=== PATIENT | male | born 1940 | race Caucasian/White ===

== ENCOUNTER 2021-10-03 13:08 | Inpatient (IN) | payer MEDICARE, SELFPAY ==
--- NOTE | ~2021-10-03 | XR_ITS ---
EXAMINATION: XR CHEST CLINICAL INFORMATION: COPD exacerbation COMPARISON: Previous chest x-ray most recent 01/04/2022 TECHNIQUE: Frontal view of the chest was obtained. FINDINGS: The cardiac and mediastinal contours are stable. There is biapical pleural parenchymal scarring. There is question of atelectasis or small infiltrate at the right lung base. The lungs are otherwise clear. There is no pleural effusion or pneumothorax. There are degenerative changes of the spine. XR/XR chest 1V IMPRESSION: Well-inflated lungs. Question atelectasis or small infiltrate at the right lung base.
--- NOTE | ~2021-10-03 | XR_ITS ---
EXAMINATION: XR CHEST CLINICAL INFORMATION: Altered mental status. COMPARISON: None TECHNIQUE: Frontal view of the chest was obtained. FINDINGS: The lungs show generalized hyperinflation and coarsened interstitial markings bilaterally. The heart and mediastinal structures are unremarkable. XR/XR chest 1V IMPRESSION: Pulmonary findings are nonspecific, but suggest possible COPD with chronic changes. Focal consolidation is not seen. Given there are no previous studies bowel for comparison, if symptoms persist or worsen, short-term repeat radiographic follow-up is recommended as clinically indicated.
--- NOTE | ~2021-10-03 | CT_ITS ---
EXAMINATION: CT HEAD WITHOUT CONTRAST CLINICAL INFORMATION: Acute mental status change COMPARISON: None TECHNIQUE: Contiguous axial imaging was performed from the skull base to vertex without intravenous administration of contrast. This CT examination was performed using dose optimization techniques as appropriate, variously including the following: *Automated exposure control *Adjustment of mA and/or kV according to patient size (this includes techniques or standardized protocols for targeted exams where dose is matched to indication/reason for exam; i.e. extremities or head) *Use of iterative reconstruction technique DLP: 640 mGy-cm FINDINGS: There is no evidence of an extra-axial collection. There is no evidence of intra-axial or extra-axial hemorrhage. The ventricles and extra-axial CSF spaces are prominent suggestive of mild generalized atrophy. There is mild nonspecific periventricular white matter disease. No mass, mass effect or infarct is seen. There are inflammatory changes seen in the paranasal sinuses. Mastoid air cells and middle ears are clear. No skull fracture or bone lesion is seen. CT/CT head/brain wo con IMPRESSION: No acute findings. Mild generalized atrophy and nonspecific periventricular white matter disease. Laboratory changes in the sinuses.
--- NOTE | ~2021-10-03 | XR_ITS ---
EXAMINATION: XR CHEST CLINICAL INFORMATION: Covid and fever. COMPARISON: None TECHNIQUE: Frontal view of the chest was obtained. FINDINGS: The lungs are well-expanded with patchy opacity seen in both upper lobes likely developing infiltrates, new since 10/03/2021. There is underlying hyperinflation and mild scarring in the lung bases. XR/XR chest 1V IMPRESSION: New patchy opacities in both upper lobes likely infiltrates. There are bilateral lower lobe patchy opacities unchanged from previous exam likely chronic scarring or atelectasis.
--- NOTE | ~2021-10-03 | CT_ITS ---
EXAMINATION: CT ANGIOGRAM OF THE CHEST WITH AND WITHOUT CONTRAST (CT PULMONARY ANGIOGRAM FOR PE) CLINICAL INFORMATION: Reason for Exam tachycardia, elevated ddimer COMPARISON: Previous chest x-ray from yesterday TECHNIQUE: Prior to contrast administration, noncontrast localization images were obtained. Subsequently, multidetector volumetric imaging was performed from the thoracic inlet to below the diaphragms following the administration of 70 mL Omnipaque 350 intravenous contrast. No contrast reaction reported Sagittal, coronal, and MIP oblique sagittal reformatted images were obtained on the CT workstation, uploaded to PACS, and reviewed. This CT examination was performed using dose optimization techniques as appropriate, variously including the following: *Automated exposure control *Adjustment of mA and/or kV according to patient size (this includes techniques or standardized protocols for targeted exams where dose is matched to indication/reason for exam; i.e. extremities or head) *Use of iterative reconstruction technique Total exam dose-length product 240 mGy-cm FINDINGS: QUALITY OF STUDY/CONTRAST BOLUS: Satisfactory. PULMONARY ARTERIES: No central or segmental pulmonary emboli. THORACIC AORTA: No aneurysm or dissection. There is evidence of atherosclerotic disease and plaque in the thoracic aorta. LUNG: There is evidence of emphysema. There is biapical pleural parenchymal scarring. There is an irregularly-shaped nodular density in the left upper lobe measuring 9 x 12 mm axial image 10 series 5. There is a 6 mm posterior segment right upper lobe nodule axial image 22 series 6. There is evidence of mild airways disease with increased peribronchial attenuation and small peribronchial nodules in the left upper lobe and lingula. There is bilateral lower lobe airways disease/bronchopneumonia with bronchial wall thickening, bronchial soft tissue opacification/mucus plugging and peribronchial nodules and opacities, left greater than right. There is mild airways disease and parenchymal opacities in the right middle lobe probably representing bronchopneumonia as well. PLEURA: No pleural effusion or pneumothorax. MEDIASTINUM: Normal heart size. No pericardial effusion. No hilar or mediastinal lymphadenopathy. No evidence of septal bowing or right heart strain. CHEST WALL/AXILLA: No axillary or internal mammary lymphadenopathy. OSSEOUS STRUCTURES: No acute or suspicious osseous abnormality. UPPER ABDOMEN: Unremarkable. No reflux of contrast into the hepatic veins to suggest elevated right heart pressures. CT/CT angio chest PE protocol IMPRESSION: No evidence of pulmonary embolism. Airways disease and bronchopneumonia, greatest in the lower lobes. Emphysema. Chest CT follow-up following treatment in several months recommended. VTE: negative
--- NOTE | ~2021-10-03 | XR_ITS ---
EXAMINATION: XR CHEST CLINICAL INFORMATION: Shortness of breath. COMPARISON: Previous chest x-ray most recent September 2021. TECHNIQUE: Frontal view of the chest was obtained. FINDINGS: The cardiac and mediastinal contours are stable. The lungs are well inflated. There is biapical pleural and parenchymal scarring. There are increased markings in the right upper lobe and right perihilar region. This may represent a small infiltrate. There are symmetric nodular densities at both lung bases probably representing nipple shadows. There is no pleural effusion or pneumothorax. There is a recent appearing left posterior 7th rib fracture. There are old left posterior 9th and 10th rib fractures. There is no pleural effusion or pneumothorax. XR/XR chest 1V IMPRESSION: Well-inflated lungs. Question right upper lobe and perihilar infiltrate. Recent appearing left posterior 7th rib fracture.
[2021-10-03 13:10] VITALS: BP 104/68; BP 120/58; PULSE 101; PULSE 96; RESP 16; TEMP 36.9; O2SAT 96; O2SAT 98; BMI 20.9
--- NOTE | 2021-10-03 13:11 | ED_ITS ---
HPI - Altered Mental Status General Chief Complaint: Altered Mental Status Stated Complaint: ams Time Seen by Provider: 10/03/21 13:11 Source: patient and EMS Mode of arrival: EMS Limitations: altered mental status History of Present Illness complaint: other Onset (ago): week(s) (1? has not been seen at his frequent bar by friends) Timing confirmed by: other Consistency of symptoms: unknown Context: alcohol abuse (goes to the bar regularly) Associated symptoms: denies other symptoms Related Data Home Medications Medication Instructions Recorded Confirmed No Known Home Meds 10/03/21 10/03/21 Allergies Allergy/AdvReac Type Severity Reaction Status Date / Time No Known Allergies Allergy Verified 10/03/21 13:15 Review of Systems Review of Systems: ROS unable to be obtained due to altered mental status PMFSH Past Medical History Medical History No known health problems Social History Social History (Updated 10/03/21 @ 13:38 by Anastasiia Lopez DO) Alcohol intake: unknown Patient Tobacco Use Status: Tobacco use Unknown Use of substances other than those prescribed or required for medical reasons: No Advance Directives: No Advance Directives Information Provided: No Physical Exam Vital Signs: Vital Signs: Last Vital Signs Temp 97.7 F 10/03/21 15:47 Pulse 89 10/03/21 15:47 Resp 18 10/03/21 15:47 BP 100/49 L 10/03/21 15:47 Pulse Ox 98 10/03/21 15:47 BMI result Body Mass Index 20.9 Appearance: Alert. Oriented X1. No acute distress. Frail and cachectic Eyes: Pupils equal, round and reactive to light. ENT: Pharynx normal. Neck: Normal inspection. Neck supple. CVS: Normal heart rate and rhythm. Pulses normal. Respiratory: No respiratory distress. Breath sounds normal. Abdomen: Soft and non-tender. Skin: Skin warm and dry. Normal skin color. Normal skin turgor. Extremities: No lower extremity edema. No calf ttp Neuro: Oriented X 1. No motor deficit. No sensory deficit. Course Course Course Narrative: emergency contact listed - number no longer in service MDM - Altered Mental Status MDM Narrative Medical decision making narrative: 81 yo male with no known history here with c/o confusion he knows who and where he is but not time, he keeps asking questions such as when asked how are you he states well how are you? He is thin and frail and has no signs of trauma. He denies any issues. Will obtain labs, tox workup, CT head for ICH, IV thiamine. Dispo per results and workup Lab Data Result diagrams: 10/03/21 14:01 10/03/21 14:01 Labs: Lab Results 10/03/21 10/03/21 10/03/21 Range/Units 14: 14: 14:01 WBC 23.2 H (4.8-10.8) X10*3/uL RBC 4.17 L (4.60-5.80) X10*6/uL Hgb 12.3 L (14.0-18.0) g/dl Hct 37.5 L (42.0-52.0) % MCV 89.9 (80.0-98.0) fL MCH 29.5 (27.0-33.0) pg MCHC 32.8 (31.0-36.0) g/dl RDW 13.3 (11.0-16.0) % Plt Count 504 H (160-400) X10*3/uL MPV 9.4 (9.4-12.4) fL Immature Gran % (Auto) 0.7 H (0.0-0.4) % Neut % (Auto) 91.0 H (45-73) % Lymph % (Auto) 2.8 L (20-40) % [place] % (Auto) 5.4 (2-11) % Eos % (Auto) 0.0 (0-4) % Baso % (Auto) 0.1 (0-2) % Lymph # (Auto) 0.6 L (1.2-4.9) X10*3/uL [place] # (Auto) 1.3 H (0.1-1.2) X10*3/uL Eos # (Auto) 0.0 (0.0-0.4) X10*3/uL Baso # (Auto) 0.0 (0.0-0.2) X10*3/uL Abs Immat Gran (auto) 0.17 H (0.00-0.03) X10*3/uL Absolute Neuts (auto) 21.1 H (2.0-8.3) x10*3/uL Absolute Nucleated RBC 0.000 (0.0-0.012) X10*3/uL Nucleated RBC % (auto) 0.0 (0.0-0.2) /100WBC Smear Tech's Comments VERIFIED VBG pH (7.32-7.43) VBG pCO2 mmHg VBG pO2 mmHg VBG HCO3 (22-26) mmol/L VBG O2 Saturation % VBG Base Excess mmol/L Sodium 131 L (135-145) mmol/L Potassium 3.8 (3.3-5.1) mmol/L Chloride 92 L (96-108) mmol/L Carbon Dioxide 23 (22-29) mmol/L Anion Gap 20 (12-20) BUN 44 H (9-16) mg/dL Creatinine 1.57 H (0.5-1.4) mg/dL Estim Creat Clear Calc 31.8 Estimated GFR 43 Random Glucose 85 (60-115) mg/dL Lactic Acid (0.5-2.0) mmol/L Calcium 8.5 (8.4-10.2) mg/dL Magnesium 2.4 (1.6-2.6) mg/dL Total Bilirubin 0.9 (0.0-1.0) mg/dL Direct Bilirubin 0.5 (0.0-0.5) mg/dL AST 40 H (5-37) U/L ALT 20 (0-40) U/L Alkaline Phosphatase 77 (39-117) U/L Ammonia (13-55) umol/L Total Creatine Kinase 96 (38-174) U/L Troponin I High Sens 116.8 H* (<3.5-35.0) ng/L Total Protein 6.4 L (6.5-8.0) g/dL Albumin 2.9 L (3.5-5.0) g/dL Lipase 31 (8-78) U/L TSH 0.86 (0.32-4.0) uIU/mL Urine Color Urine Appearance Urine pH (5.0-8.0) Ur Specific [place] (1.005-1.025) Urine Protein (NEG-TRACE) MG/DL Urine Glucose (UA) (NEG) MG/DL Urine Ketones (NEG) MG/DL Urine Blood (NEG) Urine Nitrite (NEG) Ur Leukocyte Esterase (NEG) Salicylates < 5.0 L (15-30) mg/dL Urine Opiates Screen (Not Detect) Urine Fentanyl Screen (Not Detect) Acetaminophen < 1 (<30) mcg/mL Ur Barbiturates Screen (Not Detect) Ur Phencyclidine Scrn (Not Detect) Ur Amphetamines Screen (Not Detect) U Benzodiazepines Scrn (Not Detect) Urine Cocaine Screen (Not Detect) U Marijuana (THC) Screen (Not Detect) Ethyl Alcohol mg/dL COVID-19 ([facility]NACIO) (Negative) COVID-19 Clin Com 10/03/21 10/03/21 10/03/21 Range/Units 14:05 14:05 14:06 WBC (4.8-10.8) X10*3/uL RBC (4.60-5.80) X10*6/uL Hgb (14.0-18.0) g/dl Hct (42.0-52.0) % MCV (80.0-98.0) fL MCH (27.0-33.0) pg MCHC (31.0-36.0) g/dl RDW (11.0-16.0) % Plt Count (160-400) X10*3/uL MPV (9.4-12.4) fL Immature Gran % (Auto) (0.0-0.4) % Neut % (Auto) (45-73) % Lymph % (Auto) (20-40) % [place] % (Auto) (2-11) % Eos % (Auto) (0-4) % Baso % (Auto) (0-2) % Lymph # (Auto) (1.2-4.9) X10*3/uL [place] # (Auto) (0.1-1.2) X10*3/uL Eos # (Auto) (0.0-0.4) X10*3/uL Baso # (Auto) (0.0-0.2) X10*3/uL Abs Immat Gran (auto) (0.00-0.03) X10*3/uL Absolute Neuts (auto) (2.0-8.3) x10*3/uL Absolute Nucleated RBC (0.0-0.012) X10*3/uL Nucleated RBC % (auto) (0.0-0.2) /100WBC Smear Tech's Comments VBG pH 7.40 (7.32-7.43) VBG pCO2 37 mmHg VBG pO2 30 mmHg VBG HCO3 23 (22-26) mmol/L VBG O2 Saturation 34.0 % VBG Base Excess -0.5 mmol/L Sodium (135-145) mmol/L Potassium (3.3-5.1) mmol/L Chloride (96-108) mmol/L Carbon Dioxide (22-29) mmol/L Anion Gap (12-20) BUN (9-16) mg/dL Creatinine (0.5-1.4) mg/dL Estim Creat Clear Calc Estimated GFR Random Glucose (60-115) mg/dL Lactic Acid 1.4 (0.5-2.0) mmol/L Calcium (8.4-10.2) mg/dL Magnesium (1.6-2.6) mg/dL Total Bilirubin (0.0-1.0) mg/dL Direct Bilirubin (0.0-0.5) mg/dL AST (5-37) U/L ALT (0-40) U/L Alkaline Phosphatase (39-117) U/L Ammonia 28 (13-55) umol/L Total Creatine Kinase (38-174) U/L Troponin I High Sens (<3.5-35.0) ng/L Total Protein (6.5-8.0) g/dL Albumin (3.5-5.0) g/dL Lipase (8-78) U/L TSH (0.32-4.0) uIU/mL Urine Color Urine Appearance Urine pH (5.0-8.0) Ur Specific [place] (1.005-1.025) Urine Protein (NEG-TRACE) MG/DL Urine Glucose (UA) (NEG) MG/DL Urine Ketones (NEG) MG/DL Urine Blood (NEG) Urine Nitrite (NEG) Ur Leukocyte Esterase (NEG) Salicylates (15-30) mg/dL Urine Opiates Screen (Not Detect) Urine Fentanyl Screen (Not Detect) Acetaminophen (<30) mcg/mL Ur Barbiturates Screen (Not Detect) Ur Phencyclidine Scrn (Not Detect) Ur Amphetamines Screen (Not Detect) U Benzodiazepines Scrn (Not Detect) Urine Cocaine Screen (Not Detect) U Marijuana (THC) Screen (Not Detect) Ethyl Alcohol mg/dL COVID-19 ([facility]CIO) (Negative) COVID-19 Clin Com 10/03/21 10/03/21 10/03/21 Range/Units 14:34 15:46 15:46 WBC (4.8-10.8) X10*3/uL RBC (4.60-5.80) X10*6/uL Hgb (14.0-18.0) g/dl Hct (42.0-52.0) % MCV (80.0-98.0) fL MCH (27.0-33.0) pg MCHC (31.0-36.0) g/dl RDW (11.0-16.0) % Plt Count (160-400) X10*3/uL MPV (9.4-12.4) fL Immature Gran % (Auto) (0.0-0.4) % Neut % (Auto) (45-73) % Lymph % (Auto) (20-40) % [place] % (Auto) (2-11) % Eos % (Auto) (0-4) % Baso % (Auto) (0-2) % Lymph # (Auto) (1.2-4.9) X10*3/uL [place] # (Auto) (0.1-1.2) X10*3/uL Eos # (Auto) (0.0-0.4) X10*3/uL Baso # (Auto) (0.0-0.2) X10*3/uL Abs Immat Gran (auto) (0.00-0.03) X10*3/uL Absolute Neuts (auto) (2.0-8.3) x10*3/uL Absolute Nucleated RBC (0.0-0.012) X10*3/uL Nucleated RBC % (auto) (0.0-0.2) /100WBC Smear Tech's Comments VBG pH (7.32-7.43) VBG pCO2 mmHg VBG pO2 mmHg VBG HCO3 (22-26) mmol/L VBG O2 Saturation % VBG Base Excess mmol/L Sodium (135-145) mmol/L Potassium (3.3-5.1) mmol/L Chloride (96-108) mmol/L Carbon Dioxide (22-29) mmol/L Anion Gap (12-20) BUN (9-16) mg/dL Creatinine (0.5-1.4) mg/dL Estim Creat Clear Calc Estimated GFR Random Glucose (60-115) mg/dL Lactic Acid (0.5-2.0) mmol/L Calcium (8.4-10.2) mg/dL Magnesium (1.6-2.6) mg/dL Total Bilirubin (0.0-1.0) mg/dL Direct Bilirubin (0.0-0.5) mg/dL AST (5-37) U/L ALT (0-40) U/L Alkaline Phosphatase (39-117) U/L Ammonia (13-55) umol/L Total Creatine Kinase (38-174) U/L Troponin I High Sens (<3.5-35.0) ng/L Total Protein (6.5-8.0) g/dL Albumin (3.5-5.0) g/dL Lipase (8-78) U/L TSH (0.32-4.0) uIU/mL Urine Color YELLOW Urine Appearance CLEAR Urine pH 5.5 (5.0-8.0) Ur Specific [place] 1.020 (1.005-1.025) Urine Protein NEG (NEG-TRACE) MG/DL Urine Glucose (UA) NEG (NEG) MG/DL Urine Ketones 15 (NEG) MG/DL Urine Blood TRACE (NEG) Urine Nitrite NEG (NEG) Ur Leukocyte Esterase NEG (NEG) Salicylates (15-30) mg/dL Urine Opiates Screen Not Detected (Not Detect) Urine Fentanyl Screen Not Detected (Not Detect) Acetaminophen (<30) mcg/mL Ur Barbiturates Screen Not Detected (Not Detect) Ur Phencyclidine Scrn Not Detected (Not Detect) Ur Amphetamines Screen Not Detected (Not Detect) U Benzodiazepines Scrn Not Detected (Not Detect) Urine Cocaine Screen Not Detected (Not Detect) U Marijuana (THC) Screen Not Detected (Not Detect) Ethyl Alcohol < 10 mg/dL COVID-19 ([facility]) (Negative) COVID-19 Clin Com 10/03/21 Range/Units Unknown WBC (4.8-10.8) X10*3/uL RBC (4.60-5.80) X10*6/uL Hgb (14.0-18.0) g/dl Hct (42.0-52.0) % MCV (80.0-98.0) fL MCH (27.0-33.0) pg MCHC (31.0-36.0) g/dl RDW (11.0-16.0) % Plt Count (160-400) X10*3/uL MPV (9.4-12.4) fL Immature Gran % (Auto) (0.0-0.4) % Neut % (Auto) (45-73) % Lymph % (Auto) (20-40) % [place] % (Auto) (2-11) % Eos % (Auto) (0-4) % Baso % (Auto) (0-2) % Lymph # (Auto) (1.2-4.9) X10*3/uL [place] # (Auto) (0.1-1.2) X10*3/uL Eos # (Auto) (0.0-0.4) X10*3/uL Baso # (Auto) (0.0-0.2) X10*3/uL Abs Immat Gran (auto) (0.00-0.03) X10*3/uL Absolute Neuts (auto) (2.0-8.3) x10*3/uL Absolute Nucleated RBC (0.0-0.012) X10*3/uL Nucleated RBC % (auto) (0.0-0.2) /100WBC Smear Tech's Comments VBG pH (7.32-7.43) VBG pCO2 mmHg VBG pO2 mmHg VBG HCO3 (22-26) mmol/L VBG O2 Saturation % VBG Base Excess mmol/L Sodium (135-145) mmol/L Potassium (3.3-5.1) mmol/L Chloride (96-108) mmol/L Carbon Dioxide (22-29) mmol/L Anion Gap (12-20) BUN (9-16) mg/dL Creatinine (0.5-1.4) mg/dL Estim Creat Clear Calc Estimated GFR Random Glucose (60-115) mg/dL Lactic Acid (0.5-2.0) mmol/L Calcium (8.4-10.2) mg/dL Magnesium (1.6-2.6) mg/dL Total Bilirubin (0.0-1.0) mg/dL Direct Bilirubin (0.0-0.5) mg/dL AST (5-37) U/L ALT (0-40) U/L Alkaline Phosphatase (39-117) U/L Ammonia (13-55) umol/L Total Creatine Kinase (38-174) U/L Troponin I High Sens (<3.5-35.0) ng/L Total Protein (6.5-8.0) g/dL Albumin (3.5-5.0) g/dL Lipase (8-78) U/L TSH (0.32-4.0) uIU/mL Urine Color Urine Appearance Urine pH (5.0-8.0) Ur Specific [place] (1.005-1.025) Urine Protein (NEG-TRACE) MG/DL Urine Glucose (UA) (NEG) MG/DL Urine Ketones (NEG) MG/DL Urine Blood (NEG) Urine Nitrite (NEG) Ur Leukocyte Esterase (NEG) Salicylates (15-30) mg/dL Urine Opiates Screen (Not Detect) Urine Fentanyl Screen (Not Detect) Acetaminophen (<30) mcg/mL Ur Barbiturates Screen (Not Detect) Ur Phencyclidine Scrn (Not Detect) Ur Amphetamines Screen (Not Detect) U Benzodiazepines Scrn (Not Detect) Urine Cocaine Screen (Not Detect) U Marijuana (THC) Screen (Not Detect) Ethyl Alcohol mg/dL COVID-19 ([facility]CIO) Positive A (Negative) COVID-19 Clin Com See Note Discharge Plan Discharge Clinical Impression: COVID-19, Acute dehydration, Elevated troponin Altered mental status Qualifiers: Altered mental status type: unspecified Qualified Code(s): R41.82 - Altered mental status, unspecified Leukocytosis Qualifiers: Leukocytosis type: unspecified Qualified Code(s): D72.829 - Elevated white blood cell count, unspecified Patient Disposition: Admitted As Inpatient
--- NOTE | 2021-10-03 13:16 | ECG_ITS ---
Test Reason : AMS Blood Pressure : / mmHG Vent. Rate : 085 BPM Atrial Rate : 085 BPM P-R Int : 112 ms QRS Dur : 086 ms QT Int : 394 ms P-R-T Axes : 087 070 074 degrees QTc Int : 468 ms Normal sinus rhythm Normal ECG No previous ECGs available Referred By: Anastasiia Lopez Electronically Signed By:Shane Argueta
[2021-10-03 14:00] VITALS: BP 91/48; PULSE 63; RESP 18; O2SAT 98
[2021-10-03 14:09] LABS: Basophils Percent Auto 0.1 % (0-2); Hematocrit 37.5 % (42.0-52.0); Hemoglobin 12.3 g/dl (14.0-18.0); Imm Gran Abs Auto 0.17 X10*3/uL (0.00-0.03); Imm Gran Pct Auto 0.7 % (0.0-0.4); Lymphocytes Absolute Auto 0.6 X10*3/uL (1.2-4.9); Lymphocytes Percent Auto 2.8 % (20-40); MANUAL DIFF FLAG SCAN; Mean Corpuscular HGB Conc 32.8 g/dl (31.0-36.0); Mean Corpuscular Hemoglobin 29.5 pg (27.0-33.0); Mean Corpuscular Volume 89.9 fL (80.0-98.0); Mean Platelet Volume 9.4 fL (9.4-12.4); Monocytes Absolute Auto 1.3 X10*3/uL (0.1-1.2); Monocytes Percent Auto 5.4 % (2-11); Neutrophils Absolute Auto 21.1 x10*3/uL (2.0-8.3); Platelet Count 504 X10*3/uL (160-400); Red Blood Count 4.17 X10*6/uL (4.60-5.80); Red Cell Distribution Width 13.3 % (11.0-16.0); SCAN SMEAR FLAG 1; White Blood Count 23.2 X10*3/uL (4.8-10.8)
[2021-10-03] MEDS: Thiamine HCL 200 MG in 0.9 % Sodium Chloride 100 ML 204 MG IV (14:09)
[2021-10-03 14:11] LABS: Venous Blood Gas Refer to POC result
[2021-10-03 14:12] LABS: VBG Base Excess -0.5 mmol/L; VBG HCO3 23 mmol/L (22-26); VBG pCO2 37 mmHg; VBG pO2 30 mmHg
--- NOTE | 2021-10-03 14:15 | PHA.MEDREC ---
Pharmacy Consult ? Medication Reconciliation Pharmacy has completed the medication reconciliation. Patient confused and his answers to questions I was asking about home meds were not making sense. Contact number listed for [facility] is not a working number. no claim history. Will follow up in AM to see if anything has changed.
[2021-10-03 14:25] LABS: Ammonia 28 umol/L (13-55)
[2021-10-03 14:28] LABS: Acetaminophen LAB < 1 mcg/mL (<30); Alanine Aminotransferase 20 U/L (0-40); Albumin Level 2.9 g/dL (3.5-5.0); Alkaline Phosphatase 77 U/L (39-117); Anion Gap 20 (12-20); Aspartate Amino Transferase 40 U/L (5-37); Bilirubin Direct 0.5 mg/dL (0.0-0.5); Bilirubin Total 0.9 mg/dL (0.0-1.0); Blood Urea Nitrogen 44 mg/dL (9-16); Calcium 8.5 mg/dL (8.4-10.2); Carbon Dioxide 23 mmol/L (22-29); Chloride 92 mmol/L (96-108); Creatinine Clr Calc Pharmacy 31.8; Estimated Glomerular Filt Rate 43; Glucose Random 85 mg/dL (60-115); Lipase 31 U/L (8-78); Magnesium 2.4 mg/dL (1.6-2.6); Potassium 3.8 mmol/L (3.3-5.1); Salicylate < 5.0 mg/dL (15-30); Sodium 131 mmol/L (135-145); Total Protein 6.4 g/dL (6.5-8.0)
[2021-10-03 14:28] LABS: Lactic Acid 1.4 mmol/L (0.5-2.0)
[2021-10-03 14:37] LABS: IDNOW Serial# 08D9AD1C
[2021-10-03 14:38] LABS: COVID-19 Test Positive (Negative)
[2021-10-03 14:38] LABS: SLIDE REVIEW VERIFIED
[2021-10-03 14:49] LABS: TSH reflex Free T4 0.86 uIU/mL (0.32-4.0)
[2021-10-03 14:53] LABS: Troponin-I High Sensitivity 116.8 ng/L (<3.5-35.0)
[2021-10-03 15:01] LABS: Ethanol < 10 mg/dL
[2021-10-03 15:47] VITALS: BP 100/49; PULSE 89; RESP 18; TEMP 36.5; O2SAT 98
[2021-10-03 16:00] VITALS: BP 98/52; PULSE 84; RESP 16; O2SAT 96
[2021-10-03 16:07] LABS: Appearance Urine CLEAR; Color Urine YELLOW; Glucose Urine UA NEG (NEG); Leukocyte Esterase Urine NEG (NEG); Nitrite Urine NEG (NEG); PH 5.5 (5.0-8.0); UACC Culture Trigger NO; Urine Blood TRACE (NEG); Urine Ketones 15 MG/DL (NEG); Urine Protein NEG (NEG-TRACE)
[2021-10-03 16:14] LABS: Amphetamine Screen Urine Not Detected (Not Detect); Barbiturates, Urine Not Detected (Not Detect); Benzodiazepines Screen Urine Not Detected (Not Detect); Cannabinoid Screen Urine Not Detected (Not Detect); Cocaine Screen Urine Not Detected (Not Detect); Fentanyl, urine Not Detected (Not Detect); Opiate Screen Urine Not Detected (Not Detect); Phencyclidine Screen Urine Not Detected (Not Detect)
[2021-10-03] MEDS: cefTRIAXone sodium 1 GM in 0.9 % Sodium Chloride 50 ML IV (16:24)
[2021-10-03] MEDS: 0.9 % Sodium Chloride 1,000 ML 999 ML IV (16:33)
[2021-10-03 16:35] LABS: Hyaline Casts Urine 0-2 /LPF; Mucus Urine TRACE /LPF; RBC Urine 0-2 /HPF (0); Squamous Epithelial Cell Urine TRACE /LPF; WBC Urine 0 /HPF (0-4)
--- NOTE | 2021-10-03 16:35 | PC.NURSE ---
Pt comes in with no complaints, bar pt frequents hadn't seen him in a few weeks and had a wellness check. Pt was covered in urine and confused per EMS. Pt is A & Ox2, does not know the time, he offers no complaints, dark urine, NSR, lungs diminished in the bases, + pulses, skin intact but sensitive to bruising. Pt denies any home medications or medical history. IV established, labs drawn, COVID+ precautions in place. Awaiting bed assignment. Will cotniue to monitor.
--- NOTE | 2021-10-03 16:40 | PM.IMHP ---
History of Present Illness Date of Service: 10/03/21 <Yaritza Hancock NP - Last Filed: 10/03/21 17:19> Attending physician on admission: Filipe Gold <Yaritza Hancock NP - Last Filed: 10/03/21 17:19> Chief Complaint: Confusion <Yaritza Hancock NP - Last Filed: 10/03/21 17:19> 81 year old man presenting with confusion. 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 He does have a history of alcohol abuse apparently drinking 12 beers a day however he reports he has been home and was not even sure how he got to the hospital. He has no signs of trauma but seems quite confused. He was noted to have his blood pressure low at 91/48. He was not noted to be hypoxic. His COVID test was positive. Sodium was noted to be 131, creatinine 1.57, troponin 116.8. U tox negative, urinalysis negative he, chest x-ray and head CT negative for any acute abnormality. In the ER he was given thiamine, folic acid, IV fluids, Rocephin. Her be admitted for further management treatment of acute encephalopathy and COVID-19 without hypoxia. <Yaritza Hancock NP - Last Filed: 10/03/21 17:19> Review of Systems Review of Systems: Yes Unobtainable due to mental status <Yaritza Hancock NP - Last Filed: 10/03/21 17:19> [facility] Medical History: Medical History No known health problems <Yaritza Hancock NP - Last Filed: 10/03/21 17:19> Social History: Social History (Updated 10/03/21 @ 13:38 by Anastasiia Lopez DO) Household Members: None Housing: Apartment Unable to assess alcohol history related to: Unknown Alcohol intake: never Patient Tobacco Use Status: Tobacco use Unknown Tobacco use type: Cigarette Second Hand Smoke Exposure: No service: No Current occupational status: retired <Yarizta Hancock NP - Last Filed: 10/03/21 17:19> Meds Allergies/Adverse reactions: Allergies Allergy/AdvReac Type Severity Reaction Status Date / Time No Known Allergies Allergy Verified 10/03/21 13:15 <Yaritza Hancock NP - Last Filed: 10/03/21 17:19> Active Medications: Current Medications Pharmacy Consult (Consult Rx Perform Med Rec) 1 each MISCELLANE ONCE PRN PRN Reason: Consult order <Yaritza Hancock NP - Last Filed: 10/03/21 17:19> Home medications: Home Medications Medication Instructions Recorded Confirmed Last Taken Type No Known Home Meds 10/03/21 10/03/21 Unknown History <Yaritza Hancock NP - Last Filed: 10/03/21 17:19> Physical Exam Vital Signs and Narrative: Vital Signs: Last Vital Signs Temp 97.7 F 10/03/21 15:47 Pulse 84 10/03/21 16:00 Resp 16 10/03/21 16:00 BP 98/52 L 10/03/21 16:00 Pulse Ox 96 10/03/21 16:00 BMI result Body Mass Index 20.9 <Yaritza Hancock NP - Last Filed: 10/03/21 17:19> Appearing in no acute distress head is normocephalic atraumatic eyes pupils are PERRLA sclera is anicteric mouth throat mucous membranes are intact and moist neck is supple no lymphadenopathy, no JVD noted lung sounds are clear to auscultation heart regular rate rhythm, clear S1, S2 positive bowel sounds, abdomen is soft, nontender neuro patient is alert, somewhat confused <Yaritza Hancock NP - Last Filed: 10/03/21 17:19> Results Labs CBC and Chem 7: : 10/05/21 06:38 10/05/21 06:38 <Yaritza Hancock NP - Last Filed: 10/03/21 17:19> Labs: Laboratory Results - last 24 hr 10/03/21 10/03/21 10/03/21 14:01 14:01 14:01 MCV 89.9 MCH 29.5 MCHC 32.8 RDW 13.3 Plt Count 504 H MPV 9.4 Immature Gran % (Auto) 0.7 H Neut % (Auto) 91.0 H Lymph % (Auto) 2.8 L [place] % (Auto) 5.4 Eos % (Auto) 0.0 Baso % (Auto) 0.1 Lymph # (Auto) 0.6 L [place] # (Auto) 1.3 H Eos # (Auto) 0.0 Baso # (Auto) 0.0 Abs Immat Gran (auto) 0.17 H Absolute Neuts (auto) 21.1 H Absolute Nucleated RBC 0.000 Nucleated RBC % (auto) 0.0 Smear Tech's Comments VERIFIED VBG pH VBG pCO2 VBG pO2 VBG HCO3 VBG O2 Saturation VBG Base Excess Anion Gap 20 Estim Creat Clear Calc 31.8 Estimated GFR 43 Random Glucose 85 Lactic Acid Calcium 8.5 Magnesium 2.4 Total Bilirubin 0.9 Direct Bilirubin 0.5 AST 40 H ALT 20 Alkaline Phosphatase 77 Ammonia Total Creatine Kinase 96 Troponin I High Sens 116.8 H* Total Protein 6.4 L Albumin 2.9 L Lipase 31 TSH 0.86 Urine Color Urine Appearance Urine pH Ur Specific [place] Urine Protein Urine Glucose (UA) Urine Ketones Urine Blood Urine Nitrite Ur Leukocyte Esterase Urine RBC Urine WBC Ur Squamous Epith Cells Urine Bacteria Hyaline Casts Urine Mucus Salicylates < 5.0 L Urine Opiates Screen Urine Fentanyl Screen Acetaminophen < 1 Ur Barbiturates Screen Ur Phencyclidine Scrn Ur Amphetamines Screen U Benzodiazepines Scrn Urine Cocaine Screen U Marijuana (THC) Screen Ethyl Alcohol COVID-19 (IGNACIO) COVID-19 Clin Com 10/03/21 10/03/21 10/03/21 14:05 14:05 14:06 MCV MCH MCHC RDW Plt Count MPV Immature Gran % (Auto) Neut % (Auto) Lymph % (Auto) [place] % (Auto) Eos % (Auto) Baso % (Auto) Lymph # (Auto) [place] # (Auto) Eos # (Auto) Baso # (Auto) Abs Immat Gran (auto) Absolute Neuts (auto) Absolute Nucleated RBC Nucleated RBC % (auto) Smear Tech's Comments VBG pH 7.40 VBG pCO2 37 VBG pO2 30 VBG HCO3 23 VBG O2 Saturation 34.0 VBG Base Excess -0.5 Anion Gap Estim Creat Clear Calc Estimated GFR Random Glucose Lactic Acid 1.4 Calcium Magnesium Total Bilirubin Direct Bilirubin AST ALT Alkaline Phosphatase Ammonia 28 Total Creatine Kinase Troponin I High Sens Total Protein Albumin Lipase TSH Urine Color Urine Appearance Urine pH Ur Specific [place] Urine Protein Urine Glucose (UA) Urine Ketones Urine Blood Urine Nitrite Ur Leukocyte Esterase Urine RBC Urine WBC Ur Squamous Epith Cells Urine Bacteria Hyaline Casts Urine Mucus Salicylates Urine Opiates Screen Urine Fentanyl Screen Acetaminophen Ur Barbiturates Screen Ur Phencyclidine Scrn Ur Amphetamines Screen U Benzodiazepines Scrn Urine Cocaine Screen U Marijuana (THC) Screen Ethyl Alcohol COVID-19 (IGNACIO) COVID-19 Clin Com 10/03/21 10/03/21 10/03/21 14:34 15:46 15:46 MCV MCH MCHC RDW Plt Count MPV Immature Gran % (Auto) Neut % (Auto) Lymph % (Auto) [place] % (Auto) Eos % (Auto) Baso % (Auto) Lymph # (Auto) [place] # (Auto) Eos # (Auto) Baso # (Auto) Abs Immat Gran (auto) Absolute Neuts (auto) Absolute Nucleated RBC Nucleated RBC % (auto) Smear Tech's Comments VBG pH VBG pCO2 VBG pO2 VBG HCO3 VBG O2 Saturation VBG Base Excess Anion Gap Estim Creat Clear Calc Estimated GFR Random Glucose Lactic Acid Calcium Magnesium Total Bilirubin Direct Bilirubin AST ALT Alkaline Phosphatase Ammonia Total Creatine Kinase Troponin I High Sens Total Protein Albumin Lipase TSH Urine Color YELLOW Urine Appearance CLEAR Urine pH 5.5 Ur Specific [place] 1.020 Urine Protein NEG Urine Glucose (UA) NEG Urine Ketones 15 Urine Blood TRACE Urine Nitrite NEG Ur Leukocyte Esterase NEG Urine RBC 0-2 Urine WBC 0 Ur Squamous Epith Cells TRACE Urine Bacteria NONE Hyaline Casts 0-2 Urine Mucus TRACE Salicylates Urine Opiates Screen Not Detected Urine Fentanyl Screen Not Detected Acetaminophen Ur Barbiturates Screen Not Detected Ur Phencyclidine Scrn Not Detected Ur Amphetamines Screen Not Detected U Benzodiazepines Scrn Not Detected Urine Cocaine Screen Not Detected U Marijuana (THC) Screen Not Detected Ethyl Alcohol < 10 COVID-19 (IGNACIO) COVID-19 Clin Com 10/03/21 Unknown MCV MCH MCHC RDW Plt Count MPV Immature Gran % (Auto) Neut % (Auto) Lymph % (Auto) [place] % (Auto) Eos % (Auto) Baso % (Auto) Lymph # (Auto) [place] # (Auto) Eos # (Auto) Baso # (Auto) Abs Immat Gran (auto) Absolute Neuts (auto) Absolute Nucleated RBC Nucleated RBC % (auto) Smear Tech's Comments VBG pH VBG pCO2 VBG pO2 VBG HCO3 VBG O2 Saturation VBG Base Excess Anion Gap Estim Creat Clear Calc Estimated GFR Random Glucose Lactic Acid Calcium Magnesium Total Bilirubin Direct Bilirubin AST ALT Alkaline Phosphatase Ammonia Total Creatine Kinase Troponin I High Sens Total Protein Albumin Lipase TSH Urine Color Urine Appearance Urine pH Ur Specific [place] Urine Protein Urine Glucose (UA) Urine Ketones Urine Blood Urine Nitrite Ur Leukocyte Esterase Urine RBC Urine WBC Ur Squamous Epith Cells Urine Bacteria Hyaline Casts Urine Mucus Salicylates Urine Opiates Screen Urine Fentanyl Screen Acetaminophen Ur Barbiturates Screen Ur Phencyclidine Scrn Ur Amphetamines Screen U Benzodiazepines Scrn Urine Cocaine Screen U Marijuana (THC) Screen Ethyl Alcohol COVID-19 (IGNACIO) Positive A COVID-19 Clin Com See Note <Yaritza Hancock NP - Last Filed: 10/03/21 17:19> Imaging Radiologist's Impressions: Impressions Chest X-Ray 10/03/21 14:08 IMPRESSION: Pulmonary findings are nonspecific, but suggest possible COPD with chronic changes. Focal consolidation is not seen. Given there are no previous studies bowel for comparison, if symptoms persist or worsen, short-term repeat radiographic follow-up is recommended as clinically indicated. Head CT 10/03/21 15:00 IMPRESSION: No acute findings. Mild generalized atrophy and nonspecific periventricular white matter disease. Laboratory changes in the sinuses. <Yaritza Hancock NP - Last Filed: 10/03/21 17:19> Assessment and Plan (1) COVID-19: Status: Acute <Yaritza Hancock NP - Last Filed: 10/03/21 17:19> (2) Leukocytosis: Qualifiers: Leukocytosis type: unspecified Qualified Code(s): D72.829 - Elevated white blood cell count, unspecified <Yaritza Hancock NP - Last Filed: 10/03/21 17:19> Status: Acute <Yaritza Hancock NP - Last Filed: 10/03/21 17:19> (3) Elevated troponin: Status: Acute <Yaritza Hancock NP - Last Filed: 10/03/21 17:19> (4) Toxic encephalopathy: Status: Acute <Yaritza Hancock NP - Last Filed: 10/03/21 17:19> 81 year old man admitted with covid 19 and confusion secondary to alcohol withdrawal Toxic Encephalopathy. possibly secondary to alcohol withdrawal, COVID-19 Follow neuro status Alcohol withdrawal Negative alcohol level Thiamine, folic acid ciwa scale, no need for phenobarb at this time. COVID-19. No hypoxia May use supplemental oxygen if needed at this time not requiring oxygen Follow closely for any changes Leukocytosis. No signs of infection other than viral COVID-19 trend Hyponatremia. Mild. Likely related to alcohol abuse Trend, if no improvement consider nephrology consultation LIZZIE. No baseline known Trend, if no improvement consider nephrology consultation Elevated troponin. No complaints of chest pain, no ischemic changes on EKG Repeat troponin Consult Cardiology Tobacco user. Discussed the importance of smoking cessation NRT DVT prophylaxis with heparin Attending Dr. Gold Full code <Yaritza Hancock NP - Last Filed: 10/03/21 17:19> 81 year old man admitted with covid 19 and confusion secondary to alcohol withdrawal Toxic Encephalopathy. possibly secondary to alcohol withdrawal, COVID-19 Follow neuro status Alcohol withdrawal Negative alcohol level Thiamine, folic acid ciwa scale, no need for phenobarb at this time. COVID-19. No hypoxia May use supplemental oxygen if needed at this time not requiring oxygen Follow closely for any changes Leukocytosis. No signs of infection other than viral COVID-19 trend Hyponatremia. Mild. Likely related to alcohol abuse Trend, if no improvement consider nephrology consultation LIZZIE. No baseline known Trend, if no improvement consider nephrology consultation Elevated troponin. No complaints of chest pain, no ischemic changes on EKG Repeat troponin Consult Cardiology Tobacco user. Discussed the importance of smoking cessation NRT DVT prophylaxis with heparin Attending Dr. Gold Full code I have personally examined the patient and review chart. Agree with H and P and plan of care as per Ms. Quarles <Filipe Gold, DO - Last Filed: 10/06/21 13:04> Quality Stroke Does the patient have a stroke diagnosis?: No <Yaritza Hancock NP - Last Filed: 10/03/21 17:19> VTE Prior VTE?: No <Yaritza Hancock NP - Last Filed: 10/03/21 17:19> VTE Risk Level:: Medical - moderate - high <Yaritza Hancock NP - Last Filed: 10/03/21 17:19> VTE Device Contraindication: Treatment Not Indicated <Yaritza Hancock NP - Last Filed: 10/03/21 17:19> VTE Drug Contraindication: N/A - Med Ordered <Yaritza Hancock NP - Last Filed: 10/03/21 17:19>
[2021-10-03 16:44] LABS: Prothrombin Time 22.8 SEC (9.9-13.0)
[2021-10-03 16:46] LABS: D Dimer High Sensitivity 438 NG/ML
[2021-10-03 16:47] LABS: Partial Thromboplastin Time 28.7 SEC (24.1-38.0)
[2021-10-03 16:59] VITALS: BP 100/59; PULSE 70; RESP 16; O2SAT 98
[2021-10-03 17:23] LABS: Lactate Dehydrogenase 207 U/L (118-273)
[2021-10-03 17:45] LABS: Ferritin 692 ng/mL (20-250)
[2021-10-03] MEDS: Heparin Sodium,Porcine 5,000 UNIT/ML VIAL 5000 UNIT SUBCUT (17:55)
--- NOTE | 2021-10-03 17:56 | PC.NURSE ---
OOB to commode with no assist. Large BM, medicated as per MAR orders. Pt offers no complaints at this time. Will continue to monitor.
[2021-10-03 18:03] LABS: Troponin-I High Sensitivity 122.6 ng/L (<3.5-35.0)
[2021-10-03 23:12] VITALS: BP 106/61; PULSE 81; RESP 18; O2SAT 96
--- NOTE | 2021-10-03 23:33 | PC.NURSE ---
I assumed care of this patient at 1900. The pt is sleeping in bed. He wakes to verbal stimuli at which time he is oriented to person, but not to place or time. He appears extremely thin with poor skin turgor. I have offered the patient PO food and fluids but he has refused. I have left PO food and fluids at the bedside in case the pt denies to eat and drink. he makes eye contact with RN and is calm and cooperative. He denies any pain. No CP. Respirations spontaneous and non-labored, RR 14, no cyanosis, he speaks in full sentences. SR noted on bedside monitor - rate 70's without ectopy. Will continue to monitor.
[2021-10-04] MEDS: 0.9 % Sodium Chloride Flush 3 ML SYRINGE IVFLUSH ×3 (00:18→14:35)
[2021-10-04 04:26] VITALS: BP 122/89; PULSE 69; RESP 21
[2021-10-04] MEDS: Heparin Sodium,Porcine 5,000 UNIT/ML VIAL 5000 UNIT SUBCUT ×2 (05:30→15:49)
[2021-10-04 05:33] VITALS: BP 114/53; PULSE 79; RESP 14; O2SAT 99
--- NOTE | 2021-10-04 05:34 | PC.NURSE ---
I assumed care of this pt at 1900. Since that time he has been resting comfortably in bed. Room air sats have maintained at 95% or better, RR WNL and non-labored, no cyanosis, speaking in full sentences. Dao has an occasional congested sounding non-productive cough. No chest pain. He remains calm and cooperative. VSS. Will continue to monitor.
[2021-10-04 06:35] LABS: MANUAL DIFF FLAG NO
[2021-10-04 06:43] LABS: Basophils Percent Auto 0.2 % (0-2); Eosinophils Percent Auto 0.2 % (0-4); Hematocrit 34.1 % (42.0-52.0); Imm Gran Abs Auto 0.11 X10*3/uL (0.00-0.03); Imm Gran Pct Auto 0.7 % (0.0-0.4); Lymphocytes Absolute Auto 1.1 X10*3/uL (1.2-4.9); Lymphocytes Percent Auto 6.9 % (20-40); Mean Corpuscular HGB Conc 32.3 g/dl (31.0-36.0); Mean Corpuscular Hemoglobin 29.7 pg (27.0-33.0); Mean Corpuscular Volume 92.2 fL (80.0-98.0); Mean Platelet Volume 9.8 fL (9.4-12.4); Monocytes Percent Auto 5.8 % (2-11); Neutrophils Absolute Auto 14.1 x10*3/uL (2.0-8.3); Neutrophils Percent Auto 86.2 % (45-73); Platelet Count 403 X10*3/uL (160-400); Red Cell Distribution Width 13.5 % (11.0-16.0); White Blood Count 16.3 X10*3/uL (4.8-10.8)
[2021-10-04 06:54] LABS: Anion Gap 21 (12-20); Blood Urea Nitrogen 38 mg/dL (9-16); Calcium 8.2 mg/dL (8.4-10.2); Carbon Dioxide 22 mmol/L (22-29); Chloride 95 mmol/L (96-108); Creatinine Clr Calc Pharmacy 37.5; Estimated Glomerular Filt Rate 52; Glucose Random 74 mg/dL (60-115); Potassium 3.5 mmol/L (3.3-5.1); Sodium 134 mmol/L (135-145)
[2021-10-04] MEDS: Folic Acid 1 MG TABLET PO (07:33)
[2021-10-04] MEDS: Thiamine HCL 100 MG TABLET PO (07:33)
--- NOTE | 2021-10-04 07:44 | PC.NURSE ---
pt changed over and repositioned in bed. pt requesting breakfast- sat up and given tray. pt aware of plan of care for admission and denied having any questions at this time.
[2021-10-04 08:14] LABS: Alanine Aminotransferase 16 U/L (0-40); Albumin Level 2.7 g/dL (3.5-5.0); Alkaline Phosphatase 72 U/L (39-117); Aspartate Amino Transferase 27 U/L (5-37); Bilirubin Direct 0.4 mg/dL (0.0-0.5); Bilirubin Total 0.7 mg/dL (0.0-1.0); Total Protein 6.1 g/dL (6.5-8.0)
[2021-10-04 08:41] VITALS: O2SAT 96
--- NOTE | 2021-10-04 08:41 | PC.NURSE ---
pt continues to get himself back into personal clothes not redirectable.
--- NOTE | 2021-10-04 09:40 | HO.PM.IMPN ---
Subjective Subjective Date of Service: 10/04/21 <Yaritza Hancock NP - Last Filed: 10/04/21 14:21> 10/07/21 <Filipe Gold DO - Last Filed: 10/07/21 12:47> Review of Systems Follow up Covid 19, toxic encephalopathy Somewhat better but only oriented to person and place Denies pain, shortness of breath all other systems are reviewed and are negative <Yaritza Hancock NP - Last Filed: 10/04/21 14:21> Physical Exam Vital Signs: Vital Signs: Last Vital Signs Temp 97.7 F 10/03/21 15:47 Pulse 79 10/04/21 05:33 Resp 14 10/04/21 05:33 BP 114/53 L 10/04/21 05:33 Pulse Ox 96 10/04/21 08:41 BMI result Body Mass Index 20.9 <Yaritza Hancock NP - Last Filed: 10/04/21 14:21> Appearing in no acute distress lung sounds are clear to auscultation heart regular rate rhythm, clear S1, S2 positive bowel sounds, abdomen is soft, nontender neuro patient is alert x3, no focal deficits <Yaritza Hancock NP - Last Filed: 10/04/21 14:21> Objective Data Active Medications Acetaminophen (Acetaminophen 325 Mg Tablet) 650 mg PO Q6H PRN PRN Reason: Pain, Mild (Pain Scale 1-3) Folic Acid (Folic Acid 1 Mg Tablet) 1 mg PO DAILY [facility] Last Admin: 10/04/21 07:33 Dose: 1 mg Documented by: NATALI Heparin Sodium (Porcine) (Heparin Sodium,Porcine 5,000 Unit/Ml Vial) 5,000 unit SUBCUT Q12H [facility] Last Admin: 10/04/21 05:30 Dose: 5,000 unit Documented by: DEN Ondansetron HCl (Ondansetron Hcl 4 Mg/2 Ml Vial) 4 mg IVPUSH Q8H PRN PRN Reason: Nausea and Vomiting Pharmacy Consult (Consult Rx Perform Med Rec) 1 each MISCELLANE ONCE PRN PRN Reason: Consult order Sodium Chloride (0.9 % Sodium Chloride Flush 3 Ml Syringe) 3 ml IVFLUSH QSHIFT [facility] Last Admin: 10/04/21 07:33 Dose: 3 ml Documented by: HO.FERSTE Thiamine HCl (Thiamine Hcl 100 Mg Tablet) 100 mg PO DAILY [facility] Last Admin: 10/04/21 07:33 Dose: 100 mg Documented by: NATALI <Yaritza Hancock NP - Last Filed: 10/04/21 14:21> Labs CBC & Chem 7: : 10/05/21 06:38 10/05/21 06:38 <Yaritza Hancock NP - Last Filed: 10/04/21 14:21> Labs: Laboratory Results - last 24 hr 10/03/21 10/03/21 10/03/21 14:01 14:01 14:01 MCV 89.9 MCH 29.5 MCHC 32.8 RDW 13.3 Plt Count 504 H MPV 9.4 Immature Gran % (Auto) 0.7 H Neut % (Auto) 91.0 H Lymph % (Auto) 2.8 L [place] % (Auto) 5.4 Eos % (Auto) 0.0 Baso % (Auto) 0.1 Lymph # (Auto) 0.6 L [place] # (Auto) 1.3 H Eos # (Auto) 0.0 Baso # (Auto) 0.0 Abs Immat Gran (auto) 0.17 H Absolute Neuts (auto) 21.1 H Absolute Nucleated RBC 0.000 Nucleated RBC % (auto) 0.0 Smear Tech's Comments VERIFIED PT INR APTT D-Dimer High Sensitivty VBG pH VBG pCO2 VBG pO2 VBG HCO3 VBG O2 Saturation VBG Base Excess Anion Gap 20 Estim Creat Clear Calc 31.8 Estimated GFR 43 Random Glucose 85 Lactic Acid Calcium 8.5 Magnesium 2.4 Ferritin 692 H Total Bilirubin 0.9 Direct Bilirubin 0.5 AST 40 H ALT 20 Alkaline Phosphatase 77 Ammonia Lactate Dehydrogenase 207 Total Creatine Kinase 96 Troponin I High Sens 116.8 H* Total Protein 6.4 L Albumin 2.9 L Lipase 31 TSH 0.86 Urine Color Urine Appearance Urine pH Ur Specific [place] Urine Protein Urine Glucose (UA) Urine Ketones Urine Blood Urine Nitrite Ur Leukocyte Esterase Urine RBC Urine WBC Ur Squamous Epith Cells Urine Bacteria Hyaline Casts Urine Mucus Salicylates < 5.0 L Urine Opiates Screen Urine Fentanyl Screen Acetaminophen < 1 Ur Barbiturates Screen Ur Phencyclidine Scrn Ur Amphetamines Screen U Benzodiazepines Scrn Urine Cocaine Screen U Marijuana (THC) Screen Ethyl Alcohol COVID-19 ([facility]) COVID-19 Clin Com 10/03/21 10/03/21 10/03/21 14:05 14:05 14:06 MCV MCH MCHC RDW Plt Count MPV Immature Gran % (Auto) Neut % (Auto) Lymph % (Auto) [place] % (Auto) Eos % (Auto) Baso % (Auto) Lymph # (Auto) [place] # (Auto) Eos # (Auto) Baso # (Auto) Abs Immat Gran (auto) Absolute Neuts (auto) Absolute Nucleated RBC Nucleated RBC % (auto) Smear Tech's Comments PT INR APTT D-Dimer High Sensitivty VBG pH 7.40 VBG pCO2 37 VBG pO2 30 VBG HCO3 23 VBG O2 Saturation 34.0 VBG Base Excess -0.5 Anion Gap Estim Creat Clear Calc Estimated GFR Random Glucose Lactic Acid 1.4 Calcium Magnesium Ferritin Total Bilirubin Direct Bilirubin AST ALT Alkaline Phosphatase Ammonia 28 Lactate Dehydrogenase Total Creatine Kinase Troponin I High Sens Total Protein Albumin Lipase TSH Urine Color Urine Appearance Urine pH Ur Specific [place] Urine Protein Urine Glucose (UA) Urine Ketones Urine Blood Urine Nitrite Ur Leukocyte Esterase Urine RBC Urine WBC Ur Squamous Epith Cells Urine Bacteria Hyaline Casts Urine Mucus Salicylates Urine Opiates Screen Urine Fentanyl Screen Acetaminophen Ur Barbiturates Screen Ur Phencyclidine Scrn Ur Amphetamines Screen U Benzodiazepines Scrn Urine Cocaine Screen U Marijuana (THC) Screen Ethyl Alcohol COVID-19 (IGNACIO) COVID-19 [employer] 10/03/21 10/03/21 10/03/21 14:34 15:46 15:46 MCV MCH MCHC RDW Plt Count MPV Immature Gran % (Auto) Neut % (Auto) Lymph % (Auto) [place] % (Auto) Eos % (Auto) Baso % (Auto) Lymph # (Auto) [place] # (Auto) Eos # (Auto) Baso # (Auto) Abs Immat Gran (auto) Absolute Neuts (auto) Absolute Nucleated RBC Nucleated RBC % (auto) Smear Tech's Comments PT INR APTT D-Dimer High Sensitivty VBG pH VBG pCO2 VBG pO2 VBG HCO3 VBG O2 Saturation VBG Base Excess Anion Gap Estim Creat Clear Calc Estimated GFR Random Glucose Lactic Acid Calcium Magnesium Ferritin Total Bilirubin Direct Bilirubin AST ALT Alkaline Phosphatase Ammonia Lactate Dehydrogenase Total Creatine Kinase Troponin I High Sens Total Protein Albumin Lipase TSH Urine Color YELLOW Urine Appearance CLEAR Urine pH 5.5 Ur Specific [place] 1.020 Urine Protein NEG Urine Glucose (UA) NEG Urine Ketones 15 Urine Blood TRACE Urine Nitrite NEG Ur Leukocyte Esterase NEG Urine RBC 0-2 Urine WBC 0 Ur Squamous Epith Cells TRACE Urine Bacteria NONE Hyaline Casts 0-2 Urine Mucus TRACE Salicylates Urine Opiates Screen Not Detected Urine Fentanyl Screen Not Detected Acetaminophen Ur Barbiturates Screen Not Detected Ur Phencyclidine Scrn Not Detected Ur Amphetamines Screen Not Detected U Benzodiazepines Scrn Not Detected Urine Cocaine Screen Not Detected U Marijuana (THC) Screen Not Detected Ethyl Alcohol < 10 COVID-19 ([facility]CIO) COVID-19 [employer] 10/03/21 10/03/21 10/03/21 16:21 17:13 Unknown MCV MCH MCHC RDW Plt Count MPV Immature Gran % (Auto) Neut % (Auto) Lymph % (Auto) [place] % (Auto) Eos % (Auto) Baso % (Auto) Lymph # (Auto) [place] # (Auto) Eos # (Auto) Baso # (Auto) Abs Immat Gran (auto) Absolute Neuts (auto) Absolute Nucleated RBC Nucleated RBC % (auto) Smear Tech's Comments PT 22.8 H INR 2.0 H APTT 28.7 D-Dimer High Sensitivty 438 VBG pH VBG pCO2 VBG pO2 VBG HCO3 VBG O2 Saturation VBG Base Excess Anion Gap Estim Creat Clear Calc Estimated GFR Random Glucose Lactic Acid Calcium Magnesium Ferritin Total Bilirubin Direct Bilirubin AST ALT Alkaline Phosphatase Ammonia Lactate Dehydrogenase Total Creatine Kinase Troponin I High Sens 122.6 H* Total Protein Albumin Lipase TSH Urine Color Urine Appearance Urine pH Ur Specific [place] Urine Protein Urine Glucose (UA) Urine Ketones Urine Blood Urine Nitrite Ur Leukocyte Esterase Urine RBC Urine WBC Ur Squamous Epith Cells Urine Bacteria Hyaline Casts Urine Mucus Salicylates Urine Opiates Screen Urine Fentanyl Screen Acetaminophen Ur Barbiturates Screen Ur Phencyclidine Scrn Ur Amphetamines Screen U Benzodiazepines Scrn Urine Cocaine Screen U Marijuana (THC) Screen Ethyl Alcohol COVID-19 ([facility]) Positive A COVID-19 [facility] See Note 10/04/21 10/04/21 06:20 06:20 MCV 92.2 MCH 29.7 MCHC 32.3 RDW 13.5 Plt Count 403 H MPV 9.8 Immature Gran % (Auto) 0.7 H Neut % (Auto) 86.2 H Lymph % (Auto) 6.9 L [place] % (Auto) 5.8 Eos % (Auto) 0.2 Baso % (Auto) 0.2 Lymph # (Auto) 1.1 L [place] # (Auto) 1.0 Eos # (Auto) 0.0 Baso # (Auto) 0.0 Abs Immat Gran (auto) 0.11 H Absolute Neuts (auto) 14.1 H Absolute Nucleated RBC 0.000 Nucleated RBC % (auto) 0.0 Smear Tech's Comments PT INR APTT D-Dimer High Sensitivty VBG pH VBG pCO2 VBG pO2 VBG HCO3 VBG O2 Saturation VBG Base Excess Anion Gap 21 H Estim Creat Clear Calc 37.5 Estimated GFR 52 Random Glucose 74 Lactic Acid Calcium 8.2 L Magnesium Ferritin Total Bilirubin 0.7 Direct Bilirubin 0.4 AST 27 ALT 16 Alkaline Phosphatase 72 Ammonia Lactate Dehydrogenase Total Creatine Kinase Troponin I High Sens Total Protein 6.1 L Albumin 2.7 L Lipase TSH Urine Color Urine Appearance Urine pH Ur Specific [place] Urine Protein Urine Glucose (UA) Urine Ketones Urine Blood Urine Nitrite Ur Leukocyte Esterase Urine RBC Urine WBC Ur Squamous Epith Cells Urine Bacteria Hyaline Casts Urine Mucus Salicylates Urine Opiates Screen Urine Fentanyl Screen Acetaminophen Ur Barbiturates Screen Ur Phencyclidine Scrn Ur Amphetamines Screen U Benzodiazepines Scrn Urine Cocaine Screen U Marijuana (THC) Screen Ethyl Alcohol COVID-19 ([facility]) COVID-19 Clin Com <Yaritza Hancock NP - Last Filed: 10/04/21 14:21> Assessment and Plan (1) Toxic encephalopathy: Status: Acute <Yaritza Hancock NP - Last Filed: 10/04/21 14:21> (2) COVID-19: Status: Acute <Yaritza Hancock NP - Last Filed: 10/04/21 14:21> (3) CAP (community acquired pneumonia): Status: Acute <Yaritza Hancock NP - Last Filed: 10/04/21 14:21> (4) Leukocytosis: Status: Acute <Yaritza Hancock NP - Last Filed: 10/04/21 14:21> Assessment and Plan: 81 year old man admitted with covid 19 and confusion secondary to alcohol withdrawal Tachycardia elevated ddimer CTA negative for PE Toxic Encephalopathy. possibly secondary to alcohol withdrawal vs alcohol dementia, COVID-19 somewhat better today but still confused Follow neuro status Alcohol withdrawal Negative alcohol level Thiamine, folic acid ciwa scale,? no need for phenobarb at this time. COVID-19 pneumonia, emphysema No hypoxia May use supplemental oxygen if needed at this time not requiring oxygen Follow closely for any changes Treat with rocephin and azithromcyin and decadron Leukocytosis.? Trending down No signs of infection other than viral COVID-19 trend Coagulopathy. INR 2.0 no bleeding noted normal LFT's Trend Hyponatremia.?improving Mild.? Likely related to alcohol abuse Trend, if no improvement consider nephrology consultation LIZZIE.? No baseline known Trend, if no improvement consider nephrology consultation Elevated troponin.? No complaints of chest pain, no ischemic changes on EKG Repeat troponin Consult Cardiology Tobacco user. Discussed the importance of smoking cessation NRT DVT prophylaxis with heparin Attending Dr. Gold Full code <Yaritza Hancock NP - Last Filed: 10/04/21 14:21> 81 year old man admitted with covid 19 and confusion secondary to alcohol withdrawal Tachycardia elevated ddimer CTA negative for PE Toxic Encephalopathy. possibly secondary to alcohol withdrawal vs alcohol dementia, COVID-19 somewhat better today but still confused Follow neuro status Alcohol withdrawal Negative alcohol level Thiamine, folic acid ciwa scale,? no need for phenobarb at this time. COVID-19 pneumonia, emphysema No hypoxia May use supplemental oxygen if needed at this time not requiring oxygen Follow closely for any changes Treat with rocephin and azithromcyin and decadron Leukocytosis.? Trending down No signs of infection other than viral COVID-19 trend Coagulopathy. INR 2.0 no bleeding noted normal LFT's Trend Hyponatremia.?improving Mild.? Likely related to alcohol abuse Trend, if no improvement consider nephrology consultation LIZZIE.? No baseline known Trend, if no improvement consider nephrology consultation Elevated troponin.? No complaints of chest pain, no ischemic changes on EKG Repeat troponin Consult Cardiology Tobacco user. Discussed the importance of smoking cessation NRT DVT prophylaxis with heparin Attending Dr. Gold Full code I have personally examined patient and reviewed documents. I agree with the history and physical and plan as outlined by Ms. Santi UMAÑA <iFlipe Gold, - Last Filed: 10/07/21 12:47> Quality Stroke Does the patient have a stroke diagnosis?: No <Yaritza Hancock NP - Last Filed: 10/04/21 14:21> VTE Prior VTE?: No <Yaritza Hancock NP - Last Filed: 10/04/21 14:21> VTE Risk Level:: Medical - moderate - high <Yaritza Hancock NP - Last Filed: 10/04/21 14:21> VTE Device Contraindication: Treatment Not Indicated <Yaritza Hancock NP - Last Filed: 10/04/21 14:21> VTE Drug Contraindication: N/A - Med Ordered <Yaritza Hancock NP - Last Filed: 10/04/21 14:21>
--- NOTE | 2021-10-04 10:23 | P.CONCA_ITS ---
History of Present Illness History of Present Illness Date of Service: 10/04/21 Requesting physician: Yaritza Hancock Chief complaint: covid, + troponin Narrative: 81-year-old gentleman who is presenting with confusion. He is code posture. Troponins are mildly elevated. Patient did not give me any history he said he does not know why he is here. In particular denying chest pain or shortness of breath. Appears he has alcoholism and was started on thiamine, folic acid and IV fluids. [facility] Past Medical History Medical History No known health problems Social History Social History (Updated 10/03/21 @ 13:38 by Anastasiia Lopez DO) Alcohol intake: never Patient Tobacco Use Status: Tobacco use Unknown Use of substances other than those prescribed or required for medical reasons: No Advance Directives: No Advance Directives Information Provided: No Meds Allergies Allergy/AdvReac Type Severity Reaction Status Date / Time No Known Allergies Allergy Verified 10/03/21 13:15 Active Medications: Current Medications Acetaminophen (Acetaminophen 325 Mg Tablet) 650 mg PO Q6H PRN PRN Reason: Pain, Mild (Pain Scale 1-3) Folic Acid (Folic Acid 1 Mg Tablet) 1 mg PO DAILY [facility] Last Admin: 10/04/21 07:33 Dose: 1 mg Documented by: Heparin Sodium (Porcine) (Heparin Sodium,Porcine 5,000 Unit/Ml Vial) 5,000 unit SUBCUT Q12H [facility] Last Admin: 10/04/21 05:30 Dose: 5,000 unit Documented by: Ondansetron HCl (Ondansetron Hcl 4 Mg/2 Ml Vial) 4 mg IVPUSH Q8H PRN PRN Reason: Nausea and Vomiting Pharmacy Consult (Consult Rx Perform Med Rec) 1 each MISCELLANE ONCE PRN PRN Reason: Consult order Sodium Chloride (0.9 % Sodium Chloride Flush 3 Ml Syringe) 3 ml IVFLUSH QSHIFT [facility] Last Admin: 10/04/21 07:33 Dose: 3 ml Documented by: Thiamine HCl (Thiamine Hcl 100 Mg Tablet) 100 mg PO DAILY [facility] Last Admin: 10/04/21 07:33 Dose: 100 mg Documented by: Home Medications Medication Instructions Recorded Confirmed Last Taken Type No Known Home Meds 10/03/21 10/03/21 Unknown History Physical Exam Vital Signs: Vital Signs: Last Vital Signs Temp 97.7 F 10/03/21 15:47 Pulse 79 10/04/21 05:33 Resp 14 10/04/21 05:33 BP 114/53 L 10/04/21 05:33 Pulse Ox 96 10/04/21 08:41 BMI result Body Mass Index 20.9 GENERAL APPEARANCE: in no acute distress. NECK: no carotid bruit, no jugular venous distention. SKIN: no suspicious lesions, warm and dry. HEART: no murmurs, regular tachycardia. LUNGS: clear to auscultation bilaterally. ABDOMEN: soft, nontender. EXTREMITIES: no edema. PERIPHERAL PULSES: equal. Objective Labs and Meds Result diagrams: 10/04/21 06:20 10/04/21 06:20 Lab results: Laboratory Results - last 24 hr 10/03/21 10/03/21 10/03/21 14:01 14:01 14:01 WBC 23.2 H RBC 4.17 L Hgb 12.3 L Hct 37.5 L MCV 89.9 MCH 29.5 MCHC 32.8 RDW 13.3 Plt Count 504 H MPV 9.4 Immature Gran % (Auto) 0.7 H Neut % (Auto) 91.0 H Lymph % (Auto) 2.8 L [place] % (Auto) 5.4 Eos % (Auto) 0.0 Baso % (Auto) 0.1 Lymph # (Auto) 0.6 L [place] # (Auto) 1.3 H Eos # (Auto) 0.0 Baso # (Auto) 0.0 Abs Immat Gran (auto) 0.17 H Absolute Neuts (auto) 21.1 H Absolute Nucleated RBC 0.000 Nucleated RBC % (auto) 0.0 Smear Tech's Comments VERIFIED PT INR APTT D-Dimer High Sensitivty VBG pH VBG pCO2 VBG pO2 VBG HCO3 VBG O2 Saturation VBG Base Excess Sodium 131 L Potassium 3.8 Chloride 92 L Carbon Dioxide 23 Anion Gap 20 BUN 44 H Creatinine 1.57 H Estim Creat Clear Calc 31.8 Estimated GFR 43 Random Glucose 85 Lactic Acid Calcium 8.5 Magnesium 2.4 Ferritin 692 H Total Bilirubin 0.9 Direct Bilirubin 0.5 AST 40 H ALT 20 Alkaline Phosphatase 77 Ammonia Lactate Dehydrogenase 207 Total Creatine Kinase 96 Troponin I High Sens 116.8 H* Total Protein 6.4 L Albumin 2.9 L Lipase 31 TSH 0.86 Urine Color Urine Appearance Urine pH Ur Specific [place] Urine Protein Urine Glucose (UA) Urine Ketones Urine Blood Urine Nitrite Ur Leukocyte Esterase Urine RBC Urine WBC Ur Squamous Epith Cells Urine Bacteria Hyaline Casts Urine Mucus Salicylates < 5.0 L Urine Opiates Screen Urine Fentanyl Screen Acetaminophen < 1 Ur Barbiturates Screen Ur Phencyclidine Scrn Ur Amphetamines Screen U Benzodiazepines Scrn Urine Cocaine Screen U Marijuana (THC) Screen Ethyl Alcohol COVID-19 (IGNACIO) COVID-19 [employer] Com 10/03/21 10/03/21 10/03/21 14:05 14:05 14:06 WBC RBC Hgb Hct MCV MCH MCHC RDW Plt Count MPV Immature Gran % (Auto) Neut % (Auto) Lymph % (Auto) [place] % (Auto) Eos % (Auto) Baso % (Auto) Lymph # (Auto) [place] # (Auto) Eos # (Auto) Baso # (Auto) Abs Immat Gran (auto) Absolute Neuts (auto) Absolute Nucleated RBC Nucleated RBC % (auto) Smear Tech's Comments PT INR APTT D-Dimer High Sensitivty VBG pH 7.40 VBG pCO2 37 VBG pO2 30 VBG HCO3 23 VBG O2 Saturation 34.0 VBG Base Excess -0.5 Sodium Potassium Chloride Carbon Dioxide Anion Gap BUN Creatinine Estim Creat Clear Calc Estimated GFR Random Glucose Lactic Acid 1.4 Calcium Magnesium Ferritin Total Bilirubin Direct Bilirubin AST ALT Alkaline Phosphatase Ammonia 28 Lactate Dehydrogenase Total Creatine Kinase Troponin I High Sens Total Protein Albumin Lipase TSH Urine Color Urine Appearance Urine pH Ur Specific [place] Urine Protein Urine Glucose (UA) Urine Ketones Urine Blood Urine Nitrite Ur Leukocyte Esterase Urine RBC Urine WBC Ur Squamous Epith Cells Urine Bacteria Hyaline Casts Urine Mucus Salicylates Urine Opiates Screen Urine Fentanyl Screen Acetaminophen Ur Barbiturates Screen Ur Phencyclidine Scrn Ur Amphetamines Screen U Benzodiazepines Scrn Urine Cocaine Screen U Marijuana (THC) Screen Ethyl Alcohol COVID-19 (IGNACIO) COVID-19 [employer] Com 10/03/21 10/03/21 10/03/21 14:34 15:46 15:46 WBC RBC Hgb Hct MCV MCH MCHC RDW Plt Count MPV Immature Gran % (Auto) Neut % (Auto) Lymph % (Auto) [place] % (Auto) Eos % (Auto) Baso % (Auto) Lymph # (Auto) [place] # (Auto) Eos # (Auto) Baso # (Auto) Abs Immat Gran (auto) Absolute Neuts (auto) Absolute Nucleated RBC Nucleated RBC % (auto) Smear Tech's Comments PT INR APTT D-Dimer High Sensitivty VBG pH VBG pCO2 VBG pO2 VBG HCO3 VBG O2 Saturation VBG Base Excess Sodium Potassium Chloride Carbon Dioxide Anion Gap BUN Creatinine Estim Creat Clear Calc Estimated GFR Random Glucose Lactic Acid Calcium Magnesium Ferritin Total Bilirubin Direct Bilirubin AST ALT Alkaline Phosphatase Ammonia Lactate Dehydrogenase Total Creatine Kinase Troponin I High Sens Total Protein Albumin Lipase TSH Urine Color YELLOW Urine Appearance CLEAR Urine pH 5.5 Ur Specific [place] 1.020 Urine Protein NEG Urine Glucose (UA) NEG Urine Ketones 15 Urine Blood TRACE Urine Nitrite NEG Ur Leukocyte Esterase NEG Urine RBC 0-2 Urine WBC 0 Ur Squamous Epith Cells TRACE Urine Bacteria NONE Hyaline Casts 0-2 Urine Mucus TRACE Salicylates Urine Opiates Screen Not Detected Urine Fentanyl Screen Not Detected Acetaminophen Ur Barbiturates Screen Not Detected Ur Phencyclidine Scrn Not Detected Ur Amphetamines Screen Not Detected U Benzodiazepines Scrn Not Detected Urine Cocaine Screen Not Detected U Marijuana (THC) Screen Not Detected Ethyl Alcohol < 10 COVID-19 ([facility]) COVID-19 Clin Com 10/03/21 10/03/21 10/03/21 16:21 17:13 Unknown WBC RBC Hgb Hct MCV MCH MCHC RDW Plt Count MPV Immature Gran % (Auto) Neut % (Auto) Lymph % (Auto) [place] % (Auto) Eos % (Auto) Baso % (Auto) Lymph # (Auto) [place] # (Auto) Eos # (Auto) Baso # (Auto) Abs Immat Gran (auto) Absolute Neuts (auto) Absolute Nucleated RBC Nucleated RBC % (auto) Smear Tech's Comments PT 22.8 H INR 2.0 H APTT 28.7 D-Dimer High Sensitivty 438 VBG pH VBG pCO2 VBG pO2 VBG HCO3 VBG O2 Saturation VBG Base Excess Sodium Potassium Chloride Carbon Dioxide Anion Gap BUN Creatinine Estim Creat Clear Calc Estimated GFR Random Glucose Lactic Acid Calcium Magnesium Ferritin Total Bilirubin Direct Bilirubin AST ALT Alkaline Phosphatase Ammonia Lactate Dehydrogenase Total Creatine Kinase Troponin I High Sens 122.6 H* Total Protein Albumin Lipase TSH Urine Color Urine Appearance Urine pH Ur Specific [place] Urine Protein Urine Glucose (UA) Urine Ketones Urine Blood Urine Nitrite Ur Leukocyte Esterase Urine RBC Urine WBC Ur Squamous Epith Cells Urine Bacteria Hyaline Casts Urine Mucus Salicylates Urine Opiates Screen Urine Fentanyl Screen Acetaminophen Ur Barbiturates Screen Ur Phencyclidine Scrn Ur Amphetamines Screen U Benzodiazepines Scrn Urine Cocaine Screen U Marijuana (THC) Screen Ethyl Alcohol COVID-19 ([facility]CIO) Positive A COVID-19 Clin Com See Note 10/04/21 10/04/21 06:20 06:20 WBC 16.3 H RBC 3.70 L Hgb 11.0 L Hct 34.1 L MCV 92.2 MCH 29.7 MCHC 32.3 RDW 13.5 Plt Count 403 H MPV 9.8 Immature Gran % (Auto) 0.7 H Neut % (Auto) 86.2 H Lymph % (Auto) 6.9 L [place] % (Auto) 5.8 Eos % (Auto) 0.2 Baso % (Auto) 0.2 Lymph # (Auto) 1.1 L [place] # (Auto) 1.0 Eos # (Auto) 0.0 Baso # (Auto) 0.0 Abs Immat Gran (auto) 0.11 H Absolute Neuts (auto) 14.1 H Absolute Nucleated RBC 0.000 Nucleated RBC % (auto) 0.0 Smear Tech's Comments PT INR APTT D-Dimer High Sensitivty VBG pH VBG pCO2 VBG pO2 VBG HCO3 VBG O2 Saturation VBG Base Excess Sodium 134 L Potassium 3.5 Chloride 95 L Carbon Dioxide 22 Anion Gap 21 H BUN 38 H Creatinine 1.33 Estim Creat Clear Calc 37.5 Estimated GFR 52 Random Glucose 74 Lactic Acid Calcium 8.2 L Magnesium Ferritin Total Bilirubin 0.7 Direct Bilirubin 0.4 AST 27 ALT 16 Alkaline Phosphatase 72 Ammonia Lactate Dehydrogenase Total Creatine Kinase Troponin I High Sens Total Protein 6.1 L Albumin 2.7 L Lipase TSH Urine Color Urine Appearance Urine pH Ur Specific [place] Urine Protein Urine Glucose (UA) Urine Ketones Urine Blood Urine Nitrite Ur Leukocyte Esterase Urine RBC Urine WBC Ur Squamous Epith Cells Urine Bacteria Hyaline Casts Urine Mucus Salicylates Urine Opiates Screen Urine Fentanyl Screen Acetaminophen Ur Barbiturates Screen Ur Phencyclidine Scrn Ur Amphetamines Screen U Benzodiazepines Scrn Urine Cocaine Screen U Marijuana (THC) Screen Ethyl Alcohol COVID-19 (IGNACIO) COVID-19 Clin Com Imaging Radiologist's impression: Impressions Chest X-Ray 10/03/21 14:08 IMPRESSION: Pulmonary findings are nonspecific, but suggest possible COPD with chronic changes. Focal consolidation is not seen. Given there are no previous studies bowel for comparison, if symptoms persist or worsen, short-term repeat radiographic follow-up is recommended as clinically indicated. Head CT 10/03/21 15:00 IMPRESSION: No acute findings. Mild generalized atrophy and nonspecific periventricular white matter disease. Laboratory changes in the sinuses. Assessment and Plan (1) Toxic encephalopathy: Status: Acute (2) COVID-19: Status: Acute (3) Elevated troponin: Status: Acute 81-year-old gentleman with alcohol use who presented with confusion and is being treated as alcohol withdrawal. Tachycardic on exam. He has COVID positive. Mildly abnormal troponin elevation. I think troponin elevation is due to infection and withdrawal at this stage. Type 2 RI. Please treat the withdrawal. No further workup is required inpatient. Thank you for allowing me to participate in the care of your patient. Please feel free to contact me if you have any questions. Procedures Date of Service Date of Service: 10/04/21
[2021-10-04] MEDS: iohexoL 350 MG/ML 100 ML INFUS..BTL IV (11:33)
--- NOTE | 2021-10-04 11:40 | PM.EVENT ---
Event Note Date of Service: 10/04/21 Event Note: 10/03/21I have personally seen and examined Mr Zacarias as well as reviewed records and have examined patient. I agree with H+P along with Assessment/plan as outlined by Ms. Santi UMAÑA
[2021-10-04] MEDS: Azithromycin 500 MG in 0.9 % Sodium Chloride 250 ML 125 MG IV (14:35)
--- NOTE | 2021-10-04 14:44 | PC.NURSE ---
pt continues to put his own clothing back on. pt directed take 3 layers of pants off. all soiled and covered in dried urine and feces. pt given hospital clothing and his belongings placed in a locker in the pod. double bagged.
[2021-10-04] MEDS: cefTRIAXone sodium 1 GM in 0.9 % Sodium Chloride 50 ML IV (15:48)
[2021-10-04 22:46] VITALS: RESP 16
[2021-10-05] VITALS (8 sets, daily range): BP systolic 95–117; BP diastolic 50–95; PULSE 62–88; RESP 16–18; TEMP 36.6–36.7; O2SAT 94–99; BMI 12.0
--- NOTE | 2021-10-05 02:06 | PC.NURSE ---
Addendum entered by Ce Stokes RN 10/05/21 02:07: Vitals deferred to promote sleep hygiene. Pt sleeping w/ even and non-labored respirations, remains in hospital bed w/ bed alarm activated. Attached to tele monitor Original Note: Vitals deferred to promote sleep hygiene. Pt sleeping w/ even and non-labored respirations, remains in hospital bed w/ bed alarm activated
[2021-10-05 06:56] LABS: Hematocrit 33.7 % (42.0-52.0); Hemoglobin 10.8 g/dl (14.0-18.0); Mean Corpuscular Hemoglobin 29.3 pg (27.0-33.0); Mean Corpuscular Volume 91.3 fL (80.0-98.0); Mean Platelet Volume 9.7 fL (9.4-12.4); Platelet Count 399 X10*3/uL (160-400); Red Blood Count 3.69 X10*6/uL (4.60-5.80); Red Cell Distribution Width 13.6 % (11.0-16.0); White Blood Count 10.8 X10*3/uL (4.8-10.8)
[2021-10-05 07:04] LABS: INTERNATIONAL NORM RATIO 1.4 (0.9-1.1); Prothrombin Time 15.7 SEC (9.9-13.0)
[2021-10-05 07:14] LABS: Anion Gap 16 (12-20); Blood Urea Nitrogen 31 mg/dL (9-16); Calcium 8.6 mg/dL (8.4-10.2); Carbon Dioxide 27 mmol/L (22-29); Chloride 100 mmol/L (96-108); Creatinine Clr Calc Pharmacy 40.6; Estimated Glomerular Filt Rate 57; Glucose Random 82 mg/dL (60-115); Potassium 4.2 mmol/L (3.3-5.1); Sodium 139 mmol/L (135-145)
[2021-10-05] MEDS: Folic Acid 1 MG TABLET PO (09:48)
[2021-10-05] MEDS: Thiamine HCL 100 MG TABLET PO (09:48)
[2021-10-05] MEDS: Heparin Sodium,Porcine 5,000 UNIT/ML VIAL 5000 UNIT SUBCUT ×2 (09:48→18:37)
[2021-10-05] MEDS: 0.9 % Sodium Chloride Flush 3 ML SYRINGE IVFLUSH ×3 (09:49→20:18)
--- NOTE | 2021-10-05 10:39 | HO.PM.IMPN ---
Subjective Subjective Date of Service: 10/05/21 Review of Systems Follow up covid 19, encephalopathy Still confused, no complaints of pain All other systems are reviewed and are negative Physical Exam Vital Signs: Vital Signs: Last Vital Signs Temp 97.9 F 10/05/21 09:53 Pulse 88 10/05/21 09:53 Resp 18 10/05/21 09:53 BP 117/95 H 10/05/21 09:53 Pulse Ox 95 10/05/21 09:53 BMI result Body Mass Index 20.9 Appearing in no acute distress, pale lungs normal expansion heart regular rate rhythm, clear S1, S2 positive bowel sounds, abdomen is soft, nontender neuro patient is alert, confused Objective Data Active Medications Acetaminophen (Acetaminophen 325 Mg Tablet) 650 mg PO Q6H PRN PRN Reason: Pain, Mild (Pain Scale 1-3) Folic Acid (Folic Acid 1 Mg Tablet) 1 mg PO DAILY [facility] Last Admin: 10/05/21 09:48 Dose: 1 mg Documented by: MERLE Heparin Sodium (Porcine) (Heparin Sodium,Porcine 5,000 Unit/Ml Vial) 5,000 unit SUBCUT Q12H [facility] Last Admin: 10/05/21 09:48 Dose: 5,000 unit Documented by: MERLE Ceftriaxone Sodium 1 gm/ (Sodium Chloride) 50 mls @ 100 mls/hr IV Q24H [facility] Last Infusion: 10/04/21 16:18 Dose: 0 mls/hr Documented by: NATALI Azithromycin 500 mg/ Sodium (Chloride) 250 mls @ 125 mls/hr IV Q24H [facility] Last Infusion: 10/04/21 16:35 Dose: 0 mls/hr Documented by: NATALI Ondansetron HCl (Ondansetron Hcl 4 Mg/2 Ml Vial) 4 mg IVPUSH Q8H PRN PRN Reason: Nausea and Vomiting Pharmacy Consult (Consult Rx Perform Med Rec) 1 each MISCELLANE ONCE PRN PRN Reason: Consult order Sodium Chloride (0.9 % Sodium Chloride Flush 3 Ml Syringe) 3 ml IVFLUSH QSHIFT [facility] Last Admin: 10/05/21 09:49 Dose: 3 ml Documented by: MERLE Thiamine HCl (Thiamine Hcl 100 Mg Tablet) 100 mg PO DAILY [facility] Last Admin: 10/05/21 09:48 Dose: 100 mg Documented by: MERLE Labs CBC & Chem 7: 1213/21 06:38 10/05/21 06:38 Labs: Laboratory Results - last 24 hr 10/05/21 10/05/21 10/05/21 06:38 06:38 06:38 MCV 91.3 MCH 29.3 MCHC 32.0 RDW 13.6 Plt Count 399 MPV 9.7 Absolute Nucleated RBC 0.000 Nucleated RBC % (auto) 0.0 PT 15.7 H INR 1.4 H Anion Gap 16 Estim Creat Clear Calc 40.6 Estimated GFR 57 Random Glucose 82 Calcium 8.6 Microbiology Microbiology Results: Microbiology 10/03/21 16:21 Blood Culture - Preliminary Blood - Venous No growth after 24 hours. 10/03/21 16:21 Blood Culture - Preliminary Blood - Venous No growth after 24 hours. Assessment and Plan (1) Toxic encephalopathy: Status: Acute (2) CAP (community acquired pneumonia): Status: Acute (3) COVID-19: Status: Acute (4) Altered mental status: Status: Acute Assessment and Plan: 81 year old man admitted with covid 19 and confusion secondary to alcohol withdrawal Tachycardia. resolved elevated ddimer CTA negative for PE Toxic Encephalopathy. possibly secondary to alcohol withdrawal vs alcohol dementia, COVID-19 somewhat better today but still confused Follow neuro status Neurology following no further rec PT consult Alcohol withdrawal Seems like the patient does not regularly drink Negative alcohol level Thiamine, folic acid ciwa scale,? no need for phenobarb at this time. COVID-19 pneumonia, emphysema No hypoxia May use supplemental oxygen if needed at this time not requiring oxygen Follow closely for any changes Treat with rocephin and azithromcyin and decadron Leukocytosis.? Trending down No signs of infection other than viral COVID-19 trend Coagulopathy. trending down no bleeding noted normal LFT's Trend Hyponatremia.?improving Mild.? Likely related to alcohol abuse Trend, if no improvement consider nephrology consultation LIZZIE.? No baseline known Trend, if no improvement consider nephrology consultation Elevated troponin.? Type 2 [place]. No complaints of chest pain, no ischemic changes on EKG Repeat troponin. 116.8, 122.6 Consult Cardiology Tobacco user. Discussed the importance of smoking cessation NRT DVT prophylaxis with heparin Attending Dr. Mckay Full code Quality Stroke Does the patient have a stroke diagnosis?: No VTE Prior VTE?: No VTE Risk Level:: Medical - moderate - high VTE Device Contraindication: Treatment Not Indicated VTE Drug Contraindication: N/A - Med Ordered
--- NOTE | 2021-10-05 11:31 | MHC.CM.PN ---
Attempted to meet with patient in regards to discharge planning. Provider with patient. Will attempt to meet again. Continue to monitor for d/c needs.
--- NOTE | 2021-10-05 11:35 | P.CNNE_ITS ---
History of Present Illness Data of Consult Service Date: 10/05/21 Primary Care Provider: Unknown Physician HPI Reason for consult: Encephalopathy 81 years old man living alone was brought to emergency room for either change in mental status or he could not take care of himself. He was not sure what had happened stating that his friends brought him here. There was no sign of any trauma or seizure. There was no focal weakness or speech or language difficulty. Apparently he has history of alcohol drinking but he said that he was not drinking. Review of Systems Review of Systems: No recent cold or flu-like illness or trauma. [facility] Past Medical History Medical History No known health problems Social History Social History (Updated 10/03/21 @ 13:38 by Anastasiia Lopez DO) Alcohol intake: never Patient Tobacco Use Status: Tobacco use Unknown Use of substances other than those prescribed or required for medical reasons: No Advance Directives: No Advance Directives Information Provided: No Meds Allergies Allergy/AdvReac Type Severity Reaction Status Date / Time No Known Allergies Allergy Verified 10/03/21 13:15 Active Medications: Current Medications Acetaminophen (Acetaminophen 325 Mg Tablet) 650 mg PO Q6H PRN PRN Reason: Pain, Mild (Pain Scale 1-3) Folic Acid (Folic Acid 1 Mg Tablet) 1 mg PO DAILY [facility] Last Admin: 10/05/21 09:48 Dose: 1 mg Documented by: Heparin Sodium (Porcine) (Heparin Sodium,Porcine 5,000 Unit/Ml Vial) 5,000 unit SUBCUT Q12H [facility] Last Admin: 10/05/21 09:48 Dose: 5,000 unit Documented by: Ceftriaxone Sodium 1 gm/ (Sodium Chloride) 50 mls @ 100 mls/hr IV Q24H [facility] Last Infusion: 10/04/21 16:18 Dose: Infused Documented by: Azithromycin 500 mg/ Sodium (Chloride) 250 mls @ 125 mls/hr IV Q24H [facility] Last Infusion: 10/04/21 16:35 Dose: Infused Documented by: Ondansetron HCl (Ondansetron Hcl 4 Mg/2 Ml Vial) 4 mg IVPUSH Q8H PRN PRN Reason: Nausea and Vomiting Pharmacy Consult (Consult Rx Perform Med Rec) 1 each MISCELLANE ONCE PRN PRN Reason: Consult order Sodium Chloride (0.9 % Sodium Chloride Flush 3 Ml Syringe) 3 ml IVFLUSH QSHIFT [facility] Last Admin: 10/05/21 09:49 Dose: 3 ml Documented by: Thiamine HCl (Thiamine Hcl 100 Mg Tablet) 100 mg PO DAILY [facility] Last Admin: 10/05/21 09:48 Dose: 100 mg Documented by: Home Medications Medication Instructions Recorded Confirmed Last Taken Type No Known Home Meds 10/03/21 10/03/21 Unknown History Physical Exam Vital Signs: Vital Signs: Last Vital Signs Temp 97.9 F 10/05/21 09:53 Pulse 88 10/05/21 09:53 Resp 18 10/05/21 09:53 BP 117/95 H 10/05/21 09:53 Pulse Ox 95 10/05/21 09:53 BMI result Body Mass Index 20.9 Neuro: Other: He was alert and awake with normal spontaneity of speech fluency comprehension and affect. He had difficulty understanding where he was and what had happened but he was following commands and answering questions appropriately. Pupils were 3 mm round reactive to light. Extraocular muscles were intact. Visual wallace are full. Face was symmetrical. There was no focal weakness. [id number] testing revealed mild ataxia. Plantars were flexors. Speech was normal. Results Labs CBC & Chem 7: 10/05/21 06:38 10/05/21 06:38 Labs: Short CBC 10/05/21 Range/Units 06:38 WBC 10.8 (4.8-10.8) X10*3/uL Hgb 10.8 L (14.0-18.0) g/dl Hct 33.7 L (42.0-52.0) % Plt Count 399 (160-400) X10*3/uL BMP 10/05/21 06:38 Sodium 139 Potassium 4.2 Chloride 100 Carbon Dioxide 27 BUN 31 H Creatinine 1.23 Calcium 8.[address] revealed moderately severe diffuse cerebral and cerebellar atrophy and moderately severe chronic microvascular ischemic changes. Microbiology Microbiology Results: Microbiology 10/03/21 16:21 Blood - Venous Blood Culture - Preliminary No growth after 24 hours. 10/03/21 16:21 Blood - Venous Blood Culture - Preliminary No growth after 24 hours. Assessment and Plan (1) Altered mental status: Qualifiers: Altered mental status type: unspecified Qualified Code(s): R41.82 - Altered mental status, unspecified Status: Acute 81 years old man who probably has underlying history of alcohol abuse. His head CT revealing significant cerebral and cerebellar atrophy and microvascular ischemic changes which typically can result in multifactorial dementia. He was brought to hospital firs some change in mental status. This could be resulting from underlying dementia. In such cases the usual trigger his common infection or dehydration. At this point there is no obvious indication of a focal lesion such as new stroke or seizure. I agree with treatment with thiamine folate hydration and paying attention to the possibility of infection. Procedures Date of Service Date of Service: 10/05/21
--- NOTE | 2021-10-05 11:54 | MHC.CM.PN ---
Met with patient in regards to discharge planning. Patient lives alone, ambulates independently and had no services prior to coming to the hospital. Patient is very hard of hearing and having difficulty asking answering questions. Patient states he doesn't have a PCP. Patient is unable to answer if he received any covid vaccines. Patient stated I don't drink that much when asked if he lives with anyone. Patient will need a physical therapy eval for home safety when medically stable. Patient was not able to participate in completing a HCP at this time. Continue to monitor for d/c needs/
[2021-10-05] MEDS: Azithromycin 500 MG in 0.9 % Sodium Chloride 250 ML 125 MG IV (17:01)
[2021-10-05] MEDS: cefTRIAXone sodium 1 GM in 0.9 % Sodium Chloride 50 ML IV (17:03)
[2021-10-06 03:54] VITALS: BP 125/54; PULSE 76; RESP 18; TEMP 36.4; O2SAT 94
[2021-10-06] MEDS: Heparin Sodium,Porcine 5,000 UNIT/ML VIAL 5000 UNIT SUBCUT ×3 (05:29→23:59)
[2021-10-06 07:27] VITALS: BP 121/65; PULSE 80; RESP 20; TEMP 36.4; O2SAT 96
[2021-10-06] MEDS: Folic Acid 1 MG TABLET PO (09:06)
[2021-10-06] MEDS: Thiamine HCL 100 MG TABLET PO (09:06)
[2021-10-06] MEDS: 0.9 % Sodium Chloride Flush 3 ML SYRINGE IVFLUSH ×3 (09:07→23:18)
--- NOTE | 2021-10-06 10:47 | MHC.CLN ---
RE: WEIGHTS PT WITH WEIGHT DISCREPANCY ADMISSION WT 58.97KG (10/04/21) 33.7KG (10/06/21) 33.1KG (10/06/21) WITNESSED NSG TAKE WT PT DOES NOT APPEAR TO BE 74# PT DOES APPEAR THIN BUT NO S/S MALNUTRITION AT THIS TIME WORK ORDER PUT IN FOR BED SCALE RE-CALIBRATION WITH [employer] Medium CONFIRMATION # [id number]
[2021-10-06 11:58] VITALS: BP 97/55; PULSE 78; RESP 18; TEMP 37; O2SAT 98
--- NOTE | 2021-10-06 12:47 | HO.PM.IMPN ---
Subjective Subjective Date of Service: 10/06/21 Review of Systems Follow up covid 19, encephalopathy Still confused, no complaints of pain All other systems are reviewed and are negative Physical Exam Vital Signs: Vital Signs: Last Vital Signs Temp 98.6 F 10/06/21 11:58 Pulse 78 10/06/21 11:58 Resp 18 10/06/21 11:58 BP 97/55 L 10/06/21 11:58 Pulse Ox 98 10/06/21 11:58 BMI result Body Mass Index 12.0 Appearing in no acute distress, thin and pale lung sounds are clear to auscultation heart regular rate rhythm, clear S1, S2 positive bowel sounds, abdomen is soft, nontender neuro patient is alert, oriented to self Objective Data Active Medications Acetaminophen (Acetaminophen 325 Mg Tablet) 650 mg PO Q6H PRN PRN Reason: Pain, Mild (Pain Scale 1-3) Folic Acid (Folic Acid 1 Mg Tablet) 1 mg PO DAILY [facility] Last Admin: 10/06/21 09:06 Dose: 1 mg Documented by: GIORGI Heparin Sodium (Porcine) (Heparin Sodium,Porcine 5,000 Unit/Ml Vial) 5,000 unit SUBCUT Q12H [facility] Last Admin: 10/06/21 05:29 Dose: 5,000 unit Documented by: NATHANAEL Ceftriaxone Sodium 1 gm/ (Sodium Chloride) 50 mls @ 100 mls/hr IV Q24H [facility] Last Infusion: 10/05/21 18:39 Dose: 0 mls/hr Documented by: KB Azithromycin 500 mg/ Sodium (Chloride) 250 mls @ 125 mls/hr IV Q24H [facility] Last Infusion: 10/05/21 19:15 Dose: 0 mls/hr Documented by: NATHANAEL Ondansetron HCl (Ondansetron Hcl 4 Mg/2 Ml Vial) 4 mg IVPUSH Q8H PRN PRN Reason: Nausea and Vomiting Pharmacy Consult (Consult Rx Perform Med Rec) 1 each MISCELLANE ONCE PRN PRN Reason: Consult order Sodium Chloride (0.9 % Sodium Chloride Flush 3 Ml Syringe) 3 ml IVFLUSH QSHIFT [facility] Last Admin: 10/06/21 09:07 Dose: 3 ml Documented by: GIORGI Thiamine HCl (Thiamine Hcl 100 Mg Tablet) 100 mg PO DAILY [facility] Last Admin: 10/06/21 09:06 Dose: 100 mg Documented by: GIORGI Labs CBC & Chem 7: 10/05/21 06:38 10/05/21 06:38 Microbiology Microbiology Results: Microbiology 10/03/21 16:21 Blood Culture - Preliminary Blood - Venous Prelim: GPR Gram Stain only 10/03/21 16:21 Blood Culture - Preliminary Blood - Venous No growth after 48 hours. Assessment and Plan (1) Toxic encephalopathy: Status: Acute (2) CAP (community acquired pneumonia): Status: Acute (3) COVID-19: Status: Acute Assessment and Plan: 81 year old man admitted with covid 19 and confusion secondary to alcohol withdrawal Toxic Encephalopathy. 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 resolved elevated ddimer CTA negative for PE Alcohol withdrawal Seems like the patient does not regularly drink Negative alcohol level Thiamine, folic acid ciwa scale,? no need for phenobarb at this time. COVID-19 pneumonia, emphysema No hypoxia May use supplemental oxygen if needed at this time not requiring oxygen Follow closely for any changes Treat with rocephin and azithromcyin and decadron Leukocytosis.? Trending down No signs of infection other than viral COVID-19 trend Coagulopathy. trending down no bleeding noted normal LFT's Trend Hyponatremia.?improving Mild.? Likely related to alcohol abuse Trend, if no improvement consider nephrology consultation LIZZIE.? No baseline known Trend, if no improvement consider nephrology consultation Elevated troponin.? Type 2 [place] from covid, pna No complaints of chest pain, no ischemic changes on EKG Repeat troponin. 116.8, 122.6 cardiology following, no further workup needed at this time Tobacco user. Discussed the importance of smoking cessation NRT DVT prophylaxis with heparin Attending Dr. Mckay Full code Quality Stroke Does the patient have a stroke diagnosis?: No VTE Prior VTE?: No VTE Risk Level:: Medical - moderate - high VTE Device Contraindication: Treatment Not Indicated VTE Drug Contraindication: N/A - Med Ordered
--- NOTE | 2021-10-06 13:17 | MHC.CM.PN ---
Addendum entered by Mariel Guadalupe 10/06/21 13:22: The contact listed in EMR Yeyo Almanzar has . Original Note: Male 81 BIBA DX Covid+ Awake alert oriented to person and place, forgetful/confused. He does not know his address. 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 He denies living there. He stated that it was his parents house. The person that called BLS stated that the confusion is not his baseline. CM will follow.
[2021-10-06] MEDS: Azithromycin 500 MG in 0.9 % Sodium Chloride 250 ML 125 MG IV (13:53)
[2021-10-06 16:00] VITALS: BP 103/54; PULSE 77; RESP 18; TEMP 37.1; O2SAT 95
[2021-10-06] MEDS: cefTRIAXone sodium 1 GM in 0.9 % Sodium Chloride 50 ML IV (16:27)
[2021-10-06 19:32] VITALS: BP 117/65; PULSE 86; RESP 19; TEMP 36.6; O2SAT 99
[2021-10-06 23:22] VITALS: BP 94/49; PULSE 86; RESP 18; TEMP 37.1; O2SAT 96
[2021-10-07 04:00] VITALS: BP 103/53; PULSE 86; RESP 18; TEMP 36.6; O2SAT 95
[2021-10-07 07:28] VITALS: BP 108/52; PULSE 80; RESP 18; TEMP 36.2; O2SAT 96
[2021-10-07] MEDS: Thiamine HCL 100 MG TABLET PO (08:26)
[2021-10-07] MEDS: Folic Acid 1 MG TABLET PO (08:26)
[2021-10-07] MEDS: 0.9 % Sodium Chloride Flush 3 ML SYRINGE IVFLUSH ×3 (08:26→19:43)
--- NOTE | 2021-10-07 09:37 | MHC.CM.PN ---
Male 81 DX Covid+ Met with patient to discuss discharge plan. He still is confused r/t his home address. Spoke w Lupe GRISSOM. She stated that he will receive ABX today. The hope is that the patient clears w treatment. A competency eval is planned when the patient clears. Dispo is dependent on the pts recovery. CM will follow.
[2021-10-07 11:05] VITALS: BP 100/55; PULSE 79; RESP 18; TEMP 37.3; O2SAT 98
--- NOTE | 2021-10-07 13:02 | P.PNIM_ITS ---
Subjective Subjective Date of Service: 10/07/21 Interval History: seen and examined this AM denies any cp or sob d/w him re: his COVID diagnosis. Reports that he doesnt have that shit does not remember where he lives nor why he in the hospital Review of Systems negative except HPI Physical Exam Vital Signs: Vital Signs: Last Vital Signs Temp 99.1 F 10/07/21 11:05 Pulse 79 10/07/21 11:05 Resp 18 10/07/21 11:05 BP 100/55 L 10/07/21 11:05 Pulse Ox 98 10/07/21 11:05 BMI result Body Mass Index 12.0 Const: Other: General - no acute distress, appears comfortable Cardiovascular - regular rate and rhythm, S1-S2 Lungs - normal respiratory effort, clear to auscultation bilaterally, no wheezing Abdomen - soft, nontender, no rebound or guarding Extremities - no edema bilaterally Neuro - awake and alert, no focal deficits; disoriented to time, situation, oriented to self Objective Data Active Medications Acetaminophen (Acetaminophen 325 Mg Tablet) 650 mg PO Q6H PRN PRN Reason: Pain, Mild (Pain Scale 1-3) Folic Acid (Folic Acid 1 Mg Tablet) 1 mg PO DAILY [facility] Last Admin: 10/07/21 08:26 Dose: 1 mg Documented by: GREYSON Heparin Sodium (Porcine) (Heparin Sodium,Porcine 5,000 Unit/Ml Vial) 5,000 unit SUBCUT Q12H [facility] Last Admin: 10/06/21 23:59 Dose: 5,000 unit Documented by: MILAGROS Ceftriaxone Sodium 1 gm/ (Sodium Chloride) 50 mls @ 100 mls/hr IV Q24H [facility] Last Infusion: 10/06/21 17:30 Dose: 0 mls/hr Documented by: GIORGI Azithromycin 500 mg/ Sodium (Chloride) 250 mls @ 125 mls/hr IV Q24H [facility] Last Infusion: 10/06/21 16:13 Dose: 0 mls/hr Documented by: GIORGI Ondansetron HCl (Ondansetron Hcl 4 Mg/2 Ml Vial) 4 mg IVPUSH Q8H PRN PRN Reason: Nausea and Vomiting Pharmacy Consult (Consult Rx Perform Med Rec) 1 each MISCELLANE ONCE PRN PRN Reason: Consult order Sodium Chloride (0.9 % Sodium Chloride Flush 3 Ml Syringe) 3 ml IVFLUSH QSHIFT [facility] Last Admin: 10/07/21 08:26 Dose: 3 ml Documented by: BROAldair Thiamine HCl (Thiamine Hcl 100 Mg Tablet) 100 mg PO DAILY [facility] Last Admin: 10/07/21 08:26 Dose: 100 mg Documented by: GREYSON Labs CBC & Chem 7: 10/05/21 06:38 10/05/21 06:38 Microbiology Microbiology Results: Microbiology 10/03/21 16:21 Blood Culture - Final Blood - Venous Corynebacterium species 10/06/21 03:19 Blood Culture - Preliminary Blood - Venous No growth after 24 hours. 10/06/21 03:06 Blood Culture - Preliminary Blood - Venous No growth after 24 hours. Assessment and Plan (1) CAP (community acquired pneumonia): Status: Acute Assessment and Plan: This is a 81 yo M with a reported history of alcohol use/dependence who was brought in by ambulance after his friends had not seen him for a few days. He is admitted for a multitude of reasons. 1. Toxic/Metabolic Encephalopathy -- ruled out suspect this is more likely the patients baseline (i.e he has dementia, possibly related to alcohol use) He remains oriented to self and place, but otherwise disoriented 2. Pneumonia -- viral vs bacterial / COVID 19+ His CT scan shows bilateral lower lobe bronchopneumonia but not the typical diffuse ground glass findings seen with covid He is COVID positive, but suspect his CT findings are more related to bacterial pneumonia Complete course of IV rocephin / zithromax - currently day #4 he remains off oxygen 3. Kath / mild HypoNa likely hypovoluemic -- resolved with IVF 4. Elevated HS trop-I Flat deemded likely secondary to infection / withdrawal 5. Alcohol abuse / dependence no symptoms of withdrawal at this time monitor continue thiamin / folate 6. Coagulopathy / transaminitis downtrending suspected due to infection will check INR tomorrow Full Code DVT pptx, repeat INR tomorrow -- if wnl, start lovenox/heparin Quality Stroke Does the patient have a stroke diagnosis?: No VTE Prior VTE?: No VTE Risk Level:: Medical - moderate - high VTE Device Contraindication: Treatment Not Indicated VTE Drug Contraindication: N/A - Med Ordered
--- NOTE | 2021-10-07 13:13 | MHC.CM.PN ---
Male 81 DX COVID+ A call was received from Sofia [phone]. She was the EMS caller. Her contact # was passed on to Dr Mckay. He will speak with her re Pts baseline mental status. CM will follow.
[2021-10-07] MEDS: Azithromycin 500 MG in 0.9 % Sodium Chloride 250 ML 125 MG IV (13:50)
[2021-10-07 15:53] VITALS: BP 81/52; PULSE 84; RESP 18; TEMP 37.2; O2SAT 99
[2021-10-07 16:09] VITALS: BP 90/54
[2021-10-07] MEDS: Heparin Sodium,Porcine 5,000 UNIT/ML VIAL 5000 UNIT SUBCUT (16:37)
[2021-10-07] MEDS: cefTRIAXone sodium 1 GM in 0.9 % Sodium Chloride 50 ML IV (16:37)
[2021-10-07 19:47] VITALS: BP 90/51; PULSE 85; RESP 18; TEMP 36.8; O2SAT 96
[2021-10-08] VITALS (7 sets, daily range): BP systolic 80–109; BP diastolic 38–58; PULSE 65–106; RESP 16–20; TEMP 36.2–37.2; O2SAT 90–99
[2021-10-08] MEDS: Heparin Sodium,Porcine 5,000 UNIT/ML VIAL 5000 UNIT SUBCUT (03:58)
[2021-10-08 07:26] LABS: INTERNATIONAL NORM RATIO 1.1 (0.9-1.1); Prothrombin Time 12.8 SEC (9.9-13.0)
[2021-10-08] MEDS: 0.9 % Sodium Chloride Flush 3 ML SYRINGE IVFLUSH ×2 (07:56→20:03)
[2021-10-08] MEDS: Folic Acid 1 MG TABLET PO (07:56)
[2021-10-08] MEDS: Thiamine HCL 100 MG TABLET PO (07:56)
--- NOTE | 2021-10-08 12:37 | HO.PM.IMPN ---
Subjective Subjective Date of Service: 10/08/21 Interval History: seen and examined this morning follow up for covid, pneumonia knows he is in the hospital, but not sure why he is here denies shortness of breath or cough Review of Systems Review of Systems: Yes all other systems are reviewed and are negative Constitutional Constitutional: Denies chills and Denies fever(s) Cardiovascular Cardiovascular: Denies chest pain Respiratory Respiratory: Denies cough Gastrointestinal Gastrointestinal: Denies abdominal pain Physical Exam Vital Signs: Vital Signs: Last Vital Signs Temp 98.4 F 10/08/21 11:23 Pulse 75 10/08/21 11:23 Resp 20 10/08/21 11:23 BP 80/42 L 10/08/21 11:23 Pulse Ox 98 10/08/21 11:23 BMI result Body Mass Index 12.0 Const: General: cooperative, comfortable, no acute distress, alert and awake Nutritional Appearance: thin and underweight HENMT: Head: Yes normocephalic and Yes atraumatic Eyes: Sclerae: sclerae normal Chest: Chest palpation & inspection: normal inspection of the chest Resp: Effort & Inspection: normal respiratory effort, able to speak in complete sentences and no respiratory distress Cardio: Rate: regular rate Rhythm: regular rhythm GI: Palpation (GI): Soft to palpation and nontender Neuro: Cranial nerves: Yes CN's II-XII intact bilaterally and Yes Bilaterally intact EOM present Extrem: Other: no leg edema; able to move all 4 extremities spontaneously Objective Data Active Medications Acetaminophen (Acetaminophen 325 Mg Tablet) 650 mg PO Q6H PRN PRN Reason: Pain, Mild (Pain Scale 1-3) Folic Acid (Folic Acid 1 Mg Tablet) 1 mg PO DAILY [facility] Last Admin: 10/08/21 07:56 Dose: 1 mg Documented by: GREYSON Heparin Sodium (Porcine) (Heparin Sodium,Porcine 5,000 Unit/Ml Vial) 5,000 unit SUBCUT Q12H [facility] Last Admin: 10/08/21 03:58 Dose: 5,000 unit Documented by: TOMAS Ceftriaxone Sodium 1 gm/ (Sodium Chloride) 50 mls @ 100 mls/hr IV Q24H [facility] Last Infusion: 10/07/21 17:21 Dose: 0 mls/hr Documented by: GREYSON Azithromycin 500 mg/ Sodium (Chloride) 250 mls @ 125 mls/hr IV Q24H [facility] Last Infusion: 10/07/21 16:58 Dose: 0 mls/hr Documented by: GREYSON Ondansetron HCl (Ondansetron Hcl 4 Mg/2 Ml Vial) 4 mg IVPUSH Q8H PRN PRN Reason: Nausea and Vomiting Pharmacy Consult (Consult Rx Perform Med Rec) 1 each MISCELLANE ONCE PRN PRN Reason: Consult order Sodium Chloride (0.9 % Sodium Chloride Flush 3 Ml Syringe) 3 ml IVFLUSH QSHIFT [facility] Last Admin: 10/08/21 07:56 Dose: 3 ml Documented by: GREYSON Thiamine HCl (Thiamine Hcl 100 Mg Tablet) 100 mg PO DAILY [facility] Last Admin: 10/08/21 07:56 Dose: 100 mg Documented by: GREYSON Labs CBC & Chem 7: 10/05/21 06:38 10/05/21 06:38 Labs: Laboratory Results - last 24 hr 10/08/21 07:00 PT 12.8 INR 1.1 Microbiology Microbiology Results: Microbiology 10/06/21 03:19 Blood Culture - Preliminary Blood - Venous No growth after 48 hours. 10/06/21 03:06 Blood Culture - Preliminary Blood - Venous No growth after 48 hours. 10/03/21 16:21 Blood Culture - Final Blood - Venous Corynebacterium species Assessment and Plan (1) COVID-19: Status: Acute (2) CAP (community acquired pneumonia): Status: Acute Assessment and Plan: This is a 81 yo M with a reported history of alcohol use/dependence who was brought in by ambulance after his friends had not seen him for a few days. He is admitted for a multitude of reasons. Toxic/Metabolic Encephalopathy - ruled out suspect this is more likely the patients baseline (i.e he has dementia, possibly related to alcohol use) He remains oriented to self and place, but otherwise disoriented seen by neurology - no furher workup indicated psych consult for capacity evaluation pending Pneumonia - viral vs bacterial / COVID 19+ His CT scan shows bilateral lower lobe bronchopneumonia but not the typical diffuse ground glass findings seen with covid He is COVID positive, but suspect his CT findings are more related to bacterial pneumonia Complete course of IV rocephin / zithromax - currently day #5 he remains off oxygen Kath / mild HypoNa likely hypovoluemic -- resolved with IVF Elevated HS trop-I Flat deemded likely secondary to infection Alcohol abuse / dependence no symptoms of withdrawal at this time monitor continue thiamin / folate Coagulopathy / transaminitis downtrending suspected due to infection Full Code DVT pptx. heparin attending - dr. harrison Quality Stroke Does the patient have a stroke diagnosis?: No VTE Prior VTE?: No VTE Risk Level:: Medical - moderate - high VTE Device Contraindication: Treatment Not Indicated VTE Drug Contraindication: N/A - Med Ordered
[2021-10-08] MEDS: Lactated Ringers 1,000 ML 80 ML IVCONT (14:08)
[2021-10-08] MEDS: Azithromycin 500 MG in 0.9 % Sodium Chloride 250 ML 125 MG IV (14:08)
--- NOTE | 2021-10-08 15:26 | PM.PSYCN ---
History of Present Illness Date of Service: 10/08/21 Chief Complaint: covid, + troponin Reason for Consult: capacity Requesting physician: Vane Lehman Discussed with referring provider: Yes Sources of Information: patient interviewed, chart reviewed and crisis/core team assessment reviewed HPI Narrative: Dao is a 81 year old man who presented to [facility] on 10/03/21 due to altered mental status, confusion s/p alcohol withdrawal. 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 He has a history of alcohol abuse, drinking 12 beers a day. He tested positive for COVID 19 on admission. He was admitted to [facility] for toxic Encephalopathy secondary to alcohol withdrawal *which was ruled out) vs alcohol dementia and COVID-19 pneumonia/ emphysema. He was not hypoxic, not requiring oxygen. Treatment was initiated with rocephin, azithromcyin, and decadron. He also presented with hyponatremia, likely related to alcohol abuse, which has been improving with IV fluids. Psych consult was placed for capacity eval, as pt has remained confused and cognitively limited. Pt has poor insight into his medical condition and has been unable to ask for help, does not remember where he lives. He is unable to recall the situation that led to this hospitalization. Pt has severe dementia, possibly related to alcohol abuse. He is oriented to self and place only. Per staffing rn, pt is confused most of the time. He is independent at feeding himself and is standby assist for toileting. RN denies pt having mood or behavioral issues, he is ?just so confused.? I evaluated the pt this evening and upon interview he reports ?Im alright, trying to get a knot out,? fiddling with draw string on pj pants. Pt says his sleep is ?off and on all night,? but his daytime energy is ?fine, a lot better.? Appetite is ?alright.? He denies mood sx or anxiety. Denies psychotic sx. When asked why he is in the hospital, pt says ?I?m not really sure.? He knows he is at [facility] in [place], [place] and states ?I have my own place in [place].? Pt does not know the date and when asked what season we are in, he replied ?I dont know what you mean.? Attempted to administer Folstein MMSE, however pt unable to repeat back three words, i.e. for repeating apple, hilda, table pt was only able to repeat apple. When asked further questions for mental status exam, pt declined to answer, stating ?right now im trying to get these pants off. The knot is too tight.? Pt doesnt know the? current President, says ?you?d have to ask the President.? Says his mood is currently ?angry? because ?I cant get this stupid knot out.? Denies questions or concerns.? Medical Evaluation Reviewed: Yes [facility] Medical History (Updated 10/09/21 @ 10:24 by Leisa Yang NP) No known health problems Diagnostics Vital Signs (24Hr): Vital Signs - 24 hr 10/07/21 15:53 10/07/21 16:09 10/07/21 19:47 Temperature 99.0 F 98.2 F Pulse Rate 84 85 Respiratory Rate 18 18 Blood Pressure 81/52 L 90/54 L 90/51 L Pulse Oximetry 99 96 10/08/21 00:00 10/08/21 03:58 10/08/21 07:18 Temperature 97.2 F 97.3 F 98.0 F Pulse Rate 106 H 65 82 Respiratory Rate 18 18 20 Blood Pressure 92/38 L 109/58 L 95/55 L Pulse Oximetry 90 L 98 97 10/08/21 11:23 Temperature 98.4 F Pulse Rate 75 Respiratory Rate 20 Blood Pressure 80/42 L Pulse Oximetry 98 BMI result Body Mass Index 12.0 Labs Results: 10/09/21 06:23 10/09/21 06:23 Labs: Laboratory Results - last 48 hr 10/08/21 07:00 PT 12.8 INR 1.1 Imaging Radiology Impressions: ITS Impressions Chest X-Ray 10/03/21 14:08 IMPRESSION: Pulmonary findings are nonspecific, but suggest possible COPD with chronic changes. Focal consolidation is not seen. Given there are no previous studies bowel for comparison, if symptoms persist or worsen, short-term repeat radiographic follow-up is recommended as clinically indicated. Head CT 10/03/21 15:00 IMPRESSION: No acute findings. Mild generalized atrophy and nonspecific periventricular white matter disease. Laboratory changes in the sinuses. Chest CTA 10/04/21 11:34 IMPRESSION: No evidence of pulmonary embolism. Airways disease and bronchopneumonia, greatest in the lower lobes. Emphysema. Chest CT follow-up following treatment in several months recommended. VTE: negative Mental Status Exam Mental Status Exam Narrative: A&O to self and place only. Lying down in bed in PJ pants, frail elder. Poor eye contact, attentive. No Tics or Tremors. No abnormal involuntary movements. Calm, mostly cooperative, however difficult to engage in meaningful conversation. Non-pressured speech, non-spontaneous with regular rate and rhythm, normal volume and prosody. No prolonged speech latency or dysarthria. Mood is ?angry,? affect is euthymic. Denies SI/SIB/HI upon inquiry. Denies A/VH or delusional thought content. Thoughts are perseverative/ ruminative on knot in pants, focused on this, difficult to redirect. Has severe dementia. Insight/ Judgment poor. Medications Medications Current Medications Acetaminophen (Acetaminophen 325 Mg Tablet) 650 mg PO Q6H PRN PRN Reason: Pain, Mild (Pain Scale 1-3) Folic Acid (Folic Acid 1 Mg Tablet) 1 mg PO DAILY [facility] BEDS AT [facility] Last Admin: 10/08/21 07:56 Dose: 1 mg Documented by: Heparin Sodium (Porcine) (Heparin Sodium,Porcine 5,000 Unit/Ml Vial) 5,000 unit SUBCUT Q12H [facility]EDS AT [facility] Last Admin: 10/08/21 03:58 Dose: 5,000 unit Documented by: Ceftriaxone Sodium 1 gm/ (Sodium Chloride) 50 mls @ 100 mls/hr IV Q24H [facility] 234 BEDS AT [facility] Last Infusion: 10/07/21 17:21 Dose: Infused Documented by: Azithromycin 500 mg/ Sodium (Chloride) 250 mls @ 125 mls/hr IV Q24H [facility] 234 B[facility]S AT [facility] Last Admin: 10/08/21 14:08 Dose: 125 mls/hr Documented by: Lactated Ringer's (Lr) 1,000 mls @ 80 mls/hr IVCONT .[id number] COUNTS [facility]CLUDE 234 BEDS AT THE [facility] Last Admin: 10/08/21 14:08 Dose: 80 mls/hr Documented by: Ondansetron HCl (Ondansetron Hcl 4 Mg/2 Ml Vial) 4 mg IVPUSH Q8H PRN PRN Reason: Nausea and Vomiting Pharmacy Consult (Consult Rx Perform Med Rec) 1 each MISCELLANE ONCE PRN PRN Reason: Consult order Sodium Chloride (0.9 % Sodium Chloride Flush 3 Ml Syringe) 3 ml IVFLUSH QSHIFT [facility] 234 BEDS AT [facility] Last Admin: 10/08/21 07:56 Dose: 3 ml Documented by: Thiamine HCl (Thiamine Hcl 100 Mg Tablet) 100 mg PO DAILY [facility] 234 B[facility]S AT [facility] Last Admin: 10/08/21 07:56 Dose: 100 mg Documented by: Allergies Allergies Allergy/AdvReac Type Severity Reaction Status Date / Time No Known Allergies Allergy Verified 10/03/21 13:15 Assessment & Plan Assessment & Plan (1) Dementia: Status: Acute Code(s): F03.90 - Unspecified dementia without behavioral disturbance (2) Altered mental status: Qualifiers: Altered mental status type: unspecified Qualified Code(s): R41.82 - Altered mental status, unspecified Status: Acute Code(s): R41.82 - Altered mental status, unspecified (3) COVID-19: Status: Acute Code(s): U07.1 - COVID-19 (4) Alcohol use disorder, severe, dependence: Status: Acute Code(s): F10.20 - Alcohol dependence, uncomplicated Assessment and Plan: Dao is a 81 year old man who presented to [facility] on 10/03/21 due to altered mental status, confusion s/p alcohol withdrawal. He was admitted to [facility] for toxic Encephalopathy secondary to alcohol withdrawal *which was ruled out) vs alcohol dementia and COVID-19 pneumonia/ emphysema. Psych consult placed for capacity. Pt is not endorsing mood concerns or presenting with behavioral issues, however due to severe dementia he is exhibiting impaired judgment and poor insight into severity of sx. He has been unable to care for himself independently, as he does not reliably attend to ADLs without prompting, redirection, and step by step direction and he had been abusing alcohol prior to admission. Pt is unable to make basic healthcare decisions due to dementia, cognitive impairment. At this time pt lacks capacity for medical decision making and HCP should be invoked or if there is no HCP, guardianship should be pursued as pt's condition is unlikely to change. -Continue monitoring medically. -Patient cannot leave AGAINST MEDICAL ADVICE. initial treatments ordered collateral history needed I have shared this with Vane Lehman Thank you for this consultation. If you have any questions or concerns, please do not hesitate to contact psychiatry service. ? I spent minutes with the patient and/or on the patient floor today, greater than?50% of which was spent counseling/coordinating care.
[2021-10-08] MEDS: cefTRIAXone sodium 1 GM in 0.9 % Sodium Chloride 50 ML IV (16:36)
[2021-10-09 03:27] VITALS: BP 93/42; PULSE 72; RESP 16; TEMP 36.3; O2SAT 98
[2021-10-09] MEDS: Lactated Ringers 1,000 ML 80 ML IVCONT ×3 (06:24→21:11)
[2021-10-09 07:06] LABS: Hematocrit 30.3 % (42.0-52.0); Hemoglobin 9.6 g/dl (14.0-18.0); Mean Corpuscular HGB Conc 31.7 g/dl (31.0-36.0); Mean Corpuscular Hemoglobin 29.9 pg (27.0-33.0); Mean Corpuscular Volume 94.4 fL (80.0-98.0); Mean Platelet Volume 9.4 fL (9.4-12.4); Platelet Count 340 X10*3/uL (160-400); Red Blood Count 3.21 X10*6/uL (4.60-5.80); Red Cell Distribution Width 14.2 % (11.0-16.0); White Blood Count 8.8 X10*3/uL (4.8-10.8)
[2021-10-09 07:29] LABS: Anion Gap 11 (12-20); Blood Urea Nitrogen 9 mg/dL (9-16); Carbon Dioxide 29 mmol/L (22-29); Chloride 102 mmol/L (96-108); Creatinine Clr Calc Pharmacy 31.7; Estimated Glomerular Filt Rate > 60; Glucose Random 89 mg/dL (60-115); Sodium 138 mmol/L (135-145)
[2021-10-09 07:33] VITALS: BP 125/65; PULSE 71; RESP 16; TEMP 36.6; O2SAT 95
[2021-10-09] MEDS: Folic Acid 1 MG TABLET PO (08:30)
[2021-10-09] MEDS: Thiamine HCL 100 MG TABLET PO (08:30)
[2021-10-09] MEDS: 0.9 % Sodium Chloride Flush 3 ML SYRINGE IVFLUSH ×3 (08:30→21:12)
--- NOTE | 2021-10-09 09:57 | P.PNIM_ITS ---
Subjective Subjective Date of Service: 10/09/21 Interval History: seen and examined this morning follow up for pneumonia, probable dementia observed sitting up in bed eating breakfast. reports feeling well, with no specific complaints he denies any shortness of breath or coughing he denies nausea and vomiting and reports voiding without difficulty Review of Systems Review of Systems: Yes all other systems are reviewed and are negative Constitutional Constitutional: Denies chills and Denies fever(s) Cardiovascular Cardiovascular: Denies chest pain Respiratory Respiratory: Denies cough Gastrointestinal Gastrointestinal: Denies abdominal pain Physical Exam Vital Signs: Vital Signs: Last Vital Signs Temp 97.9 F 10/09/21 07:33 Pulse 71 10/09/21 07:33 Resp 16 10/09/21 07:33 BP 125/65 10/09/21 07:33 Pulse Ox 95 10/09/21 07:33 BMI result Body Mass Index 12.0 Const: General: cooperative, comfortable, no acute distress, alert and awake Nutritional Appearance: thin and underweight HENMT: Head: Yes normocephalic and Yes atraumatic Eyes: Sclerae: sclerae normal Chest: Chest palpation & inspection: normal inspection of the chest Resp: Effort & Inspection: normal respiratory effort, able to speak in complete sentences and no respiratory distress Cardio: Rate: regular rate Rhythm: regular rhythm GI: Palpation (GI): Soft to palpation and nontender Neuro: Cranial nerves: Yes CN's II-XII intact bilaterally and Yes Bilaterally intact EOM present Extrem: Other: no leg edema; able to move all 4 extremities spontaneously Objective Data Active Medications Acetaminophen (Acetaminophen 325 Mg Tablet) 650 mg PO Q6H PRN PRN Reason: Pain, Mild (Pain Scale 1-3) Folic Acid (Folic Acid 1 Mg Tablet) 1 mg PO DAILY [facility] Last Admin: 10/09/21 08:30 Dose: 1 mg Documented by: KB Heparin Sodium (Porcine) (Heparin Sodium,Porcine 5,000 Unit/Ml Vial) 5,000 unit SUBCUT Q12H [facility] Last Admin: 10/09/21 06:26 Dose: Not Given Documented by: TOMAS Non-Admin Reason: Patient Refused Ceftriaxone Sodium 1 gm/ (Sodium Chloride) 50 mls @ 100 mls/hr IV Q24H [facility] Last Infusion: 10/08/21 17:16 Dose: 0 mls/hr Documented by: GREYSON Azithromycin 500 mg/ Sodium (Chloride) 250 mls @ 125 mls/hr IV Q24H [facility] Last Infusion: 10/08/21 16:36 Dose: 0 mls/hr Documented by: GREYSON Lactated Ringer's (Lr) 1,000 mls @ 80 mls/hr IVCONT .[id number] [facility] Last Admin: 10/09/21 08:34 Dose: 80 mls/hr Documented by: KB Ondansetron HCl (Ondansetron Hcl 4 Mg/2 Ml Vial) 4 mg IVPUSH Q8H PRN PRN Reason: Nausea and Vomiting Pharmacy Consult (Consult Rx Perform Med Rec) 1 each MISCELLANE ONCE PRN PRN Reason: Consult order Sodium Chloride (0.9 % Sodium Chloride Flush 3 Ml Syringe) 3 ml IVFLUSH QSHIFT [facility] Last Admin: 10/09/21 08:30 Dose: 3 ml Documented by: KB Thiamine HCl (Thiamine Hcl 100 Mg Tablet) 100 mg PO DAILY [facility] Last Admin: 10/09/21 08:30 Dose: 100 mg Documented by: KB Labs CBC & Chem 7: 10/09/21 06:23 10/09/21 06:23 Labs: Laboratory Results - last 24 hr 10/09/21 10/09/21 06:23 06:23 MCV 94.4 MCH 29.9 MCHC 31.7 RDW 14.2 Plt Count 340 MPV 9.4 Absolute Nucleated RBC 0.000 Nucleated RBC % (auto) 0.0 Anion Gap 11 L Estim Creat Clear Calc 31.7 Estimated GFR > 60 Random Glucose 89 Calcium 8.0 L D Microbiology Microbiology Results: Microbiology 10/03/21 16:21 Blood Culture - Final Blood - Venous No growth after 5 days. 10/06/21 03:19 Blood Culture - Preliminary Blood - Venous No growth after 48 hours. 10/06/21 03:06 Blood Culture - Preliminary Blood - Venous No growth after 48 hours. Assessment and Plan (1) COVID-19: Status: Acute (2) Dementia: Status: Acute Assessment and Plan: This is a 81 yo M with a reported history of alcohol use/dependence who was brought in by ambulance after his friends had not seen him for a few days. He is admitted for a multitude of reasons. Toxic/Metabolic Encephalopathy - ruled out suspect this is the patients baseline (i.e he has dementia, possibly related to alcohol use) He remains oriented to self and place, but otherwise disoriented seen by neurology - no further workup indicated seen by psych, does NOT have capacity Pneumonia - viral vs bacterial / COVID 19+ His CT scan shows bilateral lower lobe bronchopneumonia but not the typical diffuse ground glass findings seen with covid He is COVID positive, but suspect his CT findings are more related to bacterial pneumonia Has completed course of ceftriaxone/azithromycin he remains off oxygen Kath / mild HypoNa likely hypovoluemic -- resolved with IVF Elevated HS trop-I Flat likely secondary to infection Alcohol abuse / dependence no symptoms of withdrawal at this time continue thiamine / folate Coagulopathy / transaminitis resolved suspected due to infection Full Code DVT pptx. heparin attending - dr. harrison dispo - does not have capacity per psych. will likely need guardianship and placement Quality Stroke Does the patient have a stroke diagnosis?: No VTE Prior VTE?: No VTE Risk Level:: Medical - moderate - high VTE Device Contraindication: Treatment Not Indicated VTE Drug Contraindication: N/A - Med Ordered
--- NOTE | 2021-10-09 11:33 | MHC.CM.PN ---
Per ROUNDS discussion, Psych has deemed Patient to NOT have capacity. VNA is not an option d/t no PCP. [facility] will likely need to Pursue Legal Guardianship. CM will follow.
[2021-10-09 12:00] VITALS: BP 109/61; PULSE 88; RESP 22; TEMP 37.8; O2SAT 94
[2021-10-09 15:35] VITALS: BP 74/28; PULSE 86; RESP 18; TEMP 37.8; O2SAT 99
[2021-10-09] MEDS: Azithromycin 500 MG in 0.9 % Sodium Chloride 250 ML 125 MG IV (15:48)
[2021-10-09] MEDS: Heparin Sodium,Porcine 5,000 UNIT/ML VIAL 5000 UNIT SUBCUT (15:49)
[2021-10-09] MEDS: cefTRIAXone sodium 1 GM in 0.9 % Sodium Chloride 50 ML IV (15:49)
[2021-10-09 20:00] VITALS: BP 90/51; PULSE 75; RESP 18; TEMP 36.4; O2SAT 99
[2021-10-09 23:42] VITALS: BP 90/46; PULSE 71; RESP 20; TEMP 36.7; O2SAT 96
[2021-10-10 03:59] VITALS: BP 92/48; PULSE 81; RESP 20; TEMP 36.5; O2SAT 95
[2021-10-10] MEDS: Heparin Sodium,Porcine 5,000 UNIT/ML VIAL 5000 UNIT SUBCUT ×2 (06:03→16:03)
[2021-10-10 07:36] VITALS: PULSE 70; RESP 20; TEMP 36.4; O2SAT 95
[2021-10-10] MEDS: Thiamine HCL 100 MG TABLET PO (09:04)
[2021-10-10] MEDS: Folic Acid 1 MG TABLET PO (09:04)
[2021-10-10 09:12] VITALS: BP 129/49; PULSE 83
--- NOTE | 2021-10-10 11:46 | P.PNIM_ITS ---
Subjective Subjective Date of Service: 10/10/21 <RAMU Grimes - Last Filed: 10/10/21 12:00> 10/11/21 <Jose Bell MD - Last Filed: 10/11/21 10:12> Interval History: Seen and examined this morning Follow-up for dementia, COVID-19 low grade fever 100.0 yesterday no cough, no sob, no abdominal pain. feels fine nurse reporting diarrhea <RAMU Grimes - Last Filed: 10/10/21 12:00> Review of Systems Review of Systems: Yes all other systems are reviewed and are negative <RAMU Grimes - Last Filed: 10/10/21 12:00> Constitutional Constitutional: Denies chills and Denies fever(s) <RAMU Grimes - Last Filed: 10/10/21 12:00> Cardiovascular Cardiovascular: Denies chest pain <RAMU Grimes - Last Filed: 10/10/21 12:00> Respiratory Respiratory: Denies cough <RAMU Grimes - Last Filed: 10/10/21 12:00> Gastrointestinal Gastrointestinal: Denies abdominal pain <RAMU Grimes - Last Filed: 10/10/21 12:00> Physical Exam Vital Signs: Vital Signs: Last Vital Signs Temp 97.5 F 10/10/21 07:36 Pulse 83 10/10/21 09:12 Resp 20 10/10/21 07:36 BP 129/49 L 10/10/21 09:12 Pulse Ox 95 10/10/21 07:36 BMI result Body Mass Index 12.0 <RAMU Grimes - Last Filed: 10/10/21 12:00> Const: General: cooperative, comfortable, no acute distress, alert and awake <RAMU Grimes - Last Filed: 10/10/21 12:00> Nutritional Appearance: thin and underweight <RAMU Grimes - Last Filed: 10/10/21 12:00> HENMT: Head: Yes normocephalic and Yes atraumatic <RAMU Grimes - Last Filed: 10/10/21 12:00> Eyes: Sclerae: sclerae normal <RAMU Grimes - Last Filed: 10/10/21 12:00> Chest: Chest palpation & inspection: normal inspection of the chest <RAMU Grimes Last Filed: 10/10/21 12:00> Resp: Effort & Inspection: normal respiratory effort, able to speak in complet e sentences and no respiratory distress <RAMU Grimes - Last Filed: 10/10/21 12:00> Cardio: Rate: regular rate <RAMU Grimes - Last Filed: 10/10/21 12:00> Rhythm: regular rhythm <RAMU Grimes - Last Filed: 10/10/21 1 2:00> GI: Palpation (GI): Soft to palpation and nontender <RAMU Grimes - Last Filed: 10/10/21 12:00> Neuro: Cranial nerves: Yes CN's II-XII intact bilaterally and Yes Bilaterally intact EOM present <RAMU Grimes - Last Filed: 10/10/21 12:00> Extrem: Other: no leg edema; able to move all 4 extremities spontaneously <RAMU Grimes - Last Filed: 10/10/21 12:00> Objective Data Active Medications Acetaminophen (Acetaminophen 325 Mg Tablet) 650 mg PO Q6H PRN PRN Reason: Pain, Mild (Pain Scale 1-3) Folic Acid (Folic Acid 1 Mg Tablet) 1 mg PO DAILY [facility] Last Admin: 10/10/21 09:04 Dose: 1 mg Documented by: ERNESTO Heparin Sodium (Porcine) (Heparin Sodium,Porcine 5,000 Unit/Ml Vial) 5,000 unit SUBCUT Q12H [facility] Last Admin: 10/10/21 06:03 Dose: 5,000 unit Documented by: IMAN Lactated Ringer's (Lr) 1,000 mls @ 80 mls/hr IVCONT .[id number] [facility] Last Admin: 10/09/21 21:11 Dose: 80 mls/hr Documented by: IMAN Ondansetron HCl (Ondansetron Hcl 4 Mg/2 Ml Vial) 4 mg IVPUSH Q8H PRN PRN Reason: Nausea and Vomiting Pharmacy Consult (Consult Rx Perform Med Rec) 1 each MISCELLANE ONCE PRN PRN Reason: Consult order Sodium Chloride (0.9 % Sodium Chloride Flush 3 Ml Syringe) 3 ml IVFLUSH QSHIFT [facility] Last Admin: 10/10/21 09:04 Dose: Not Given Documented by: ERNESTO Non-Admin Reason: IV Running Thiamine HCl (Thiamine Hcl 100 Mg Tablet) 100 mg PO DAILY [facility] Last Admin: 10/10/21 09:04 Dose: 100 mg Documented by: ERNESTO <RAMU Grimes - Last Filed: 10/10/21 12:00> Labs CBC & Chem 7: : 10/11/21 06:26 10/11/21 06:26 <RAMU Grimes - Last Filed: 10/10/21 12:00> Assessment and Plan (1) Dementia: Status: Acute <RAMU Grimes - Last Filed: 10/10/21 12:00> (2) COVID-19: Status: Acute <RAMU Grimes - Last Filed: 10/10/21 12:00> Assessment and Plan: This is a 81 yo M with a reported history of alcohol use/dependence who was brought in by ambulance after his friends had not seen him for a few days. He is admitted for a multitude of reasons. Low grade fever repeat cxr shows new patchy opacities although this may be covid changes. pt has no respiratory symptoms. has completed course of abx for pneumonia repeat UA, BCx ordered having diarrhea per nurse, will check cdif Toxic/Metabolic Encephalopathy - ruled out suspect this is the patients baseline (i.e he has dementia, possibly related to alcohol use) He remains oriented to self and place, but otherwise disoriented seen by neurology - no further workup indicated seen by psych, does NOT have capacity Pneumonia - viral vs bacterial / COVID 19+ His CT scan shows bilateral lower lobe bronchopneumonia but not the typical diff use ground glass findings seen with covid He is COVID positive, but suspect his CT findings are more related to bacterial pneumonia Has completed course of ceftriaxone/azithromycin he remains off oxygen [place] / mild HypoNa likely hypovoluemic -- resolved with IVF Elevated HS trop-I Flat. no chest pain. likely secondary to infection Alcohol abuse / dependence no symptoms of withdrawal continue thiamine / folate Coagulopathy / transaminitis resolved suspected due to infection Full Code DVT pptx. heparin attending - dr. Bell dispo - does not have capacity per psych. will likely need guardianship and placement <RAMU Grimes - Last Filed: 10/10/21 12:00> Quality Stroke Does the patient have a stroke diagnosis?: No <RAMU Grimes - Last Filed: 10/10/21 12:00> VTE Prior VTE?: No <RAMU Grimes - Last Filed: 10/10/21 12:00> VTE Risk Level:: Medical - moderate - high <RAMU Grimes - Last Filed: 10/10/21 12:00> VTE Device Contraindication: Treatment Not Indicated <RAMU Grimes - Last Filed: 10/10/21 12:00> VTE Drug Contraindication: N/A - Med Ordered <RAMU Grimes - Last Filed: 10/10/21 12:00>
[2021-10-10] MEDS: Lactated Ringers 1,000 ML 80 ML IVCONT (11:59)
[2021-10-10 15:29] VITALS: PULSE 83; RESP 20; TEMP 36.9; O2SAT 97
[2021-10-10] MEDS: 0.9 % Sodium Chloride Flush 3 ML SYRINGE IVFLUSH (16:03)
[2021-10-10 19:10] VITALS: BP 99/42; PULSE 80; RESP 20; TEMP 36.7; O2SAT 97
[2021-10-10 23:26] VITALS: BP 85/46; PULSE 75; RESP 17; TEMP 36.8; O2SAT 96
[2021-10-11] VITALS (7 sets, daily range): BP systolic 96–122; BP diastolic 41–63; PULSE 75–95; RESP 17–20; TEMP 36–36.8; O2SAT 95–99
[2021-10-11] MEDS: Lactated Ringers 1,000 ML 80 ML IVCONT (00:57)
[2021-10-11] MEDS: Heparin Sodium,Porcine 5,000 UNIT/ML VIAL 5000 UNIT SUBCUT ×2 (06:11→16:40)
[2021-10-11 07:02] LABS: MANUAL DIFF FLAG NO
[2021-10-11 07:04] LABS: Basophils Percent Auto 0.5 % (0-2); Eosinophils Absolute Auto 0.1 X10*3/uL (0.0-0.4); Eosinophils Percent Auto 2.1 % (0-4); Hematocrit 26.2 % (42.0-52.0); Hemoglobin 8.4 g/dl (14.0-18.0); Imm Gran Abs Auto 0.02 X10*3/uL (0.00-0.03); Imm Gran Pct Auto 0.3 % (0.0-0.4); Lymphocytes Absolute Auto 1.4 X10*3/uL (1.2-4.9); Lymphocytes Percent Auto 20.7 % (20-40); Mean Corpuscular HGB Conc 32.1 g/dl (31.0-36.0); Mean Corpuscular Hemoglobin 29.8 pg (27.0-33.0); Mean Corpuscular Volume 92.9 fL (80.0-98.0); Mean Platelet Volume 9.2 fL (9.4-12.4); Monocytes Absolute Auto 0.6 X10*3/uL (0.1-1.2); Monocytes Percent Auto 8.5 % (2-11); Neutrophils Absolute Auto 4.5 x10*3/uL (2.0-8.3); Neutrophils Percent Auto 67.9 % (45-73); Platelet Count 277 X10*3/uL (160-400); Red Blood Count 2.82 X10*6/uL (4.60-5.80); Red Cell Distribution Width 14.3 % (11.0-16.0); White Blood Count 6.6 X10*3/uL (4.8-10.8)
[2021-10-11 07:18] LABS: Anion Gap 10 (12-20); Blood Urea Nitrogen 8 mg/dL (9-16); Calcium 7.9 mg/dL (8.4-10.2); Carbon Dioxide 29 mmol/L (22-29); Chloride 105 mmol/L (96-108); Creatinine Clr Calc Pharmacy 33.9; Estimated Glomerular Filt Rate > 60; Glucose Random 78 mg/dL (60-115); Potassium 4.2 mmol/L (3.3-5.1); Sodium 140 mmol/L (135-145)
[2021-10-11 07:57] LABS: Iron 56 mcg/dL (45-160); Percent Iron Saturation 34 % (15-50); Total Iron Binding Capacity 163 mcg/dL (228-428); Unsaturated Iron Binding 107 ug/dL
[2021-10-11 08:17] LABS: Ferritin 307 ng/mL (20-250)
[2021-10-11] MEDS: Folic Acid 1 MG TABLET PO (08:50)
[2021-10-11] MEDS: Thiamine HCL 100 MG TABLET PO (08:50)
--- NOTE | 2021-10-11 12:07 | HO.PM.IMPN ---
Subjective Subjective Date of Service: 10/11/21 <RAMU Grimes - Last Filed: 10/11/21 12:14> 10/16/21 <Jose Bell MD - Last Filed: 10/16/21 11:12> Interval History: seen and examined this morning follow up for dementia and covid no further fever, no respiratory symptoms does not seem to have had any further diarrhea no complaints this morning. not a good historian <RAMU Grimes - Last Filed: 10/11/21 12:14> Review of Systems Review of Systems: Yes all other systems are reviewed and are negative <RAMU Grimes - Last Filed: 10/11/21 12:14> Constitutional Constitutional: Denies chills and Denies fever(s) <RAMU Grimes - Last Filed: 10/11/21 12:14> Cardiovascular Cardiovascular: Denies chest pain <RAMU Grimes - Last Filed: 10/11/21 12:14> Respiratory Respiratory: Denies cough <RAMU Grimes - Last Filed: 10/11/21 12:14> Gastrointestinal Gastrointestinal: Denies abdominal pain <RAMU Grimes - Last Filed: 10/11/21 12:14> Physical Exam Vital Signs: Vital Signs: Last Vital Signs Temp 98.1 F 10/11/21 10:58 Pulse 85 10/11/21 10:58 Resp 19 10/11/21 10:58 BP 119/56 L 10/11/21 10:58 Pulse Ox 95 10/11/21 10:58 BMI result Body Mass Index 12.0 <RAMU Grimes - Last Filed: 10/11/21 12:14> Const: General: cooperative, comfortable, no acute distress, alert and awake <RAMU Grimes Last Filed: 10/11/21 12:14> Nutritional Appearance: thin and underweight <RAMU Grimes - Last Filed: 10/11/21 12:14> HENMT: Head: Yes normocephalic and Yes atraumatic <RAMU Grimes - Last Filed: 10/11/21 12:14> Eyes: Sclerae: sclerae normal <RAMU Grimes - Last Filed: 10/11/21 12:14> Chest: Chest palpation & inspection: normal inspection of the chest <RAMU Grimes - Last Filed: 10/11/21 12:14> Resp: Effort & Inspection: normal respiratory effort, able to speak in complete sentences and no respiratory distress <RAMU Grimes - Last Filed: 10/11/21 12:14> Cardio: Rate: regular rate <RAMU Grimes - Last Filed: 10/11/21 12:14> Rhythm: regular rhythm <RAMU Grimes - Last Filed: 10/11/21 12:14> GI: Inspection: No distended <RAMU Grimes - Last Filed: 10/11/21 12:14> Palpation (GI): Soft to palpation and nontender <RAMU Grimes - Last Filed: 10/11/21 12:14> Neuro: Cranial nerves: Yes CN's II-XII intact bilaterally and Yes Bilaterally intact EOM present <RAMU Grimes - Last Filed: 10/11/21 12:14> Extrem: Other: no leg edema; able to move all 4 extremities spontaneously <RAMU Grimes Last Filed: 10/11/21 12:14> Objective Data Active Medications Acetaminophen (Acetaminophen 325 Mg Tablet) 650 mg PO Q6H PRN PRN Reason: Pain, Mild (Pain Scale 1-3) Folic Acid (Folic Acid 1 Mg Tablet) 1 mg PO DAILY [facility] Last Admin: 10/11/21 08:50 Dose: 1 mg Documented by: GLO Heparin Sodium (Porcine) (Heparin Sodium,Porcine 5,000 Unit/Ml Vial) 5,000 unit SUBCUT Q12H [facility] Last Admin: 10/11/21 06:11 Dose: 5,000 unit Documented by: ARABELLA Lactated Ringer's (Lr) 1,000 mls @ 80 mls/hr IVCONT .[id number] [facility] Last Admin: 10/11/21 00:57 Dose: 80 mls/hr Documented by: ARABELLA Ondansetron HCl (Ondansetron Hcl 4 Mg/2 Ml Vial) 4 mg IVPUSH Q8H PRN PRN Reason: Nausea and Vomiting Pharmacy Consult (Consult Rx Perform Med Rec) 1 each MISCELLANE ONCE PRN PRN Reason: Consult order Sodium Chloride (0.9 % Sodium Chloride Flush 3 Ml Syringe) 3 ml IVFLUSH QSHIFT [facility] Last Admin: 10/11/21 08:50 Dose: Not Given Documented by: GLO Non-Admin Reason: IV Running Thiamine HCl (Thiamine Hcl 100 Mg Tablet) 100 mg PO DAILY [facility] Last Admin: 10/11/21 08:50 Dose: 100 mg Documented by: GLO <RAMU Grimes - Last Filed: 10/11/21 12:14> Labs CBC & Chem 7: : 10/11/21 06:26 10/12/21 05:41 <RAMU Grimes - Last Filed: 10/11/21 12:14> Labs: Laboratory Results - last 24 hr 10/11/21 10/11/21 06:26 06:26 MCV 92.9 MCH 29.8 MCHC 32.1 RDW 14.3 Plt Count 277 MPV 9.2 L Immature Gran % (Auto) 0.3 Neut % (Auto) 67.9 Lymph % (Auto) 20.7 Marion % (Auto) 8.5 Eos % (Auto) 2.1 Baso % (Auto) 0.5 Lymph # (Auto) 1.4 Marion # (Auto) 0.6 Eos # (Auto) 0.1 Baso # (Auto) 0.0 Abs Immat Gran (auto) 0.02 Absolute Neuts (auto) 4.5 Absolute Nucleated RBC 0.000 Nucleated RBC % (auto) 0.0 Anion Gap 10 L Estim Creat Clear Calc 33.9 Estimated GFR > 60 Random Glucose 78 Calcium 7.9 L Iron 56 TIBC 163 L % Saturation 34 Unsat Iron Binding 107 Ferritin 307 H <RAMU Grimes - Last Filed: 10/11/21 12:14> Microbiology Microbiology Results: Microbiology 10/10/21 09:21 Blood Culture - Preliminary Blood - Venous No growth after 24 hours. 10/10/21 09:06 Blood Culture - Preliminary Blood - Venous No growth after 24 hours. 10/06/21 03:06 Blood Culture - Final Blood - Venous No growth after 5 days. 10/06/21 03:19 Blood Culture - Final Blood - Venous No growth after 5 days. <RAMU Grimes - Last Filed: 10/11/21 12:14> Assessment and Plan (1) COVID-19: Status: Acute <RAMU Grimes - Last Filed: 10/11/21 12:14> (2) Dementia: Status: Acute <RAMU Grimes - Last Filed: 10/11/21 12:14> Assessment and Plan: This is a 81 yo M with a reported history of alcohol use/dependence who was brought in by ambulance after his friends had not seen him for a few days. He is admitted for a multitude of reasons. Low grade fever repeat cxr shows new patchy opacities although this may be r/t covid changes. pt has no respiratory symptoms. has completed course of abx for pneumonia repeat UA ordered (still uncollected) repeat BCx negative x 24 hours having diarrhea per nurse, will check cdif, still uncollected Toxic/Metabolic Encephalopathy - ruled out suspect this is the patients baseline (i.e he has dementia, possibly related to alcohol use) He remains oriented to self and place, but otherwise disoriented seen by neurology - no further workup indicated seen by psych, does NOT have capacity Normocytic anemia drop in all cell lines from admission, likely dilutional no overt bleeding noted anemia workup pending Pneumonia - viral vs bacterial / COVID 19+ His CT scan shows bilateral lower lobe bronchopneumonia but not the typical diffuse ground glass findings seen with covid He is COVID positive, but suspect his CT findings are more related to bacterial pneumonia Has completed course of ceftriaxone/azithromycin he remains off oxygen [place] / mild HypoNa likely hypovoluemic -- resolved with IVF Elevated HS trop-I Flat. no chest pain. likely secondary to infection Alcohol abuse / dependence no symptoms of withdrawal continue thiamine / folate Coagulopathy / transaminitis resolved suspected due to infection Full Code DVT pptx. heparin attending - dr. Bell dispo - does not have capacity per psych. will likely need guardianship and placement <RAMU Grimes - Last Filed: 10/11/21 12:14> Quality Stroke Does the patient have a stroke diagnosis?: No <RAMU Grimes - Last Filed: 10/11/21 12:14> VTE Prior VTE?: No <RAMU Grimes - Last Filed: 10/11/21 12:14> VTE Risk Level:: Medical - moderate - high <RAMU Grimes - Last Filed: 10/11/21 12:14> VTE Device Contraindication: Treatment Not Indicated <RAMU Grimes - Last Filed: 10/11/21 12:14> VTE Drug Contraindication: N/A - Med Ordered <RAMU Grimes - Last Filed: 10/11/21 12:14>
[2021-10-11 12:20] LABS: OBS Int Ctl Valid YES; OBS1 NEGATIVE (NEGATIVE)
[2021-10-11 14:54] LABS: CDiff Gene PCR NEGATIVE (Negative)
[2021-10-11] MEDS: 0.9 % Sodium Chloride Flush 3 ML SYRINGE IVFLUSH (16:40)
[2021-10-12] MEDS: 0.9 % Sodium Chloride Flush 3 ML SYRINGE IVFLUSH ×4 (01:57→19:43)
[2021-10-12 03:07] VITALS: BP 101/49; PULSE 85; RESP 18; TEMP 36.8; O2SAT 93
[2021-10-12 03:55] LABS: Folate 13.7 ng/mL (> or = 4.0); Vitamin B12 502 pg/mL (200-900)
[2021-10-12] MEDS: Heparin Sodium,Porcine 5,000 UNIT/ML VIAL 5000 UNIT SUBCUT ×2 (05:54→15:43)
[2021-10-12 06:21] LABS: Anion Gap 10 (12-20); Blood Urea Nitrogen 8 mg/dL (9-16); Calcium 8.1 mg/dL (8.4-10.2); Carbon Dioxide 29 mmol/L (22-29); Chloride 106 mmol/L (96-108); Creatinine Clr Calc Pharmacy 31.7; Estimated Glomerular Filt Rate > 60; Glucose Random 86 mg/dL (60-115); Potassium 4.5 mmol/L (3.3-5.1); Sodium 140 mmol/L (135-145)
[2021-10-12 07:38] VITALS: BP 101/55; PULSE 74; RESP 18; TEMP 36.8; O2SAT 94
[2021-10-12] MEDS: Thiamine HCL 100 MG TABLET PO (10:06)
[2021-10-12] MEDS: Folic Acid 1 MG TABLET PO (10:06)
--- NOTE | 2021-10-12 11:01 | P.PNIM_ITS ---
Subjective Subjective Date of Service: 10/12/21 Review of Systems Follow up Covid 19 No covid symptoms no complaints of pain resting in bed Physical Exam Vital Signs: Vital Signs: Last Vital Signs Temp 98.3 F 10/12/21 07:38 Pulse 74 10/12/21 07:38 Resp 18 10/12/21 07:38 BP 101/55 L 10/12/21 07:38 Pulse Ox 94 10/12/21 07:38 BMI result Body Mass Index 12.0 Appearing in no acute distress lung sounds are clear to auscultation heart regular rate rhythm, clear S1, S2 positive bowel sounds, abdomen is soft, nontender neuro patient is alert x3, no focal deficits Objective Data Active Medications Acetaminophen (Acetaminophen 325 Mg Tablet) 650 mg PO Q6H PRN PRN Reason: Pain, Mild (Pain Scale 1-3) Folic Acid (Folic Acid 1 Mg Tablet) 1 mg PO DAILY [facility] Last Admin: 10/12/21 10:06 Dose: 1 mg Documented by: ANUJA Heparin Sodium (Porcine) (Heparin Sodium,Porcine 5,000 Unit/Ml Vial) 5,000 unit SUBCUT Q12H [facility] Last Admin: 10/12/21 05:54 Dose: 5,000 unit Documented by: BECKA Ondansetron HCl (Ondansetron Hcl 4 Mg/2 Ml Vial) 4 mg IVPUSH Q8H PRN PRN Reason: Nausea and Vomiting Pharmacy Consult (Consult Rx Perform Med Rec) 1 each MISCELLANE ONCE PRN PRN Reason: Consult order Sodium Chloride (0.9 % Sodium Chloride Flush 3 Ml Syringe) 3 ml IVFLUSH QSHIFT [facility] Last Admin: 10/12/21 10:06 Dose: 3 ml Documented by: ANUJA Thiamine HCl (Thiamine Hcl 100 Mg Tablet) 100 mg PO DAILY [facility] Last Admin: 10/12/21 10:06 Dose: 100 mg Documented by: ANUJA Labs CBC & Chem 7: 10/11/21 06:26 10/12/21 05:41 Labs: Laboratory Results - last 24 hr 10/10/21 10/11/21 10/11/21 Unknown 06:26 12:10 Anion Gap Estim Creat Clear Calc Estimated GFR Random Glucose Calcium Vitamin B12 502 Folate 13.7 Stool Occult Blood NEGATIVE C. difficile Tox B Gene NEGATIVE 12/20/21 05:41 Anion Gap 10 L Estim Creat Clear Calc 31.7 Estimated GFR > 60 Random Glucose 86 Calcium 8.1 L Vitamin B12 Folate Stool Occult Blood C. difficile Tox B Gene Microbiology Microbiology Results: Microbiology 10/10/21 09:21 Blood Culture - Preliminary Blood - Venous No growth after 24 hours. 10/10/21 09:06 Blood Culture - Preliminary Blood - Venous No growth after 24 hours. Assessment and Plan (1) COVID-19: Status: Acute (2) CAP (community acquired pneumonia): Status: Acute Assessment and Plan: This is a 81 yo M with a reported history of alcohol use/dependence who was brought in by ambulance after his friends had not seen him for a few days. He is admitted for a multitude of reasons. Low grade fever. Resolved repeat cxr shows new patchy opacities although this may be r/t covid changes. pt has no respiratory symptoms. has completed course of abx for pneumonia repeat UA ordered (still uncollected) repeat BCx negative x 24 hours Cdiff negative Toxic/Metabolic Encephalopathy - ruled out suspect this is the patients baseline (i.e he has dementia, possibly related to alcohol use) He remains oriented to self and place, but otherwise disoriented seen by neurology - no further workup indicated seen by psych, does NOT have capacity Normocytic anemia drop in all cell lines from admission, likely dilutional no overt bleeding noted Pneumonia - viral vs bacterial / COVID 19+ His CT scan shows bilateral lower lobe bronchopneumonia but not the typical diffuse ground glass findings seen with covid He is COVID positive, but suspect his CT findings are more related to bacterial pneumonia Has completed course of ceftriaxone/azithromycin he remains off oxygen [place] / mild HypoNa likely hypovoluemic -- resolved with IVF Elevated HS trop-I Flat. no chest pain. likely secondary to infection Alcohol abuse / dependence no symptoms of withdrawal continue thiamine / folate Coagulopathy / transaminitis resolved suspected due to infection Full Code DVT pptx. heparin attending Dr. Mckay dispo - does not have capacity per psych. will need guardianship and placement Quality Stroke Does the patient have a stroke diagnosis?: No VTE Prior VTE?: No VTE Risk Level:: Medical - moderate - high VTE Device Contraindication: Treatment Not Indicated VTE Drug Contraindication: N/A - Med Ordered
[2021-10-12 11:42] VITALS: BP 104/55; PULSE 88; RESP 18; TEMP 36.9; O2SAT 97
--- NOTE | 2021-10-12 13:05 | MHC.CM.PN ---
Patient lacks capacity and will need Guardianship and LTC placement; CM will follow.
[2021-10-12 15:19] VITALS: BP 94/43; PULSE 94; RESP 20; TEMP 37; O2SAT 95
[2021-10-12 19:37] VITALS: BP 90/44; PULSE 89; RESP 18; TEMP 37.1; O2SAT 94
[2021-10-12 23:22] VITALS: BP 94/36; PULSE 88; RESP 18; TEMP 36.7; O2SAT 96
[2021-10-13 03:17] VITALS: BP 92/36; PULSE 77; RESP 18; TEMP 36.8; O2SAT 94
[2021-10-13 07:47] VITALS: BP 94/56; PULSE 87; RESP 20; TEMP 37.3; O2SAT 99
[2021-10-13] MEDS: Folic Acid 1 MG TABLET PO (07:50)
[2021-10-13] MEDS: Thiamine HCL 100 MG TABLET PO (07:51)
[2021-10-13] MEDS: 0.9 % Sodium Chloride Flush 3 ML SYRINGE IVFLUSH ×3 (07:51→21:59)
--- NOTE | 2021-10-13 10:51 | MHC.CDI.CONC ---
CDI Concurrent Query Documentation Clarification: PHYSICIAN'S DOCUMENTATION REQUEST Date of Query: 10/13/21 1052 Patient Name: Dao Zacarias Admit Date: 10/03/21 Dear Doctor, A review of the medical record indicates additional documentation may be needed. Please review below and update the documentation accordingly. Risk Factors/Clinical Indicators/Treatments BMI: 12.0 - noted in H&P as 20.9 Albumin 2.9 Alcohol withdrawal Smoker Failure to thrive, thin, underweight, frail. Based on the above, could you clarify in the Progress Notes the appropriate diagnosis, if significant, that supports the above abnormalities and additional evaluation, monitoring, and/or treatment rendered: Nutritional deficiency Failure to thrive Malnourished, mild, moderate or other Unable to determine Use of terms such as suspected, likely, concern for, or probable (associated with a specific diagnosis that is being evaluated, monitored, or treated as if it exists) are acceptable and can be coded in the inpatient setting, when documented at the time of discharge. Thank you, Sade Villalta [facility], [facility] Extension: [phone] Please use your independent medical judgment in providing your response. THIS QUERY IS PART OF THE PERMANENT MEDICAL RECORD Provider Response: Other Other Diagnosis: No signs and symptoms of malnutrition (see nutrition note from 10/06)
[2021-10-13 11:22] VITALS: BP 94/53; PULSE 78; RESP 18; TEMP 36.9; O2SAT 98
--- NOTE | 2021-10-13 11:55 | P.PNIM_ITS ---
Subjective Subjective Date of Service: 10/13/21 Review of Systems Follow up Covid 19 No covid symptoms no complaints of pain resting in bed Physical Exam Vital Signs: Vital Signs: Last Vital Signs Temp 98.5 F 10/13/21 11:22 Pulse 78 10/13/21 11:22 Resp 18 10/13/21 11:22 BP 94/53 L 10/13/21 11:22 Pulse Ox 98 10/13/21 11:22 BMI result Body Mass Index 12.0 Appearing in no acute distress lung sounds are clear to auscultation heart regular rate rhythm, clear S1, S2 positive bowel sounds, abdomen is soft, nontender neuro patient is alert x3, no focal deficits Objective Data Active Medications Acetaminophen (Acetaminophen 325 Mg Tablet) 650 mg PO Q6H PRN PRN Reason: Pain, Mild (Pain Scale 1-3) Folic Acid (Folic Acid 1 Mg Tablet) 1 mg PO DAILY [facility] Last Admin: 10/13/21 07:50 Dose: 1 mg Documented by: ANUJA Heparin Sodium (Porcine) (Heparin Sodium,Porcine 5,000 Unit/Ml Vial) 5,000 unit SUBCUT Q12H [facility] Last Admin: 10/13/21 04:17 Dose: Not Given Documented by: TOMAS Non-Admin Reason: Patient Refused Ondansetron HCl (Ondansetron Hcl 4 Mg/2 Ml Vial) 4 mg IVPUSH Q8H PRN PRN Reason: Nausea and Vomiting Pharmacy Consult (Consult Rx Perform Med Rec) 1 each MISCELLANE ONCE PRN PRN Reason: Consult order Sodium Chloride (0.9 % Sodium Chloride Flush 3 Ml Syringe) 3 ml IVFLUSH QSHIFT [facility] Last Admin: 10/13/21 07:51 Dose: 3 ml Documented by: ANUJA Thiamine HCl (Thiamine Hcl 100 Mg Tablet) 100 mg PO DAILY [facility] Last Admin: 10/13/21 07:51 Dose: 100 mg Documented by: ANUJA Labs CBC & Chem 7: 10/11/21 06:26 10/12/21 05:41 Microbiology Microbiology Results: Microbiology 10/10/21 09:06 Blood Culture - Preliminary Blood - Venous No growth after 48 hours. 10/10/21 09:21 Blood Culture - Preliminary Blood - Venous No growth after 48 hours. Assessment and Plan (1) COVID-19: Status: Acute (2) Dementia: Status: Acute (3) Toxic encephalopathy: Status: Acute Assessment and Plan: This is a 81 yo M with a reported history of alcohol use/dependence who was brought in by ambulance after his friends had not seen him for a few days. He is admitted for a multitude of reasons. Low grade fever. Resolved repeat cxr shows new patchy opacities although this may be r/t covid changes. pt has no respiratory symptoms. has completed course of abx for pneumonia repeat UA ordered (still uncollected) repeat BCx negative x 24 hours Cdiff negative Toxic/Metabolic Encephalopathy - ruled out suspect this is the patients baseline (i.e he has dementia, possibly related to alcohol use) He remains oriented to self and place, but otherwise disoriented seen by neurology - no further workup indicated seen by psych, does NOT have capacity Normocytic anemia drop in all cell lines from admission, likely dilutional no overt bleeding noted Pneumonia - viral vs bacterial / COVID 19+ His CT scan shows bilateral lower lobe bronchopneumonia but not the typical diffuse ground glass findings seen with covid He is COVID positive, but suspect his CT findings are more related to bacterial pneumonia Has completed course of ceftriaxone/azithromycin he remains off oxygen [place] / mild HypoNa likely hypovoluemic -- resolved with IVF Elevated HS trop-I Flat. no chest pain. likely secondary to infection Alcohol abuse / dependence no symptoms of withdrawal continue thiamine / folate Coagulopathy / transaminitis resolved suspected due to infection Vital signs Qshift, weekly labs Full Code DVT pptx. heparin attending Dr. Mckay dispo - does not have capacity per psych. will need guardianship and placement Quality Stroke Does the patient have a stroke diagnosis?: No VTE Prior VTE?: No VTE Risk Level:: Medical - moderate - high VTE Device Contraindication: Treatment Not Indicated VTE Drug Contraindication: N/A - Med Ordered
[2021-10-13 15:26] VITALS: BP 101/57; PULSE 87; RESP 18; TEMP 37.2; O2SAT 96
[2021-10-13] MEDS: Heparin Sodium,Porcine 5,000 UNIT/ML VIAL 5000 UNIT SUBCUT (16:55)
[2021-10-13 19:28] VITALS: BP 97/52; PULSE 86; RESP 18; TEMP 36.6; O2SAT 98
[2021-10-14] VITALS (7 sets, daily range): BP systolic 102–112; BP diastolic 50–57; PULSE 78–86; RESP 18; TEMP 35.9–36.9; O2SAT 92–98
[2021-10-14] MEDS: Thiamine HCL 100 MG TABLET PO (07:52)
[2021-10-14] MEDS: Folic Acid 1 MG TABLET PO (07:53)
[2021-10-14] MEDS: 0.9 % Sodium Chloride Flush 3 ML SYRINGE IVFLUSH ×2 (07:54→18:42)
--- NOTE | 2021-10-14 11:41 | MHC.CM.PN ---
Guardianship and placement are needed; CM will follow.
--- NOTE | 2021-10-14 12:24 | MHC.CLN ---
NUTRITION CONSULT CONSULT FOR LOW BODY WEIGHT. PER PRIOR RD NOTE: PT WITH WEIGHT DISCREPANCY ADMISSION WT 58.97KG (10/04/21) 33.7KG (10/06/21) PT DOES NOT APPEAR TO BE 74# PT DOES APPEAR THIN BUT NO S/S MALNUTRITION AT THIS TIME. WHEN WEIGHT=58.97 KG (130#), BMI=21, 91.5% IBW. NO ADDITIONAL NUTRITION INTERVENTIONS AT THIS TIME.
--- NOTE | 2021-10-14 13:10 | HO.PM.IMPN ---
Subjective Subjective Date of Service: 10/14/21 Interval History: seen and examined this AM no complaints no cp or sob Review of Systems negative except HPI Physical Exam Vital Signs: Vital Signs: Last Vital Signs Temp 97.7 F 10/14/21 11:33 Pulse 86 10/14/21 11:33 Resp 18 10/14/21 07:39 BP 102/50 L 10/14/21 11:33 Pulse Ox 98 10/14/21 11:33 BMI result Body Mass Index 12.0 Const: Other: General - no acute distress, appears comfortable Cardiovascular - regular rate and rhythm, S1-S2 Lungs - normal respiratory effort, clear to auscultation bilaterally, no wheezing Abdomen - soft, nontender, no rebound or guarding Extremities - no edema bilaterally Neuro - awake and alert Objective Data Active Medications Acetaminophen (Acetaminophen 325 Mg Tablet) 650 mg PO Q6H PRN PRN Reason: Pain, Mild (Pain Scale 1-3) Folic Acid (Folic Acid 1 Mg Tablet) 1 mg PO DAILY [facility] Last Admin: 10/14/21 07:53 Dose: 1 mg Documented by: MARÍA ELENA Heparin Sodium (Porcine) (Heparin Sodium,Porcine 5,000 Unit/Ml Vial) 5,000 unit SUBCUT Q12H [facility] Last Admin: 10/14/21 04:07 Dose: Not Given Documented by: LILIA Non-Admin Reason: Patient Refused Ondansetron HCl (Ondansetron Hcl 4 Mg/2 Ml Vial) 4 mg IVPUSH Q8H PRN PRN Reason: Nausea and Vomiting Pharmacy Consult (Consult Rx Perform Med Rec) 1 each MISCELLANE ONCE PRN PRN Reason: Consult order Sodium Chloride (0.9 % Sodium Chloride Flush 3 Ml Syringe) 3 ml IVFLUSH QSHIFT [facility] Last Admin: 10/14/21 07:54 Dose: 3 ml Documented by: MARÍA ELENA Thiamine HCl (Thiamine Hcl 100 Mg Tablet) 100 mg PO DAILY [facility] Last Admin: 10/14/21 07:52 Dose: 100 mg Documented by: MARÍA ELENA Labs CBC & Chem 7: 10/11/21 06:26 10/12/21 05:41 Assessment and Plan (1) COVID-19: Status: Acute (2) Alcohol use disorder, severe, dependence: Status: Acute Assessment and Plan: This is a 81 yo M with a reported history of alcohol use/dependence who was brought in by ambulance after his friends had not seen him for a few days. He is admitted for a multitude of reasons. No new issues, awaiting guardianship Low grade fever. Resolved repeat cxr shows new patchy opacities although this may be r/t covid changes. pt has no respiratory symptoms. has completed course of abx for pneumonia repeat UA ordered (still uncollected) repeat BCx negative x 24 hours Cdiff negative Toxic/Metabolic Encephalopathy - ruled out suspect this is the patients baseline (i.e he has dementia, possibly related to alcohol use) He remains oriented to self and place, but otherwise disoriented seen by neurology - no further workup indicated seen by psych, does NOT have capacity Normocytic anemia drop in all cell lines from admission, likely dilutional no overt bleeding noted Pneumonia - viral vs bacterial / COVID 19+ His CT scan shows bilateral lower lobe bronchopneumonia but not the typical diffuse ground glass findings seen with covid He is COVID positive, but suspect his CT findings are more related to bacterial pneumonia Has completed course of ceftriaxone/azithromycin he remains off oxygen Kath / mild HypoNa likely hypovoluemic -- resolved with IVF Elevated HS trop-I Flat. no chest pain. likely secondary to infection Alcohol abuse / dependence no symptoms of withdrawal continue thiamine / folate Coagulopathy / transaminitis resolved suspected due to infection Vital signs Qshift, weekly labs Full Code DVT pptx. heparin attending Dr. Mckay dispo - does not have capacity per psych. will need guardianship and placement Quality Stroke Does the patient have a stroke diagnosis?: No VTE Prior VTE?: No VTE Risk Level:: Medical - moderate - high VTE Device Contraindication: Treatment Not Indicated VTE Drug Contraindication: N/A - Med Ordered
[2021-10-14] MEDS: Heparin Sodium,Porcine 5,000 UNIT/ML VIAL 5000 UNIT SUBCUT (18:40)
[2021-10-15] MEDS: 0.9 % Sodium Chloride Flush 3 ML SYRINGE IVFLUSH ×3 (00:31→17:08)
[2021-10-15 03:53] VITALS: BP 112/56; PULSE 84; RESP 18; TEMP 36.9; O2SAT 93
[2021-10-15] MEDS: Heparin Sodium,Porcine 5,000 UNIT/ML VIAL 5000 UNIT SUBCUT ×2 (05:56→17:08)
[2021-10-15 07:25] VITALS: BP 119/59; PULSE 82; RESP 18; TEMP 36.8; O2SAT 96
[2021-10-15] MEDS: Folic Acid 1 MG TABLET PO (08:17)
[2021-10-15] MEDS: Thiamine HCL 100 MG TABLET PO (08:17)
[2021-10-15 11:38] VITALS: BP 96/51; PULSE 87; RESP 18; TEMP 37.2; O2SAT 96
[2021-10-15 15:27] VITALS: BP 107/53; PULSE 84; RESP 18; TEMP 36.4; O2SAT 95
--- NOTE | 2021-10-15 15:50 | HO.PM.IMPN ---
Subjective Subjective Date of Service: 10/15/21 Interval History: seen and examined this morning follow up for dementia, covid 19 awake and alert, poor historian but no complaints this morning no shortness of breath, no cough Review of Systems Review of Systems: Yes all other systems are reviewed and are negative Constitutional Constitutional: Denies chills and Denies fever(s) Cardiovascular Cardiovascular: Denies chest pain Respiratory Respiratory: Denies cough Gastrointestinal Gastrointestinal: Denies abdominal pain Physical Exam Vital Signs: Vital Signs: Last Vital Signs Temp 97.6 F 10/15/21 15:27 Pulse 84 10/15/21 15:27 Resp 18 10/15/21 15:27 BP 107/53 L 10/15/21 15:27 Pulse Ox 95 10/15/21 15:27 BMI result Body Mass Index 12.0 Const: General: cooperative, comfortable, alert and awake Nutritional Appearance: thin HENMT: Head: Yes normocephalic and Yes atraumatic Eyes: Sclerae: sclerae normal Resp: Effort & Inspection: normal respiratory effort and no respiratory distress Cardio: Rate: regular rate Rhythm: regular rhythm GI: Palpation (GI): Soft to palpation and nontender Neuro: Cranial nerves: Yes CN's II-XII intact bilaterally and Yes Bilaterally intact EOM present Extrem: Other: able to move all 4 extremities spontaneously Objective Data Active Medications Acetaminophen (Acetaminophen 325 Mg Tablet) 650 mg PO Q6H PRN PRN Reason: Pain, Mild (Pain Scale 1-3) Folic Acid (Folic Acid 1 Mg Tablet) 1 mg PO DAILY [facility] Last Admin: 10/15/21 08:17 Dose: 1 mg Documented by: DENISE Heparin Sodium (Porcine) (Heparin Sodium,Porcine 5,000 Unit/Ml Vial) 5,000 unit SUBCUT Q12H [facility] Last Admin: 10/15/21 05:56 Dose: 5,000 unit Documented by: BECKA Ondansetron HCl (Ondansetron Hcl 4 Mg/2 Ml Vial) 4 mg IVPUSH Q8H PRN PRN Reason: Nausea and Vomiting Pharmacy Consult (Consult Rx Perform Med Rec) 1 each MISCELLANE ONCE PRN PRN Reason: Consult order Sodium Chloride (0.9 % Sodium Chloride Flush 3 Ml Syringe) 3 ml IVFLUSH QSHIFT [facility] Last Admin: 10/15/21 08:17 Dose: 3 ml Documented by: DENISE Thiamine HCl (Thiamine Hcl 100 Mg Tablet) 100 mg PO DAILY [facility] Last Admin: 10/15/21 08:17 Dose: 100 mg Documented by: DENISE Labs CBC & Chem 7: 10/11/21 06:26 10/12/21 05:41 Microbiology Microbiology Results: Microbiology 10/10/21 09:21 Blood Culture - Final Blood - Venous No growth after 5 days. 10/10/21 09:06 Blood Culture - Final Blood - Venous No growth after 5 days. Assessment and Plan (1) Dementia: Status: Acute (2) COVID-19: Status: Acute Assessment and Plan: This is a 81 yo M with a reported history of alcohol use/dependence who was brought in by ambulance after his friends had not seen him for a few days. He is admitted for a multitude of reasons. No new issues, awaiting guardianship Low grade fever. Resolved repeat cxr shows new patchy opacities although this may be r/t covid changes. pt has no respiratory symptoms. has completed course of abx for pneumonia repeat UA ordered (still uncollected) repeat BCx negative x 24 hours Cdiff negative Toxic/Metabolic Encephalopathy - ruled out suspect this is the patients baseline (i.e he has dementia, possibly related to alcohol use) He remains oriented to self and place, but otherwise disoriented seen by neurology - no further workup indicated seen by psych, does NOT have capacity Normocytic anemia drop in all cell lines from admission, likely dilutional no overt bleeding noted, heme negative B12, folate wnl follow CBC Pneumonia - viral vs bacterial / COVID 19+ His CT scan shows bilateral lower lobe bronchopneumonia but not the typical diffuse ground glass findings seen with covid He is COVID positive, but suspect his CT findings are more related to bacterial pneumonia Has completed course of ceftriaxone/azithromycin he remains off oxygen Kath / mild HypoNa likely hypovoluemic -- resolved with IVF Elevated HS trop-I Flat. no chest pain. likely secondary to infection Alcohol abuse / dependence no symptoms of withdrawal continue thiamine / folate Coagulopathy / transaminitis resolved suspected due to infection Vital signs Qshift, weekly labs Full Code DVT pptx. heparin attending Dr. Mckay dispo - does not have capacity per psych. will need guardianship and placement Quality Stroke Does the patient have a stroke diagnosis?: No VTE Prior VTE?: No VTE Risk Level:: Medical - moderate - high VTE Device Contraindication: Treatment Not Indicated VTE Drug Contraindication: N/A - Med Ordered
[2021-10-15 19:55] VITALS: BP 96/67; PULSE 69; RESP 18; TEMP 37.1; O2SAT 98
--- NOTE | 2021-10-15 22:47 | W.PM.IDCN ---
History of Present Illness Data of Consult Service Date: 10/15/21 Requesting physician: Vane Lehman Primary Care Provider: Unknown Physician HPI Reason for consult: mental status changes He has encephalopathy several days He is day 14 COVID positivity He has no oxygen demand Review of Systems Review of Systems: Yes Unobtainable due to mental condition PMFSH Past Medical History Medical History No known health problems Family History Family history: reviewed and not pertinent Social History Social History Household Members: None Housing: Apartment Unable to assess alcohol history related to: Unknown Alcohol intake: never Patient Tobacco Use Status: Tobacco use Unknown Tobacco use type: Cigarette Second Hand Smoke Exposure: No service: No Current occupational status: retired Meds Allergies Allergy/AdvReac Type Severity Reaction Status Date / Time No Known Allergies Allergy Verified 10/03/21 13:15 Active Medications: Current Medications Acetaminophen (Acetaminophen 325 Mg Tablet) 650 mg PO Q6H PRN PRN Reason: Pain, Mild (Pain Scale 1-3) Folic Acid (Folic Acid 1 Mg Tablet) 1 mg PO DAILY [facility] Last Admin: 10/15/21 08:17 Dose: 1 mg Documented by: Heparin Sodium (Porcine) (Heparin Sodium,Porcine 5,000 Unit/Ml Vial) 5,000 unit SUBCUT Q12H [facility] Last Admin: 10/15/21 17:08 Dose: 5,000 unit Documented by: Ondansetron HCl (Ondansetron Hcl 4 Mg/2 Ml Vial) 4 mg IVPUSH Q8H PRN PRN Reason: Nausea and Vomiting Pharmacy Consult (Consult Rx Perform Med Rec) 1 each MISCELLANE ONCE PRN PRN Reason: Consult order Sodium Chloride (0.9 % Sodium Chloride Flush 3 Ml Syringe) 3 ml IVFLUSH QSHIFT [facility] Last Admin: 10/15/21 17:08 Dose: 3 ml Documented by: Thiamine HCl (Thiamine Hcl 100 Mg Tablet) 100 mg PO DAILY [facility] Last Admin: 10/15/21 08:17 Dose: 100 mg Documented by: Home Medications Medication Instructions Recorded Confirmed Last Taken Type No Known Home Meds 10/03/21 10/03/21 Unknown History Physical Exam Vital Signs: Vital Signs: Last Vital Signs Temp 98.7 F 10/15/21 19:55 Pulse 69 10/15/21 19:55 Resp 18 10/15/21 19:55 BP 96/67 10/15/21 19:55 Pulse Ox 98 10/15/21 19:55 BMI result Body Mass Index 12.0 HENMT: Head: Yes normal to inspection Mouth: Normal oral and palatal mucosa present Resp: Effort & Inspection: normal respiratory effort Cardio: Rate: regular rate Rhythm: regular rhythm GI: Palpation (GI): Soft to palpation and nontender Psych: Speech and movement: Slowed movement present (Neuro) Results Labs CBC & Chem 7: 10/11/21 06:26 10/12/21 05:41 Microbiology Microbiology Results: Microbiology 10/10/21 09:21 Blood - Venous Blood Culture - Final No growth after 5 days. 10/10/21 09:06 Blood - Venous Blood Culture - Final No growth after 5 days. 10/06/21 03:06 Blood - Venous Blood Culture - Final No growth after 5 days. 10/06/21 03:19 Blood - Venous Blood Culture - Final No growth after 5 days. 10/03/21 16:21 Blood - Venous Blood Culture - Final No growth after 5 days. 10/03/21 16:21 Blood - Venous Blood Culture - Final Corynebacterium species Assessment and Plan (1) COVID-19: Status: Acute There is concern over mental status changes and workup is ongoing He has had positive COVID serology for 14 days (2) Altered mental status: Qualifiers: Altered mental status type: unspecified Qualified Code(s): R41.82 - Altered mental status, unspecified Status: Acute Can recheck COVID Keep isolated inhouse,respiratory because of unknown duration of variant
[2021-10-15 23:51] VITALS: BP 93/47; PULSE 85; RESP 18; TEMP 36.9; O2SAT 94
[2021-10-16 03:25] VITALS: BP 134/61; PULSE 82; RESP 17; TEMP 36.8; O2SAT 95
[2021-10-16] MEDS: Heparin Sodium,Porcine 5,000 UNIT/ML VIAL 5000 UNIT SUBCUT (06:13)
[2021-10-16 08:00] VITALS: BP 106/54; PULSE 75; RESP 18; TEMP 36.6; O2SAT 96
[2021-10-16] MEDS: Folic Acid 1 MG TABLET PO (10:55)
[2021-10-16] MEDS: Thiamine HCL 100 MG TABLET PO (10:55)
[2021-10-16] MEDS: 0.9 % Sodium Chloride Flush 3 ML SYRINGE IVFLUSH ×3 (10:55→20:41)
--- NOTE | 2021-10-16 11:15 | HO.PM.IMPN ---
Subjective Subjective Date of Service: 10/16/21 Interval History: seen and examined this morning follow up for dementia, covid 19 awake and alert, poor historian but no new complaint no shortness of breath, no cough Review of Systems offers none, Physical Exam Vital Signs: Vital Signs: Last Vital Signs Temp 97.8 F 10/16/21 08:00 Pulse 75 10/16/21 08:00 Resp 18 10/16/21 08:00 BP 106/54 L 10/16/21 08:00 Pulse Ox 96 10/16/21 08:00 BMI result Body Mass Index 12.0 Const: Other: General - no acute distress, appears comfortable Cardiovascular - regular rate and rhythm, S1-S2 Lungs - normal respiratory effort, clear to auscultation bilaterally, no wheezing Abdomen - soft, nontender, no rebound or guarding Extremities - no edema bilaterally Neuro - awake and alert Objective Data Active Medications Acetaminophen (Acetaminophen 325 Mg Tablet) 650 mg PO Q6H PRN PRN Reason: Pain, Mild (Pain Scale 1-3) Folic Acid (Folic Acid 1 Mg Tablet) 1 mg PO DAILY [facility] Last Admin: 10/16/21 10:55 Dose: 1 mg Documented by: GREYSON Heparin Sodium (Porcine) (Heparin Sodium,Porcine 5,000 Unit/Ml Vial) 5,000 unit SUBCUT Q12H [facility] Last Admin: 10/16/21 06:13 Dose: 5,000 unit Documented by: ARABELLA Ondansetron HCl (Ondansetron Hcl 4 Mg/2 Ml Vial) 4 mg IVPUSH Q8H PRN PRN Reason: Nausea and Vomiting Pharmacy Consult (Consult Rx Perform Med Rec) 1 each MISCELLANE ONCE PRN PRN Reason: Consult order Sodium Chloride (0.9 % Sodium Chloride Flush 3 Ml Syringe) 3 ml IVFLUSH QSHIFT [facility] Last Admin: 10/16/21 10:55 Dose: 3 ml Documented by: GREYSON Thiamine HCl (Thiamine Hcl 100 Mg Tablet) 100 mg PO DAILY [facility] Last Admin: 10/16/21 10:55 Dose: 100 mg Documented by: GREYSON Labs CBC & Chem 7: 10/11/21 06:26 10/12/21 05:41 Microbiology Microbiology Results: Microbiology 10/10/21 09:21 Blood Culture - Final Blood - Venous No growth after 5 days. 10/10/21 09:06 Blood Culture - Final Blood - Venous No growth after 5 days. Assessment and Plan (1) Dementia: Status: Acute (2) COVID-19: Status: Acute Assessment and Plan: This is a 81 yo M with a reported history of alcohol use/dependence who was brought in by ambulance after his friends had not seen him for a few days. He is admitted for a multitude of reasons. No new issues, awaiting guardianship, [place] management unchanged from prior day Low grade fever. Resolved repeat cxr shows new patchy opacities although this may be r/t covid changes. pt has no respiratory symptoms. has completed course of abx for pneumonia repeat UA ordered (still uncollected) repeat BCx negative x 24 hours Cdiff negative Toxic/Metabolic Encephalopathy - ruled out suspect this is the patients baseline (i.e he has dementia, possibly related to alcohol use) He remains oriented to self and place, but otherwise disoriented seen by neurology - no further workup indicated seen by psych, does NOT have capacity Normocytic anemia drop in all cell lines from admission, likely dilutional no overt bleeding noted, heme negative B12, folate wnl follow CBC Pneumonia - viral vs bacterial / COVID 19+ His CT scan shows bilateral lower lobe bronchopneumonia but not the typical diffuse ground glass findings seen with covid He is COVID positive, but suspect his CT findings are more related to bacterial pneumonia Has completed course of ceftriaxone/azithromycin he remains off oxygen Kath / mild HypoNa likely hypovoluemic -- resolved with IVF Elevated HS trop-I Flat. no chest pain. likely secondary to infection Alcohol abuse / dependence no symptoms of withdrawal continue thiamine / folate Coagulopathy / transaminitis resolved suspected due to infection Vital signs Qshift, weekly labs Full Code DVT pptx. heparin attending Dr. Mckay dispo - does not have capacity per psych. will need guardianship and placement Quality Stroke Does the patient have a stroke diagnosis?: No VTE Prior VTE?: No VTE Risk Level:: Medical - moderate - high VTE Device Contraindication: Treatment Not Indicated VTE Drug Contraindication: N/A - Med Ordered
[2021-10-16 11:42] VITALS: BP 110/67; PULSE 77; RESP 18; TEMP 36.3; O2SAT 98
[2021-10-16 15:51] VITALS: BP 128/67; PULSE 93; RESP 18; TEMP 36.4; O2SAT 95
[2021-10-16 20:00] VITALS: BP 107/51; PULSE 77; RESP 18; TEMP 36.9; O2SAT 98
[2021-10-16 23:24] VITALS: BP 99/42; PULSE 79; RESP 20; TEMP 36.2; O2SAT 96
[2021-10-17 03:21] VITALS: BP 99/43; PULSE 86; RESP 20; TEMP 36.4; O2SAT 96
[2021-10-17 07:15] VITALS: BP 114/68; PULSE 81; RESP 18; TEMP 36.4; O2SAT 97
--- NOTE | 2021-10-17 08:36 | HO.PM.IMPN ---
Subjective Subjective Date of Service: 10/17/21 <Yaritza Hancock NP - Last Filed: 10/17/21 08:41> 10/18/21 <Jose Bell MD - Last Filed: 10/18/21 09:45> Review of Systems Seen and examined this morning follow up for dementia, covid 19 awake and alert, poor historian but no new complaint no shortness of breath, no cough <Yaritza Hancock NP - Last Filed: 10/17/21 08:41> Physical Exam Vital Signs: Vital Signs: Last Vital Signs Temp 97.6 F 10/17/21 07:15 Pulse 81 10/17/21 07:15 Resp 18 10/17/21 07:15 BP 114/68 10/17/21 07:15 Pulse Ox 97 10/17/21 07:15 BMI result Body Mass Index 12.0 <Yaritza Hancock NP - Last Filed: 10/17/21 08:41> Appearing in no acute distress lung sounds normal expansion heart regular rate rhythm, clear S1, S2 positive bowel sounds, abdomen is soft, nontender neuro patient is alert x3, no focal deficits <Yaritza Hancock NP - Last Filed: 10/17/21 08:41> Objective Data Active Medications Acetaminophen (Acetaminophen 325 Mg Tablet) 650 mg PO Q6H PRN PRN Reason: Pain, Mild (Pain Scale 1-3) Folic Acid (Folic Acid 1 Mg Tablet) 1 mg PO DAILY [facility] Last Admin: 10/16/21 10:55 Dose: 1 mg Documented by: GREYSON Heparin Sodium (Porcine) (Heparin Sodium,Porcine 5,000 Unit/Ml Vial) 5,000 unit SUBCUT Q12H [facility] Last Admin: 10/17/21 05:01 Dose: Not Given Documented by: DHAVAL Non-Admin Reason: Patient Refused Ondansetron HCl (Ondansetron Hcl 4 Mg/2 Ml Vial) 4 mg IVPUSH Q8H PRN PRN Reason: Nausea and Vomiting Pharmacy Consult (Consult Rx Perform Med Rec) 1 each MISCELLANE ONCE PRN PRN Reason: Consult order Sodium Chloride (0.9 % Sodium Chloride Flush 3 Ml Syringe) 3 ml IVFLUSH QSHIFT [facility] Last Admin: 10/16/21 20:41 Dose: 3 ml Documented by: HO.KIRBYKA Thiamine HCl (Thiamine Hcl 100 Mg Tablet) 100 mg PO DAILY [facility] Last Admin: 10/16/21 10:55 Dose: 100 mg Documented by: GREYSON <Yaritza Hancock NP - Last Filed: 10/17/21 08:41> Labs CBC & Chem 7: : 10/18/21 06:56 10/12/21 05:41 <Yaritza Hancock NP - Last Filed: 10/17/21 08:41> Assessment and Plan (1) COVID-19: Status: Acute <Yaritza Hancock NP - Last Filed: 10/17/21 08:41> (2) Dementia: Status: Acute <Yaritza Hancock NP - Last Filed: 10/17/21 08:41> Assessment and Plan: This is a 81 yo M with a reported history of alcohol use/dependence who was brought in by ambulance after his friends had not seen him for a few days. He is admitted for a multitude of reasons. No new issues, awaiting guardianship, [place] management unchanged from prior day Low grade fever. Resolved repeat cxr shows new patchy opacities although this may be r/t covid changes. pt has no respiratory symptoms. has completed course of abx for pneumonia repeat UA ordered (still uncollected) repeat BCx negative Cdiff negative Toxic/Metabolic Encephalopathy - ruled out suspect this is the patients baseline (i.e he has dementia, possibly related to alcohol use) He remains oriented to self and place, but otherwise disoriented seen by neurology - no further workup indicated seen by psych, does NOT have capacity Normocytic anemia drop in all cell lines from admission, likely dilutional no overt bleeding noted, heme negative B12, folate wnl follow CBC Pneumonia - viral vs bacterial / COVID 19+ His CT scan shows bilateral lower lobe bronchopneumonia but not the typical diffuse ground glass findings seen with covid He is COVID positive, but suspect his CT findings are more related to bacterial pneumonia Has completed course of ceftriaxone/azithromycin he remains off oxygen Kath / mild HypoNa likely hypovolemic -- resolved with IVF Elevated HS trop-I Flat. no chest pain. likely secondary to infection Alcohol abuse / dependence no symptoms of withdrawal continue thiamine / folate Coagulopathy / transaminitis resolved suspected due to infection Vital signs Qshift, weekly labs Full Code DVT pptx. heparin attending Dr. Bell dispo - does not have capacity per psych. will need guardianship and placement <Yaritza Hancock NP - Last Filed: 10/17/21 08:41> Quality Stroke Does the patient have a stroke diagnosis?: No <Yaritza Hancock NP - Last Filed: 10/17/21 08:41> VTE Prior VTE?: No <Yaritza Hancock NP - Last Filed: 10/17/21 08:41> VTE Risk Level:: Medical - moderate - high <Yaritza Hancock NP - Last Filed: 10/17/21 08:41> VTE Device Contraindication: Treatment Not Indicated <Yaritza Hancock NP - Last Filed: 10/17/21 08:41> VTE Drug Contraindication: N/A - Med Ordered <Yaritza Hancock NP - Last Filed: 10/17/21 08:41>
[2021-10-17] MEDS: Folic Acid 1 MG TABLET PO (09:50)
[2021-10-17] MEDS: Thiamine HCL 100 MG TABLET PO (09:50)
[2021-10-17] MEDS: 0.9 % Sodium Chloride Flush 3 ML SYRINGE IVFLUSH ×3 (09:51→20:42)
[2021-10-17 11:35] VITALS: BP 108/56; PULSE 90; RESP 16; TEMP 36.4; O2SAT 96
[2021-10-17 15:10] VITALS: BP 102/55; PULSE 91; RESP 20; TEMP 37.3; O2SAT 94
[2021-10-17] MEDS: Heparin Sodium,Porcine 5,000 UNIT/ML VIAL 5000 UNIT SUBCUT (18:24)
[2021-10-17 19:15] VITALS: BP 99/49; PULSE 97; RESP 20; TEMP 36.7; O2SAT 95
[2021-10-17 23:16] VITALS: BP 100/50; PULSE 82; RESP 20; TEMP 36.6; O2SAT 95
[2021-10-18 02:45] VITALS: BP 97/52; PULSE 83; RESP 20; TEMP 36.2; O2SAT 95
[2021-10-18 07:12] LABS: Hemoglobin 8.3 g/dl (14.0-18.0); Mean Corpuscular HGB Conc 30.7 g/dl (31.0-36.0); Mean Corpuscular Hemoglobin 29.2 pg (27.0-33.0); Mean Corpuscular Volume 95.1 fL (80.0-98.0); Platelet Count 301 X10*3/uL (160-400); Red Blood Count 2.84 X10*6/uL (4.60-5.80); Red Cell Distribution Width 15.6 % (11.0-16.0); White Blood Count 6.5 X10*3/uL (4.8-10.8)
[2021-10-18 07:56] VITALS: BP 126/56; PULSE 88; RESP 16; TEMP 36.7; O2SAT 96
[2021-10-18] MEDS: Thiamine HCL 100 MG TABLET PO (09:38)
[2021-10-18] MEDS: 0.9 % Sodium Chloride Flush 3 ML SYRINGE IVFLUSH (09:38)
[2021-10-18] MEDS: Folic Acid 1 MG TABLET PO (09:38)
--- NOTE | 2021-10-18 10:02 | PM.EVENT ---
Event Note Date of Service: 10/18/21 Event Note: I personally saw and examined the patient revewed vitals, BP 126/56 P 88, normal oxygen saturation. There is no medical necessity for full exam. There is no change in management today, continue current care.
[2021-10-18 11:25] VITALS: BP 81/43; PULSE 84; RESP 16; TEMP 37.1; O2SAT 94
[2021-10-18 15:04] VITALS: BP 125/58; PULSE 80; RESP 20; TEMP 36.5; O2SAT 96
[2021-10-18 18:59] VITALS: BP 96/52; PULSE 88; RESP 20; TEMP 36.8; O2SAT 95
[2021-10-19] VITALS (7 sets, daily range): BP systolic 96–118; BP diastolic 37–69; PULSE 78–86; RESP 17–20; TEMP 36.4–37.1; O2SAT 94–98
[2021-10-19] MEDS: 0.9 % Sodium Chloride Flush 3 ML SYRINGE IVFLUSH ×3 (00:04→16:15)
[2021-10-19] MEDS: Heparin Sodium,Porcine 5,000 UNIT/ML VIAL 5000 UNIT SUBCUT ×2 (04:45→18:39)
[2021-10-19] MEDS: Folic Acid 1 MG TABLET PO (08:06)
[2021-10-19] MEDS: Thiamine HCL 100 MG TABLET PO (08:06)
[2021-10-19 09:34] LABS: COVID-19 Test Positive (Negative)
--- NOTE | 2021-10-19 10:03 | P.PNIM_ITS ---
Subjective Subjective Date of Service: 10/19/21 Interval History: f/u covid, awaiting palcement, no covid symptoms Review of Systems no fever, no sob Physical Exam Vital Signs: Vital Signs: Last Vital Signs Temp 98.1 F 10/19/21 07:41 Pulse 81 10/19/21 07:41 Resp 20 10/19/21 07:41 BP 107/59 L 10/19/21 07:41 Pulse Ox 97 10/19/21 07:41 BMI result Body Mass Index 12.0 Const: Other: General: AO X 2, no acute distress Resp: CTA bilateral CVS: S1,S2,RRR GI: +BS, NT, no distention Skin: No rash Neuro: motor grossly intact Psych: appropriate affect Objective Data Active Medications Acetaminophen (Acetaminophen 325 Mg Tablet) 650 mg PO Q6H PRN PRN Reason: Pain, Mild (Pain Scale 1-3) Folic Acid (Folic Acid 1 Mg Tablet) 1 mg PO DAILY [facility] Last Admin: 10/19/21 08:06 Dose: 1 mg Documented by: MARÍA ELENA Heparin Sodium (Porcine) (Heparin Sodium,Porcine 5,000 Unit/Ml Vial) 5,000 unit SUBCUT Q12H [facility] Last Admin: 10/19/21 04:45 Dose: 5,000 unit Documented by: BIANCA Ondansetron HCl (Ondansetron Hcl 4 Mg/2 Ml Vial) 4 mg IVPUSH Q8H PRN PRN Reason: Nausea and Vomiting Pharmacy Consult (Consult Rx Perform Med Rec) 1 each MISCELLANE ONCE PRN PRN Reason: Consult order Sodium Chloride (0.9 % Sodium Chloride Flush 3 Ml Syringe) 3 ml IVFLUSH QSHIFT [facility] Last Admin: 10/19/21 08:06 Dose: 3 ml Documented by: MARÍA ELENA Thiamine HCl (Thiamine Hcl 100 Mg Tablet) 100 mg PO DAILY [facility] Last Admin: 10/19/21 08:06 Dose: 100 mg Documented by: MARÍA ELENA Labs CBC & Chem 7: 10/18/21 06:56 10/12/21 05:41 Labs: Laboratory Results - last 24 hr 10/19/21 09:00 COVID-19 ([facility]) Positive A COVID-19 Clin Com See Note Assessment and Plan (1) COVID-19: Status: Acute (2) Dementia: Status: Acute Assessment and Plan: 81 yo M with a reported history of alcohol use/dependence who was brought in by ambulance after his friends had not seen him for a few days and found to have covid but assymptomatic and now with placement issues No new issues, awaiting guardianship, [place] management unchanged from prior day Covid PNA--asymptomatic, still positive, no indication for Abx--Still positive as of 10/19 Dementia--I think this permanent, not toxic encephaloapthy Normocytic anemia drop in all cell lines from admission, likely dilutional no overt bleeding noted, heme negative B12, folate wnl follow CBC Kath / mild HypoNa likely hypovolemic -- resolved with IVF Elevated troponin--No evidence of ACS, likly from covid Alcohol abuse / dependence, out of window for withdrawal continue thiamine / folate Coagulopathy / transaminitis resolved, likely from covid Vital signs Qshift, weekly labs Full Code DVT pptx. heparin Needs placement as does not have capacity to make sounds medicla decisions Quality Stroke Does the patient have a stroke diagnosis?: No VTE Prior VTE?: No VTE Risk Level:: Medical - moderate - high VTE Device Contraindication: Treatment Not Indicated VTE Drug Contraindication: N/A - Med Ordered
--- NOTE | 2021-10-19 11:28 | MHC.CM.PN ---
Patient will need Guardianship and placement; CM will follow.
[2021-10-20] MEDS: 0.9 % Sodium Chloride Flush 3 ML SYRINGE IVFLUSH ×4 (00:35→21:46)
[2021-10-20 04:00] VITALS: BP 104/52; PULSE 78; RESP 15; TEMP 36.6; O2SAT 97
[2021-10-20] MEDS: Heparin Sodium,Porcine 5,000 UNIT/ML VIAL 5000 UNIT SUBCUT ×2 (04:34→16:34)
[2021-10-20 07:10] VITALS: BP 107/54; PULSE 84; RESP 20; TEMP 36.5; O2SAT 98
[2021-10-20] MEDS: Folic Acid 1 MG TABLET PO (09:38)
[2021-10-20] MEDS: Thiamine HCL 100 MG TABLET PO (09:38)
[2021-10-20 11:30] VITALS: BP 115/55; PULSE 95; RESP 20; TEMP 36.3; O2SAT 95
--- NOTE | 2021-10-20 14:15 | P.PNIM_ITS ---
Subjective Subjective Date of Service: 10/20/21 Interval History: covid , awaiting placement Review of Systems no chest pain ,no fever, no sob Physical Exam Vital Signs: Vital Signs: Last Vital Signs Temp 97.3 F 10/20/21 11:30 Pulse 95 10/20/21 11:30 Resp 20 10/20/21 11:30 BP 115/55 L 10/20/21 11:30 Pulse Ox 95 10/20/21 11:30 BMI result Body Mass Index 12.0 General: AO X 2, no acute distress Resp:? CTA bilateral CVS: S1,S2,RRR GI: +BS, NT, no distention Skin: No rash Neuro:? motor grossly intact Psych: appropriate affect Objective Data Active Medications Acetaminophen (Acetaminophen 325 Mg Tablet) 650 mg PO Q6H PRN PRN Reason: Pain, Mild (Pain Scale 1-3) Folic Acid (Folic Acid 1 Mg Tablet) 1 mg PO DAILY [facility] Last Admin: 10/20/21 09:38 Dose: 1 mg Documented by: MEGHAN Heparin Sodium (Porcine) (Heparin Sodium,Porcine 5,000 Unit/Ml Vial) 5,000 unit SUBCUT Q12H [facility] Last Admin: 10/20/21 04:34 Dose: 5,000 unit Documented by: BIANCA Ondansetron HCl (Ondansetron Hcl 4 Mg/2 Ml Vial) 4 mg IVPUSH Q8H PRN PRN Reason: Nausea and Vomiting Pharmacy Consult (Consult Rx Perform Med Rec) 1 each MISCELLANE ONCE PRN PRN Reason: Consult order Sodium Chloride (0.9 % Sodium Chloride Flush 3 Ml Syringe) 3 ml IVFLUSH QSHIFT [facility] Last Admin: 10/20/21 09:38 Dose: 3 ml Documented by: MEGHAN Thiamine HCl (Thiamine Hcl 100 Mg Tablet) 100 mg PO DAILY [facility] Last Admin: 10/20/21 09:38 Dose: 100 mg Documented by: MEGHAN Labs CBC & Chem 7: 10/18/21 06:56 10/12/21 05:41 Assessment and Plan (1) Dementia: Status: Acute (2) COVID-19: Status: Acute Assessment and Plan: 81 yo M with a reported history of alcohol use/dependence who was brought in by ambulance after his friends had not seen him for a few days and found to have covid but assymptomatic and now with placement issues No new issues, awaiting guardianship, [place] management unchanged from prior day 1.Covid PNA--asymptomatic, still positive, no indication for Abx--Still positive as of 10/19 2.Dementia--noted to be thought permanent, not toxic encephaloapthy 3.Normocytic anemia drop in all cell lines from admission, likely dilutional no overt bleeding noted, heme negative B12, folate wnl follow CBC 4.Kath / mild HypoNa likely hypovolemic -- resolved with IVF 5.Elevated troponin--No evidence of ACS, likly from covid 6.Alcohol abuse / dependence, out of window for withdrawal continue thiamine / folate 7.Coagulopathy / transaminitis resolved, likely from covid Full Code DVT pptx. heparin Needs placement as does not have capacity to make sounds medicla decisions Quality Stroke Does the patient have a stroke diagnosis?: No VTE Prior VTE?: No VTE Risk Level:: Medical - moderate - high VTE Device Contraindication: Treatment Not Indicated VTE Drug Contraindication: N/A - Med Ordered
[2021-10-20 15:57] VITALS: BP 113/72; PULSE 83; RESP 18; TEMP 36.4; O2SAT 97
[2021-10-20 19:49] VITALS: BP 111/53; PULSE 82; RESP 19; TEMP 36.6; O2SAT 94
[2021-10-21] VITALS (7 sets, daily range): BP systolic 91–130; BP diastolic 51–84; PULSE 75–93; RESP 15–20; TEMP 36.6–37.3; O2SAT 94–97
[2021-10-21] MEDS: Heparin Sodium,Porcine 5,000 UNIT/ML VIAL 5000 UNIT SUBCUT ×2 (04:44→16:43)
[2021-10-21] MEDS: Thiamine HCL 100 MG TABLET PO (10:16)
[2021-10-21] MEDS: 0.9 % Sodium Chloride Flush 3 ML SYRINGE IVFLUSH ×2 (10:16→16:44)
[2021-10-21] MEDS: Folic Acid 1 MG TABLET PO (10:16)
--- NOTE | 2021-10-21 11:41 | MHC.CM.PN ---
This radio script writer received a call from Ying Aguillon, who spoke with people who know the pt in the community. Patient does have 2 children that are . He has a pension and SSI. Ying Aguillon was able to locate a person in the community to be cheryl guardian. She will file with the court tomorrow, in hopes for a court date next week.
--- NOTE | 2021-10-21 11:48 | MHC.CM.PN ---
Per CM Management, progress is being made on Guardianship/Conservatorship process(filing with court tomorrow, may have someone to serve as Guardian). LTC is the goal for dc and CM will continue to follow.
--- NOTE | 2021-10-21 14:49 | HO.PM.IMPN ---
Subjective Subjective Date of Service: 10/21/21 Interval History: covid , awaiting placement Review of Systems denies any chest pain or shortness of breath or abdominal pain or fever or chills. Physical Exam Vital Signs: Vital Signs: Last Vital Signs Temp 98 F 10/21/21 11:29 Pulse 93 10/21/21 11:29 Resp 20 10/21/21 11:29 BP 130/60 10/21/21 11:29 Pulse Ox 96 10/21/21 11:29 BMI result Body Mass Index 12.0 ? General: AO X 2, no acute distress Resp:? CTA bilateral CVS: S1,S2,RRR GI: +BS, NT, no distention Skin: No rash Neuro:? motor grossly intact Psych: appropriate affect Objective Data Active Medications Acetaminophen (Acetaminophen 325 Mg Tablet) 650 mg PO Q6H PRN PRN Reason: Pain, Mild (Pain Scale 1-3) Folic Acid (Folic Acid 1 Mg Tablet) 1 mg PO DAILY [facility] Last Admin: 10/21/21 10:16 Dose: 1 mg Documented by: IVANNA Heparin Sodium (Porcine) (Heparin Sodium,Porcine 5,000 Unit/Ml Vial) 5,000 unit SUBCUT Q12H [facility] Last Admin: 10/21/21 04:44 Dose: 5,000 unit Documented by: LIZA Ondansetron HCl (Ondansetron Hcl 4 Mg/2 Ml Vial) 4 mg IVPUSH Q8H PRN PRN Reason: Nausea and Vomiting Pharmacy Consult (Consult Rx Perform Med Rec) 1 each MISCELLANE ONCE PRN PRN Reason: Consult order Sodium Chloride (0.9 % Sodium Chloride Flush 3 Ml Syringe) 3 ml IVFLUSH QSHIFT [facility] Last Admin: 10/21/21 10:16 Dose: 3 ml Documented by: IVANNA Thiamine HCl (Thiamine Hcl 100 Mg Tablet) 100 mg PO DAILY [facility] Last Admin: 10/21/21 10:16 Dose: 100 mg Documented by: IVNANA Labs CBC & Chem 7: 10/18/21 06:56 10/12/21 05:41 Assessment and Plan (1) COVID-19: Status: Acute (2) Dementia: Status: Acute Assessment and Plan: 81 yo M with a reported history of alcohol use/dependence who was brought in by ambulance after his friends had not seen him for a few days and found to have covid but assymptomatic and now with placement issues No new issues, awaiting guardianship, [place] management unchanged from prior day 1.Covid PNA--asymptomatic, still positive, no indication for Abx--Still positive as of 10/19 2.Dementia--noted to be thought permanent, not toxic encephaloapthy 3.Normocytic anemia drop in all cell lines from admission, likely dilutional no overt bleeding noted, heme negative B12, folate wnl 4.Kath / mild HypoNa likely hypovolemic -- resolved with IVF 5.Elevated troponin--No evidence of ACS, likly from covid 6.Alcohol abuse / dependence, out of window for withdrawal continue thiamine / folate 7.Coagulopathy / transaminitis resolved, likely from covid Full Code DVT pptx. heparin Quality Stroke Does the patient have a stroke diagnosis?: No VTE Prior VTE?: No VTE Risk Level:: Medical - moderate - high VTE Device Contraindication: Treatment Not Indicated VTE Drug Contraindication: N/A - Med Ordered
[2021-10-22] MEDS: 0.9 % Sodium Chloride Flush 3 ML SYRINGE IVFLUSH ×4 (00:18→22:10)
[2021-10-22 03:49] VITALS: BP 121/54; PULSE 76; RESP 19; TEMP 36.8; O2SAT 96
[2021-10-22] MEDS: Heparin Sodium,Porcine 5,000 UNIT/ML VIAL 5000 UNIT SUBCUT ×2 (04:48→18:23)
[2021-10-22] MEDS: Folic Acid 1 MG TABLET PO (07:53)
[2021-10-22] MEDS: Thiamine HCL 100 MG TABLET PO (07:54)
[2021-10-22 08:00] VITALS: BP 99/40; PULSE 84; RESP 18; TEMP 36.4; O2SAT 97
--- NOTE | 2021-10-22 08:24 | HO.PM.IMPN ---
Subjective Subjective Date of Service: 10/22/21 Interval History: covid , awaiting placement Review of Systems denies any chest pain or shortness of breath or abdominal pain or fever or chills. Physical Exam Vital Signs: Vital Signs: Last Vital Signs Temp 98.2 F 10/22/21 03:49 Pulse 76 10/22/21 03:49 Resp 19 10/22/21 03:49 BP 121/54 L 10/22/21 03:49 Pulse Ox 96 10/22/21 03:49 BMI result Body Mass Index 12.0 ? General: AO X 2, no acute distress Resp:? CTA bilateral CVS: S1,S2,RRR GI: +BS, NT, no distention Skin: No rash Neuro:? motor grossly intact Psych: appropriate affect Objective Data Active Medications Acetaminophen (Acetaminophen 325 Mg Tablet) 650 mg PO Q6H PRN PRN Reason: Pain, Mild (Pain Scale 1-3) Folic Acid (Folic Acid 1 Mg Tablet) 1 mg PO DAILY [facility] Last Admin: 10/22/21 07:53 Dose: 1 mg Documented by: ANUJA Heparin Sodium (Porcine) (Heparin Sodium,Porcine 5,000 Unit/Ml Vial) 5,000 unit SUBCUT Q12H [facility] Last Admin: 10/22/21 04:48 Dose: 5,000 unit Documented by: MIRELA Ondansetron HCl (Ondansetron Hcl 4 Mg/2 Ml Vial) 4 mg IVPUSH Q8H PRN PRN Reason: Nausea and Vomiting Pharmacy Consult (Consult Rx Perform Med Rec) 1 each MISCELLANE ONCE PRN PRN Reason: Consult order Sodium Chloride (0.9 % Sodium Chloride Flush 3 Ml Syringe) 3 ml IVFLUSH QSHIFT [facility] Last Admin: 10/22/21 07:54 Dose: 3 ml Documented by: ANUJA Thiamine HCl (Thiamine Hcl 100 Mg Tablet) 100 mg PO DAILY [facility] Last Admin: 10/22/21 07:54 Dose: 100 mg Documented by: ANUJA Labs CBC & Chem 7: 10/18/21 06:56 10/12/21 05:41 Assessment and Plan (1) COVID-19: Status: Acute (2) Dementia: Status: Acute Assessment and Plan: 81 yo M with a reported history of alcohol use/dependence who was brought in by ambulance after his friends had not seen him for a few days and found to have covid but assymptomatic and now with placement issues No new issues, awaiting guardianship, [place] management unchanged from prior day 1.Covid PNA--asymptomatic, still positive, no indication for Abx--Still positive as of 10/19 2.Dementia unspecified --noted to be thought permanent, not toxic encephaloapthy 3.Normocytic anemia drop in all cell lines from admission, likely dilutional no overt bleeding noted, heme negative B12, folate wnl 4.Kath / mild HypoNa likely hypovolemic -- resolved with IVF 5.Elevated troponin--No evidence of ACS, likly from covid 6.Alcohol abuse / dependence, out of window for withdrawal continue thiamine / folate 7.Coagulopathy / transaminitis resolved, likely from covid DVT pptx. heparin Quality Stroke Does the patient have a stroke diagnosis?: No VTE Prior VTE?: No VTE Risk Level:: Medical - moderate - high VTE Device Contraindication: Treatment Not Indicated VTE Drug Contraindication: N/A - Med Ordered
--- NOTE | 2021-10-22 10:51 | P.CDIC_ITS ---
CDI Concurrent Query Documentation Clarification: PHYSICIAN'S DOCUMENTATION REQUEST Date of Query: 10/22/21 1052 Patient Name: Dao Zacarias Admit Date: 10/03/21 Dear Doctor, A review of the medical record indicates additional documentation may be needed. Please review below and update the documentation accordingly. Risk Factors/Clinical Indicators/Treatments PN: Assessment/plan: Dementia, permanent, not encephalopathy. Needs placement, not capable to make decisions. * Dementia - indicate type of dementia, such as Alzheimer's, senile, vascular, Lewy body, etc. * Baseline dementia - indicate type, such as Alzheimer's, senile, vascular, Lewy body, etc., and any associated behavioral disturbances. * Other etiology * Unable to determine Use of terms such as suspected, likely, concern for, or probable (associated with a specific diagnosis that is being evaluated, monitored, or treated as if it exists) are acceptable and can be coded in the inpatient setting, when documented at the time of discharge. Thank you, Sade Villalta [facility], CDIS Extension: [phone] Please use your independent medical judgment in providing your response. THIS QUERY IS PART OF THE PERMANENT MEDICAL RECORD Provider Response: Other Other Diagnosis: dementia -unclear etiology
[2021-10-22 11:07] VITALS: BP 93/45; PULSE 75; RESP 18; TEMP 36.4; O2SAT 98
[2021-10-22 16:00] VITALS: BP 98/62; PULSE 112; RESP 18; TEMP 37.1; O2SAT 98
[2021-10-22 19:26] VITALS: BP 98/64; PULSE 88; RESP 18; TEMP 37.1; O2SAT 100
[2021-10-22 23:22] VITALS: BP 100/49; PULSE 76; RESP 18; TEMP 37.1; O2SAT 98
[2021-10-23 02:54] VITALS: BP 116/53; PULSE 71; RESP 18; TEMP 36.8; O2SAT 96
[2021-10-23] MEDS: Heparin Sodium,Porcine 5,000 UNIT/ML VIAL 5000 UNIT SUBCUT ×2 (05:20→17:06)
[2021-10-23 08:00] VITALS: BP 106/62; PULSE 87; RESP 18; TEMP 36.5; O2SAT 95
[2021-10-23] MEDS: Thiamine HCL 100 MG TABLET PO (09:56)
[2021-10-23] MEDS: Folic Acid 1 MG TABLET PO (09:56)
--- NOTE | 2021-10-23 11:07 | PC.NURSE ---
Skin/wound assessment completed. Patient has an upper right arm skin tear, cleansed with wound cleanser Xeroform applied covered with large bandaid. No other skin issues noted at this time.
[2021-10-23 11:14] VITALS: BP 105/55; PULSE 90; RESP 18; TEMP 36.6; O2SAT 98
--- NOTE | 2021-10-23 12:20 | P.PNIM_ITS ---
Subjective Subjective Date of Service: 10/23/21 Interval History: covid , awaiting placement Review of Systems denies any chest pain or shortness of breath or abdominal pain or fever or chills. Physical Exam Vital Signs: Vital Signs: Last Vital Signs Temp 97.8 F 10/23/21 11:14 Pulse 90 10/23/21 11:14 Resp 18 10/23/21 11:14 BP 105/55 L 10/23/21 11:14 Pulse Ox 98 10/23/21 11:14 BMI result Body Mass Index 12.0 ?? General: AO X 2, no acute distress Resp:? CTA bilateral CVS: S1,S2,RRR GI: +BS, NT, no distention Skin: No rash Neuro:? motor grossly intact Psych: appropriate affect Objective Data Active Medications Acetaminophen (Acetaminophen 325 Mg Tablet) 650 mg PO Q6H PRN PRN Reason: Pain, Mild (Pain Scale 1-3) Folic Acid (Folic Acid 1 Mg Tablet) 1 mg PO DAILY [facility] Last Admin: 10/23/21 09:56 Dose: 1 mg Documented by: NICOLE Heparin Sodium (Porcine) (Heparin Sodium,Porcine 5,000 Unit/Ml Vial) 5,000 unit SUBCUT Q12H [facility] Last Admin: 10/23/21 05:20 Dose: 5,000 unit Documented by: MILAGROS Ondansetron HCl (Ondansetron Hcl 4 Mg/2 Ml Vial) 4 mg IVPUSH Q8H PRN PRN Reason: Nausea and Vomiting Pharmacy Consult (Consult Rx Perform Med Rec) 1 each MISCELLANE ONCE PRN PRN Reason: Consult order Sodium Chloride (0.9 % Sodium Chloride Flush 3 Ml Syringe) 3 ml IVFLUSH QSHIFT [facility] Last Admin: 10/23/21 09:56 Dose: Not Given Documented by: NICOLE Non-Admin Reason: IV dc'd Thiamine HCl (Thiamine Hcl 100 Mg Tablet) 100 mg PO DAILY [facility] Last Admin: 10/23/21 09:56 Dose: 100 mg Documented by: NICOLE Labs CBC & Chem 7: 10/18/21 06:56 10/12/21 05:41 Assessment and Plan (1) COVID-19: Status: Acute (2) Dementia: Status: Acute Assessment and Plan: 11 yo M with a reported history of alcohol use/dependence who was brought in by ambulance after his friends had not seen him for a few days and found to have covid but assymptomatic and now with placement issues No new issues, awaiting guardianship, [place] management unchanged from prior day 1.Covid PNA--asymptomatic, still positive, no indication for Abx--Still positive as of 10/19 2.Dementia unspecified --noted to be thought permanent, not toxic encephaloapthy 3.Normocytic anemia drop in all cell lines from admission, likely dilutional no overt bleeding noted, heme negative B12, folate wnl 4.Kath / mild HypoNa likely hypovolemic -- resolved with IVF 5.Elevated troponin--No evidence of ACS, likly from covid 6.Alcohol abuse / dependence, out of window for withdrawal continue thiamine / folate 7.Coagulopathy / transaminitis resolved, likely from covid DVT pptx. heparin Quality Stroke Does the patient have a stroke diagnosis?: No VTE Prior VTE?: No VTE Risk Level:: Medical - moderate - high VTE Device Contraindication: Treatment Not Indicated VTE Drug Contraindication: N/A - Med Ordered
--- NOTE | 2021-10-23 15:15 | PC.NURSE ---
report given to Vikash GRISSOM to assume care.
[2021-10-23 15:18] VITALS: BP 114/56; PULSE 92; RESP 18; TEMP 36.5; O2SAT 99
[2021-10-23 19:43] VITALS: BP 97/50; PULSE 86; RESP 18; TEMP 36.2; O2SAT 97
[2021-10-23 23:47] VITALS: BP 93/52; PULSE 87; RESP 18; TEMP 37; O2SAT 96
[2021-10-24 04:00] VITALS: BP 91/53; PULSE 71; RESP 20; TEMP 37; O2SAT 96
--- NOTE | 2021-10-24 05:15 | PC.NURSE ---
pt refusing heparin this am. attempted multiple times, pt states he just wants to sleep.
[2021-10-24 08:00] VITALS: BP 114/54; PULSE 80; RESP 18; TEMP 36.1; O2SAT 98
[2021-10-24] MEDS: Thiamine HCL 100 MG TABLET PO (11:03)
[2021-10-24] MEDS: Folic Acid 1 MG TABLET PO (11:03)
[2021-10-24 12:00] VITALS: BP 111/56; PULSE 82; RESP 18; TEMP 36.6; O2SAT 100
--- NOTE | 2021-10-24 12:20 | HO.PM.IMPN ---
Subjective Subjective Date of Service: 10/24/21 Interval History: covid , awaiting placement Review of Systems denies any chest pain or shortness of breath or abdominal pain or fever or chills. Physical Exam Vital Signs: Vital Signs: Last Vital Signs Temp 97.9 F 10/24/21 12:00 Pulse 82 10/24/21 12:00 Resp 18 10/24/21 12:00 BP 111/56 L 10/24/21 12:00 Pulse Ox 100 10/24/21 12:00 BMI result Body Mass Index 12.0 ?? General: AO X 2, no acute distress Resp:? CTA bilateral CVS: S1,S2,RRR GI: +BS, NT, no distention Skin: No rash Neuro:? motor grossly intact Psych: appropriate affect Objective Data Active Medications Acetaminophen (Acetaminophen 325 Mg Tablet) 650 mg PO Q6H PRN PRN Reason: Pain, Mild (Pain Scale 1-3) Folic Acid (Folic Acid 1 Mg Tablet) 1 mg PO DAILY [facility] Last Admin: 10/24/21 11:03 Dose: 1 mg Documented by: BOBBI Heparin Sodium (Porcine) (Heparin Sodium,Porcine 5,000 Unit/Ml Vial) 5,000 unit SUBCUT Q12H [facility] Last Admin: 10/24/21 05:15 Dose: Not Given Documented by: ARABELLA Non-Admin Reason: see nursing note Ondansetron HCl (Ondansetron Hcl 4 Mg/2 Ml Vial) 4 mg IVPUSH Q8H PRN PRN Reason: Nausea and Vomiting Pharmacy Consult (Consult Rx Perform Med Rec) 1 each MISCELLANE ONCE PRN PRN Reason: Consult order Sodium Chloride (0.9 % Sodium Chloride Flush 3 Ml Syringe) 3 ml IVFLUSH QSHIFT [facility] Last Admin: 10/24/21 11:03 Dose: Not Given Documented by: BOBBI Non-Admin Reason: No Access Thiamine HCl (Thiamine Hcl 100 Mg Tablet) 100 mg PO DAILY [facility] Last Admin: 10/24/21 11:03 Dose: 100 mg Documented by: BOBBI Labs CBC & Chem 7: 10/18/21 06:56 10/12/21 05:41 Assessment and Plan (1) COVID-19: Status: Acute (2) Dementia: Status: Acute Assessment and Plan: 81 yo M with a reported history of alcohol use/dependence who was brought in by ambulance after his friends had not seen him for a few days and found to have covid but assymptomatic and now with placement issues No new issues, awaiting guardianship, [place] management unchanged from prior day 1.Covid PNA--asymptomatic, still positive, no indication for Abx--Still positive as of 10/19 2.Dementia unspecified --noted to be thought permanent, not toxic encephaloapthy 3.Normocytic anemia drop in all cell lines from admission, likely dilutional no overt bleeding noted, heme negative B12, folate wnl 4.Kath / mild HypoNa likely hypovolemic -- resolved with IVF 5.Elevated troponin--No evidence of ACS, likly from covid 6.Alcohol abuse / dependence, out of window for withdrawal continue thiamine / folate 7.Coagulopathy / transaminitis resolved, likely from covid DVT pptx. heparin Quality Stroke Does the patient have a stroke diagnosis?: No VTE Prior VTE?: No VTE Risk Level:: Medical - moderate - high VTE Device Contraindication: Treatment Not Indicated VTE Drug Contraindication: N/A - Med Ordered
[2021-10-24 15:28] VITALS: BP 104/54; PULSE 95; RESP 18; TEMP 36.7; O2SAT 97
[2021-10-24] MEDS: Heparin Sodium,Porcine 5,000 UNIT/ML VIAL 5000 UNIT SUBCUT (17:31)
[2021-10-24 19:32] VITALS: BP 100/40; PULSE 81; RESP 18; TEMP 36.4; O2SAT 96
[2021-10-24 23:35] VITALS: BP 109/50; PULSE 77; RESP 18; TEMP 36.6; O2SAT 96
[2021-10-25 04:00] VITALS: BP 121/65; PULSE 75; RESP 20; TEMP 36.6; O2SAT 95
[2021-10-25] MEDS: Heparin Sodium,Porcine 5,000 UNIT/ML VIAL 5000 UNIT SUBCUT ×2 (04:28→17:15)
[2021-10-25 07:38] VITALS: BP 101/55; PULSE 80; RESP 18; TEMP 36.5; O2SAT 98
[2021-10-25] MEDS: Thiamine HCL 100 MG TABLET PO (07:39)
[2021-10-25] MEDS: Folic Acid 1 MG TABLET PO (07:39)
--- NOTE | 2021-10-25 11:23 | HO.PM.IMPN ---
Subjective Subjective Date of Service: 10/25/21 Interval History: covid , awaiting placement Review of Systems no new complaints, sitting and eating breakfast. Physical Exam Vital Signs: Vital Signs: Last Vital Signs Temp 97.7 F 10/25/21 07:38 Pulse 80 10/25/21 07:38 Resp 18 10/25/21 07:38 BP 101/55 L 10/25/21 07:38 Pulse Ox 98 10/25/21 07:38 BMI result Body Mass Index 12.0 ?General: AO X 2, no acute distress Resp:? CTA bilateral CVS: S1,S2,RRR GI: +BS, NT, no distention Skin: No rash Neuro:? motor grossly intact Psych: appropriate affect Objective Data Active Medications Acetaminophen (Acetaminophen 325 Mg Tablet) 650 mg PO Q6H PRN PRN Reason: Pain, Mild (Pain Scale 1-3) Folic Acid (Folic Acid 1 Mg Tablet) 1 mg PO DAILY [facility] Last Admin: 10/25/21 07:39 Dose: 1 mg Documented by: ANNE Heparin Sodium (Porcine) (Heparin Sodium,Porcine 5,000 Unit/Ml Vial) 5,000 unit SUBCUT Q12H [facility] Last Admin: 10/25/21 04:28 Dose: 5,000 unit Documented by: IMAN Ondansetron HCl (Ondansetron Hcl 4 Mg/2 Ml Vial) 4 mg IVPUSH Q8H PRN PRN Reason: Nausea and Vomiting Pharmacy Consult (Consult Rx Perform Med Rec) 1 each MISCELLANE ONCE PRN PRN Reason: Consult order Sodium Chloride (0.9 % Sodium Chloride Flush 3 Ml Syringe) 3 ml IVFLUSH QSHIFT [facility] Last Admin: 10/25/21 07:42 Dose: Not Given Documented by: ANNE Non-Admin Reason: No Access Thiamine HCl (Thiamine Hcl 100 Mg Tablet) 100 mg PO DAILY [facility] Last Admin: 10/25/21 07:39 Dose: 100 mg Documented by: ANNE Labs CBC & Chem 7: 10/18/21 06:56 10/12/21 05:41 Assessment and Plan (1) COVID-19: Status: Acute Assessment and Plan: 81 yo M with a reported history of alcohol use/dependence who was brought in by ambulance after his friends had not seen him for a few days and found to have covid but assymptomatic and now with placement issues No new issues, awaiting guardianship, [place] management unchanged from prior day 1.Covid PNA--asymptomatic, still positive, no indication for Abx--Still positive as of 10/19 2.Dementia unspecified --noted to be thought permanent, not toxic encephaloapthy 3.Normocytic anemia drop in all cell lines from admission, likely dilutional no overt bleeding noted, heme negative B12, folate wnl 4.Kath / mild HypoNa likely hypovolemic -- resolved with IVF 5.Elevated troponin--No evidence of ACS, likly from covid 6.Alcohol abuse / dependence, out of window for withdrawal continue thiamine / folate 7.Coagulopathy / transaminitis resolved, likely from covid DVT pptx. heparin Quality Stroke Does the patient have a stroke diagnosis?: No VTE Prior VTE?: No VTE Risk Level:: Medical - moderate - high VTE Device Contraindication: Treatment Not Indicated VTE Drug Contraindication: N/A - Med Ordered
[2021-10-25 11:32] VITALS: BP 110/58; PULSE 88; RESP 20; TEMP 36.8; O2SAT 98
[2021-10-25 15:47] VITALS: BP 106/52; PULSE 97; RESP 18; TEMP 36.9; O2SAT 97
[2021-10-25 19:12] VITALS: BP 110/60; PULSE 88; RESP 18; TEMP 37.1; O2SAT 100
[2021-10-26] VITALS (7 sets, daily range): BP systolic 99–119; BP diastolic 48–62; PULSE 57–98; RESP 16–18; TEMP 36.6–37.6; O2SAT 93–100
[2021-10-26] MEDS: Heparin Sodium,Porcine 5,000 UNIT/ML VIAL 5000 UNIT SUBCUT ×2 (05:31→17:44)
[2021-10-26] MEDS: Thiamine HCL 100 MG TABLET PO (08:20)
[2021-10-26] MEDS: Folic Acid 1 MG TABLET PO (08:21)
--- NOTE | 2021-10-26 13:14 | P.PNIM_ITS ---
Subjective Subjective Date of Service: 10/26/21 Interval History: COVID, awaiting placement. Review of Systems Denies any new complaints No fever or chills Sitting comfortably on the bed. Physical Exam Vital Signs: Vital Signs: Last Vital Signs Temp 97.8 F 10/26/21 11:17 Pulse 91 10/26/21 11:17 Resp 17 10/26/21 11:17 BP 119/49 L 10/26/21 11:17 Pulse Ox 100 10/26/21 11:17 BMI result Body Mass Index 12.0 ??General: AO X 2, no acute distress Resp:? CTA bilateral CVS: S1,S2,RRR GI: +BS, NT, no distention Skin: No rash Neuro:? motor grossly intact Psych: appropriate affect Objective Data Active Medications Acetaminophen (Acetaminophen 325 Mg Tablet) 650 mg PO Q6H PRN PRN Reason: Pain, Mild (Pain Scale 1-3) Folic Acid (Folic Acid 1 Mg Tablet) 1 mg PO DAILY [facility] Last Admin: 10/26/21 08:21 Dose: 1 mg Documented by: NICOLE Heparin Sodium (Porcine) (Heparin Sodium,Porcine 5,000 Unit/Ml Vial) 5,000 unit SUBCUT Q12H [facility] Last Admin: 10/26/21 05:31 Dose: 5,000 unit Documented by: JOSI Ondansetron HCl (Ondansetron Hcl 4 Mg/2 Ml Vial) 4 mg IVPUSH Q8H PRN PRN Reason: Nausea and Vomiting Pharmacy Consult (Consult Rx Perform Med Rec) 1 each MISCELLANE ONCE PRN PRN Reason: Consult order Sodium Chloride (0.9 % Sodium Chloride Flush 3 Ml Syringe) 3 ml IVFLUSH QSHIFT [facility] Last Admin: 10/26/21 08:20 Dose: Not Given Documented by: NICOLE Non-Admin Reason: no IV Thiamine HCl (Thiamine Hcl 100 Mg Tablet) 100 mg PO DAILY [facility] Last Admin: 10/26/21 08:20 Dose: 100 mg Documented by: NICOLE Labs CBC & Chem 7: 10/18/21 06:56 10/12/21 05:41 Assessment and Plan (1) COVID-19: Status: Acute Assessment and Plan: 81 yo M with a reported history of alcohol use/dependence who was brought in by ambulance after his friends had not seen him for a few days and found to have covid but assymptomatic and now with placement issues No new issues, awaiting guardianship, [place] management unchanged from prior day 1.Covid PNA--asymptomatic, still positive, no indication for Abx--Still positive as of 10/19 2.Dementia unspecified --noted to be thought permanent, not toxic encephaloapthy 3.Normocytic anemia drop in all cell lines from admission, likely dilutional no overt bleeding noted, heme negative B12, folate wnl 4.Kath / mild HypoNa likely hypovolemic -- resolved with IVF 5.Elevated troponin--No evidence of ACS, likly from covid 6.Alcohol abuse / dependence, out of window for withdrawal continue thiamine / folate 7.Coagulopathy / transaminitis resolved, likely from covid DVT pptx. heparin Discussed with case management-patient is waiting for guardianship? Quality Stroke Does the patient have a stroke diagnosis?: No VTE Prior VTE?: No VTE Risk Level:: Medical - moderate - high VTE Device Contraindication: Treatment Not Indicated VTE Drug Contraindication: N/A - Med Ordered
[2021-10-27 03:58] VITALS: BP 99/57; PULSE 77; RESP 18; TEMP 36.6; O2SAT 95
[2021-10-27] MEDS: Heparin Sodium,Porcine 5,000 UNIT/ML VIAL 5000 UNIT SUBCUT ×2 (04:10→17:53)
[2021-10-27 07:23] VITALS: BP 103/56; PULSE 78; RESP 20; TEMP 36.6; O2SAT 97
[2021-10-27] MEDS: Folic Acid 1 MG TABLET PO (08:33)
[2021-10-27] MEDS: Thiamine HCL 100 MG TABLET PO (08:33)
[2021-10-27 11:36] VITALS: BP 106/52; PULSE 92; RESP 20; TEMP 36.6; O2SAT 96
--- NOTE | 2021-10-27 11:53 | P.PNIM_ITS ---
Subjective Subjective Date of Service: 10/27/21 Interval History: f/u covid, awaiting palcement, no covid symptoms Review of Systems no fever, no sob Physical Exam Vital Signs: Vital Signs: Last Vital Signs Temp 97.9 F 10/27/21 11:36 Pulse 92 10/27/21 11:36 Resp 20 10/27/21 11:36 BP 106/52 L 10/27/21 11:36 Pulse Ox 96 10/27/21 11:36 BMI result Body Mass Index 12.0 Const: Other: General: AO X 2, no acute distress Resp: CTA bilateral CVS: S1,S2,RRR GI: +BS, NT, no distention Skin: No rash Neuro: motor grossly intact Psych: appropriate affect Objective Data Active Medications Acetaminophen (Acetaminophen 325 Mg Tablet) 650 mg PO Q6H PRN PRN Reason: Pain, Mild (Pain Scale 1-3) Folic Acid (Folic Acid 1 Mg Tablet) 1 mg PO DAILY [facility] Last Admin: 10/27/21 08:33 Dose: 1 mg Documented by: NICOLE Heparin Sodium (Porcine) (Heparin Sodium,Porcine 5,000 Unit/Ml Vial) 5,000 unit SUBCUT Q12H [facility] Last Admin: 10/27/21 04:10 Dose: 5,000 unit Documented by: JOSI Ondansetron HCl (Ondansetron Hcl 4 Mg/2 Ml Vial) 4 mg IVPUSH Q8H PRN PRN Reason: Nausea and Vomiting Pharmacy Consult (Consult Rx Perform Med Rec) 1 each MISCELLANE ONCE PRN PRN Reason: Consult order Sodium Chloride (0.9 % Sodium Chloride Flush 3 Ml Syringe) 3 ml IVFLUSH QSHIFT [facility] Last Admin: 10/27/21 08:33 Dose: Not Given Documented by: NICOLE Non-Admin Reason: no IV Thiamine HCl (Thiamine Hcl 100 Mg Tablet) 100 mg PO DAILY [facility] Last Admin: 10/27/21 08:33 Dose: 100 mg Documented by: NICOLE Labs CBC & Chem 7: 10/18/21 06:56 10/12/21 05:41 Assessment and Plan (1) COVID-19: Status: Acute Assessment and Plan: 81 yo M with a reported history of alcohol use/dependence who was brought in by ambulance after his friends had not seen him for a few days and found to have covid but assymptomatic and now with placement issues No new issues, awaiting guardianship, [place] management unchanged from prior day Covid PNA--asymptomatic, positive as of 10/19, retest today Dementia--I think this permanent, not toxic encephaloapthy Normocytic anemia drop in all cell lines from admission, likely dilutional no overt bleeding noted, heme negative B12, folate wnl follow CBC Kath / mild HypoNa likely hypovolemic -- resolved with IVF Elevated troponin--No evidence of ACS, likly from covid Alcohol abuse / dependence, out of window for withdrawal continue thiamine / folate Coagulopathy / transaminitis resolved, likely from covid Vital signs Qshift, weekly labs Full Code DVT pptx. heparin Needs placement as does not have capacity to make sounds medicla decisions Quality Stroke Does the patient have a stroke diagnosis?: No VTE Prior VTE?: No VTE Risk Level:: Medical - moderate - high VTE Device Contraindication: Treatment Not Indicated VTE Drug Contraindication: N/A - Med Ordered
[2021-10-27 13:47] LABS: COVID-19 Test Negative (Negative)
[2021-10-27 15:58] VITALS: BP 116/57; PULSE 92; RESP 16; TEMP 36.2; O2SAT 93
[2021-10-27 19:50] VITALS: BP 98/40; PULSE 90; RESP 18; TEMP 37.2; O2SAT 97
[2021-10-27 22:59] VITALS: BP 100/49; PULSE 91; RESP 18; TEMP 36.6; O2SAT 94
[2021-10-28 04:00] VITALS: BP 95/48; PULSE 84; RESP 18; TEMP 36.9; O2SAT 94
[2021-10-28] MEDS: Heparin Sodium,Porcine 5,000 UNIT/ML VIAL 5000 UNIT SUBCUT ×2 (04:47→17:36)
[2021-10-28 07:35] VITALS: BP 100/52; PULSE 84; RESP 18; TEMP 36.4; O2SAT 94
[2021-10-28] MEDS: Thiamine HCL 100 MG TABLET PO (09:14)
[2021-10-28] MEDS: Folic Acid 1 MG TABLET PO (09:14)
[2021-10-28 11:18] VITALS: BP 118/58; PULSE 100; RESP 18; TEMP 36.4; O2SAT 97
--- NOTE | 2021-10-28 11:51 | HO.PM.IMPN ---
Subjective Subjective Date of Service: 10/28/21 Interval History: f/u covid, awaiting palcement, no covid symptoms--repeat covid on 10/27 negative. Review of Systems no fever, no sob Physical Exam Vital Signs: Vital Signs: Last Vital Signs Temp 97.6 F 10/28/21 11:18 Pulse 100 10/28/21 11:18 Resp 18 10/28/21 11:18 BP 118/58 L 10/28/21 11:18 Pulse Ox 97 10/28/21 11:18 BMI result Body Mass Index 12.0 Const: Other: General: AO X 2, no acute distress Resp: CTA bilateral CVS: S1,S2,RRR GI: +BS, NT, no distention Skin: No rash Neuro: motor grossly intact Psych: appropriate affect Objective Data Active Medications Acetaminophen (Acetaminophen 325 Mg Tablet) 650 mg PO Q6H PRN PRN Reason: Pain, Mild (Pain Scale 1-3) Folic Acid (Folic Acid 1 Mg Tablet) 1 mg PO DAILY [facility] Last Admin: 10/28/21 09:14 Dose: 1 mg Documented by: ERNESTO Heparin Sodium (Porcine) (Heparin Sodium,Porcine 5,000 Unit/Ml Vial) 5,000 unit SUBCUT Q12H [facility] Last Admin: 10/28/21 04:47 Dose: 5,000 unit Documented by: IMAN Ondansetron HCl (Ondansetron Hcl 4 Mg/2 Ml Vial) 4 mg IVPUSH Q8H PRN PRN Reason: Nausea and Vomiting Pharmacy Consult (Consult Rx Perform Med Rec) 1 each MISCELLANE ONCE PRN PRN Reason: Consult order Sodium Chloride (0.9 % Sodium Chloride Flush 3 Ml Syringe) 3 ml IVFLUSH QSHIFT [facility] Last Admin: 10/28/21 09:11 Dose: Not Given Documented by: ERNESTO Non-Admin Reason: No Access Thiamine HCl (Thiamine Hcl 100 Mg Tablet) 100 mg PO DAILY [facility] Last Admin: 10/28/21 09:14 Dose: 100 mg Documented by: ERNESTO Labs CBC & Chem 7: 10/18/21 06:56 10/12/21 05:41 Labs: Laboratory Results - last 24 hr 10/27/21 13:15 COVID-19 ([facility]) Negative COVID-19 Clin Com See Note Assessment and Plan (1) COVID-19: Status: Acute Assessment and Plan: 81 yo M with a reported history of alcohol use/dependence who was brought in by ambulance after his friends had not seen him for a few days and found to have covid but assymptomatic and now with placement issues No new issues, awaiting guardianship, [place] management unchanged from prior day Covid PNA--asymptomatic, positive as of 10/19, retest today Dementia--I think this permanent, not toxic encephaloapthy Normocytic anemia drop in all cell lines from admission, likely dilutional no overt bleeding noted, heme negative B12, folate wnl follow CBC Kath / mild HypoNa likely hypovolemic -- resolved with IVF Elevated troponin--No evidence of ACS, likly from covid Alcohol abuse / dependence, out of window for withdrawal continue thiamine / folate Coagulopathy / transaminitis resolved, likely from covid Vital signs Qshift, weekly labs Full Code DVT pptx. heparin Needs placement as does not have capacity to make sounds medicla decisions Patient has been here for 25 days, assymptomatic for covid, not on xogyen, not immune compromised, no on oxygen covid negative on 10/27 and therefore safe to move out of covid unit, disucussed with infectious control with go ahead to removed isolation. Quality Stroke Does the patient have a stroke diagnosis?: No VTE Prior VTE?: No VTE Risk Level:: Medical - moderate - high VTE Device Contraindication: Treatment Not Indicated VTE Drug Contraindication: N/A - Med Ordered
--- NOTE | 2021-10-28 12:08 | MHC.CM.PN ---
Per ROUNDS discussion, Court Date for Guardianship is 11/10/21 at 9AM; LTC remains the goal for dc and CM will continue to follow.
[2021-10-28 15:45] VITALS: BMI 16.1
[2021-10-28 15:46] VITALS: BP 120/58; PULSE 105; RESP 18; TEMP 37.2; O2SAT 97
[2021-10-28 19:53] VITALS: BP 100/55; PULSE 94; RESP 18; TEMP 37.3; O2SAT 97
[2021-10-29] VITALS: BP 117/48; PULSE 87; RESP 18; TEMP 37; O2SAT 93
[2021-10-29 04:00] VITALS: BP 106/47; PULSE 79; RESP 20; TEMP 36.4; O2SAT 94
[2021-10-29] MEDS: Heparin Sodium,Porcine 5,000 UNIT/ML VIAL 5000 UNIT SUBCUT ×2 (05:42→17:21)
[2021-10-29 07:10] VITALS: BP 106/55; PULSE 83; RESP 18; TEMP 36.7; O2SAT 97
[2021-10-29] MEDS: Folic Acid 1 MG TABLET PO (10:23)
[2021-10-29] MEDS: Thiamine HCL 100 MG TABLET PO (10:23)
[2021-10-29 11:00] VITALS: BP 117/58; PULSE 93; RESP 18; TEMP 36.3; O2SAT 97
[2021-10-29 11:58] VITALS: BMI 16.1
--- NOTE | 2021-10-29 12:19 | P.PNIM_ITS ---
Subjective Subjective Date of Service: 10/29/21 Interval History: f/u covid, awaiting palcement, no covid symptoms--repeat covid on 10/27 negative. Review of Systems no fever, no sob Physical Exam Vital Signs: Vital Signs: Last Vital Signs Temp 97.4 F 10/29/21 11:00 Pulse 93 10/29/21 11:00 Resp 18 10/29/21 11:00 BP 117/58 L 10/29/21 11:00 Pulse Ox 97 10/29/21 11:00 BMI result Body Mass Index 16.1 Const: Other: General: AO X 2, no acute distress Resp: CTA bilateral CVS: S1,S2,RRR GI: +BS, NT, no distention Skin: No rash Neuro: motor grossly intact Psych: appropriate affect Objective Data Active Medications Acetaminophen (Acetaminophen 325 Mg Tablet) 650 mg PO Q6H PRN PRN Reason: Pain, Mild (Pain Scale 1-3) Folic Acid (Folic Acid 1 Mg Tablet) 1 mg PO DAILY [facility] Last Admin: 10/29/21 10:23 Dose: 1 mg Documented by: FARA Heparin Sodium (Porcine) (Heparin Sodium,Porcine 5,000 Unit/Ml Vial) 5,000 unit SUBCUT Q12H [facility] Last Admin: 10/29/21 05:42 Dose: 5,000 unit Documented by: IMAN Ondansetron HCl (Ondansetron Hcl 4 Mg/2 Ml Vial) 4 mg IVPUSH Q8H PRN PRN Reason: Nausea and Vomiting Pharmacy Consult (Consult Rx Perform Med Rec) 1 each MISCELLANE ONCE PRN PRN Reason: Consult order Sodium Chloride (0.9 % Sodium Chloride Flush 3 Ml Syringe) 3 ml IVFLUSH QSHIFT [facility] Last Admin: 10/29/21 10:23 Dose: Not Given Documented by: FARA Non-Admin Reason: No Access Thiamine HCl (Thiamine Hcl 100 Mg Tablet) 100 mg PO DAILY [facility] Last Admin: 10/29/21 10:23 Dose: 100 mg Documented by: FARA Labs CBC & Chem 7: 10/18/21 06:56 10/12/21 05:41 Assessment and Plan (1) COVID-19: Status: Acute Assessment and Plan: 81 yo M with a reported history of alcohol use/dependence who was brought in by ambulance after his friends had not seen him for a few days and found to have covid but assymptomatic and now with placement issues No new issues, awaiting guardianship, [place] management unchanged from prior day Covid PNA--asymptomatic, positive as of 10/19, retest today Dementia--I think this permanent, not toxic encephaloapthy Normocytic anemia drop in all cell lines from admission, likely dilutional no overt bleeding noted, heme negative B12, folate wnl Kath / mild HypoNa likely hypovolemic -- resolved with IVF Elevated troponin--No evidence of ACS, likly from covid Alcohol abuse / dependence, out of window for withdrawal continue thiamine / folate Coagulopathy / transaminitis resolved, likely from covid Vital signs Qshift, weekly labs Full Code DVT pptx. heparin Needs placement as does not have capacity to make sounds medicla decisions Patient has been here for 25 days, assymptomatic for covid, not on xogyen, not immune compromised, no on oxygen covid negative on 10/27 and therefore safe to move out of covid unit, disucussed with infectious control with go ahead to removed isolation. Quality Stroke Does the patient have a stroke diagnosis?: No VTE Prior VTE?: No VTE Risk Level:: Medical - moderate - high VTE Device Contraindication: Treatment Not Indicated VTE Drug Contraindication: N/A - Med Ordered
[2021-10-29 15:27] VITALS: BP 121/59; PULSE 82; RESP 20; TEMP 37.2; O2SAT 96
[2021-10-29 20:00] VITALS: BP 120/55; PULSE 73; RESP 18; TEMP 36.1; O2SAT 97
[2021-10-30] VITALS: BP 118/60; PULSE 75; RESP 18; TEMP 36.1; O2SAT 97
[2021-10-30 04:00] VITALS: BP 120/57; PULSE 71; RESP 18; TEMP 36.7; O2SAT 96
[2021-10-30] MEDS: Heparin Sodium,Porcine 5,000 UNIT/ML VIAL 5000 UNIT SUBCUT ×2 (06:09→17:04)
[2021-10-30 07:37] VITALS: BP 120/57; PULSE 77; RESP 16; TEMP 36.9; O2SAT 95
[2021-10-30] MEDS: Folic Acid 1 MG TABLET PO (08:07)
[2021-10-30] MEDS: Thiamine HCL 100 MG TABLET PO (08:07)
--- NOTE | 2021-10-30 09:35 | HO.PM.IMPN ---
Subjective Subjective Date of Service: 10/30/21 Interval History: f/u covid, awaiting palcement, no covid symptoms--repeat covid on 10/27 negative. Review of Systems no fever, no sob Physical Exam Vital Signs: Vital Signs: Last Vital Signs Temp 98.4 F 10/30/21 07:37 Pulse 77 10/30/21 07:37 Resp 16 10/30/21 07:37 BP 120/57 L 10/30/21 07:37 Pulse Ox 95 10/30/21 07:37 BMI result Body Mass Index 16.1 Const: Other: General: AO X 2, no acute distress Resp: CTA bilateral CVS: S1,S2,RRR GI: +BS, NT, no distention Skin: No rash Neuro: motor grossly intact Psych: appropriate affect Objective Data Active Medications Acetaminophen (Acetaminophen 325 Mg Tablet) 650 mg PO Q6H PRN PRN Reason: Pain, Mild (Pain Scale 1-3) Folic Acid (Folic Acid 1 Mg Tablet) 1 mg PO DAILY [facility] Last Admin: 10/30/21 08:07 Dose: 1 mg Documented by: MARÍA ELENA Heparin Sodium (Porcine) (Heparin Sodium,Porcine 5,000 Unit/Ml Vial) 5,000 unit SUBCUT Q12H [facility] Last Admin: 10/30/21 06:09 Dose: 5,000 unit Documented by: FREDDIE Ondansetron HCl (Ondansetron Hcl 4 Mg/2 Ml Vial) 4 mg IVPUSH Q8H PRN PRN Reason: Nausea and Vomiting Pharmacy Consult (Consult Rx Perform Med Rec) 1 each MISCELLANE ONCE PRN PRN Reason: Consult order Sodium Chloride (0.9 % Sodium Chloride Flush 3 Ml Syringe) 3 ml IVFLUSH QSHIFT [facility] Last Admin: 10/30/21 08:11 Dose: Not Given Documented by: MARÍA ELENA Non-Admin Reason: No Access Thiamine HCl (Thiamine Hcl 100 Mg Tablet) 100 mg PO DAILY [facility] Last Admin: 10/30/21 08:07 Dose: 100 mg Documented by: MARÍA ELENA Labs CBC & Chem 7: 10/18/21 06:56 10/12/21 05:41 Assessment and Plan (1) COVID-19: Status: Acute Assessment and Plan: 81 yo M with a reported history of alcohol use/dependence who was brought in by ambulance after his friends had not seen him for a few days and found to have covid but assymptomatic and now with placement issues No new issues, awaiting guardianship, [place] management unchanged from prior day Covid PNA--asymptomatic, positive as of 10/19, retest today Dementia--I think this permanent, not toxic encephaloapthy Normocytic anemia drop in all cell lines from admission, likely dilutional no overt bleeding noted, heme negative B12, folate wnl Kath / mild HypoNa likely hypovolemic -- resolved with IVF Elevated troponin--No evidence of ACS, likly from covid Alcohol abuse / dependence, out of window for withdrawal continue thiamine / folate Coagulopathy / transaminitis resolved, likely from covid Vital signs Qshift, weekly labs Full Code DVT pptx. heparin Needs placement as does not have capacity to make sounds medicla decisions Patient has been here for 25 days, assymptomatic for covid, not on xogyen, not immune compromised, no on oxygen covid negative on 10/27 and therefore safe to move out of covid unit, disucussed with infectious control with go ahead to removed isolation. Quality Stroke Does the patient have a stroke diagnosis?: No VTE Prior VTE?: No VTE Risk Level:: Medical - moderate - high VTE Device Contraindication: Treatment Not Indicated VTE Drug Contraindication: N/A - Med Ordered
--- NOTE | 2021-10-30 11:13 | MHC.CLN ---
F/U PT IS MODERATELY MALNOURISHED PT IS MILDLY DEPLETED SUBCUTANEOUS FAT AND MUSCLE MASS WITH BMI 16 WT DISCREPANCY UPON ADMISSION. REWEIGHT REVEALS 45.4KG DIET RX: REGULAR-APPROPRIATE PT REPORTS APPETITE IS GOOD; INTAKE RECORDED 100% RECOMMEND ADDING ESURE BID TO PROVIDE 700KCALS, 40G PROTEIN MONITOR PO AND WEIGHT CLOSELY RD TO FOLLOW WEEKLY
[2021-10-30 11:24] VITALS: BP 119/52; PULSE 93; RESP 20; TEMP 36.4; O2SAT 95
[2021-10-30 15:01] LABS: CDiff Gene PCR NEGATIVE (Negative)
[2021-10-30 15:39] VITALS: BP 111/57; PULSE 126; RESP 18; TEMP 36.6; O2SAT 99
[2021-10-30 19:18] VITALS: BP 108/50; PULSE 90; RESP 18; TEMP 36.9; O2SAT 96
[2021-10-31] VITALS: BP 114/53; PULSE 91; RESP 18; TEMP 36.8; O2SAT 94
[2021-10-31 03:46] VITALS: BP 109/55; PULSE 81; RESP 18; TEMP 36.6; O2SAT 96
[2021-10-31] MEDS: Heparin Sodium,Porcine 5,000 UNIT/ML VIAL 5000 UNIT SUBCUT ×2 (05:25→17:58)
--- NOTE | 2021-10-31 09:14 | HO.PM.IMPN ---
Subjective Subjective Date of Service: 10/31/21 Interval History: f/u covid, awaiting palcement, no covid symptoms--repeat covid on 10/27 negative. Review of Systems no fever, no sob Physical Exam Vital Signs: Vital Signs: Last Vital Signs Temp 98 F 10/31/21 03:46 Pulse 81 10/31/21 03:46 Resp 18 10/31/21 03:46 BP 109/55 L 10/31/21 03:46 Pulse Ox 96 10/31/21 03:46 BMI result Body Mass Index 16.1 Const: Other: General: AO X 2, no acute distress Resp:? CTA bilateral CVS: S1,S2,RRR GI: +BS, NT, no distention Skin: No rash Neuro:? motor grossly intact Psych: appropriate affect Objective Data Active Medications Acetaminophen (Acetaminophen 325 Mg Tablet) 650 mg PO Q6H PRN PRN Reason: Pain, Mild (Pain Scale 1-3) Folic Acid (Folic Acid 1 Mg Tablet) 1 mg PO DAILY [facility] Last Admin: 10/30/21 08:07 Dose: 1 mg Documented by: MARÍA ELENA Heparin Sodium (Porcine) (Heparin Sodium,Porcine 5,000 Unit/Ml Vial) 5,000 unit SUBCUT Q12H [facility] Last Admin: 10/31/21 05:25 Dose: 5,000 unit Documented by: STACEY Ondansetron HCl (Ondansetron Hcl 4 Mg/2 Ml Vial) 4 mg IVPUSH Q8H PRN PRN Reason: Nausea and Vomiting Pharmacy Consult (Consult Rx Perform Med Rec) 1 each MISCELLANE ONCE PRN PRN Reason: Consult order Sodium Chloride (0.9 % Sodium Chloride Flush 3 Ml Syringe) 3 ml IVFLUSH QSHIFT [facility] Last Admin: 10/31/21 00:30 Dose: Not Given Documented by: STACEY Non-Admin Reason: No Access Thiamine HCl (Thiamine Hcl 100 Mg Tablet) 100 mg PO DAILY [facility] Last Admin: 10/30/21 08:07 Dose: 100 mg Documented by: MARÍA ELENA Labs CBC & Chem 7: 10/18/21 06:56 10/12/21 05:41 Labs: Laboratory Results - last 24 hr 10/30/21 14:02 C. difficile Tox B Gene NEGATIVE Assessment and Plan (1) COVID-19: Status: Acute Assessment and Plan: 81 yo M with a reported history of alcohol use/dependence who was brought in by ambulance after his friends had not seen him for a few days and found to have covid but assymptomatic and now with placement issues No new issues, awaiting guardianship, [place] management unchanged from prior day Covid PNA--asymptomatic, positive as of 10/19, retested on 10/27 was negative and has no symptoms Dementia--I think this permanent, not toxic encephaloapthy Normocytic anemia drop in all cell lines from admission, likely dilutional no overt bleeding noted, heme negative B12, folate wnl Kath / mild HypoNa likely hypovolemic -- resolved with IVF Elevated troponin--No evidence of ACS, likly from covid Alcohol abuse / dependence, out of window for withdrawal continue thiamine / folate Coagulopathy / transaminitis resolved, likely from covid Vital signs Qshift, weekly labs Full Code DVT pptx. heparin Needs placement as does not have capacity to make sounds medicla decisions Quality Stroke Does the patient have a stroke diagnosis?: No VTE Prior VTE?: No VTE Risk Level:: Medical - moderate - high VTE Device Contraindication: Treatment Not Indicated VTE Drug Contraindication: N/A - Med Ordered
[2021-10-31] MEDS: Folic Acid 1 MG TABLET PO (09:33)
[2021-10-31] MEDS: Thiamine HCL 100 MG TABLET PO (09:33)
[2021-10-31 16:00] VITALS: BP 135/62; PULSE 73; RESP 17; TEMP 36.8; O2SAT 99
[2021-10-31 23:15] VITALS: BP 105/51; PULSE 97; RESP 22; TEMP 36.6; O2SAT 95
[2021-11-01 04:00] VITALS: BP 102/51; PULSE 85; RESP 18; TEMP 36.2; O2SAT 95
[2021-11-01] MEDS: Heparin Sodium,Porcine 5,000 UNIT/ML VIAL 5000 UNIT SUBCUT ×2 (07:06→15:58)
[2021-11-01 07:31] VITALS: BP 109/54; PULSE 83; RESP 17; TEMP 36.3; O2SAT 97
[2021-11-01] MEDS: Thiamine HCL 100 MG TABLET PO (08:42)
[2021-11-01] MEDS: Folic Acid 1 MG TABLET PO (08:42)
--- NOTE | 2021-11-01 09:17 | P.PNIM_ITS ---
Subjective Subjective Date of Service: 11/01/21 Interval History: f/u covid, awaiting palcement, no covid symptoms--repeat covid on 10/27 negative. Review of Systems no fever, no sob Physical Exam Vital Signs: Vital Signs: Last Vital Signs Temp 97.4 F 11/01/21 07:31 Pulse 83 11/01/21 07:31 Resp 17 11/01/21 07:31 BP 109/54 L 11/01/21 07:31 Pulse Ox 97 11/01/21 07:31 BMI result Body Mass Index 16.1 Const: Other: General: AO X 2, no acute distress Resp:? CTA bilateral CVS: S1,S2,RRR GI: +BS, NT, no distention Skin: No rash Neuro:? motor grossly intact Psych: appropriate affect Objective Data Active Medications Acetaminophen (Acetaminophen 325 Mg Tablet) 650 mg PO Q6H PRN PRN Reason: Pain, Mild (Pain Scale 1-3) Folic Acid (Folic Acid 1 Mg Tablet) 1 mg PO DAILY [facility] Last Admin: 11/01/21 08:42 Dose: 1 mg Documented by: DENISE Heparin Sodium (Porcine) (Heparin Sodium,Porcine 5,000 Unit/Ml Vial) 5,000 unit SUBCUT Q12H [facility] Last Admin: 11/01/21 07:06 Dose: 5,000 unit Documented by: DEMETRA Ondansetron HCl (Ondansetron Hcl 4 Mg/2 Ml Vial) 4 mg IVPUSH Q8H PRN PRN Reason: Nausea and Vomiting Pharmacy Consult (Consult Rx Perform Med Rec) 1 each MISCELLANE ONCE PRN PRN Reason: Consult order Sodium Chloride (0.9 % Sodium Chloride Flush 3 Ml Syringe) 3 ml IVFLUSH QSHIFT [facility] Last Admin: 11/01/21 08:43 Dose: Not Given Documented by: DENISE Non-Admin Reason: No Access Thiamine HCl (Thiamine Hcl 100 Mg Tablet) 100 mg PO DAILY [facility] Last Admin: 11/01/21 08:42 Dose: 100 mg Documented by: DENISE Labs CBC & Chem 7: 10/18/21 06:56 10/12/21 05:41 Assessment and Plan (1) COVID-19: Status: Acute Assessment and Plan: 81 yo M with a reported history of alcohol use/dependence who was brought in by ambulance after his friends had not seen him for a few days and found to have covid but assymptomatic and now with placement issues No new issues, awaiting guardianship, [place] management unchanged from prior day Covid PNA--asymptomatic, positive as of 10/19, retested on 10/27 was negative and has no symptoms Dementia--I think this permanent, not toxic encephaloapthy Normocytic anemia drop in all cell lines from admission, likely dilutional no overt bleeding noted, heme negative B12, folate wnl Kath / mild HypoNa likely hypovolemic -- resolved with IVF Elevated troponin--No evidence of ACS, likly from covid Alcohol abuse / dependence, out of window for withdrawal continue thiamine / folate Coagulopathy / transaminitis resolved, likely from covid Vital signs Qshift, weekly labs Full Code DVT pptx. heparin Needs placement as does not have capacity to make sounds medicla decisions Quality Stroke Does the patient have a stroke diagnosis?: No VTE Prior VTE?: No VTE Risk Level:: Medical - moderate - high VTE Device Contraindication: Treatment Not Indicated VTE Drug Contraindication: N/A - Med Ordered
[2021-11-01 11:36] VITALS: BP 110/52; PULSE 89; RESP 18; TEMP 36.3; O2SAT 95
[2021-11-01 15:21] VITALS: BP 112/55; PULSE 95; RESP 17; TEMP 36.2; O2SAT 97
[2021-11-01 23:33] VITALS: BP 108/53; PULSE 85; RESP 16; TEMP 36.6; O2SAT 95
[2021-11-02 03:46] VITALS: BP 101/55; PULSE 79; RESP 16; TEMP 36.5; O2SAT 94
[2021-11-02] MEDS: Heparin Sodium,Porcine 5,000 UNIT/ML VIAL 5000 UNIT SUBCUT ×2 (05:34→18:00)
[2021-11-02 07:11] VITALS: BP 111/57; PULSE 96; RESP 19; TEMP 36; O2SAT 95
[2021-11-02] MEDS: Folic Acid 1 MG TABLET PO (09:11)
[2021-11-02] MEDS: Thiamine HCL 100 MG TABLET PO (09:12)
--- NOTE | 2021-11-02 09:46 | HO.PM.IMPN ---
Subjective Subjective Date of Service: 11/02/21 Interval History: f/u covid, awaiting palcement, no covid symptoms--repeat covid on 10/27/21 negative. And assymptomatic Review of Systems no fever, no sob Physical Exam Vital Signs: Vital Signs: Last Vital Signs Temp 96.8 F 11/02/21 07:11 Pulse 96 11/02/21 07:11 Resp 19 11/02/21 07:11 BP 111/57 L 11/02/21 07:11 Pulse Ox 95 11/02/21 07:11 BMI result Body Mass Index 16.1 Const: Other: General: AO X 2, no acute distress Resp:? CTA bilateral CVS: S1,S2,RRR GI: +BS, NT, no distention Skin: No rash Neuro:? motor grossly intact Psych: appropriate affect Objective Data Active Medications Acetaminophen (Acetaminophen 325 Mg Tablet) 650 mg PO Q6H PRN PRN Reason: Pain, Mild (Pain Scale 1-3) Folic Acid (Folic Acid 1 Mg Tablet) 1 mg PO DAILY [facility] Last Admin: 11/02/21 09:11 Dose: 1 mg Documented by: MARIALUISA Heparin Sodium (Porcine) (Heparin Sodium,Porcine 5,000 Unit/Ml Vial) 5,000 unit SUBCUT Q12H [facility] Last Admin: 11/02/21 05:34 Dose: 5,000 unit Documented by: SURAJ Ondansetron HCl (Ondansetron Hcl 4 Mg/2 Ml Vial) 4 mg IVPUSH Q8H PRN PRN Reason: Nausea and Vomiting Pharmacy Consult (Consult Rx Perform Med Rec) 1 each MISCELLANE ONCE PRN PRN Reason: Consult order Sodium Chloride (0.9 % Sodium Chloride Flush 3 Ml Syringe) 3 ml IVFLUSH QSHIFT [facility] Last Admin: 11/02/21 09:12 Dose: Not Given Documented by: MARIALUISA Non-Admin Reason: No Access Thiamine HCl (Thiamine Hcl 100 Mg Tablet) 100 mg PO DAILY [facility] Last Admin: 11/02/21 09:12 Dose: 100 mg Documented by: MARIALUISA Labs CBC & Chem 7: 10/18/21 06:56 10/12/21 05:41 Assessment and Plan (1) COVID-19: Status: Acute Assessment and Plan: 81 yo M with a reported history of alcohol use/dependence who was brought in by ambulance after his friends had not seen him for a few days and found to have covid but assymptomatic and now with placement issues No new issues, awaiting guardianship, [place] management unchanged from prior day Covid PNA--asymptomatic, positive as of 10/19, retested on 10/27 was negative and has no symptoms Dementia--I think this permanent, not toxic encephaloapthy Normocytic anemia drop in all cell lines from admission, likely dilutional no overt bleeding noted, heme negative B12, folate wnl Kath / mild HypoNa likely hypovolemic -- resolved with IVF Elevated troponin--No evidence of ACS, likly from covid Alcohol abuse / dependence, out of window for withdrawal continue thiamine / folate Coagulopathy / transaminitis resolved, likely from covid Vital signs Qshift, weekly labs Full Code DVT pptx. heparin Needs placement as does not have capacity to make sounds medicla decisions Quality Stroke Does the patient have a stroke diagnosis?: No VTE Prior VTE?: No VTE Risk Level:: Medical - moderate - high VTE Device Contraindication: Treatment Not Indicated VTE Drug Contraindication: N/A - Med Ordered
[2021-11-02 10:44] VITALS: BP 107/54; PULSE 83; RESP 18; TEMP 36.1; O2SAT 93
--- NOTE | 2021-11-02 15:55 | MHC.CM.PN ---
EMR REVIEWED, COURT DATE FOR [facility] 11/10/21 AT 0900, ONCE [facility] IS OBTAINED PLAN FOR LTC, PT IS UNVACCINATED.
[2021-11-02 16:00] VITALS: BP 131/60; PULSE 103; RESP 17; TEMP 36.6; O2SAT 98
[2021-11-02 19:11] VITALS: BP 118/54; PULSE 100; RESP 18; TEMP 36.5; O2SAT 95
[2021-11-02 23:36] VITALS: BP 133/69; PULSE 74; RESP 16; TEMP 36.9; O2SAT 98
[2021-11-03 04:00] VITALS: BP 102/70; PULSE 84; RESP 16; TEMP 37.2; O2SAT 95
[2021-11-03] MEDS: Heparin Sodium,Porcine 5,000 UNIT/ML VIAL 5000 UNIT SUBCUT ×2 (05:55→17:31)
[2021-11-03 08:00] VITALS: BP 121/56; PULSE 87; RESP 18; TEMP 36.3; O2SAT 98
[2021-11-03] MEDS: Thiamine HCL 100 MG TABLET PO (09:23)
[2021-11-03] MEDS: Folic Acid 1 MG TABLET PO (09:23)
--- NOTE | 2021-11-03 10:02 | HO.PM.IMPN ---
Subjective Subjective Date of Service: 11/03/21 Interval History: f/u covid, awaiting palcement, no covid symptoms--repeat covid on 10/27/21 negative, doing well, no new issues Review of Systems no fever, no sob Physical Exam Vital Signs: Vital Signs: Last Vital Signs Temp 97.4 F 11/03/21 08:00 Pulse 87 11/03/21 08:00 Resp 18 11/03/21 08:00 BP 121/56 L 11/03/21 08:00 Pulse Ox 98 11/03/21 08:00 BMI result Body Mass Index 16.1 Const: Other: General: AO X 2, no acute distress Resp:? CTA bilateral CVS: S1,S2,RRR GI: +BS, NT, no distention Skin: No rash Neuro:? motor grossly intact Psych: appropriate affect Objective Data Active Medications Acetaminophen (Acetaminophen 325 Mg Tablet) 650 mg PO Q6H PRN PRN Reason: Pain, Mild (Pain Scale 1-3) Folic Acid (Folic Acid 1 Mg Tablet) 1 mg PO DAILY [facility] Last Admin: 11/03/21 09:23 Dose: 1 mg Documented by: MEGHAN Heparin Sodium (Porcine) (Heparin Sodium,Porcine 5,000 Unit/Ml Vial) 5,000 unit SUBCUT Q12H [facility] Last Admin: 11/03/21 05:55 Dose: 5,000 unit Documented by: DEXTER Ondansetron HCl (Ondansetron Hcl 4 Mg/2 Ml Vial) 4 mg IVPUSH Q8H PRN PRN Reason: Nausea and Vomiting Pharmacy Consult (Consult Rx Perform Med Rec) 1 each MISCELLANE ONCE PRN PRN Reason: Consult order Sodium Chloride (0.9 % Sodium Chloride Flush 3 Ml Syringe) 3 ml IVFLUSH QSHIFT [facility] Last Admin: 11/03/21 07:21 Dose: Not Given Documented by: MEGHAN Non-Admin Reason: No Access Thiamine HCl (Thiamine Hcl 100 Mg Tablet) 100 mg PO DAILY [facility] Last Admin: 11/03/21 09:23 Dose: 100 mg Documented by: MEGHAN Labs CBC & Chem 7: 10/18/21 06:56 10/12/21 05:41 Assessment and Plan (1) COVID-19: Status: Acute Assessment and Plan: 81 yo M with a reported history of alcohol use/dependence who was brought in by ambulance after his friends had not seen him for a few days and found to have covid but assymptomatic and now with placement issues No new issues, awaiting guardianship, [place] management unchanged from prior day Covid PNA--asymptomatic, positive as of 10/19, retested on 10/27 was negative and has no symptoms Dementia--I think this permanent, not toxic encephaloapthy Normocytic anemia drop in all cell lines from admission, likely dilutional no overt bleeding noted, heme negative B12, folate wnl Kath / mild HypoNa likely hypovolemic -- resolved with IVF Elevated troponin--No evidence of ACS, likly from covid Alcohol abuse / dependence, out of window for withdrawal continue thiamine / folate Coagulopathy / transaminitis resolved, likely from covid Vital signs Qshift, weekly labs Full Code DVT pptx. heparin Needs placement as does not have capacity to make sounds medicla decisions Quality Stroke Does the patient have a stroke diagnosis?: No VTE Prior VTE?: No VTE Risk Level:: Medical - moderate - high VTE Device Contraindication: Treatment Not Indicated VTE Drug Contraindication: N/A - Med Ordered
[2021-11-03 11:20] VITALS: BP 95/45; PULSE 88; RESP 16; TEMP 35.9; O2SAT 96
[2021-11-03 15:26] VITALS: BP 101/42; PULSE 90; RESP 16; TEMP 36.9; O2SAT 96
[2021-11-03 19:35] VITALS: BP 108/49; PULSE 80; RESP 17; TEMP 36.8; O2SAT 97
[2021-11-03 23:44] VITALS: BP 100/50; PULSE 75; RESP 17; TEMP 36.4; O2SAT 97
[2021-11-04 04:00] VITALS: BP 100/47; PULSE 81; RESP 17; TEMP 36.2; O2SAT 96
[2021-11-04] MEDS: Heparin Sodium,Porcine 5,000 UNIT/ML VIAL 5000 UNIT SUBCUT (06:29)
[2021-11-04 08:00] VITALS: BP 104/55; PULSE 99; RESP 18; TEMP 36.5; O2SAT 97
[2021-11-04] MEDS: Thiamine HCL 100 MG TABLET PO (08:22)
[2021-11-04] MEDS: Folic Acid 1 MG TABLET PO (08:22)
[2021-11-04 11:22] VITALS: BP 105/52; PULSE 81; RESP 18; TEMP 36.3; O2SAT 96
--- NOTE | 2021-11-04 13:46 | HO.PM.IMPN ---
Subjective Subjective Date of Service: 11/04/21 Interval History: no acute issues overnight Review of Systems denies chest pain Denies shortness of breath Denies nausea vomiting diarrhea Physical Exam Vital Signs: Vital Signs: Last Vital Signs Temp 97.4 F 11/04/21 11:22 Pulse 81 11/04/21 11:22 Resp 18 11/04/21 11:22 BP 105/52 L 11/04/21 11:22 Pulse Ox 96 11/04/21 11:22 BMI result Body Mass Index 16.1 Objective Data Active Medications Acetaminophen (Acetaminophen 325 Mg Tablet) 650 mg PO Q6H PRN PRN Reason: Pain, Mild (Pain Scale 1-3) Folic Acid (Folic Acid 1 Mg Tablet) 1 mg PO DAILY [facility] Last Admin: 11/04/21 08:22 Dose: 1 mg Documented by: KB Heparin Sodium (Porcine) (Heparin Sodium,Porcine 5,000 Unit/Ml Vial) 5,000 unit SUBCUT Q12H [facility] Last Admin: 11/04/21 06:29 Dose: 5,000 unit Documented by: JANICE Ondansetron HCl (Ondansetron Hcl 4 Mg/2 Ml Vial) 4 mg IVPUSH Q8H PRN PRN Reason: Nausea and Vomiting Pharmacy Consult (Consult Rx Perform Med Rec) 1 each MISCELLANE ONCE PRN PRN Reason: Consult order Sodium Chloride (0.9 % Sodium Chloride Flush 3 Ml Syringe) 3 ml IVFLUSH QSHIFT [facility] Last Admin: 11/04/21 08:22 Dose: Not Given Documented by: KB Non-Admin Reason: No Access Thiamine HCl (Thiamine Hcl 100 Mg Tablet) 100 mg PO DAILY [facility] Last Admin: 11/04/21 08:22 Dose: 100 mg Documented by: KB Labs CBC & Chem 7: 10/18/21 06:56 10/12/21 05:41 Assessment and Plan (1) Altered mental status: Status: Acute (2) Alcohol use disorder, severe, dependence: Status: Acute (3) Dementia: Status: Acute Assessment and Plan: 81 yo M with a reported history of alcohol use/dependence who was brought in by ambulance after his friends had not seen him for a few days and found to have covid but assymptomatic and now with placement issues No new issues, awaiting guardianship, [place] management unchanged from prior day Covid PNA--asymptomatic, positive as of 10/19, retested on 10/27 was negative and has no symptoms Dementia--I think this permanent, not toxic encephaloapthy Normocytic anemia drop in all cell lines from admission, likely dilutional no overt bleeding noted, heme negative B12, folate wnl Kath / mild HypoNa likely hypovolemic -- resolved with IVF Elevated troponin--No evidence of ACS, likly from covid Alcohol abuse / dependence, out of window for withdrawal continue thiamine / folate Coagulopathy / transaminitis resolved, likely from covid Vital signs Qshift, weekly labs Full Code DVT pptx. heparin Needs placement as does not have capacity to make sounds medicla decisions Quality Stroke Does the patient have a stroke diagnosis?: No VTE Prior VTE?: No VTE Risk Level:: Medical - moderate - high VTE Device Contraindication: Treatment Not Indicated VTE Drug Contraindication: N/A - Med Ordered
--- NOTE | 2021-11-04 15:19 | MHC.CM.PN ---
EMR REVIEWED, PT AWAITING COURT DATE ON 11/10 FOR GUARDIANSHIP W/GOAL BEING LTC HOWEVER PT WILL NEED LTC PAYOR. CM WILL CONT TO FOLLOW D/C NEEDS.
[2021-11-04 16:00] VITALS: BP 106/55; PULSE 106; RESP 16; TEMP 36.5; O2SAT 96
[2021-11-04 19:35] VITALS: BP 103/42; PULSE 94; RESP 18; TEMP 36.6; O2SAT 96
[2021-11-04 23:45] VITALS: BP 109/55; PULSE 84; RESP 18; TEMP 36.2; O2SAT 94
[2021-11-05 03:41] VITALS: BP 99/59; PULSE 102; RESP 18; TEMP 37.1; O2SAT 93
[2021-11-05 07:40] VITALS: BP 98/48; PULSE 90; RESP 17; TEMP 36.6; O2SAT 93
[2021-11-05] MEDS: Thiamine HCL 100 MG TABLET PO (08:47)
[2021-11-05] MEDS: Folic Acid 1 MG TABLET PO (08:47)
--- NOTE | 2021-11-05 11:19 | P.CDIC_ITS ---
CDI Concurrent Query Documentation Clarification: PHYSICIAN'S DOCUMENTATION REQUEST Date of Query: 11/05/21 1120 Patient Name: Dao Zacarias Admit Date: 10/03/21 Dear Doctor, A review of the medical record indicates additional documentation may be needed. Please review below and update the documentation accordingly. Clinical Indicators: Risk Factors/Clinical Indicators/Treatments Nutrition assessment notes 10/29 - BMI 16.2 Underweight Moderately malnourished. Mild depletion of subcutaneous muscle mass and body fat. Ensure BID Based on the above, could you clarify in the Progress Notes the appropriate diagnosis, if significant, that supports the above abnormalities and additional evaluation, monitoring, and/or treatment rendered: * Malnutrition, mild, moderate or other * Underweight * Other (please specify) * Unable to determine Use of terms such as suspected, likely, concern for, or probable (associated with a specific diagnosis that is being evaluated, monitored, or treated as if it exists) are acceptable and can be coded in the inpatient setting, when documented at the time of discharge. Thank you, Sade Villalta [facility], CDIS Extension: [phone] Please use your independent medical judgment in providing your response. THIS QUERY IS PART OF THE PERMANENT MEDICAL RECORD Provider Response: Other Other Diagnosis: mild mild nutrition. Will consult dietary for and her supplements
[2021-11-05 11:51] VITALS: BP 106/55; PULSE 89; RESP 20; TEMP 36.7; O2SAT 95
--- NOTE | 2021-11-05 12:18 | MHC.CM.PN ---
PATIENT IS AGREEABLE TO A COVID-19 VACCINE BEING ADMINISTERED HERE. ARRANGEMENTS BEING MADE FOR HIS FIRST DOSE ON Tuesday11/06/21. PATIENT IS AWARE OF THE PLAN POTENTIAL GUARDIAN IS A [facility]; HOWEVER, CASE MANAGEMENT UNABLE TO LOCATE CONTACT NUMBER AT THIS TIME. WILL CONTINUE TO ATTEMPT AND NOTIFY [facility]
--- NOTE | 2021-11-05 13:02 | HO.PM.IMPN ---
Subjective Subjective Date of Service: 11/05/21 Interval History: no new or acute issues overnight Review of Systems denies chest pain Denies shortness of breath Denies nausea vomiting diarrhea Physical Exam Vital Signs: Vital Signs: Last Vital Signs Temp 98.1 F 11/05/21 11:51 Pulse 89 11/05/21 11:51 Resp 20 11/05/21 11:51 BP 106/55 L 11/05/21 11:51 Pulse Ox 95 11/05/21 11:51 BMI result Body Mass Index 16.1 Objective Data Active Medications Acetaminophen (Acetaminophen 325 Mg Tablet) 650 mg PO Q6H PRN PRN Reason: Pain, Mild (Pain Scale 1-3) Folic Acid (Folic Acid 1 Mg Tablet) 1 mg PO DAILY [facility] Last Admin: 11/05/21 08:47 Dose: 1 mg Documented by: KELLY Heparin Sodium (Porcine) (Heparin Sodium,Porcine 5,000 Unit/Ml Vial) 5,000 unit SUBCUT Q12H [facility] Last Admin: 11/05/21 04:50 Dose: Not Given Documented by: MENDEZ Non-Admin Reason: Patient Refused Ondansetron HCl (Ondansetron Hcl 4 Mg/2 Ml Vial) 4 mg IVPUSH Q8H PRN PRN Reason: Nausea and Vomiting Pharmacy Consult (Consult Rx Perform Med Rec) 1 each MISCELLANE ONCE PRN PRN Reason: Consult order Sodium Chloride (0.9 % Sodium Chloride Flush 3 Ml Syringe) 3 ml IVFLUSH QSHIFT [facility] Last Admin: 11/05/21 07:12 Dose: Not Given Documented by: KELLY Non-Admin Reason: No Access Thiamine HCl (Thiamine Hcl 100 Mg Tablet) 100 mg PO DAILY [facility] Last Admin: 11/05/21 08:47 Dose: 100 mg Documented by: KELLY Labs CBC & Chem 7: 10/18/21 06:56 10/12/21 05:41 Assessment and Plan (1) Dementia: Status: Acute Assessment and Plan: 81 yo M with a reported history of alcohol use/dependence who was brought in by ambulance after his friends had not seen him for a few days and found to have covid but assymptomatic and now with placement issues No new issues, awaiting guardianship, [place] management unchanged from prior day Covid PNA--asymptomatic, positive as of 12/27, retested on 10/27 was negative and has no symptoms Dementia-- permanent progressive Mild malnutrition ...consult dietary?Ensure Full Code DVT pptx. heparin Needs placement as does not have capacity to make sounds medicla decisions Quality Stroke Does the patient have a stroke diagnosis?: No VTE Prior VTE?: No VTE Risk Level:: Medical - moderate - high VTE Device Contraindication: Treatment Not Indicated VTE Drug Contraindication: N/A - Med Ordered
[2021-11-05 16:00] VITALS: BP 110/54; PULSE 88; RESP 16; TEMP 36.6; O2SAT 95
[2021-11-05 20:00] VITALS: BP 101/47; PULSE 96; RESP 16; TEMP 36.7; O2SAT 94
[2021-11-06] VITALS: BP 130/51; PULSE 86; RESP 17; TEMP 36.3; O2SAT 95
[2021-11-06 04:00] VITALS: BP 114/52; PULSE 89; RESP 16; TEMP 36.7; O2SAT 93
[2021-11-06] MEDS: Heparin Sodium,Porcine 5,000 UNIT/ML VIAL 5000 UNIT SUBCUT ×2 (04:35→16:20)
[2021-11-06 08:00] VITALS: BP 106/55; PULSE 100; RESP 17; TEMP 36.3; O2SAT 96
[2021-11-06] MEDS: Thiamine HCL 100 MG TABLET PO (10:08)
[2021-11-06] MEDS: Folic Acid 1 MG TABLET PO (10:09)
--- NOTE | 2021-11-06 11:42 | MHC.CLN ---
F/U LAST WEIGHT 10/29=45.4 KG. DIET= REGULAR; SUPPLEMENT ENSURE BID. SUPPLEMENT PROVIDES ADDITIONAL 700 KCAL, 26 G PROTEIN. INTAKE USUALLY GOOD. DOES NOT CONSISTENTLY ACCEPT SUPPLEMENT. CONTINUE CURRENT DIET AND ENCOURAGE SUPPLEMENT INTAKE. CONTINUE TO MONITOR INTAKE AND WEIGHT. RD TO FOLLOW WEEKLY.
--- NOTE | 2021-11-06 11:44 | HO.PM.IMPN ---
Subjective Subjective Date of Service: 11/06/21 Interval History: no acute issues. Quiet night Review of Systems denies chest pain Denies shortness of breath Denies nausea vomiting diarrhea Physical Exam Vital Signs: Vital Signs: Last Vital Signs Temp 97.4 F 11/06/21 08:00 Pulse 100 11/06/21 08:00 Resp 17 11/06/21 08:00 BP 106/55 L 11/06/21 08:00 Pulse Ox 96 11/06/21 08:00 BMI result Body Mass Index 16.1 Const: Other: no acute distress Resp: Other: clear to auscultation bilateral. No rales rhonchi wheezes Cardio: Other: no S4; positive S1-S2; no S3 murmurs gallops GI: Other: soft nontender nondistended with normoactive bowel sounds Extrem: Other: no edema bilaterally Objective Data Active Medications Acetaminophen (Acetaminophen 325 Mg Tablet) 650 mg PO Q6H PRN PRN Reason: Pain, Mild (Pain Scale 1-3) Folic Acid (Folic Acid 1 Mg Tablet) 1 mg PO DAILY [facility] Last Admin: 11/06/21 10:09 Dose: 1 mg Documented by: FANNIE Heparin Sodium (Porcine) (Heparin Sodium,Porcine 5,000 Unit/Ml Vial) 5,000 unit SUBCUT Q12H [facility] Last Admin: 11/06/21 04:35 Dose: 5,000 unit Documented by: MENDEZ Ondansetron HCl (Ondansetron Hcl 4 Mg/2 Ml Vial) 4 mg IVPUSH Q8H PRN PRN Reason: Nausea and Vomiting Pharmacy Consult (Consult Rx Perform Med Rec) 1 each MISCELLANE ONCE PRN PRN Reason: Consult order Sodium Chloride (0.9 % Sodium Chloride Flush 3 Ml Syringe) 3 ml IVFLUSH QSHIFT [facility] Last Admin: 11/06/21 10:05 Dose: Not Given Documented by: FANNIE Non-Admin Reason: No Access Thiamine HCl (Thiamine Hcl 100 Mg Tablet) 100 mg PO DAILY [facility] Last Admin: 11/06/21 10:08 Dose: 100 mg Documented by: FANNIE Labs CBC & Chem 7: 10/18/21 06:56 10/12/21 05:41 Assessment and Plan (1) Dementia: Status: Acute (2) COVID-19: Status: Acute Assessment and Plan: 81 yo M with a reported history of alcohol use/dependence who was brought in by ambulance after his friends had not seen him for a few days and found to have covid but assymptomatic and now with placement issues No new issues, awaiting guardianship, [place] management unchanged from prior day Covid PNA--asymptomatic, positive as of 10/19, retested on 10/27 was negative and has no symptoms Dementia-- permanent progressive Mild malnutrition ...consult dietary?Ensure Full Code DVT pptx. heparin Needs placement as does not have capacity to make sounds medicla decisions Quality Stroke Does the patient have a stroke diagnosis?: No VTE Prior VTE?: No VTE Risk Level:: Medical - moderate - high VTE Device Contraindication: Treatment Not Indicated VTE Drug Contraindication: N/A - Med Ordered
[2021-11-06 11:59] VITALS: BP 119/51; PULSE 111; RESP 20; TEMP 36.4; O2SAT 98
--- NOTE | 2021-11-06 13:29 | MHC.CM.PN ---
[employer] (FIRST DOSE) VACCINE CARD UPLOADED INTO [employer] AND COPY PLACED IN PATIENT CHART. FIRST DOSE ADMINISTERED 11/06/21
[2021-11-06 15:22] VITALS: BP 104/51; PULSE 89; RESP 18; TEMP 36.5; O2SAT 98
[2021-11-07] VITALS (7 sets, daily range): BP systolic 93–150; BP diastolic 44–65; PULSE 77–99; RESP 18; TEMP 36–37; O2SAT 94–99
[2021-11-07] MEDS: Heparin Sodium,Porcine 5,000 UNIT/ML VIAL 5000 UNIT SUBCUT ×2 (05:53→16:46)
[2021-11-07] MEDS: Thiamine HCL 100 MG TABLET PO (09:19)
[2021-11-07] MEDS: Folic Acid 1 MG TABLET PO (09:19)
--- NOTE | 2021-11-07 12:33 | P.PNIM_ITS ---
Subjective Subjective Date of Service: 11/07/21 Interval History: No acute issues Review of Systems denies chest pain Denies shortness of breath Denies nausea vomiting diarrhea Physical Exam Vital Signs: Vital Signs: Last Vital Signs Temp 96.8 F 11/07/21 11:14 Pulse 98 11/07/21 11:14 Resp 18 11/07/21 11:14 BP 114/54 L 11/07/21 11:14 Pulse Ox 98 11/07/21 11:14 BMI result Body Mass Index 16.1 Const: Other: no acute distress Resp: Other: clear to auscultation bilateral. No rales rhonchi wheezes Cardio: Other: no S4; positive S1-S2; no S3 murmurs gallops GI: Other: soft nontender nondistended with normoactive bowel sounds Extrem: Other: no edema bilaterally Objective Data Active Medications Acetaminophen (Acetaminophen 325 Mg Tablet) 650 mg PO Q6H PRN PRN Reason: Pain, Mild (Pain Scale 1-3) Folic Acid (Folic Acid 1 Mg Tablet) 1 mg PO DAILY [facility] Last Admin: 11/07/21 09:19 Dose: 1 mg Documented by: FANNIE Heparin Sodium (Porcine) (Heparin Sodium,Porcine 5,000 Unit/Ml Vial) 5,000 unit SUBCUT Q12H [facility] Last Admin: 11/07/21 05:53 Dose: 5,000 unit Documented by: JACQUI Ondansetron HCl (Ondansetron Hcl 4 Mg/2 Ml Vial) 4 mg IVPUSH Q8H PRN PRN Reason: Nausea and Vomiting Pharmacy Consult (Consult Rx Perform Med Rec) 1 each MISCELLANE ONCE PRN PRN Reason: Consult order Sodium Chloride (0.9 % Sodium Chloride Flush 3 Ml Syringe) 3 ml IVFLUSH QSHIFT [facility] Last Admin: 11/07/21 09:26 Dose: Not Given Documented by: FANNIE Non-Admin Reason: No Access Thiamine HCl (Thiamine Hcl 100 Mg Tablet) 100 mg PO DAILY [facility] Last Admin: 11/07/21 09:19 Dose: 100 mg Documented by: FANNIE Labs CBC & Chem 7: 10/18/21 06:56 10/12/21 05:41 Assessment and Plan (1) Dementia: Status: Acute Assessment and Plan: 81 yo M with a reported history of alcohol use/dependence who was brought in by ambulance after his friends had not seen him for a few days and found to have covid but assymptomatic and now with placement issues No new issues, awaiting guardianship, [place] management unchanged from prior day Covid PNA--asymptomatic, positive as of 10/19, retested on 10/27 was negative and has no symptoms Dementia-- permanent progressive Mild malnutrition ...consult dietary?Ensure Full Code DVT pptx. heparin Needs placement as does not have capacity to make sounds medicla decisions Quality Stroke Does the patient have a stroke diagnosis?: No VTE Prior VTE?: No VTE Risk Level:: Medical - moderate - high VTE Device Contraindication: Treatment Not Indicated VTE Drug Contraindication: N/A - Med Ordered
[2021-11-08] VITALS (8 sets, daily range): BP systolic 90–116; BP diastolic 36–56; PULSE 84–95; RESP 14–18; TEMP 35.9–36.8; O2SAT 92–97
[2021-11-08] MEDS: Heparin Sodium,Porcine 5,000 UNIT/ML VIAL 5000 UNIT SUBCUT ×2 (05:17→17:48)
[2021-11-08] MEDS: Thiamine HCL 100 MG TABLET PO (08:51)
[2021-11-08] MEDS: Folic Acid 1 MG TABLET PO (08:51)
--- NOTE | 2021-11-08 12:16 | P.PNIM_ITS ---
Subjective Subjective Date of Service: 11/08/21 Interval History: C,inically stable...no acute issues Review of Systems Denies chest pain Denies SOB Denies N/V/D Physical Exam Vital Signs: Vital Signs: Last Vital Signs Temp 97 F 11/08/21 11:26 Pulse 91 11/08/21 11:26 Resp 18 11/08/21 11:26 BP 112/55 L 11/08/21 11:26 Pulse Ox 96 11/08/21 07:01 BMI result Body Mass Index 16.1 Const: Other: no acute distress Resp: Other: clear to auscultation bilateral. No rales rhonchi wheezes Cardio: Other: no S4; positive S1-S2; no S3 murmurs gallops GI: Other: soft nontender nondistended with normoactive bowel sounds Extrem: Other: no edema bilaterally Objective Data Active Medications Acetaminophen (Acetaminophen 325 Mg Tablet) 650 mg PO Q6H PRN PRN Reason: Pain, Mild (Pain Scale 1-3) Folic Acid (Folic Acid 1 Mg Tablet) 1 mg PO DAILY [facility] Last Admin: 11/08/21 08:51 Dose: 1 mg Documented by: SURESH Heparin Sodium (Porcine) (Heparin Sodium,Porcine 5,000 Unit/Ml Vial) 5,000 unit SUBCUT Q12H [facility] Last Admin: 11/08/21 05:17 Dose: 5,000 unit Documented by: JACQUI Ondansetron HCl (Ondansetron Hcl 4 Mg/2 Ml Vial) 4 mg IVPUSH Q8H PRN PRN Reason: Nausea and Vomiting Pharmacy Consult (Consult Rx Perform Med Rec) 1 each MISCELLANE ONCE PRN PRN Reason: Consult order Sodium Chloride (0.9 % Sodium Chloride Flush 3 Ml Syringe) 3 ml IVFLUSH QSHIFT [facility] Last Admin: 11/08/21 08:20 Dose: Not Given Documented by: SURESH Non-Admin Reason: No Access Thiamine HCl (Thiamine Hcl 100 Mg Tablet) 100 mg PO DAILY [facility] Last Admin: 11/08/21 08:51 Dose: 100 mg Documented by: SURESH Labs CBC & Chem 7: 10/18/21 06:56 10/12/21 05:41 Assessment and Plan (1) Dementia: Status: Acute Assessment and Plan: 81 yo M with a reported history of alcohol use/dependence who was brought in by ambulance after his friends had not seen him for a few days and found to have covid but assymptomatic and now with placement issues No new issues, awaiting guardianship, [place] management unchanged from prior day Covid PNA--asymptomatic, positive as of 10/19, retested on 10/27 was negative and has no symptoms Dementia-- permanent progressive Mild malnutrition ...consult dietary?Ensure Full Code DVT pptx. heparin Needs placement as does not have capacity to make sounds medicla decisions Quality Stroke Does the patient have a stroke diagnosis?: No VTE Prior VTE?: No VTE Risk Level:: Medical - moderate - high VTE Device Contraindication: Treatment Not Indicated VTE Drug Contraindication: N/A - Med Ordered
[2021-11-09] VITALS: BP 99/41; PULSE 82; RESP 82; TEMP 36.4; O2SAT 94
[2021-11-09 03:35] VITALS: BP 102/51; PULSE 82; RESP 20; TEMP 36.2; O2SAT 93
[2021-11-09] MEDS: Heparin Sodium,Porcine 5,000 UNIT/ML VIAL 5000 UNIT SUBCUT ×2 (04:52→16:33)
[2021-11-09 07:08] VITALS: BP 96/47; PULSE 94; RESP 18; TEMP 36.1; O2SAT 93
[2021-11-09 08:00] VITALS: BP 99/66; PULSE 83; RESP 18; TEMP 36.1; O2SAT 94
[2021-11-09] MEDS: Folic Acid 1 MG TABLET PO (08:24)
[2021-11-09] MEDS: Thiamine HCL 100 MG TABLET PO (08:24)
[2021-11-09 11:44] VITALS: BP 101/43; PULSE 91; RESP 15; TEMP 36.7; O2SAT 94
--- NOTE | 2021-11-09 12:47 | P.PNIM_ITS ---
Subjective Subjective Date of Service: 11/09/21 Interval History: no acute issue/24 hours Review of Systems denies chest pain Denies shortness of breath Denies nausea vomiting diarrhea Physical Exam Vital Signs: Vital Signs: Last Vital Signs Temp 98.1 F 11/09/21 11:44 Pulse 91 11/09/21 11:44 Resp 15 11/09/21 11:44 BP 101/43 L 11/09/21 11:44 Pulse Ox 94 11/09/21 11:44 BMI result Body Mass Index 16.1 Const: Other: no acute distress Resp: Other: clear to auscultation bilateral. No rales rhonchi wheezes Cardio: Other: no S4; positive S1-S2; no S3 murmurs gallops GI: Other: soft nontender nondistended with normoactive bowel sounds Extrem: Other: no edema bilaterally Objective Data Active Medications Acetaminophen (Acetaminophen 325 Mg Tablet) 650 mg PO Q6H PRN PRN Reason: Pain, Mild (Pain Scale 1-3) Folic Acid (Folic Acid 1 Mg Tablet) 1 mg PO DAILY [facility] Last Admin: 11/09/21 08:24 Dose: 1 mg Documented by: FANNIE Heparin Sodium (Porcine) (Heparin Sodium,Porcine 5,000 Unit/Ml Vial) 5,000 unit SUBCUT Q12H [facility] Last Admin: 11/09/21 04:52 Dose: 5,000 unit Documented by: GIA Ondansetron HCl (Ondansetron Hcl 4 Mg/2 Ml Vial) 4 mg IVPUSH Q8H PRN PRN Reason: Nausea and Vomiting Pharmacy Consult (Consult Rx Perform Med Rec) 1 each MISCELLANE ONCE PRN PRN Reason: Consult order Sodium Chloride (0.9 % Sodium Chloride Flush 3 Ml Syringe) 3 ml IVFLUSH QSHIFT [facility] Last Admin: 11/09/21 08:26 Dose: Not Given Documented by: FANNIE Non-Admin Reason: No Access Thiamine HCl (Thiamine Hcl 100 Mg Tablet) 100 mg PO DAILY [facility] Last Admin: 11/09/21 08:24 Dose: 100 mg Documented by: FANNIE Labs CBC & Chem 7: 10/18/21 06:56 10/12/21 05:41 Assessment and Plan (1) Altered mental status: Status: Acute (2) Dementia: Status: Acute Assessment and Plan: 81 yo M with a reported history of alcohol use/dependence who was brought in by ambulance after his friends had not seen him for a few days and found to have covid but assymptomatic and now with placement issues No new issues, awaiting guardianship, [place] management unchanged from prior day Covid PNA--asymptomatic, positive as of 10/19, retested on 10/27 was negative and has no symptoms Dementia-- permanent progressive Mild malnutrition ...consult dietary?Ensure Full Code DVT pptx. heparin Needs placement as does not have capacity to make sounds medicla decisions Quality Stroke Does the patient have a stroke diagnosis?: No VTE Prior VTE?: No VTE Risk Level:: Medical - moderate - high VTE Device Contraindication: Treatment Not Indicated VTE Drug Contraindication: N/A - Med Ordered
--- NOTE | 2021-11-09 14:05 | MHC.CM.PN ---
Court date for Guardianship is tomorrow, then LTC placement. CM will follow.
[2021-11-09 16:00] VITALS: BP 102/56; PULSE 72; RESP 17; TEMP 36.2; O2SAT 98
[2021-11-10] VITALS: BP 121/57; PULSE 98; RESP 18; TEMP 36.4; O2SAT 94
[2021-11-10 03:32] VITALS: BP 105/51; PULSE 85; RESP 18; TEMP 36.4; O2SAT 94
[2021-11-10] MEDS: Heparin Sodium,Porcine 5,000 UNIT/ML VIAL 5000 UNIT SUBCUT ×2 (06:11→16:11)
[2021-11-10 08:00] VITALS: BP 136/70; PULSE 87; RESP 18; TEMP 36.3; O2SAT 98
[2021-11-10] MEDS: Thiamine HCL 100 MG TABLET PO (08:46)
[2021-11-10] MEDS: Folic Acid 1 MG TABLET PO (08:47)
--- NOTE | 2021-11-10 11:30 | P.PNIM_ITS ---
Subjective Subjective Date of Service: 11/10/21 Interval History: cc: confusion interval hisotry: no complaints Cardiovascular Cardiovascular: Reports no additional cardiovascular complaints Respiratory Respiratory: Reports no additional respiratory complaints Physical Exam Vital Signs: Vital Signs: Last Vital Signs Temp 97.4 F 11/10/21 08:00 Pulse 87 11/10/21 08:00 Resp 18 11/10/21 08:00 BP 136/70 11/10/21 08:00 Pulse Ox 98 11/10/21 08:00 BMI result Body Mass Index 16.1 Const Other:??no acute distress Resp Other:??clear to auscultation bilateral.? No rales rhonchi wheezes Cardio Other:??no S4; positive S1-S2; no S3 murmurs gallops GI Other:??soft nontender nondistended with normoactive bowel sounds Extrem Other:??no edema bilaterally Objective Data Active Medications Acetaminophen (Acetaminophen 325 Mg Tablet) 650 mg PO Q6H PRN PRN Reason: Pain, Mild (Pain Scale 1-3) Folic Acid (Folic Acid 1 Mg Tablet) 1 mg PO DAILY [facility] Last Admin: 11/10/21 08:47 Dose: 1 mg Documented by: IVANNA Heparin Sodium (Porcine) (Heparin Sodium,Porcine 5,000 Unit/Ml Vial) 5,000 unit SUBCUT Q12H [facility] Last Admin: 11/10/21 06:11 Dose: 5,000 unit Documented by: JANICE Ondansetron HCl (Ondansetron Hcl 4 Mg/2 Ml Vial) 4 mg IVPUSH Q8H PRN PRN Reason: Nausea and Vomiting Pharmacy Consult (Consult Rx Perform Med Rec) 1 each MISCELLANE ONCE PRN PRN Reason: Consult order Sodium Chloride (0.9 % Sodium Chloride Flush 3 Ml Syringe) 3 ml IVFLUSH QSHIFT [facility] Last Admin: 11/10/21 11:04 Dose: Not Given Documented by: IVANNA Non-Admin Reason: No Access Thiamine HCl (Thiamine Hcl 100 Mg Tablet) 100 mg PO DAILY [facility] Last Admin: 11/10/21 08:46 Dose: 100 mg Documented by: IVANNA Labs CBC & Chem 7: 10/18/21 06:56 10/12/21 05:41 Assessment and Plan (1) Altered mental status: Status: Acute (2) Dementia: Status: Acute Assessment and Plan: 81 yo M with a reported history of alcohol use/dependence who was brought in by ambulance after his friends had not seen him for a few days and found to have covid but assymptomatic and now with placement issues No new issues hospital day - 38 Covid PNA--asymptomatic, positive as of 10/19, retested on 10/27 was negative and has no symptoms Dementia-- permanent progressive Mild malnutrition ...consult dietary?Ensure Full Code DVT pptx. heparin Needs placement as does not have capacity to make sounds medicla decisions Quality Stroke Does the patient have a stroke diagnosis?: No VTE Prior VTE?: No VTE Risk Level:: Medical - moderate - high VTE Device Contraindication: Treatment Not Indicated VTE Drug Contraindication: N/A - Med Ordered
[2021-11-10 11:55] VITALS: BP 115/48; PULSE 68; RESP 20; TEMP 36.8; O2SAT 98
--- NOTE | 2021-11-10 14:53 | MHC.CM.PN ---
CM was informed today that Patient has a Guardian now; it is Paul at [phone].
[2021-11-10 16:00] VITALS: BP 128/59; PULSE 91; RESP 18; TEMP 36.3; O2SAT 100
[2021-11-10 23:52] VITALS: BP 118/60; PULSE 101; RESP 16; TEMP 37.1; O2SAT 95
[2021-11-11 04:23] VITALS: BP 118/58; PULSE 94; RESP 14; TEMP 36.4; O2SAT 95
[2021-11-11] MEDS: Heparin Sodium,Porcine 5,000 UNIT/ML VIAL 5000 UNIT SUBCUT ×2 (04:25→17:31)
[2021-11-11 08:28] VITALS: BP 103/55; PULSE 90; RESP 18; TEMP 36.4; O2SAT 96
--- NOTE | 2021-11-11 08:39 | HO.PM.IMPN ---
Subjective Subjective Date of Service: 11/11/21 Interval History: cc: confusion interval hisotry: no complaints Eyes Eyes: Reports no additional eye complaints Physical Exam Vital Signs: Vital Signs: Last Vital Signs Temp 97.5 F 11/11/21 08:28 Pulse 90 11/11/21 08:28 Resp 18 11/11/21 08:28 BP 103/55 L 11/11/21 08:28 Pulse Ox 96 11/11/21 08:28 BMI result Body Mass Index 16.1 Const Other:??no acute distress Resp Other:??clear to auscultation bilateral.? No rales rhonchi wheezes Cardio Other:??no S4; positive S1-S2; no S3 murmurs gallops GI Other:??soft nontender nondistended with normoactive bowel sounds Extrem Other:??no edema bilaterally Objective Data Active Medications Acetaminophen (Acetaminophen 325 Mg Tablet) 650 mg PO Q6H PRN PRN Reason: Pain, Mild (Pain Scale 1-3) Folic Acid (Folic Acid 1 Mg Tablet) 1 mg PO DAILY [facility] Last Admin: 11/10/21 08:47 Dose: 1 mg Documented by: IVANNA Heparin Sodium (Porcine) (Heparin Sodium,Porcine 5,000 Unit/Ml Vial) 5,000 unit SUBCUT Q12H [facility] Last Admin: 11/11/21 04:25 Dose: 5,000 unit Documented by: GIA Ondansetron HCl (Ondansetron Hcl 4 Mg/2 Ml Vial) 4 mg IVPUSH Q8H PRN PRN Reason: Nausea and Vomiting Pharmacy Consult (Consult Rx Perform Med Rec) 1 each MISCELLANE ONCE PRN PRN Reason: Consult order Sodium Chloride (0.9 % Sodium Chloride Flush 3 Ml Syringe) 3 ml IVFLUSH QSHIFT [facility] Last Admin: 11/10/21 19:14 Dose: Not Given Documented by: MENDEZ Non-Admin Reason: No Access Thiamine HCl (Thiamine Hcl 100 Mg Tablet) 100 mg PO DAILY [facility] Last Admin: 11/10/21 08:46 Dose: 100 mg Documented by: IVANNA Labs CBC & Chem 7: 10/18/21 06:56 10/12/21 05:41 Assessment and Plan (1) Altered mental status: Status: Acute (2) Dementia: Status: Acute Assessment and Plan: 81 yo M with a reported history of alcohol use/dependence who was brought in by ambulance after his friends had not seen him for a few days and found to have covid but assymptomatic and now with placement issues No new issues hospital day - 39 Covid PNA--asymptomatic, positive as of 10/19, retested on 10/27 was negative and has no symptoms Dementia-- permanent progressive Mild malnutrition ...consult dietary?Ensure Full Code DVT pptx. heparin Needs placement as does not have capacity to make sounds medical decisions Quality Stroke Does the patient have a stroke diagnosis?: No VTE Prior VTE?: No VTE Risk Level:: Medical - moderate - high VTE Device Contraindication: Treatment Not Indicated VTE Drug Contraindication: N/A - Med Ordered
--- NOTE | 2021-11-11 08:40 | MHC.CM.PN ---
TEMPORARY GUARDIAN/CONSERVATOR FORMS RECEIVED. REFERRAL PLACED TO [facility] TO FOLLOW. DOCUMENTS SENT TO [facility] FOR ASSISTANCE WITH SECURING LTC BENEFITS. ONCE [facility] RESPONDS, THIS PHARMACOVIGILANCE SAFETY EXPERT WILL REACH OUT TO GUARDIAN (FRANCOIS VO [phone]
[2021-11-11] MEDS: Folic Acid 1 MG TABLET PO (09:45)
[2021-11-11] MEDS: Thiamine HCL 100 MG TABLET PO (09:45)
[2021-11-11 11:46] VITALS: BP 120/57; PULSE 96; RESP 17; TEMP 36.3; O2SAT 96
[2021-11-11 15:00] VITALS: BMI 16.2
[2021-11-11 15:41] VITALS: BP 124/60; PULSE 100; RESP 18; TEMP 35.9; O2SAT 95
--- NOTE | 2021-11-11 15:58 | MHC.CM.PN ---
CM RECEIVED CALL FROM WHO REPORTS PT'S GUARDIAN/CONSERVATOR FRANCOIS HAD QUESTIONS, CM CONTACTED FRANCOIS AT 3:50PM [phone], ROV=DILMA REPORTED SHE WOULD LIKE TO COME IN AND SEE PT TOMORROW AFTER 5PM AND IS REQUESTING A FACE SHEET, H&P, AND MED LIST FOR PT, THIS CM WILL PRINT OUT DOCUMENTS FOR PT, FRANCOIS ALSO REPORTED SHE WOULD LIKE TO GET PT'S KEYS AND WALLET W/PLANS TO GO TO PTS APT TO GET CLOTHING FOR PT, FRANCOIS REPORTED SHE WOULD LAUNDER ITEMS WELL. CM SURVEY WORKERS SUPERVISOR/DIRECTOR AWARE.
[2021-11-11 19:50] VITALS: BP 117/57; PULSE 96; RESP 18; TEMP 36.4; O2SAT 94
[2021-11-12 00:10] VITALS: BP 122/62; PULSE 92; RESP 16; TEMP 36.8; O2SAT 94
[2021-11-12] MEDS: Heparin Sodium,Porcine 5,000 UNIT/ML VIAL 5000 UNIT SUBCUT ×2 (05:32→16:09)
[2021-11-12 07:20] VITALS: BP 102/52; PULSE 90; RESP 17; TEMP 36.4; O2SAT 93
[2021-11-12] MEDS: Folic Acid 1 MG TABLET PO (08:26)
[2021-11-12] MEDS: Thiamine HCL 100 MG TABLET PO (08:26)
--- NOTE | 2021-11-12 10:43 | P.PNIM_ITS ---
Subjective Subjective Date of Service: 11/12/21 Interval History: cc: confusion interval hisotry: no complaints Cardiovascular Cardiovascular: Reports no additional cardiovascular complaints Respiratory Respiratory: Reports no additional respiratory complaints Physical Exam Vital Signs: Vital Signs: Last Vital Signs Temp 97.6 F 11/12/21 07:20 Pulse 90 11/12/21 07:20 Resp 17 11/12/21 07:20 BP 102/52 L 11/12/21 07:20 Pulse Ox 93 11/12/21 07:20 BMI result Body Mass Index 16.2 Const Other:??no acute distress Resp Other:??clear to auscultation bilateral.? No rales rhonchi wheezes Cardio Other:??no S4; positive S1-S2; no S3 murmurs gallops GI Other:??soft nontender nondistended with normoactive bowel sounds Extrem Other:??no edema bilaterally Objective Data Active Medications Acetaminophen (Acetaminophen 325 Mg Tablet) 650 mg PO Q6H PRN PRN Reason: Pain, Mild (Pain Scale 1-3) Folic Acid (Folic Acid 1 Mg Tablet) 1 mg PO DAILY [facility] Last Admin: 11/12/21 08:26 Dose: 1 mg Documented by: KELLY Heparin Sodium (Porcine) (Heparin Sodium,Porcine 5,000 Unit/Ml Vial) 5,000 unit SUBCUT Q12H [facility] Last Admin: 11/12/21 05:32 Dose: 5,000 unit Documented by: ARTEMIOQC Ondansetron HCl (Ondansetron Hcl 4 Mg/2 Ml Vial) 4 mg IVPUSH Q8H PRN PRN Reason: Nausea and Vomiting Pharmacy Consult (Consult Rx Perform Med Rec) 1 each MISCELLANE ONCE PRN PRN Reason: Consult order Sodium Chloride (0.9 % Sodium Chloride Flush 3 Ml Syringe) 3 ml IVFLUSH QSHIFT [facility] Last Admin: 11/12/21 07:07 Dose: Not Given Documented by: KELLY Non-Admin Reason: No Access Thiamine HCl (Thiamine Hcl 100 Mg Tablet) 100 mg PO DAILY [facility] Last Admin: 11/12/21 08:26 Dose: 100 mg Documented by: KELLY Labs CBC & Chem 7: 10/18/21 06:56 10/12/21 05:41 Assessment and Plan (1) Altered mental status: Status: Acute (2) Dementia: Status: Acute Assessment and Plan: 81 yo M with a reported history of alcohol use/dependence who was brought in by ambulance after his friends had not seen him for a few days and found to have covid but assymptomatic and now with placement issues No new issues hospital day - 40 Covid PNA--asymptomatic, positive as of 10/19, retested on 10/27 was negative and has no symptoms Dementia-- permanent progressive Mild malnutrition ...consult dietary?Ensure Full Code DVT pptx. heparin Needs placement as does not have capacity to make sounds medical decisions Quality Stroke Does the patient have a stroke diagnosis?: No VTE Prior VTE?: No VTE Risk Level:: Medical - moderate - high VTE Device Contraindication: Treatment Not Indicated VTE Drug Contraindication: N/A - Med Ordered
[2021-11-12 11:17] VITALS: BP 110/56; PULSE 91; RESP 16; TEMP 36.2; O2SAT 93
[2021-11-12 15:15] VITALS: BP 117/55; PULSE 88; RESP 16; TEMP 36.4; O2SAT 95
[2021-11-12 15:31] VITALS: BP 123/60; PULSE 96; RESP 16; TEMP 36.6; O2SAT 95
[2021-11-12 20:00] VITALS: BP 122/56; PULSE 76; RESP 18; TEMP 37.2; O2SAT 95
[2021-11-13] VITALS: BP 95/50; PULSE 76; RESP 18; TEMP 36.6; O2SAT 97
[2021-11-13] MEDS: Heparin Sodium,Porcine 5,000 UNIT/ML VIAL 5000 UNIT SUBCUT ×2 (05:48→16:06)
[2021-11-13] MEDS: Thiamine HCL 100 MG TABLET PO (07:41)
[2021-11-13] MEDS: Folic Acid 1 MG TABLET PO (07:41)
[2021-11-13 08:00] VITALS: BP 118/64; PULSE 72; RESP 17; TEMP 36.8; O2SAT 96
--- NOTE | 2021-11-13 10:19 | MHC.CLN ---
F/U LAST WEIGHT 11/11=45.7 KG. BMI=16.3. WEIGHT STABLE X 2 WEEKS. DIET= REGULAR; SUPPLEMENT ENSURE BID. SUPPLEMENT PROVIDES ADDITIONAL 700 KCAL, 26-40 G PROTEIN. INTAKE USUALLY GOOD, DOES NOT CONSISTENTLY ACCEPT SUPPLEMENT. CONTINUE CURRENT DIET AND ENCOURAGE SUPPLEMENT INTAKE. CONTINUE TO MONITOR INTAKE AND WEIGHT. RD TO FOLLOW WEEKLY.
--- NOTE | 2021-11-13 11:53 | HO.PM.IMPN ---
Subjective Subjective Date of Service: 11/13/21 Interval History: patient seen and examined at bedside. He is sleeping comfortably. Arousable. Answers questions appropriately. Denies any acute complaints. No overnight events. Awaiting placement. Review of Systems Review of Systems: Yes all other systems are reviewed and are negative Physical Exam Vital Signs: Vital Signs: Last Vital Signs Temp 98.2 F 11/13/21 08:00 Pulse 72 11/13/21 08:00 Resp 17 11/13/21 08:00 BP 118/64 11/13/21 08:00 Pulse Ox 96 11/13/21 08:00 BMI result Body Mass Index 16.2 Const: General: cooperative and no acute distress Eyes: General: appearance normal, both eyes and all related structures Resp: Effort & Inspection: normal respiratory effort Auscultation: clear to auscultation bilaterally Cardio: Rate: regular rate Rhythm: regular rhythm GI: Palpation (GI): Soft to palpation Auscultation: normal bowel sounds Objective Data Active Medications Acetaminophen (Acetaminophen 325 Mg Tablet) 650 mg PO Q6H PRN PRN Reason: Pain, Mild (Pain Scale 1-3) Folic Acid (Folic Acid 1 Mg Tablet) 1 mg PO DAILY [facility] Last Admin: 11/13/21 07:41 Dose: 1 mg Documented by: FANNIE Heparin Sodium (Porcine) (Heparin Sodium,Porcine 5,000 Unit/Ml Vial) 5,000 unit SUBCUT Q12H [facility] Last Admin: 11/13/21 05:48 Dose: 5,000 unit Documented by: ARTEMIOQC Ondansetron HCl (Ondansetron Hcl 4 Mg/2 Ml Vial) 4 mg IVPUSH Q8H PRN PRN Reason: Nausea and Vomiting Pharmacy Consult (Consult Rx Perform Med Rec) 1 each MISCELLANE ONCE PRN PRN Reason: Consult order Sodium Chloride (0.9 % Sodium Chloride Flush 3 Ml Syringe) 3 ml IVFLUSH QSHIFT [facility] Last Admin: 11/13/21 07:38 Dose: Not Given Documented by: FANNIE Non-Admin Reason: No Access Thiamine HCl (Thiamine Hcl 100 Mg Tablet) 100 mg PO DAILY [facility] Last Admin: 11/13/21 07:41 Dose: 100 mg Documented by: FANNIE Labs CBC & Chem 7: 10/18/21 06:56 10/12/21 05:41 Assessment and Plan (1) Altered mental status: Status: Acute (2) SARS-CoV-2 positive: Status: Acute (3) Dementia: Status: Acute Assessment and Plan: 81 yo M with a reported history of alcohol use/dependence who was brought in by ambulance after his friends had not seen him for a few days and found to have covid but assymptomatic and now with placement issues No new issues hospital day - 41 Covid PNA--asymptomatic, positive as of 10/19, retested on 10/27 was negative and has no symptoms Dementia-- permanent progressive Mild malnutrition ...consult dietary?Ensure Full Code DVT pptx. heparin Pending placement Case maagement in touch with guardian Quality Stroke Does the patient have a stroke diagnosis?: No VTE Prior VTE?: No VTE Risk Level:: Medical - moderate - high VTE Device Contraindication: Treatment Not Indicated VTE Drug Contraindication: N/A - Med Ordered
--- NOTE | 2021-11-13 13:42 | MHC.CM.PN ---
EMR REVIEWED, PT'S GUARDIAN/CONSERVATOR FRANCOIS IN LAST EVENING 11/12/21 TO [employer]ERAPE[employer]IVITIES SERVICES WORKER PAPERWORK LEFT FOR HER BY CM, FRANCOIS PLANS TO START COLLECTING COLLATERAL AND GAIN ENTRANCE TO PT'S APT TO START GATHERING DOCUMENTS NEEDED FOR [facility], [facility] WILL REVIEW ONCE LEX CLOSER TO BEING APPROVED, CM WILLSCHEDULE 2ND COVID VACCINE NEXT WEEK AND CONT TO FOLLOW D/C NEEDS,
[2021-11-13 15:44] VITALS: BP 101/55; PULSE 94; RESP 18; TEMP 36.5; O2SAT 94
[2021-11-13 16:34] VITALS: BP 118/66; PULSE 101; RESP 18; TEMP 36.6; O2SAT 95
[2021-11-13 20:06] VITALS: BP 97/46; PULSE 95; RESP 18; TEMP 36.6; O2SAT 93
[2021-11-14] VITALS: BP 107/51; PULSE 89; RESP 16; TEMP 36.7; O2SAT 98
[2021-11-14] MEDS: Heparin Sodium,Porcine 5,000 UNIT/ML VIAL 5000 UNIT SUBCUT ×2 (06:34→16:13)
[2021-11-14 08:00] VITALS: BP 104/51; PULSE 109; RESP 17; TEMP 36.2; O2SAT 95
[2021-11-14] MEDS: Thiamine HCL 100 MG TABLET PO (08:58)
[2021-11-14] MEDS: Folic Acid 1 MG TABLET PO (08:58)
--- NOTE | 2021-11-14 10:29 | P.PNIM_ITS ---
Subjective Subjective Date of Service: 11/14/21 Interval History: pt seen and examined at bedside. he is sleeping in bed comfortably. he has no acute complaints. denies any SOB, no abd pain, no N/V. no chest pain Review of Systems Review of Systems: Yes all other systems are reviewed and are negative Physical Exam Vital Signs: Vital Signs: Last Vital Signs Temp 97.1 F 11/14/21 08:00 Pulse 109 H 11/14/21 08:00 Resp 17 11/14/21 08:00 BP 104/51 L 11/14/21 08:00 Pulse Ox 95 11/14/21 08:00 BMI result Body Mass Index 16.2 Const: General: cooperative and no acute distress Resp: Effort & Inspection: normal respiratory effort Auscultation: clear to auscultation bilaterally Cardio: Rate: regular rate Rhythm: regular rhythm GI: Palpation (GI): Soft to palpation Auscultation: normal bowel sounds Extrem: General: Yes normal to inspection and Yes no pedal edema Objective Data Active Medications Acetaminophen (Acetaminophen 325 Mg Tablet) 650 mg PO Q6H PRN PRN Reason: Pain, Mild (Pain Scale 1-3) Folic Acid (Folic Acid 1 Mg Tablet) 1 mg PO DAILY [facility] Last Admin: 11/14/21 08:58 Dose: 1 mg Documented by: IVANNA Heparin Sodium (Porcine) (Heparin Sodium,Porcine 5,000 Unit/Ml Vial) 5,000 unit SUBCUT Q12H [facility] Last Admin: 11/14/21 06:34 Dose: 5,000 unit Documented by: ROBB Ondansetron HCl (Ondansetron Hcl 4 Mg/2 Ml Vial) 4 mg IVPUSH Q8H PRN PRN Reason: Nausea and Vomiting Pharmacy Consult (Consult Rx Perform Med Rec) 1 each MISCELLANE ONCE PRN PRN Reason: Consult order Sodium Chloride (0.9 % Sodium Chloride Flush 3 Ml Syringe) 3 ml IVFLUSH QSHIFT [facility] Last Admin: 11/14/21 08:58 Dose: Not Given Documented by: IVANNA Non-Admin Reason: No Access Thiamine HCl (Thiamine Hcl 100 Mg Tablet) 100 mg PO DAILY [facility] Last Admin: 11/14/21 08:58 Dose: 100 mg Documented by: IVANNA Labs CBC & Chem 7: 10/18/21 06:56 10/12/21 05:41 Assessment and Plan (1) SARS-CoV-2 positive: Status: Acute (2) Dementia: Status: Acute Assessment and Plan: 81 yo M with a reported history of alcohol use/dependence who was brought in by ambulance after his friends had not seen him for a few days and found to have covid but assymptomatic and now with placement issues No new issues hospital day - 42 Covid PNA--asymptomatic, positive as of 10/19, retested on 10/27 was negative and has no symptoms Dementia-- permanent progressive Mild malnutrition ...consult dietary? - continue Ensure Full Code DVT pptx. heparin Case maagement in touch with guardian and pending placement Quality Stroke Does the patient have a stroke diagnosis?: No VTE Prior VTE?: No VTE Risk Level:: Medical - moderate - high VTE Device Contraindication: Treatment Not Indicated VTE Drug Contraindication: N/A - Med Ordered
[2021-11-14 16:00] VITALS: BP 113/54; PULSE 81; RESP 15; TEMP 36.6; O2SAT 98
[2021-11-14 23:12] VITALS: BP 118/59; PULSE 109; RESP 20; TEMP 36.3; O2SAT 92
[2021-11-15] MEDS: Heparin Sodium,Porcine 5,000 UNIT/ML VIAL 5000 UNIT SUBCUT ×2 (05:33→16:15)
[2021-11-15 08:00] VITALS: BP 110/38; PULSE 96; RESP 18; TEMP 36.4; O2SAT 94
[2021-11-15] MEDS: Folic Acid 1 MG TABLET PO (08:06)
[2021-11-15] MEDS: Thiamine HCL 100 MG TABLET PO (08:06)
--- NOTE | 2021-11-15 10:27 | HO.PM.IMPN ---
Subjective Subjective Date of Service: 11/15/21 Interval History: pt seen and examined. he is alert and oriented, out of bed walking around his room. he denies any chest pain, no sob, no abd pain, no diarrhea or constipation. no urinary symptoms Review of Systems Review of Systems: Yes all other systems are reviewed and are negative Physical Exam Vital Signs: Vital Signs: Last Vital Signs Temp 97.6 F 11/15/21 08:00 Pulse 96 11/15/21 08:00 Resp 18 11/15/21 08:00 BP 110/38 L 11/15/21 08:00 Pulse Ox 94 11/15/21 08:00 BMI result Body Mass Index 16.2 Const: General: cooperative and no acute distress Orientation/consciousness: patient oriented x3 Resp: Effort & Inspection: normal respiratory effort Auscultation: clear to auscultation bilaterally Cardio: Rate: regular rate Rhythm: regular rhythm GI: Palpation (GI): Soft to palpation Auscultation: normal bowel sounds Neuro: General: patient oriented x3 Extrem: General: Yes normal to inspection and Yes no pedal edema Objective Data Active Medications Acetaminophen (Acetaminophen 325 Mg Tablet) 650 mg PO Q6H PRN PRN Reason: Pain, Mild (Pain Scale 1-3) Folic Acid (Folic Acid 1 Mg Tablet) 1 mg PO DAILY [facility] Last Admin: 11/15/21 08:06 Dose: 1 mg Documented by: IVANNA Heparin Sodium (Porcine) (Heparin Sodium,Porcine 5,000 Unit/Ml Vial) 5,000 unit SUBCUT Q12H [facility] Last Admin: 11/15/21 05:33 Dose: 5,000 unit Documented by: ROBB Ondansetron HCl (Ondansetron Hcl 4 Mg/2 Ml Vial) 4 mg IVPUSH Q8H PRN PRN Reason: Nausea and Vomiting Pharmacy Consult (Consult Rx Perform Med Rec) 1 each MISCELLANE ONCE PRN PRN Reason: Consult order Sodium Chloride (0.9 % Sodium Chloride Flush 3 Ml Syringe) 3 ml IVFLUSH QSHIFT [facility] Last Admin: 11/15/21 08:08 Dose: Not Given Documented by: IVANNA Non-Admin Reason: No Access Thiamine HCl (Thiamine Hcl 100 Mg Tablet) 100 mg PO DAILY [facility] Last Admin: 11/15/21 08:06 Dose: 100 mg Documented by: IVANNA Labs CBC & Chem 7: 10/18/21 06:56 10/12/21 05:41 Assessment and Plan (1) Altered mental status: Status: Acute (2) SARS-CoV-2 positive: Status: Acute Assessment and Plan: 81 yo M with a reported history of alcohol use/dependence who was brought in by ambulance after his friends had not seen him for a few days and found to have covid but assymptomatic and now with placement issues No new issues hospital day - 43 Covid PNA--asymptomatic, positive as of 10/19, retested on 10/27 was negative and has no symptoms Dementia-- permanent progressive Mild malnutrition ...consult dietary? - continue Ensure Full Code DVT pptx. heparin Case maagement in touch with guardian and pending placement Quality Stroke Does the patient have a stroke diagnosis?: No VTE Prior VTE?: No VTE Risk Level:: Medical - moderate - high VTE Device Contraindication: Treatment Not Indicated VTE Drug Contraindication: N/A - Med Ordered
[2021-11-15 16:00] VITALS: BP 131/62; PULSE 102; RESP 16; TEMP 36.6; O2SAT 95
[2021-11-15 23:57] VITALS: BP 100/51; PULSE 90; RESP 18; TEMP 36.4; O2SAT 94
[2021-11-16] MEDS: Heparin Sodium,Porcine 5,000 UNIT/ML VIAL 5000 UNIT SUBCUT ×2 (06:30→16:36)
[2021-11-16] MEDS: Thiamine HCL 100 MG TABLET PO (07:35)
[2021-11-16] MEDS: Folic Acid 1 MG TABLET PO (07:35)
[2021-11-16 08:00] VITALS: BP 112/60; PULSE 105; RESP 17; TEMP 36.3; O2SAT 95
--- NOTE | 2021-11-16 11:20 | P.PNIM_ITS ---
Subjective Subjective Date of Service: 11/16/21 Interval History: seen and examined this morning has no comlpaints Review of Systems negative except hpi Physical Exam Vital Signs: Vital Signs: Last Vital Signs Temp 97.3 F 11/16/21 08:00 Pulse 105 H 11/16/21 08:00 Resp 17 11/16/21 08:00 BP 112/60 11/16/21 08:00 Pulse Ox 95 11/16/21 08:00 BMI result Body Mass Index 16.2 Const: Other: General - no acute distress, appears comfortable Cardiovascular - regular rate and rhythm, S1-S2 Lungs - normal respiratory effort, clear to auscultation bilaterally, no wheezing Abdomen - soft, nontender, no rebound or guarding Extremities - no edema bilaterally Neuro - awake and alert, no focal deficits psych - poor insight Objective Data Active Medications Acetaminophen (Acetaminophen 325 Mg Tablet) 650 mg PO Q6H PRN PRN Reason: Pain, Mild (Pain Scale 1-3) Folic Acid (Folic Acid 1 Mg Tablet) 1 mg PO DAILY [facility] Last Admin: 11/16/21 07:35 Dose: 1 mg Documented by: FANNIE Heparin Sodium (Porcine) (Heparin Sodium,Porcine 5,000 Unit/Ml Vial) 5,000 unit SUBCUT Q12H [facility] Last Admin: 11/16/21 06:30 Dose: 5,000 unit Documented by: SURAJ Ondansetron HCl (Ondansetron Hcl 4 Mg/2 Ml Vial) 4 mg IVPUSH Q8H PRN PRN Reason: Nausea and Vomiting Pharmacy Consult (Consult Rx Perform Med Rec) 1 each MISCELLANE ONCE PRN PRN Reason: Consult order Sodium Chloride (0.9 % Sodium Chloride Flush 3 Ml Syringe) 3 ml IVFLUSH QSHIFT [facility] Last Admin: 11/16/21 07:36 Dose: Not Given Documented by: FANNIE Non-Admin Reason: No Access Thiamine HCl (Thiamine Hcl 100 Mg Tablet) 100 mg PO DAILY [facility] Last Admin: 11/16/21 07:35 Dose: 100 mg Documented by: FANNIE Labs CBC & Chem 7: 10/18/21 06:56 10/12/21 05:41 Assessment and Plan (1) Dementia: Status: Acute Assessment and Plan: 81 yo M with a reported history of alcohol use who was brought in after his friends had not seen him for several days. He was diagnosed with COVID 19, asymptomatic. He is now awaiting placement 1. Dementia - permanent+progressive; lacks capacity Has guardianship -- pending placement; see CM notes for full details 2. Moderate Malnturtion supplements (see nutrition notes) 3. COVID 19 asymptomatic negative as of 10/27/21 4. Reported EtOH ause thiamin / folate last labs > 1 month ago, will repeat CBC/BMP tomorrow Am Full Code DVT pptx, subcut. heparin Quality Stroke Does the patient have a stroke diagnosis?: No VTE Prior VTE?: No VTE Risk Level:: Medical - moderate - high VTE Device Contraindication: Treatment Not Indicated VTE Drug Contraindication: N/A - Med Ordered
--- NOTE | 2021-11-16 13:29 | MHC.CM.PN ---
EMR REVIEWED, GUARDIAN/CONSERVATOR WORKING ON OBTAINING FINANCIALS FOR MH LTC LEX, AT THIS TIME NO SNF'S WILLING TO TAKE PT WITHOUT LTC PAYOR, [facility] WILL REVIEW CLINICALS ONCE MH LEX LTC LEX COMPLETED.
[2021-11-16 15:34] VITALS: BP 92/43; PULSE 90; RESP 18; TEMP 36.6; O2SAT 95
[2021-11-16 23:48] VITALS: BP 107/54; PULSE 64; RESP 16; TEMP 36.8; O2SAT 95
[2021-11-17] MEDS: Heparin Sodium,Porcine 5,000 UNIT/ML VIAL 5000 UNIT SUBCUT ×2 (06:22→16:14)
[2021-11-17 07:33] VITALS: BP 105/52; PULSE 85; RESP 18; TEMP 36.6; O2SAT 91
--- NOTE | 2021-11-17 08:55 | HO.PM.IMPN ---
Subjective Subjective Date of Service: 11/17/21 Interval History: f/u on dementia and awaiting placment. no new issues Review of Systems negative except hpi Physical Exam Vital Signs: Vital Signs: Last Vital Signs Temp 97.8 F 11/17/21 07:33 Pulse 85 11/17/21 07:33 Resp 18 11/17/21 07:33 BP 105/52 L 11/17/21 07:33 Pulse Ox 91 L 11/17/21 07:33 BMI result Body Mass Index 16.2 Const: Other: General - no acute distress, appears comfortable Cardiovascular - regular rate and rhythm, S1-S2 Lungs - normal respiratory effort, clear to auscultation bilaterally, no wheezing Abdomen - soft, nontender, no rebound or guarding Extremities - no edema bilaterally Neuro - awake and alert, no focal deficits psych - poor insight Objective Data Active Medications Acetaminophen (Acetaminophen 325 Mg Tablet) 650 mg PO Q6H PRN PRN Reason: Pain, Mild (Pain Scale 1-3) Folic Acid (Folic Acid 1 Mg Tablet) 1 mg PO DAILY [facility] Last Admin: 11/16/21 07:35 Dose: 1 mg Documented by: FANNIE Heparin Sodium (Porcine) (Heparin Sodium,Porcine 5,000 Unit/Ml Vial) 5,000 unit SUBCUT Q12H [facility] Last Admin: 11/17/21 06:22 Dose: 5,000 unit Documented by: SURAJ Ondansetron HCl (Ondansetron Hcl 4 Mg/2 Ml Vial) 4 mg IVPUSH Q8H PRN PRN Reason: Nausea and Vomiting Pharmacy Consult (Consult Rx Perform Med Rec) 1 each MISCELLANE ONCE PRN PRN Reason: Consult order Sodium Chloride (0.9 % Sodium Chloride Flush 3 Ml Syringe) 3 ml IVFLUSH QSHIFT [facility] Last Admin: 11/17/21 07:23 Dose: Not Given Documented by: TYLER Non-Admin Reason: No Access Thiamine HCl (Thiamine Hcl 100 Mg Tablet) 100 mg PO DAILY [facility] Last Admin: 11/16/21 07:35 Dose: 100 mg Documented by: FANNIE Labs CBC & Chem 7: 10/18/21 06:56 10/12/21 05:41 Assessment and Plan (1) Dementia: Status: Acute Assessment and Plan: 81 yo M with a reported history of alcohol use who was brought in after his friends had not seen him for several days. He was diagnosed with COVID 19, asymptomatic. He is now awaiting placement 1. Dementia - permanent+progressive; lacks capacity Has guardianship -- pending placement; see CM notes for full details 2. Moderate Malnturtion supplements (see nutrition notes) 3. COVID 19 asymptomatic negative as of 10/27/21 4. Reported EtOH ause thiamin / folate last labs > 1 month ago, periodically check routine labs Full Code DVT pptx, subcut. heparin Quality Stroke Does the patient have a stroke diagnosis?: No VTE Prior VTE?: No VTE Risk Level:: Medical - moderate - high VTE Device Contraindication: Treatment Not Indicated VTE Drug Contraindication: N/A - Med Ordered
[2021-11-17] MEDS: Folic Acid 1 MG TABLET PO (09:38)
[2021-11-17] MEDS: Thiamine HCL 100 MG TABLET PO (09:38)
[2021-11-17 12:19] LABS: Hematocrit 30.8 % (42.0-52.0); Hemoglobin 9.6 g/dl (14.0-18.0); Mean Corpuscular HGB Conc 31.2 g/dl (31.0-36.0); Mean Corpuscular Hemoglobin 29.8 pg (27.0-33.0); Mean Corpuscular Volume 95.7 fL (80.0-98.0); Mean Platelet Volume 8.5 fL (9.4-12.4); Platelet Count 548 X10*3/uL (160-400); Red Blood Count 3.22 X10*6/uL (4.60-5.80); Red Cell Distribution Width 15.3 % (11.0-16.0); White Blood Count 10.1 X10*3/uL (4.8-10.8)
[2021-11-17 12:35] LABS: Anion Gap 13 (12-20); Blood Urea Nitrogen 22 mg/dL (9-16); Calcium 9.3 mg/dL (8.4-10.2); Carbon Dioxide 29 mmol/L (22-29); Chloride 104 mmol/L (96-108); Creatinine Clr Calc Pharmacy 32.8; Estimated Glomerular Filt Rate 60; Glucose Random 104 mg/dL (60-115); Potassium 5.1 mmol/L (3.3-5.1); Sodium 141 mmol/L (135-145)
[2021-11-17 16:00] VITALS: BP 102/51; PULSE 84; RESP 18; TEMP 36.4; O2SAT 95
[2021-11-18] VITALS: BP 100/54; PULSE 83; RESP 16; TEMP 36.4; O2SAT 93
[2021-11-18] MEDS: Heparin Sodium,Porcine 5,000 UNIT/ML VIAL 5000 UNIT SUBCUT ×2 (05:55→16:04)
[2021-11-18 07:05] VITALS: BP 105/58; PULSE 98; RESP 18; TEMP 36; O2SAT 93
--- NOTE | 2021-11-18 07:50 | P.PNIM_ITS ---
Subjective Subjective Date of Service: 11/18/21 Interval History: f/u on dementia and awaiting placment, no new development, Review of Systems no fever, no sob, no changes Physical Exam Verdana 4l Vital Signs: Verdana 4d Verdana 4d Vital Signs: Verdana 4d Verdana 4Bd Last Vital Signs Verdana 4d Deck Builder New 4d Deck Builder New 4d Temp 96.8 F 11/18/21 07:05 Deck Builder New 4d Pulse 98 11/18/21 07:05 Deck Builder New 4d Resp 18 11/18/21 07:05 BP 105/58 L 11/18/21 07:05 Pulse Ox 93 11/18/21 07:05 BMI result Body Mass Index 16.2 Const: Other: General - no acute distress, appears comfortable Cardiovascular - regular rate and rhythm, S1-S2 Lungs - normal respiratory effort, clear to auscultation bilaterally, no wheezing Abdomen - soft, nontender, no rebound or guarding Extremities - no edema bilaterally Neuro - awake and alert, no focal deficits psych - poor insight Objective Data Active Medications Acetaminophen (Acetaminophen 325 Mg Tablet) 650 mg PO Q6H PRN PRN Reason: Pain, Mild (Pain Scale 1-3) Folic Acid (Folic Acid 1 Mg Tablet) 1 mg PO DAILY [facility] Last Admin: 11/17/21 09:38 Dose: 1 mg Documented by: TYLER Heparin Sodium (Porcine) (Heparin Sodium,Porcine 5,000 Unit/Ml Vial) 5,000 unit SUBCUT Q12H [facility] Last Admin: 11/18/21 05:55 Dose: 5,000 unit Documented by: GIA Ondansetron HCl (Ondansetron Hcl 4 Mg/2 Ml Vial) 4 mg IVPUSH Q8H PRN PRN Reason: Nausea and Vomiting Pharmacy Consult (Consult Rx Perform Med Rec) 1 each MISCELLANE ONCE PRN PRN Reason: Consult order Sodium Chloride (0.9 % Sodium Chloride Flush 3 Ml Syringe) 3 ml IVFLUSH QSHIFT [facility] Last Admin: 11/18/21 02:05 Dose: Not Given Documented by: GIA Non-Admin Reason: No Access Thiamine HCl (Thiamine Hcl 100 Mg Tablet) 100 mg PO DAILY [facility] Last Admin: 11/17/21 09:38 Dose: 100 mg Documented by: TYLER Labs CBC & Chem 7: 11/17/21 12:08 01/25/22 12:08 Labs: Laboratory Results - last 24 hr 11/17/21 11/17/21 12:08 12:08 MCV 95.7 MCH 29.8 MCHC 31.2 RDW 15.3 Plt Count 548 H D MPV 8.5 L Absolute Nucleated RBC 0.000 Nucleated RBC % (auto) 0.0 Anion Gap 13 Estim Creat Clear Calc 32.8 Estimated GFR 60 Random Glucose 104 Calcium 9.3 D Assessment and Plan (1) Dementia: Status: Acute Plan 81 yo M with a reported history of alcohol use who was brought in after his friends had not seen him for several days. He was diagnosed with COVID 19, asymptomatic. He is now awaiting placement 1. Dementia - permanent+progressive; lacks capacity Has guardianship -- pending placement; see CM notes for full details 2. Moderate Malnturtion supplements (see nutrition notes) 3. COVID 19--Fully recovered, never had symptoms. 4. Reported EtOH ause-- thiamin / folate last labs 11/17 CBC, BMP--unremarkable, periodically check perhaps every 2 weeks Full Code DVT pptx, subcut. heparin Quality Stroke Does the patient have a stroke diagnosis?: No VTE Prior VTE?: No VTE Risk Level:: Medical - moderate - high VTE Device Contraindication: Treatment Not Indicated VTE Drug Contraindication: N/A - Med Ordered
[2021-11-18] MEDS: Folic Acid 1 MG TABLET PO (08:37)
[2021-11-18] MEDS: Thiamine HCL 100 MG TABLET PO (08:38)
[2021-11-18 16:00] VITALS: BP 97/51; PULSE 92; RESP 18; TEMP 36.9; O2SAT 93
[2021-11-19] VITALS: BP 110/53; PULSE 86; RESP 18; TEMP 36.2; O2SAT 93
[2021-11-19] MEDS: Heparin Sodium,Porcine 5,000 UNIT/ML VIAL 5000 UNIT SUBCUT ×2 (05:05→17:43)
[2021-11-19 08:00] VITALS: BP 96/61; PULSE 99; RESP 18; TEMP 36.6; O2SAT 93
[2021-11-19] MEDS: Thiamine HCL 100 MG TABLET PO (09:17)
[2021-11-19] MEDS: Folic Acid 1 MG TABLET PO (09:17)
--- NOTE | 2021-11-19 11:18 | P.PNIM_ITS ---
Subjective Subjective Date of Service: 11/19/21 Interval History: No acute issues overnight Review of Systems Denies CP Denies SOB Denies N/V/D Physical Exam Verdana 4l Vital Signs: Verdana 4d Verdana 4d Vital Signs: Verdana 4d Verdana 4Bd Last Vital Signs Verdana 4d Point Of [employer] Associate New 4d Point Of [employer] Associate New 4d Temp 97.9 F 11/19/21 08:00 Point Of Sale Associate New 4d Pulse 99 11/19/21 08:00 Point Of Sale Associate New 4d Resp 18 11/19/21 08:00 BP 96/61 11/19/21 08:00 Pulse Ox 93 11/19/21 08:00 BMI result Body Mass Index 16.2 Const: Other: no acute distress Resp: Other: clear to auscultation bilateral. No rales rhonchi wheezes Cardio: Other: no S4; positive S1-S2; no S3 murmurs gallops GI: Other: soft nontender nondistended with normoactive bowel sounds Extrem: Other: no edema bilaterally Objective Data Active Medications Acetaminophen (Acetaminophen 325 Mg Tablet) 650 mg PO Q6H PRN PRN Reason: Pain, Mild (Pain Scale 1-3) Folic Acid (Folic Acid 1 Mg Tablet) 1 mg PO DAILY [facility] Last Admin: 11/19/21 09:17 Dose: 1 mg Documented by: IVANNA Heparin Sodium (Porcine) (Heparin Sodium,Porcine 5,000 Unit/Ml Vial) 5,000 unit SUBCUT Q12H [facility] Last Admin: 11/19/21 05:05 Dose: 5,000 unit Documented by: ROBB Ondansetron HCl (Ondansetron Hcl 4 Mg/2 Ml Vial) 4 mg IVPUSH Q8H PRN PRN Reason: Nausea and Vomiting Pharmacy Consult (Consult Rx Perform Med Rec) 1 each MISCELLANE ONCE PRN PRN Reason: Consult order Sodium Chloride (0.9 % Sodium Chloride Flush 3 Ml Syringe) 3 ml IVFLUSH QSHIFT [facility] Last Admin: 11/19/21 09:18 Dose: Not Given Documented by: IVANNA Non-Admin Reason: No Access Thiamine HCl (Thiamine Hcl 100 Mg Tablet) 100 mg PO DAILY [facility] Last Admin: 11/19/21 09:17 Dose: 100 mg Documented by: IVANNA Labs CBC & Chem 7: 11/17/21 12:08 11/17/21 12:08 Assessment and Plan (1) Dementia: Status: Acute (2) Alcohol use disorder, severe, dependence: Status: Acute Plan 81 yo M with a reported history of alcohol use/dependence who was brought in by ambulance after his friends had not seen him for a few days and found to have covid but assymptomatic and now with placement issues No new issues, awaiting guardianship, [place] management unchanged from prior day Covid PNA--asymptomatic, positive as of 10/19, retested on 10/27 was negative and has no symptoms Dementia-- permanent progressive Mild malnutrition ...consult dietary?Ensure Full Code DVT pptx. heparin Needs placement as does not have capacity to make sounds medicla decisions Quality Stroke Does the patient have a stroke diagnosis?: No VTE Prior VTE?: No VTE Risk Level:: Medical - moderate - high VTE Device Contraindication: Treatment Not Indicated VTE Drug Contraindication: N/A - Med Ordered
[2021-11-19 15:21] VITALS: BP 110/65; PULSE 104; RESP 16; TEMP 36.6; O2SAT 95
[2021-11-20] VITALS: BP 100/40; PULSE 85; RESP 17; TEMP 36.8; O2SAT 95
[2021-11-20] MEDS: Heparin Sodium,Porcine 5,000 UNIT/ML VIAL 5000 UNIT SUBCUT ×2 (05:45→17:18)
[2021-11-20 07:57] VITALS: BP 101/52; PULSE 79; RESP 18; TEMP 36.4; O2SAT 94
[2021-11-20] MEDS: Thiamine HCL 100 MG TABLET PO (09:01)
[2021-11-20] MEDS: Folic Acid 1 MG TABLET PO (09:01)
--- NOTE | 2021-11-20 11:31 | P.PNIM_ITS ---
Subjective Subjective Date of Service: 11/20/21 Interval History: No acute issues overnight Review of Systems Denies CP Denies SOB Denies N/V/D Physical Exam Verdana 4l Vital Signs: Verdana 4d Verdana 4d Vital Signs: Verdana 4d Verdana 4Bd Last Vital Signs Verdana 4d Choir Leader New 4d Choir Leader New 4d Temp 97.6 F 11/20/21 07:57 Choir Leader New 4d Pulse 79 11/20/21 07:57 Choir Leader New 4d Resp 18 11/20/21 07:57 BP 101/52 L 11/20/21 07:57 Pulse Ox 94 11/20/21 07:57 BMI result Body Mass Index 16.2 Const: Other: no acute distress Resp: Other: clear to auscultation bilateral. No rales rhonchi wheezes Cardio: Other: no S4; positive S1-S2; no S3 murmurs gallops GI: Other: soft nontender nondistended with normoactive bowel sounds Extrem: Other: no edema bilaterally Objective Data Active Medications Acetaminophen (Acetaminophen 325 Mg Tablet) 650 mg PO Q6H PRN PRN Reason: Pain, Mild (Pain Scale 1-3) Folic Acid (Folic Acid 1 Mg Tablet) 1 mg PO DAILY [facility] Last Admin: 11/20/21 09:01 Dose: 1 mg Documented by: MEGHAN Heparin Sodium (Porcine) (Heparin Sodium,Porcine 5,000 Unit/Ml Vial) 5,000 unit SUBCUT Q12H [facility] Last Admin: 11/20/21 05:45 Dose: 5,000 unit Documented by: GIA Ondansetron HCl (Ondansetron Hcl 4 Mg/2 Ml Vial) 4 mg IVPUSH Q8H PRN PRN Reason: Nausea and Vomiting Pharmacy Consult (Consult Rx Perform Med Rec) 1 each MISCELLANE ONCE PRN PRN Reason: Consult order Sodium Chloride (0.9 % Sodium Chloride Flush 3 Ml Syringe) 3 ml IVFLUSH QSHIFT [facility] Last Admin: 11/20/21 09:01 Dose: Not Given Documented by: MEGHAN Non-Admin Reason: No Access Thiamine HCl (Thiamine Hcl 100 Mg Tablet) 100 mg PO DAILY [facility] Last Admin: 11/20/21 09:01 Dose: 100 mg Documented by: MEGHAN Labs CBC & Chem 7: 11/17/21 12:08 11/17/21 12:08 Assessment and Plan (1) Dementia: Status: Acute (2) Altered mental status: Status: Acute (3) CAP (community acquired pneumonia): Status: Acute Plan 81 yo M with a reported history of alcohol use/dependence who was brought in by ambulance after his friends had not seen him for a few days and found to have covid but assymptomatic and now with placement issues No new issues, awaiting guardianship, [place] management unchanged from prior day Covid PNA--asymptomatic, positive as of 10/19, retested on 10/27 was negative and has no symptoms Dementia-- permanent progressive Mild malnutrition ...consult dietary?Ensure Full Code DVT pptx. heparin Needs placement as does not have capacity to make sounds medicla decisions Quality Stroke Does the patient have a stroke diagnosis?: No VTE Prior VTE?: No VTE Risk Level:: Medical - moderate - high VTE Device Contraindication: Treatment Not Indicated VTE Drug Contraindication: N/A - Med Ordered
--- NOTE | 2021-11-20 15:45 | MHC.CLN ---
F/U DIET= REGULAR; SUPPLEMENT ENSURE BID. SUPPLEMENT PROVIDES ADDITIONAL 700 KCAL, 40 G PROTEIN. INTAKE USUALLY GOOD, DOES NOT CONSISTENTLY ACCEPT SUPPLEMENT. CONTINUE CURRENT DIET AND ENCOURAGE SUPPLEMENT INTAKE. CONTINUE TO MONITOR INTAKE AND WEIGHT. RD TO FOLLOW WEEKLY.
[2021-11-20 15:55] VITALS: BP 98/54; PULSE 98; RESP 16; TEMP 36.2; O2SAT 93
[2021-11-21] VITALS: BP 98/51; PULSE 82; RESP 18; TEMP 36.4; O2SAT 91
[2021-11-21 06:57] VITALS: BP 143/63; PULSE 85; RESP 18; TEMP 36.6; O2SAT 92
--- NOTE | 2021-11-21 10:23 | P.PNIM_ITS ---
Subjective Subjective Date of Service: 11/21/21 Interval History: No acute issues overnight Review of Systems Denies CP Denies SOB Denies N/V/D Physical Exam Verdana 4l Vital Signs: Verdana 4d Verdana 4d Vital Signs: Verdana 4d Verdana 4Bd Last Vital Signs Verdana 4d Campus Monitor New 4d Campus Monitor New 4d Temp 97.8 F 11/21/21 06:57 Campus Monitor New 4d Pulse 85 11/21/21 06:57 Campus Monitor New 4d Resp 18 11/21/21 06:57 BP 143/63 H 11/21/21 06:57 Pulse Ox 92 11/21/21 06:57 BMI result Body Mass Index 16.2 Const: Other: no acute distress Resp: Other: clear to auscultation bilateral. No rales rhonchi wheezes Cardio: Other: no S4; positive S1-S2; no S3 murmurs gallops GI: Other: soft nontender nondistended with normoactive bowel sounds Extrem: Other: no edema bilaterally Objective Data Active Medications Acetaminophen (Acetaminophen 325 Mg Tablet) 650 mg PO Q6H PRN PRN Reason: Pain, Mild (Pain Scale 1-3) Folic Acid (Folic Acid 1 Mg Tablet) 1 mg PO DAILY [facility] Last Admin: 11/21/21 09:29 Dose: Not Given Documented by: TYLER Non-Admin Reason: Patient Refused Heparin Sodium (Porcine) (Heparin Sodium,Porcine 5,000 Unit/Ml Vial) 5,000 unit SUBCUT Q12H [facility] Last Admin: 11/21/21 05:29 Dose: Not Given Documented by: SURAJ Non-Admin Reason: Patient Refused Ondansetron HCl (Ondansetron Hcl 4 Mg/2 Ml Vial) 4 mg IVPUSH Q8H PRN PRN Reason: Nausea and Vomiting Pharmacy Consult (Consult Rx Perform Med Rec) 1 each MISCELLANE ONCE PRN PRN Reason: Consult order Sodium Chloride (0.9 % Sodium Chloride Flush 3 Ml Syringe) 3 ml IVFLUSH QSHIFT [facility] Last Admin: 11/21/21 07:21 Dose: Not Given Documented by: TYLER Non-Admin Reason: No Access Thiamine HCl (Thiamine Hcl 100 Mg Tablet) 100 mg PO DAILY [facility] Last Admin: 11/21/21 09:29 Dose: Not Given Documented by: HO.COTEMA Non-Admin Reason: Patient Refused Labs CBC & Chem 7: 11/17/21 12:08 11/17/21 12:08 Assessment and Plan (1) SARS-CoV-2 positive: Status: Acute (2) Altered mental status: Status: Acute (3) Dementia: Status: Acute Plan 81 yo M with a reported history of alcohol use/dependence who was brought in by ambulance after his friends had not seen him for a few days and found to have covid but assymptomatic and now with placement issues No new issues, awaiting guardianship, [place] management unchanged from prior day Covid PNA--asymptomatic, positive as of 10/19, retested on 10/27 was negative and has no symptoms Dementia-- permanent progressive Mild malnutrition ...consult dietary?Ensure Full Code DVT pptx. heparin Needs placement as does not have capacity to make sounds medicla decisions Quality Stroke Does the patient have a stroke diagnosis?: No VTE Prior VTE?: No VTE Risk Level:: Medical - moderate - high VTE Device Contraindication: Treatment Not Indicated VTE Drug Contraindication: N/A - Med Ordered
[2021-11-21 15:35] VITALS: BP 99/52; PULSE 85; RESP 18; TEMP 36.7; O2SAT 92
[2021-11-21] MEDS: Heparin Sodium,Porcine 5,000 UNIT/ML VIAL 5000 UNIT SUBCUT (16:51)
[2021-11-21 23:32] VITALS: BP 105/51; PULSE 80; RESP 17; TEMP 36.4; O2SAT 94
[2021-11-22 07:36] VITALS: BP 147/76; PULSE 86; RESP 20; TEMP 36.2; O2SAT 97
[2021-11-22] MEDS: Folic Acid 1 MG TABLET PO (08:34)
[2021-11-22] MEDS: Thiamine HCL 100 MG TABLET PO (08:34)
--- NOTE | 2021-11-22 12:27 | P.PNIM_ITS ---
Subjective Subjective Date of Service: 11/22/21 Interval History: No acute events overnight Review of Systems Denies CP Denies SOB Denies N/V/D Physical Exam Verdana 4l Vital Signs: Verdana 4d Verdana 4d Vital Signs: Verdana 4d Verdana 4Bd Last Vital Signs Verdana 4d [employer] New 4d [employer] New 4d Temp 97.1 F 11/22/21 07:36 [employer] New 4d Pulse 86 11/22/21 07:36 [employer] New 4d Resp 20 11/22/21 07:36 BP 147/76 H 11/22/21 07:36 Pulse Ox 97 11/22/21 07:36 BMI result Body Mass Index 16.2 Const: Other: no acute distress Resp: Other: clear to auscultation bilateral. No rales rhonchi wheezes Cardio: Other: no S4; positive S1-S2; no S3 murmurs gallops GI: Other: soft nontender nondistended with normoactive bowel sounds Extrem: Other: no edema bilaterally Objective Data Active Medications Acetaminophen (Acetaminophen 325 Mg Tablet) 650 mg PO Q6H PRN PRN Reason: Pain, Mild (Pain Scale 1-3) Albuterol Sulfate (Albuterol Sulfate 90 Mcg 8 Gm Inhaler) 2 puff INHALE RQ4H PRN PRN Reason: Wheezing Folic Acid (Folic Acid 1 Mg Tablet) 1 mg PO DAILY [facility] Last Admin: 11/22/21 08:34 Dose: 1 mg Documented by: TYLER Heparin Sodium (Porcine) (Heparin Sodium,Porcine 5,000 Unit/Ml Vial) 5,000 unit SUBCUT Q12H [facility] Last Admin: 11/22/21 06:15 Dose: Not Given Documented by: SURAJ Non-Admin Reason: Patient Refused Ondansetron HCl (Ondansetron Hcl 4 Mg/2 Ml Vial) 4 mg IVPUSH Q8H PRN PRN Reason: Nausea and Vomiting Pharmacy Consult (Consult Rx Perform Med Rec) 1 each MISCELLANE ONCE PRN PRN Reason: Consult order Sodium Chloride (0.9 % Sodium Chloride Flush 3 Ml Syringe) 3 ml IVFLUSH QSHIFT [facility] Last Admin: 11/22/21 07:27 Dose: Not Given Documented by: TYLER Non-Admin Reason: No Access Thiamine HCl (Thiamine Hcl 100 Mg Tablet) 100 mg PO DAILY [facility] Last Admin: 11/22/21 08:34 Dose: 100 mg Documented by: TYLER Labs CBC & Chem 7: 11/17/21 12:08 11/17/21 12:08 Assessment and Plan (1) SARS-CoV-2 positive: Status: Acute (2) Altered mental status: Status: Acute (3) Dementia: Status: Acute Plan 81 yo M with a reported history of alcohol use/dependence who was brought in by ambulance after his friends had not seen him for a few days and found to have covid but assymptomatic and now with placement issues No new issues, awaiting guardianship, [place] management unchanged from prior day Covid PNA--asymptomatic, positive as of 10/19, retested on 10/27 was negative and has no symptoms Dementia-- permanent progressive Mild malnutrition ...consult dietary?Ensure Full Code DVT pptx. heparin Needs placement as does not have capacity to make sounds medicla decisions Quality Stroke Does the patient have a stroke diagnosis?: No VTE Prior VTE?: No VTE Risk Level:: Medical - moderate - high VTE Device Contraindication: Treatment Not Indicated VTE Drug Contraindication: N/A - Med Ordered
[2021-11-22 16:00] VITALS: BP 105/50; PULSE 84; RESP 18; TEMP 36.8; O2SAT 92
[2021-11-22 23:25] VITALS: BP 104/53; PULSE 77; RESP 18; TEMP 36.6; O2SAT 95
[2021-11-23 07:57] VITALS: BP 131/61; PULSE 100; RESP 18; TEMP 36.8; O2SAT 95
[2021-11-23] MEDS: Folic Acid 1 MG TABLET PO (09:36)
[2021-11-23] MEDS: Thiamine HCL 100 MG TABLET PO (09:36)
--- NOTE | 2021-11-23 13:34 | MHC.CM.PN ---
EMR REVIEWED, PT CONT'S TO BE MEDICALLY CLEARED, CM HAS SET UP PT FOR 2ND COVID VACCINE FOR Tuesday11/27/21 THROUGH MELANIE AT [facility], CONSERVATOR CONT'S TO WORK ON FINANCIALS FOR LTC [place], [facility] WILL REVIEW CLINICALS ONCE LTC PAYOR IN PLACE.
--- NOTE | 2021-11-23 14:27 | P.PNIM_ITS ---
Subjective Subjective Date of Service: 11/23/21 Interval History: No acute events overnight Review of Systems Denies CP Denies SOB Denies N/V/D Physical Exam Verdana 4l Vital Signs: Verdana 4d Verdana 4d Vital Signs: Verdana 4d Verdana 4Bd Last Vital Signs Verdana 4d Pug Mill Operator New 4d [employer] Operator New 4d Temp 98.3 F 11/23/21 07:57 [employer] Operator New 4d Pulse 100 11/23/21 07:57 [employer] Mill Operator New 4d Resp 18 11/23/21 07:57 BP 131/61 11/23/21 07:57 Pulse Ox 95 11/23/21 07:57 BMI result Body Mass Index 16.2 Const: Other: no acute distress Resp: Other: clear to auscultation bilateral. No rales rhonchi wheezes Cardio: Other: no S4; positive S1-S2; no S3 murmurs gallops GI: Other: soft nontender nondistended with normoactive bowel sounds Extrem: Other: no edema bilaterally Objective Data Active Medications Acetaminophen (Acetaminophen 325 Mg Tablet) 650 mg PO Q6H PRN PRN Reason: Pain, Mild (Pain Scale 1-3) Albuterol Sulfate (Albuterol Sulfate 90 Mcg 8 Gm Inhaler) 2 puff INHALE RQ4H PRN PRN Reason: Wheezing Folic Acid (Folic Acid 1 Mg Tablet) 1 mg PO DAILY [facility] Last Admin: 11/23/21 09:36 Dose: 1 mg Documented by: MEGHAN Heparin Sodium (Porcine) (Heparin Sodium,Porcine 5,000 Unit/Ml Vial) 5,000 unit SUBCUT Q12H [facility] Last Admin: 11/23/21 04:39 Dose: Not Given Documented by: NOY Non-Admin Reason: Patient Refused Ondansetron HCl (Ondansetron Hcl 4 Mg/2 Ml Vial) 4 mg IVPUSH Q8H PRN PRN Reason: Nausea and Vomiting Pharmacy Consult (Consult Rx Perform Med Rec) 1 each MISCELLANE ONCE PRN PRN Reason: Consult order Sodium Chloride (0.9 % Sodium Chloride Flush 3 Ml Syringe) 3 ml IVFLUSH QSHIFT [facility] Last Admin: 11/23/21 07:34 Dose: Not Given Documented by: MEGHAN Non-Admin Reason: No Access Thiamine HCl (Thiamine Hcl 100 Mg Tablet) 100 mg PO DAILY [facility] Last Admin: 11/23/21 09:36 Dose: 100 mg Documented by: MEGHAN Labs CBC & Chem 7: 11/17/21 12:08 11/17/21 12:08 Assessment and Plan (1) Altered mental status: Status: Acute (2) Alcohol use disorder, severe, dependence: Status: Acute (3) Dementia: Status: Acute Plan 81 yo M with a reported history of alcohol use/dependence who was brought in by ambulance after his friends had not seen him for a few days and found to have covid but assymptomatic and now with placement issues No new issues, awaiting guardianship, [place] management unchanged from prior day Covid PNA--asymptomatic, positive as of 10/19, retested on 10/27 was negative and has no symptoms Dementia-- permanent progressive Mild malnutrition ...consult dietary?Ensure Full Code DVT pptx. heparin Needs placement as does not have capacity to make sounds medicla decisions Quality Stroke Does the patient have a stroke diagnosis?: No VTE Prior VTE?: No VTE Risk Level:: Medical - moderate - high VTE Device Contraindication: Treatment Not Indicated VTE Drug Contraindication: N/A - Med Ordered
[2021-11-23 15:19] VITALS: BP 111/56; PULSE 100; RESP 15; TEMP 36.7; O2SAT 93
[2021-11-23] MEDS: Heparin Sodium,Porcine 5,000 UNIT/ML VIAL 5000 UNIT SUBCUT (16:53)
[2021-11-24] VITALS: BP 113/58; PULSE 77; RESP 14; TEMP 36.4; O2SAT 96
[2021-11-24] MEDS: Heparin Sodium,Porcine 5,000 UNIT/ML VIAL 5000 UNIT SUBCUT ×2 (05:49→16:50)
[2021-11-24 07:45] VITALS: BP 95/50; PULSE 82; RESP 18; TEMP 36.6; O2SAT 94
[2021-11-24] MEDS: Thiamine HCL 100 MG TABLET PO (09:08)
[2021-11-24] MEDS: Folic Acid 1 MG TABLET PO (09:08)
--- NOTE | 2021-11-24 09:41 | P.PNIM_ITS ---
Subjective Subjective Date of Service: 11/24/21 Interval History: f/u on dementia and awaiting placment, no new development, Review of Systems no fever, no sob, no changes Physical Exam 2 Verdana 4l Vital Signs: Verdana 4d Verdana 4d Vital Signs: Verdana 4d Verdana 4Bd Last Vital Signs Verdana 4d Vegetable Farm Worker New 4d Vegetable Farm Worker New 4d Temp 97.9 F 11/24/21 07:45 Vegetable Farm Worker New 4d Pulse 82 11/24/21 07:45 Vegetable Farm Worker New 4d Resp 18 11/24/21 07:45 BP 95/50 L 11/24/21 07:45 Pulse Ox 94 11/24/21 07:45 BMI result Body Mass Index 16.2 Const: Other: General - no acute distress, appears comfortable Cardiovascular - regular rate and rhythm, S1-S2 Lungs - normal respiratory effort, clear to auscultation bilaterally, no wheezing Abdomen - soft, nontender, no rebound or guarding Extremities - no edema bilaterally Neuro - awake and alert, no focal deficits psych - poor insight Objective Data Active Medications Acetaminophen (Acetaminophen 325 Mg Tablet) 650 mg PO Q6H PRN PRN Reason: Pain, Mild (Pain Scale 1-3) Albuterol Sulfate (Albuterol Sulfate 90 Mcg 8 Gm Inhaler) 2 puff INHALE RQ4H PRN PRN Reason: Wheezing Folic Acid (Folic Acid 1 Mg Tablet) 1 mg PO DAILY [facility] Last Admin: 11/24/21 09:08 Dose: 1 mg Documented by: MEGHAN Heparin Sodium (Porcine) (Heparin Sodium,Porcine 5,000 Unit/Ml Vial) 5,000 unit SUBCUT Q12H [facility] Last Admin: 11/24/21 05:49 Dose: 5,000 unit Documented by: DEXTER Ondansetron HCl (Ondansetron Hcl 4 Mg/2 Ml Vial) 4 mg IVPUSH Q8H PRN PRN Reason: Nausea and Vomiting Pharmacy Consult (Consult Rx Perform Med Rec) 1 each MISCELLANE ONCE PRN PRN Reason: Consult order Sodium Chloride (0.9 % Sodium Chloride Flush 3 Ml Syringe) 3 ml IVFLUSH QSHIFT [facility] Last Admin: 11/24/21 09:07 Dose: Not Given Documented by: MEGHAN Non-Admin Reason: No Access Thiamine HCl (Thiamine Hcl 100 Mg Tablet) 100 mg PO DAILY [facility] Last Admin: 11/24/21 09:08 Dose: 100 mg Documented by: MEGHAN Labs CBC & Chem 7: 11/17/21 12:08 11/17/21 12:08 Assessment and Plan (1) Altered mental status: Status: Acute (2) Alcohol use disorder, severe, dependence: Status: Acute (3) Dementia: Status: Acute Plan 81 yo M with a reported history of alcohol use/dependence who was brought in by ambulance after his friends had not seen him for a few days and found to have covid but assymptomatic and now with placement issues No new issues, awaiting guardianship, [place] management unchanged from prior day Covid PNA--asymptomatic, positive as of 10/19, retested on 10/27 was negative and has no symptoms Dementia-- permanent progressive Mild malnutrition ...consult dietary? Ensure Full Code DVT pptx. heparin Needs placement as does not have capacity to make sounds medicla decisions No active issues, CM working on placement Quality Stroke Does the patient have a stroke diagnosis?: No VTE Prior VTE?: No VTE Risk Level:: Medical - moderate - high VTE Device Contraindication: Treatment Not Indicated VTE Drug Contraindication: N/A - Med Ordered
[2021-11-24 16:00] VITALS: BP 91/58; PULSE 89; RESP 16; TEMP 36.4; O2SAT 94
[2021-11-24 23:30] VITALS: BP 125/66; PULSE 78; RESP 18; TEMP 36.9; O2SAT 94
[2021-11-25] MEDS: Folic Acid 1 MG TABLET PO (07:34)
[2021-11-25] MEDS: Thiamine HCL 100 MG TABLET PO (07:34)
[2021-11-25 08:00] VITALS: BP 140/61; PULSE 81; RESP 20; TEMP 36.8; O2SAT 95
--- NOTE | 2021-11-25 10:02 | P.PNIM_ITS ---
Subjective Subjective Date of Service: 11/25/21 Interval History: f/u on dementia and awaiting placment, no clinical change Review of Systems no fever, no sob, no changes Physical Exam Verdana 4l Vital Signs: Verdana 4d Verdana 4d Vital Signs: Verdana 4d Verdana 4Bd Last Vital Signs Verdana 4d Fur Matcher New 4d Fur Matcher New 4d Temp 98.3 F 11/25/21 08:00 Fur Matcher New 4d Pulse 81 11/25/21 08:00 Fur Matcher New 4d Resp 20 11/25/21 08:00 BP 140/61 H 11/25/21 08:00 Pulse Ox 95 11/25/21 08:00 BMI result Body Mass Index 16.2 Const: Other: General: AO X 2, no acute distress Resp: CTA bilateral CVS: S1,S2,RRR GI: +BS, NT, no distention Skin: No rash Neuro: motor grossly intact Psych: appropriate affect Objective Data Active Medications Acetaminophen (Acetaminophen 325 Mg Tablet) 650 mg PO Q6H PRN PRN Reason: Pain, Mild (Pain Scale 1-3) Albuterol Sulfate (Albuterol Sulfate 90 Mcg 8 Gm Inhaler) 2 puff INHALE RQ4H PRN PRN Reason: Wheezing Folic Acid (Folic Acid 1 Mg Tablet) 1 mg PO DAILY [facility] Last Admin: 11/25/21 07:34 Dose: 1 mg Documented by: MARÍA ELENA Heparin Sodium (Porcine) (Heparin Sodium,Porcine 5,000 Unit/Ml Vial) 5,000 unit SUBCUT Q12H [facility] Last Admin: 11/25/21 05:19 Dose: Not Given Documented by: JACQUI Non-Admin Reason: Patient Refused Ondansetron HCl (Ondansetron Hcl 4 Mg/2 Ml Vial) 4 mg IVPUSH Q8H PRN PRN Reason: Nausea and Vomiting Pharmacy Consult (Consult Rx Perform Med Rec) 1 each MISCELLANE ONCE PRN PRN Reason: Consult order Sodium Chloride (0.9 % Sodium Chloride Flush 3 Ml Syringe) 3 ml IVFLUSH QSHIFT [facility] Last Admin: 11/25/21 07:36 Dose: Not Given Documented by: MARÍA ELENA Non-Admin Reason: No Access Thiamine HCl (Thiamine Hcl 100 Mg Tablet) 100 mg PO DAILY [facility] Last Admin: 11/25/21 07:34 Dose: 100 mg Documented by: MARÍA ELENA Labs CBC & Chem 7: 11/17/21 12:08 11/17/21 12:08 Assessment and Plan (1) Altered mental status: Status: Acute (2) Alcohol use disorder, severe, dependence: Status: Acute (3) Dementia: Status: Acute Plan 81 yo M with a reported history of alcohol use/dependence who was brought in by ambulance after his friends had not seen him for a few days and found to have covid but assymptomatic and now with placement issues No new issues, awaiting guardianship, [place] management unchanged from prior day Covid PNA--asymptomatic, positive as of 10/19, retested on 10/27 was negative and has no symptoms Dementia-- permanent progressive Mild malnutrition ...chronic and stable Full Code DVT pptx. heparin Needs placement as does not have capacity to make sounds medicla decisions No active issues, CM working on placement Quality Stroke Does the patient have a stroke diagnosis?: No VTE Prior VTE?: No VTE Risk Level:: Medical - moderate - high VTE Device Contraindication: Treatment Not Indicated VTE Drug Contraindication: N/A - Med Ordered
--- NOTE | 2021-11-25 11:16 | MHC.CM.PN ---
Financial issues continue to be the barrier to dc.placement. CM will continue to follow.
[2021-11-25 14:38] VITALS: BMI 16.8
[2021-11-25 15:47] VITALS: BP 103/60; PULSE 114; RESP 18; TEMP 36.4; O2SAT 98
[2021-11-25] MEDS: Heparin Sodium,Porcine 5,000 UNIT/ML VIAL 5000 UNIT SUBCUT (17:24)
[2021-11-25 23:59] VITALS: BP 107/53; PULSE 79; RESP 16; TEMP 36.9; O2SAT 93
[2021-11-26] MEDS: Heparin Sodium,Porcine 5,000 UNIT/ML VIAL 5000 UNIT SUBCUT ×2 (05:21→15:44)
[2021-11-26 07:28] VITALS: BP 149/64; PULSE 89; RESP 18; TEMP 36.4; O2SAT 92
[2021-11-26] MEDS: Thiamine HCL 100 MG TABLET PO (08:49)
[2021-11-26] MEDS: Folic Acid 1 MG TABLET PO (08:49)
--- NOTE | 2021-11-26 09:07 | P.PNIM_ITS ---
Subjective Subjective Date of Service: 11/26/21 Interval History: f/u on dementia and awaiting placment, no clinical change today Review of Systems no fever, no sob, no changes Physical Exam Verdana 4l Vital Signs: Verdana 4d Verdana 4d Vital Signs: Verdana 4d Verdana 4Bd Last Vital Signs Verdana 4d Contact Lens Assistant New 4d Contact Lens Assistant New 4d Temp 97.5 F 11/26/21 07:28 Contact Lens Assistant New 4d Pulse 89 11/26/21 07:28 Contact Lens Assistant New 4d Resp 18 11/26/21 07:28 BP 149/64 H 11/26/21 07:28 Pulse Ox 92 11/26/21 07:28 BMI result Body Mass Index 16.8 Const: Other: General: AO X 2, no acute distress Resp: CTA bilateral CVS: S1,S2,RRR GI: +BS, NT, no distention Skin: No rash Neuro: motor grossly intact Psych: appropriate affect Objective Data Active Medications Acetaminophen (Acetaminophen 325 Mg Tablet) 650 mg PO Q6H PRN PRN Reason: Pain, Mild (Pain Scale 1-3) Albuterol Sulfate (Albuterol Sulfate 90 Mcg 8 Gm Inhaler) 2 puff INHALE RQ4H PRN PRN Reason: Wheezing Folic Acid (Folic Acid 1 Mg Tablet) 1 mg PO DAILY [facility] Last Admin: 11/26/21 08:49 Dose: 1 mg Documented by: MARÍA ELENA Heparin Sodium (Porcine) (Heparin Sodium,Porcine 5,000 Unit/Ml Vial) 5,000 unit SUBCUT Q12H [facility] Last Admin: 11/26/21 05:21 Dose: 5,000 unit Documented by: JACQUI Ondansetron HCl (Ondansetron Hcl 4 Mg/2 Ml Vial) 4 mg IVPUSH Q8H PRN PRN Reason: Nausea and Vomiting Pharmacy Consult (Consult Rx Perform Med Rec) 1 each MISCELLANE ONCE PRN PRN Reason: Consult order Sodium Chloride (0.9 % Sodium Chloride Flush 3 Ml Syringe) 3 ml IVFLUSH QSHIFT [facility] Last Admin: 11/26/21 01:05 Dose: Not Given Documented by: JACQUI Non-Admin Reason: No Access Thiamine HCl (Thiamine Hcl 100 Mg Tablet) 100 mg PO DAILY [facility] Last Admin: 11/26/21 08:49 Dose: 100 mg Documented by: MARÍA ELENA Labs CBC & Chem 7: 11/17/21 12:08 11/17/21 12:08 Assessment and Plan (1) Altered mental status: Status: Acute (2) Alcohol use disorder, severe, dependence: Status: Acute (3) Dementia: Status: Acute Plan 81 yo M with a reported history of alcohol use/dependence who was brought in by ambulance after his friends had not seen him for a few days and found to have covid but assymptomatic and now with placement issues No new issues, awaiting guardianship, [place] management unchanged from prior day Covid PNA--asymptomatic, positive as of 10/19, retested on 10/27 was negative and has no symptoms Dementia-- permanent progressive Mild malnutrition ...chronic and stable Full Code DVT pptx. heparin Will get covid vaccine today Needs placement as does not have capacity to make sounds medicla decisions No active issues, CM working on placement Quality Stroke Does the patient have a stroke diagnosis?: No VTE Prior VTE?: No VTE Risk Level:: Medical - moderate - high VTE Device Contraindication: Treatment Not Indicated VTE Drug Contraindication: N/A - Med Ordered
--- NOTE | 2021-11-26 09:43 | MHC.CM.PN ---
per documentation pATIENT ADMITTED ON 10/03/21 WITH COVID 19 POSITIVE , PNA ETOH INTOXItion, dementia (permanenyt and progressing sen by psych eval , lack mental cpaity to make medical decisions) court PPOINTED TEMPORARY GUARDIAN AND CONSERVATOR FRANCOIS THEIRIENMNON 11/10/21 PATIENT HAS RECIVED HIS FIRST PFZIER SHOT ON 11/06/21 AND WILL BE GETTING HIS SECOND COVID 19 SHOT ON 11/27/21. T/C TO GUARDIDION [facility] [phone] MESSAGE LEFT FOR HER TO CALL ME BACK FOR CONSENT FOR SECOND COIVD VACCINATION . [facility] FOLLOWING.CLINICAL UPDATES SENT VIA [employer] ISCHARGE PLAN COURT ASSIGHNED GUARDIAN AND CONSERVATOR COVID VACCINATION 11/06/21 AND SECOND ONE SCHEDULED FOR 11/27/21 AROUND 12-12;30 HERE AT [facility]- APPLICATION KYLE FROM [employer]CIAL [employer]
[2021-11-26 15:32] VITALS: BP 117/70; PULSE 93; RESP 18; TEMP 36.6; O2SAT 95
[2021-11-26 23:40] VITALS: BP 109/56; PULSE 74; RESP 18; TEMP 36.6; O2SAT 94
[2021-11-27] MEDS: Heparin Sodium,Porcine 5,000 UNIT/ML VIAL 5000 UNIT SUBCUT ×2 (05:48→17:49)
[2021-11-27 07:21] VITALS: BP 114/54; PULSE 87; RESP 18; TEMP 36.2; O2SAT 92
--- NOTE | 2021-11-27 09:28 | P.PNIM_ITS ---
Subjective Subjective Date of Service: 11/27/21 Interval History: f/u on dementia and awaiting placment--seeb eating and no complaint Review of Systems no fever, no sob, no changes Physical Exam Verdana 4l Vital Signs: Verdana 4d Verdana 4d Vital Signs: Verdana 4d Verdana 4Bd Last Vital Signs Verdana 4d Window/Distribution Clerk New 4d Window/Distribution Clerk New 4d Temp 97.2 F 11/27/21 07:21 Window/Distribution Clerk New 4d Pulse 87 11/27/21 07:21 Window/Distribution Clerk New 4d Resp 18 11/27/21 07:21 BP 114/54 L 11/27/21 07:21 Pulse Ox 92 11/27/21 07:21 BMI result Body Mass Index 16.8 Const: Other: General: AO X 2, no acute distress Resp: CTA bilateral CVS: S1,S2,RRR GI: +BS, NT, no distention Skin: No rash Neuro: motor grossly intact Psych: appropriate affect Objective Data Active Medications Acetaminophen (Acetaminophen 325 Mg Tablet) 650 mg PO Q6H PRN PRN Reason: Pain, Mild (Pain Scale 1-3) Albuterol Sulfate (Albuterol Sulfate 90 Mcg 8 Gm Inhaler) 2 puff INHALE RQ4H PRN PRN Reason: Wheezing Folic Acid (Folic Acid 1 Mg Tablet) 1 mg PO DAILY [facility] Last Admin: 11/26/21 08:49 Dose: 1 mg Documented by: MARÍA ELENA Heparin Sodium (Porcine) (Heparin Sodium,Porcine 5,000 Unit/Ml Vial) 5,000 unit SUBCUT Q12H [facility] Last Admin: 11/27/21 05:48 Dose: 5,000 unit Documented by: JACQUI Ondansetron HCl (Ondansetron Hcl 4 Mg/2 Ml Vial) 4 mg IVPUSH Q8H PRN PRN Reason: Nausea and Vomiting Pharmacy Consult (Consult Rx Perform Med Rec) 1 each MISCELLANE ONCE PRN PRN Reason: Consult order Sodium Chloride (0.9 % Sodium Chloride Flush 3 Ml Syringe) 3 ml IVFLUSH QSHIFT [facility] Last Admin: 11/27/21 08:01 Dose: Not Given Documented by: FRANCY Non-Admin Reason: No Access Thiamine HCl (Thiamine Hcl 100 Mg Tablet) 100 mg PO DAILY [facility] Last Admin: 11/26/21 08:49 Dose: 100 mg Documented by: MARÍA ELENA Labs CBC & Chem 7: 11/17/21 12:08 11/17/21 12:08 Assessment and Plan (1) Altered mental status: Status: Acute (2) Alcohol use disorder, severe, dependence: Status: Acute (3) Dementia: Status: Acute Plan 81 yo M with a reported history of alcohol use/dependence who was brought in by ambulance after his friends had not seen him for a few days and found to have covid but assymptomatic and now with placement issues No new issues, awaiting guardianship, [place] management unchanged from prior day Covid PNA--asymptomatic, positive as of 10/19, retested on 10/27 was negative and has no symptoms Dementia-- permanent progressive Mild malnutrition ...chronic and stable Full Code DVT pptx. heparin Got covid vaccine 11/26/21 Needs placement as does not have capacity to make sounds medicla decisions No active issues, CM working on placement Quality Stroke Does the patient have a stroke diagnosis?: No VTE Prior VTE?: No VTE Risk Level:: Medical - moderate - high VTE Device Contraindication: Treatment Not Indicated VTE Drug Contraindication: N/A - Med Ordered
[2021-11-27] MEDS: Folic Acid 1 MG TABLET PO (10:13)
[2021-11-27] MEDS: Thiamine HCL 100 MG TABLET PO (10:14)
--- NOTE | 2021-11-27 13:36 | MHC.CM.PN ---
CALL FROM PATIENT'S GUARDIAN FRANCOIS. SHE HAS ALL THE NECESSARY MEDICAID DOCUMENTS AND IS ASKING FOR [facility] FINANCIAL COUNSELOR TO CONTACT HER. TIGER MESSAGE SENT TO CONTACT, ALONG WITH FRANCOIS'S PHONE NUMBER. CASE MANAGEMENT AFTER SCHOOL TUTOR MADE AWARE.
--- NOTE | 2021-11-27 13:40 | MHC.CM.PN ---
PATIENT RECEIVED SECOND DOSE OF [facility] COVID-19 VACCINE TODAY. INFORMATION UPLOADED INTO [employer]
--- NOTE | 2021-11-27 13:53 | MHC.CLN ---
F/U DIET= REGULAR; SUPPLEMENT ENSURE BID. SUPPLEMENT PROVIDES ADDITIONAL 700 KCAL, 40 G PROTEIN. NO REPORTED CONCERNS WITH INTAKE. SHOWS FAVORABLE, MODERATE WEIGHT GAIN X 1 MONTH, +4.4%. BMI=16.8. SKIN: NO OPEN AREAS. MODERATE MALNUTRITION. CONTINUE CURRENT DIET AND ENCOURAGE SUPPLEMENT INTAKE. MONITOR INTAKE AND WEIGHT. RD TO FOLLOW WEEKLY.
[2021-11-27 15:17] VITALS: BP 122/56; PULSE 79; RESP 18; TEMP 36.8; O2SAT 95
[2021-11-28] VITALS: BP 121/59; PULSE 88; RESP 16; TEMP 36.7; O2SAT 98
[2021-11-28] MEDS: Folic Acid 1 MG TABLET PO (07:14)
[2021-11-28] MEDS: Thiamine HCL 100 MG TABLET PO (07:14)
[2021-11-28 07:41] VITALS: BP 120/60; PULSE 95; RESP 17; TEMP 36.7; O2SAT 93
--- NOTE | 2021-11-28 09:31 | P.PNIM_ITS ---
Subjective Subjective Date of Service: 11/28/21 Interval History: f/u on dementia and awaiting placment- No new issues Review of Systems no fever, no sob, no changes Physical Exam Verdana 4l Vital Signs: Verdana 4d Verdana 4d Vital Signs: Verdana 4d Verdana 4Bd Last Vital Signs Verdana 4d Conversion Developer New 4d Conversion Developer New 4d Temp 98.0 F 11/28/21 07:41 Conversion Developer New 4d Pulse 95 11/28/21 07:41 Conversion Developer New 4d Resp 17 11/28/21 07:41 BP 120/60 11/28/21 07:41 Pulse Ox 93 11/28/21 07:41 BMI result Body Mass Index 16.8 Const: Other: General: AO X 2, no acute distress Resp: CTA bilateral CVS: S1,S2,RRR GI: +BS, NT, no distention Skin: No rash Neuro: motor grossly intact Psych: appropriate affect Objective Data Active Medications Acetaminophen (Acetaminophen 325 Mg Tablet) 650 mg PO Q6H PRN PRN Reason: Pain, Mild (Pain Scale 1-3) Albuterol Sulfate (Albuterol Sulfate 90 Mcg 8 Gm Inhaler) 2 puff INHALE RQ4H PRN PRN Reason: Wheezing Folic Acid (Folic Acid 1 Mg Tablet) 1 mg PO DAILY [facility] Last Admin: 11/28/21 07:14 Dose: 1 mg Documented by: KB Heparin Sodium (Porcine) (Heparin Sodium,Porcine 5,000 Unit/Ml Vial) 5,000 unit SUBCUT Q12H [facility] Last Admin: 11/28/21 05:35 Dose: Not Given Documented by: STACEY Non-Admin Reason: Patient Refused Ondansetron HCl (Ondansetron Hcl 4 Mg/2 Ml Vial) 4 mg IVPUSH Q8H PRN PRN Reason: Nausea and Vomiting Pharmacy Consult (Consult Rx Perform Med Rec) 1 each MISCELLANE ONCE PRN PRN Reason: Consult order Sodium Chloride (0.9 % Sodium Chloride Flush 3 Ml Syringe) 3 ml IVFLUSH QSHIFT [facility] Last Admin: 11/28/21 07:15 Dose: Not Given Documented by: KB Non-Admin Reason: No Access Thiamine HCl (Thiamine Hcl 100 Mg Tablet) 100 mg PO DAILY [facility] Last Admin: 11/28/21 07:14 Dose: 100 mg Documented by: KB Labs CBC & Chem 7: 11/17/21 12:08 11/17/21 12:08 Assessment and Plan (1) Altered mental status: Status: Acute (2) Alcohol use disorder, severe, dependence: Status: Acute (3) Dementia: Status: Acute Plan 81 yo M with a reported history of alcohol use/dependence who was brought in by ambulance after his friends had not seen him for a few days and found to have covid but assymptomatic and now with place ment issues No new issues, awaiting guardianship, [place] management unchanged from prior day Covid PNA--asymptomatic, positive as of 10/19, retested on 10/27 was negative and has no symptoms Dementia-- permanent progressive Mild malnutrition ...chronic and stable Full Code DVT pptx. heparin Got covid vaccine 11/27/21 Needs placement as does not have capacity to make sounds medicla decisions No active issues, CM working on placement Quality Stroke Does the patient have a stroke diagnosis?: No VTE Prior VTE?: No VTE Risk Level:: Medical - moderate - high VTE Device Contraindication: Treatment Not Indicated VTE Drug Contraindication: N/A - Med Ordered
[2021-11-28 15:41] VITALS: BP 109/55; PULSE 85; RESP 16; TEMP 36.6; O2SAT 93
[2021-11-29] VITALS: BP 98/49; PULSE 80; RESP 18; TEMP 36.4; O2SAT 94
[2021-11-29 07:52] VITALS: BP 132/60; PULSE 106; RESP 17; TEMP 36.2; O2SAT 94
[2021-11-29] MEDS: Thiamine HCL 100 MG TABLET PO (07:58)
[2021-11-29] MEDS: Folic Acid 1 MG TABLET PO (07:58)
--- NOTE | 2021-11-29 09:42 | P.PNIM_ITS ---
Subjective Subjective Date of Service: 11/29/21 Interval History: f/u on dementia and awaiting placment- Stable, no new issue Review of Systems no fever, no sob, no changes Physical Exam Verdana 4l Vital Signs: Verdana 4d Verdana 4d Vital Signs: Verdana 4d Verdana 4Bd Last Vital Signs Verdana 4d Draw Machine Operator New 4d Draw Machine Operator New 4d Temp 97.1 F 11/29/21 07:52 Draw Machine Operator New 4d Pulse 106 H 11/29/21 07:52 Draw Machine Operator New 4d Resp 17 11/29/21 07:52 BP 132/60 11/29/21 07:52 Pulse Ox 94 11/29/21 07:52 BMI result Body Mass Index 16.8 Const: Other: General: AO X 2, no acute distress Resp: CTA bilateral CVS: S1,S2,RRR GI: +BS, NT, no distention Skin: No rash Neuro: motor grossly intact Psych: appropriate affect Objective Data Active Medications Acetaminophen (Acetaminophen 325 Mg Tablet) 650 mg PO Q6H PRN PRN Reason: Pain, Mild (Pain Scale 1-3) Albuterol Sulfate (Albuterol Sulfate 90 Mcg 8 Gm Inhaler) 2 puff INHALE RQ4H PRN PRN Reason: Wheezing Folic Acid (Folic Acid 1 Mg Tablet) 1 mg PO DAILY [facility] Last Admin: 11/29/21 07:58 Dose: 1 mg Documented by: KB Heparin Sodium (Porcine) (Heparin Sodium,Porcine 5,000 Unit/Ml Vial) 5,000 unit SUBCUT Q12H [facility] Last Admin: 11/29/21 05:34 Dose: Not Given Documented by: STACEY Non-Admin Reason: Patient Refused Ondansetron HCl (Ondansetron Hcl 4 Mg/2 Ml Vial) 4 mg IVPUSH Q8H PRN PRN Reason: Nausea and Vomiting Pharmacy Consult (Consult Rx Perform Med Rec) 1 each MISCELLANE ONCE PRN PRN Reason: Consult order Sodium Chloride (0.9 % Sodium Chloride Flush 3 Ml Syringe) 3 ml IVFLUSH QSHIFT [facility] Last Admin: 11/29/21 08:40 Dose: Not Given Documented by: KB Non-Admin Reason: No Access Thiamine HCl (Thiamine Hcl 100 Mg Tablet) 100 mg PO DAILY [facility] Last Admin: 02/06/22 07:58 Dose: 100 mg Documented by: KB Labs CBC & Chem 7: 11/17/21 12:08 11/17/21 12:08 Assessment and Plan (1) Altered mental status: Status: Acute (2) Alcohol use disorder, severe, dependence: Status: Acute (3) Dementia: Status: Acute Plan 81 yo M with a reported history of alcohol use/dependence who was brought in by ambulance after his friends had not seen him for a few days and found to have covid but assymptomatic and now with placement issues No new issues, awaiting guardianship, [place] management unchanged from Covid PNA--asymptomatic, positive as of 10/19, retested on 10/27 was negative and has no symptoms Dementia-- permanent progressive Mild malnutrition ...chronic and stable Full Code DVT pptx he walks around all day Got covid vaccine 11/27/21 Needs placement as does not have capacity to make sounds medicla decisions No active issues, CM working on placement Quality Stroke Does the patient have a stroke diagnosis?: No VTE Prior VTE?: No VTE Risk Level:: Medical - moderate - high VTE Device Contraindication: Treatment Not Indicated VTE Drug Contraindication: N/A - Med Ordered
[2021-11-29 15:52] VITALS: BP 95/51; PULSE 81; RESP 18; TEMP 36.8; O2SAT 92
[2021-11-29 23:36] VITALS: BP 101/56; PULSE 78; RESP 16; TEMP 36.1; O2SAT 91
[2021-11-30 07:46] VITALS: BP 120/66; PULSE 88; RESP 18; TEMP 36.1
[2021-11-30] MEDS: Folic Acid 1 MG TABLET PO (07:56)
[2021-11-30] MEDS: Thiamine HCL 100 MG TABLET PO (07:56)
--- NOTE | 2021-11-30 09:09 | P.PNIM_ITS ---
Subjective Subjective Date of Service: 11/30/21 Interval History: f/u on dementia and awaiting placment- Stable, no new issue Review of Systems no fever, no sob, no changes Physical Exam Verdana 4l Vital Signs: Verdana 4d Verdana 4d Vital Signs: Verdana 4d Verdana 4Bd Last Vital Signs Verdana 4d Water Filtration Technician New 4d Water Filtration Technician New 4d Temp 97.0 F 11/30/21 07:46 Water Filtration Technician New 4d Pulse 88 11/30/21 07:46 Water Filtration Technician New 4d Resp 18 11/30/21 07:46 BP 120/66 11/30/21 07:46 Pulse Ox 91 L 11/29/21 23:36 BMI result Body Mass Index 16.8 Const: Other: General: AO X 2, no acute distress Resp: CTA bilateral CVS: S1,S2,RRR GI: +BS, NT, no distention Skin: No rash Neuro: motor grossly intact Psych: appropriate affect Objective Data Active Medications Acetaminophen (Acetaminophen 325 Mg Tablet) 650 mg PO Q6H PRN PRN Reason: Pain, Mild (Pain Scale 1-3) Albuterol Sulfate (Albuterol Sulfate 90 Mcg 8 Gm Inhaler) 2 puff INHALE RQ4H PRN PRN Reason: Wheezing Folic Acid (Folic Acid 1 Mg Tablet) 1 mg PO DAILY [facility] Last Admin: 11/30/21 07:56 Dose: 1 mg Documented by: FANNIE Heparin Sodium (Porcine) (Heparin Sodium,Porcine 5,000 Unit/Ml Vial) 5,000 unit SUBCUT Q12H [facility] Last Admin: 11/30/21 05:19 Dose: Not Given Documented by: NOY Non-Admin Reason: Patient Refused Ondansetron HCl (Ondansetron Hcl 4 Mg/2 Ml Vial) 4 mg IVPUSH Q8H PRN PRN Reason: Nausea and Vomiting Pharmacy Consult (Consult Rx Perform Med Rec) 1 each MISCELLANE ONCE PRN PRN Reason: Consult order Sodium Chloride (0.9 % Sodium Chloride Flush 3 Ml Syringe) 3 ml IVFLUSH QSHIFT [facility] 234 [facility]EDS [facility] Last Admin: 11/30/21 07:13 Dose: Not Given Documented by: FANNIE Non-Admin Reason: No Access Thiamine HCl (Thiamine Hcl 100 Mg Tablet) 100 mg PO DAILY [facility] Last Admin: 11/30/21 07:56 Dose: 100 mg Documented by: FANNIE Labs CBC & Chem 7: 11/17/21 12:08 11/17/21 12:08 Assessment and Plan (1) Altered mental status: Status: Acute (2) Alcohol use disorder, severe, dependence: Status: Acute (3) Dementia: Status: Acute Plan 81 yo M with a reported history of alcohol use/dependence who was brought in by ambulance after his friends had not seen him for a few days and found to have covid but assymptomatic and now with placement issues No new issues, awaiting guardianship, [place] management unchanged from Covid PNA--asymptomatic, positive as of 10/19, retested on 10/27 was negative and has no symptoms Dementia-- permanent progressive Mild malnutrition ...chronic and stable Full Code DVT pptx he walks around all day Got covid vaccine 11/27/21 Needs placement as does not have capacity to make sounds medicla decisions No active issues, CM working on placement Quality Stroke Does the patient have a stroke diagnosis?: No VTE Prior VTE?: No VTE Risk Level:: Medical - moderate - high VTE Device Contraindication: Treatment Not Indicated VTE Drug Contraindication: N/A - Med Ordered
[2021-11-30 16:00] VITALS: BP 109/54; PULSE 89; RESP 18; TEMP 36.6; O2SAT 92
[2021-11-30] MEDS: Heparin Sodium,Porcine 5,000 UNIT/ML VIAL 5000 UNIT SUBCUT (16:29)
[2021-11-30 23:38] VITALS: BP 113/55; PULSE 90; RESP 18; TEMP 36.6; O2SAT 91
[2021-12-01] MEDS: Heparin Sodium,Porcine 5,000 UNIT/ML VIAL 5000 UNIT SUBCUT (06:15)
[2021-12-01 07:14] VITALS: BP 122/58; PULSE 96; RESP 20; TEMP 36.4; O2SAT 97
[2021-12-01] MEDS: Thiamine HCL 100 MG TABLET PO (08:18)
[2021-12-01] MEDS: Folic Acid 1 MG TABLET PO (08:18)
--- NOTE | 2021-12-01 14:10 | HO.PM.IMPN ---
Subjective Subjective Date of Service: 12/01/21 Interval History: f/u on dementia and awaiting placment Review of Systems Denies any chest pain or shortness of breath or abdominal pain, eating breakfast. Physical Exam Vital Signs: Vital Signs: Last Vital Signs Temp 97.5 F 12/01/21 07:14 Pulse 96 12/01/21 07:14 Resp 20 12/01/21 07:14 BP 122/58 L 12/01/21 07:14 Pulse Ox 97 12/01/21 07:14 BMI result Body Mass Index 16.8 General: AO X 2, no acute distress Resp:? CTA bilateral CVS: S1,S2,RRR GI: +BS, NT, no distention Skin: No rash Neuro:? motor grossly intact Psych: appropriate affect Objective Data Active Medications Acetaminophen (Acetaminophen 325 Mg Tablet) 650 mg PO Q6H PRN PRN Reason: Pain, Mild (Pain Scale 1-3) Albuterol Sulfate (Albuterol Sulfate 90 Mcg 8 Gm Inhaler) 2 puff INHALE RQ4H PRN PRN Reason: Wheezing Folic Acid (Folic Acid 1 Mg Tablet) 1 mg PO DAILY [facility] Last Admin: 12/01/21 08:18 Dose: 1 mg Documented by: MARÍA ELENA Heparin Sodium (Porcine) (Heparin Sodium,Porcine 5,000 Unit/Ml Vial) 5,000 unit SUBCUT Q12H [facility] Last Admin: 12/01/21 06:15 Dose: 5,000 unit Documented by: NATHANAEL Ondansetron HCl (Ondansetron Hcl 4 Mg/2 Ml Vial) 4 mg IVPUSH Q8H PRN PRN Reason: Nausea and Vomiting Pharmacy Consult (Consult Rx Perform Med Rec) 1 each MISCELLANE ONCE PRN PRN Reason: Consult order Sodium Chloride (0.9 % Sodium Chloride Flush 3 Ml Syringe) 3 ml IVFLUSH QSHIFT [facility] Last Admin: 12/01/21 08:19 Dose: Not Given Documented by: MARÍA ELENA Non-Admin Reason: No Access Thiamine HCl (Thiamine Hcl 100 Mg Tablet) 100 mg PO DAILY [facility] Last Admin: 12/01/21 08:18 Dose: 100 mg Documented by: MARÍA ELENA Labs CBC & Chem 7: 11/17/21 12:08 11/17/21 12:08 Assessment and Plan (1) Altered mental status: Status: Acute (2) Alcohol use disorder, severe, dependence: Status: Acute (3) Dementia: Status: Acute Plan 81 yo M with a reported history of alcohol use/dependence who was brought in by ambulance after his friends had not seen him for a few days and found to have covid but assymptomatic and now with placement issues No new issues, awaiting guardianship, [place] management unchanged from prior day 1.Covid PNA--asymptomatic, positive as of 10/19, retested on 10/27 was negative and has no symptoms 2.Dementia-- permanent progressive 3.Mild malnutrition ...chronic and stable Full Code DVT pptx he walks around all day Got covid vaccine 11/27/21 Needs placement as does not have capacity to make sounds medicla decisions No active issues, CM working on placement Quality Stroke Does the patient have a stroke diagnosis?: No VTE Prior VTE?: No VTE Risk Level:: Medical - moderate - high VTE Device Contraindication: Treatment Not Indicated VTE Drug Contraindication: N/A - Med Ordered
[2021-12-01 15:21] VITALS: BP 118/65; PULSE 89; RESP 18; TEMP 36.7; O2SAT 100
[2021-12-02] VITALS: BP 125/61; PULSE 79; RESP 18; TEMP 36.5; O2SAT 92
[2021-12-02] MEDS: Heparin Sodium,Porcine 5,000 UNIT/ML VIAL 5000 UNIT SUBCUT ×2 (06:24→17:35)
[2021-12-02] MEDS: Thiamine HCL 100 MG TABLET PO (07:27)
[2021-12-02] MEDS: Folic Acid 1 MG TABLET PO (07:27)
[2021-12-02 07:36] VITALS: BP 119/62; PULSE 92; RESP 20; TEMP 36.2; O2SAT 92
--- NOTE | 2021-12-02 13:00 | HO.PM.IMPN ---
Subjective Subjective Date of Service: 12/02/21 Interval History: f/u on dementia and awaiting placment Review of Systems Denies any chest pain or shortness of breath or abdominal pain, eating breakfast. Physical Exam Vital Signs: Vital Signs: Last Vital Signs Temp 97.2 F 12/02/21 07:36 Pulse 92 12/02/21 07:36 Resp 20 12/02/21 07:36 BP 119/62 12/02/21 07:36 Pulse Ox 92 12/02/21 07:36 BMI result Body Mass Index 16.8 General: AO X 2, no acute distress Resp:? CTA bilateral CVS: S1,S2,RRR GI: +BS, NT, no distention Skin: No rash Neuro:? motor grossly intact Psych: appropriate affect Objective Data Active Medications Acetaminophen (Acetaminophen 325 Mg Tablet) 650 mg PO Q6H PRN PRN Reason: Pain, Mild (Pain Scale 1-3) Albuterol Sulfate (Albuterol Sulfate 90 Mcg 8 Gm Inhaler) 2 puff INHALE RQ4H PRN PRN Reason: Wheezing Folic Acid (Folic Acid 1 Mg Tablet) 1 mg PO DAILY [facility] Last Admin: 12/02/21 07:27 Dose: 1 mg Documented by: MARÍA ELENA Heparin Sodium (Porcine) (Heparin Sodium,Porcine 5,000 Unit/Ml Vial) 5,000 unit SUBCUT Q12H [facility] Last Admin: 12/02/21 06:24 Dose: 5,000 unit Documented by: NATHANAEL Ondansetron HCl (Ondansetron Hcl 4 Mg/2 Ml Vial) 4 mg IVPUSH Q8H PRN PRN Reason: Nausea and Vomiting Pharmacy Consult (Consult Rx Perform Med Rec) 1 each MISCELLANE ONCE PRN PRN Reason: Consult order Sodium Chloride (0.9 % Sodium Chloride Flush 3 Ml Syringe) 3 ml IVFLUSH QSHIFT [facility] Last Admin: 12/02/21 07:25 Dose: Not Given Documented by: MARÍA ELENA Non-Admin Reason: No Insulin Coverage Thiamine HCl (Thiamine Hcl 100 Mg Tablet) 100 mg PO DAILY [facility] Last Admin: 12/02/21 07:27 Dose: 100 mg Documented by: MARÍA ELENA Labs CBC & Chem 7: 11/17/21 12:08 11/17/21 12:08 Assessment and Plan (1) Dementia: Status: Acute Plan 81 yo M with a reported history of alcohol use/dependence who was brought in by ambulance after his friends had not seen him for a few days and found to have covid but assymptomatic and now with placement issues No new issues, awaiting guardianship, [place] management unchanged from prior day 1.Covid PNA--asymptomatic, positive as of 10/19, retested on 10/27 was negative and has no symptoms 2.Dementia-- permanent progressive 3.Mild malnutrition ...chronic and stable Full Code DVT pptx he walks around all day Got covid vaccine 11/27/21 Needs placement as does not have capacity to make sounds medical decisions No active issues, CM working on placement Quality Stroke Does the patient have a stroke diagnosis?: No VTE Prior VTE?: No VTE Risk Level:: Medical - moderate - high VTE Device Contraindication: Treatment Not Indicated VTE Drug Contraindication: N/A - Med Ordered
--- NOTE | 2021-12-02 14:00 | MHC.CM.PN ---
EMR REVIEWED, PT REMAINS MEDICALLY CLEARED, PT RECEIVED 2ND PFIZER VACCINE 12/04/21, CM CONTACTED FS TO CHECK ON STATUS OF MH PLAN, PER FS THEY HAVE RECEIVED PROOF OF INCOME AND KNOWN ASSETS, FS AWAITING SIGNATURE PAGE FOR THE [facility] AND THE [facility] LEX AND HAD CONFIRMED W/CONSERVATOR ON TUESDAY THAT SHE RECEIVED EMAIL, FS REPORTS THEY ATTEMPTED TO CONTACT CONSERVATOR TODAY TO FOLLOW-UP AND PROVIDED HER FAX NUMBER WELL. CM WILL CONT TO FOLLOW D/C NEEDS.
[2021-12-02 15:00] VITALS: BMI 16.5
[2021-12-02 16:00] VITALS: BP 107/53; PULSE 85; RESP 18; TEMP 36.7; O2SAT 92
[2021-12-02 23:38] VITALS: BP 102/55; PULSE 84; RESP 15; TEMP 36.4; O2SAT 93
[2021-12-03] MEDS: Heparin Sodium,Porcine 5,000 UNIT/ML VIAL 5000 UNIT SUBCUT ×2 (05:38→17:47)
[2021-12-03 07:36] VITALS: BP 119/56; PULSE 89; RESP 16; TEMP 36.4; O2SAT 92
[2021-12-03] MEDS: Folic Acid 1 MG TABLET PO (07:37)
[2021-12-03] MEDS: Thiamine HCL 100 MG TABLET PO (07:37)
--- NOTE | 2021-12-03 09:04 | MHC.CM.PN ---
CM RECEIVED MESSAGE FROM FS THAT THEY RECEIVED ALL SIGNED DOCUMENTS FROM PT'S CONSERVATOR FRANCOIS AND THEY WILL BE FAXING HIS LEX TO TODAY.
--- NOTE | 2021-12-03 13:43 | HO.PM.IMPN ---
Subjective Subjective Date of Service: 12/03/21 Interval History: f/u on dementia and awaiting placement Review of Systems Denies any nausea,chest pain or shortness of breath or abdominal pain. Physical Exam Vital Signs: Vital Signs: Last Vital Signs Temp 97.6 F 12/03/21 07:36 Pulse 89 12/03/21 07:36 Resp 16 12/03/21 07:36 BP 119/56 L 12/03/21 07:36 Pulse Ox 92 12/03/21 07:36 BMI result Body Mass Index 16.5 ?General: AO X 2, no acute distress Resp:? CTA bilateral CVS: S1,S2,RRR GI: +BS, NT, no distention Skin: No rash Neuro:? motor grossly intact Psych: appropriate affect Objective Data Active Medications Acetaminophen (Acetaminophen 325 Mg Tablet) 650 mg PO Q6H PRN PRN Reason: Pain, Mild (Pain Scale 1-3) Albuterol Sulfate (Albuterol Sulfate 90 Mcg 8 Gm Inhaler) 2 puff INHALE RQ4H PRN PRN Reason: Wheezing Folic Acid (Folic Acid 1 Mg Tablet) 1 mg PO DAILY [facility] Last Admin: 12/03/21 07:37 Dose: 1 mg Documented by: KELLY Heparin Sodium (Porcine) (Heparin Sodium,Porcine 5,000 Unit/Ml Vial) 5,000 unit SUBCUT Q12H [facility] Last Admin: 12/03/21 05:38 Dose: 5,000 unit Documented by: MENDEZ Ondansetron HCl (Ondansetron Hcl 4 Mg/2 Ml Vial) 4 mg IVPUSH Q8H PRN PRN Reason: Nausea and Vomiting Pharmacy Consult (Consult Rx Perform Med Rec) 1 each MISCELLANE ONCE PRN PRN Reason: Consult order Sodium Chloride (0.9 % Sodium Chloride Flush 3 Ml Syringe) 3 ml IVFLUSH QSHIFT [facility] Last Admin: 12/03/21 07:37 Dose: Not Given Documented by: KELLY Non-Admin Reason: No Access Thiamine HCl (Thiamine Hcl 100 Mg Tablet) 100 mg PO DAILY [facility] Last Admin: 12/03/21 07:37 Dose: 100 mg Documented by: KELLY Labs CBC & Chem 7: 11/17/21 12:08 11/17/21 12:08 Assessment and Plan (1) Dementia: Status: Acute Plan 81 yo M with a reported history of alcohol use/dependence who was brought in by ambulance after his friends had not seen him for a few days and found to have covid but assymptomatic and now with placement issues No new issues, awaiting guardianship, [place] management unchanged from prior day 1.Covid PNA--asymptomatic, positive as of 10/19, retested on 10/27 was negative and has no symptoms 2.Dementia-- permanent progressive 3.Mild malnutrition ...chronic and stable Full Code DVT pptx he walks around all day Got covid vaccine 11/27/21 Needs placement as does not have capacity to make sounds medical decisions No active issues, CM working on placement Quality Stroke Does the patient have a stroke diagnosis?: No VTE Prior VTE?: No VTE Risk Level:: Medical - moderate - high VTE Device Contraindication: Treatment Not Indicated VTE Drug Contraindication: N/A - Med Ordered
--- NOTE | 2021-12-03 15:14 | MHC.CM.PN ---
GUARDIAN/CONSERVATOR IS ALSO ASKING FOR A REFERRAL TO THE [facility]. SNF REFERRAL UPDATED TO INCLUDE PER [facility], IT COULD TAKE 1-2 WEEKS FOR A DETERMINATION. SHE DID ASK FOR THE APPLICATION TO BE EXPEDITED AND WILL UPDATE CASE MANAGEMENT [facility] STILL FOLLOWING AND RESPONDING
[2021-12-03 16:00] VITALS: BP 148/69; PULSE 100; RESP 16; TEMP 36.7; O2SAT 92
[2021-12-03 23:52] VITALS: BP 122/65; PULSE 73; RESP 18; TEMP 36.2; O2SAT 94
[2021-12-04] MEDS: Heparin Sodium,Porcine 5,000 UNIT/ML VIAL 5000 UNIT SUBCUT ×2 (05:47→16:27)
[2021-12-04 07:26] VITALS: BP 138/61; PULSE 83; RESP 17; TEMP 36.4; O2SAT 93
[2021-12-04] MEDS: Thiamine HCL 100 MG TABLET PO (08:55)
[2021-12-04] MEDS: Folic Acid 1 MG TABLET PO (08:55)
--- NOTE | 2021-12-04 10:10 | MHC.CLN ---
F/U PATIENT AWAITING PLACEMENT. DIET= REGULAR; SUPPLEMENT ENSURE BID. SUPPLEMENT PROVIDES ADDITIONAL 700 KCAL, 40 G PROTEIN. NO REPORTED CONCERNS WITH INTAKE. WEIGHT 12/02=46.3 KG, BMI=15.5. SKIN: NO OPEN AREAS. MODERATE MALNUTRITION. CONTINUE CURRENT DIET AND ENCOURAGE SUPPLEMENT INTAKE. RD TO FOLLOW WEEKLY.
--- NOTE | 2021-12-04 13:44 | HO.PM.IMPN ---
Subjective Subjective Date of Service: 12/04/21 Interval History: f/u on dementia and awaiting placement Review of Systems Denies any nausea,chest pain or shortness of breath or abdominal pain. Physical Exam Vital Signs: Vital Signs: Last Vital Signs Temp 97.5 F 12/04/21 07:26 Pulse 83 12/04/21 07:26 Resp 17 12/04/21 07:26 BP 138/61 12/04/21 07:26 Pulse Ox 93 12/04/21 07:26 BMI result Body Mass Index 16.5 ?General: AO X 2, no acute distress Resp:? CTA bilateral CVS: S1,S2,RRR GI: +BS, NT, no distention Skin: No rash Neuro:? motor grossly intact Psych: appropriate affect Objective Data Active Medications Acetaminophen (Acetaminophen 325 Mg Tablet) 650 mg PO Q6H PRN PRN Reason: Pain, Mild (Pain Scale 1-3) Albuterol Sulfate (Albuterol Sulfate 90 Mcg 8 Gm Inhaler) 2 puff INHALE RQ4H PRN PRN Reason: Wheezing Folic Acid (Folic Acid 1 Mg Tablet) 1 mg PO DAILY [facility] Last Admin: 12/04/21 08:55 Dose: 1 mg Documented by: MARÍA ELENA Heparin Sodium (Porcine) (Heparin Sodium,Porcine 5,000 Unit/Ml Vial) 5,000 unit SUBCUT Q12H [facility] Last Admin: 12/04/21 05:47 Dose: 5,000 unit Documented by: ARTEMIOQC Ondansetron HCl (Ondansetron Hcl 4 Mg/2 Ml Vial) 4 mg IVPUSH Q8H PRN PRN Reason: Nausea and Vomiting Pharmacy Consult (Consult Rx Perform Med Rec) 1 each MISCELLANE ONCE PRN PRN Reason: Consult order Sodium Chloride (0.9 % Sodium Chloride Flush 3 Ml Syringe) 3 ml IVFLUSH QSHIFT [facility] Last Admin: 12/04/21 09:04 Dose: Not Given Documented by: MARÍA ELENA Non-Admin Reason: No Access Thiamine HCl (Thiamine Hcl 100 Mg Tablet) 100 mg PO DAILY [facility] Last Admin: 12/04/21 08:55 Dose: 100 mg Documented by: MARÍA ELENA Labs CBC & Chem 7: 11/17/21 12:08 11/17/21 12:08 Assessment and Plan (1) Dementia: Status: Acute Plan 81 yo M with a reported history of alcohol use/dependence who was brought in by ambulance after his friends had not seen him for a few days and found to have covid but assymptomatic and now with placement issues No new issues, awaiting guardianship, [place] management unchanged from prior day 1.Covid PNA--asymptomatic, positive as of 10/19, retested on 10/27 was negative and has no symptoms 2.Dementia-- permanent progressive 3.Mild malnutrition ...chronic and stable Full Code DVT pptx he walks around all day Got covid vaccine 11/27/21 Needs placement as does not have capacity to make sounds medical decisions No active issues, CM working on placement Quality Stroke Does the patient have a stroke diagnosis?: No VTE Prior VTE?: No VTE Risk Level:: Medical - moderate - high VTE Device Contraindication: Treatment Not Indicated VTE Drug Contraindication: N/A - Med Ordered
[2021-12-04 15:52] VITALS: BP 109/66; PULSE 101; RESP 18; TEMP 36.6; O2SAT 93
[2021-12-04 23:36] VITALS: BP 130/58; PULSE 73; RESP 18; TEMP 36.3; O2SAT 94
[2021-12-05] MEDS: Heparin Sodium,Porcine 5,000 UNIT/ML VIAL 5000 UNIT SUBCUT ×2 (05:53→16:53)
[2021-12-05 07:58] VITALS: BP 138/71; PULSE 116; RESP 18; TEMP 36.4; O2SAT 92
[2021-12-05] MEDS: Folic Acid 1 MG TABLET PO (08:02)
[2021-12-05] MEDS: Thiamine HCL 100 MG TABLET PO (08:02)
--- NOTE | 2021-12-05 09:45 | P.PNIM_ITS ---
Subjective Subjective Date of Service: 12/05/21 Interval History: f/u on dementia and awaiting placement Review of Systems Denies new c/o -no nausea,chest pain or shortness of breath or abdominal pain. Physical Exam Vital Signs: Vital Signs: Last Vital Signs Temp 97.5 F 12/05/21 07:58 Pulse 116 H 12/05/21 07:58 Resp 18 12/05/21 07:58 BP 138/71 12/05/21 07:58 Pulse Ox 92 12/05/21 07:58 BMI result Body Mass Index 16.5 Objective Data Active Medications Acetaminophen (Acetaminophen 325 Mg Tablet) 650 mg PO Q6H PRN PRN Reason: Pain, Mild (Pain Scale 1-3) Albuterol Sulfate (Albuterol Sulfate 90 Mcg 8 Gm Inhaler) 2 puff INHALE RQ4H PRN PRN Reason: Wheezing Folic Acid (Folic Acid 1 Mg Tablet) 1 mg PO DAILY [facility] Last Admin: 12/05/21 08:02 Dose: 1 mg Documented by: MARIALUISA Heparin Sodium (Porcine) (Heparin Sodium,Porcine 5,000 Unit/Ml Vial) 5,000 unit SUBCUT Q12H [facility] Last Admin: 12/05/21 05:53 Dose: 5,000 unit Documented by: NATHANAEL Ondansetron HCl (Ondansetron Hcl 4 Mg/2 Ml Vial) 4 mg IVPUSH Q8H PRN PRN Reason: Nausea and Vomiting Pharmacy Consult (Consult Rx Perform Med Rec) 1 each MISCELLANE ONCE PRN PRN Reason: Consult order Sodium Chloride (0.9 % Sodium Chloride Flush 3 Ml Syringe) 3 ml IVFLUSH QSHIFT [facility] Last Admin: 12/05/21 07:49 Dose: Not Given Documented by: MARIALUISA Non-Admin Reason: No Access Thiamine HCl (Thiamine Hcl 100 Mg Tablet) 100 mg PO DAILY [facility] Last Admin: 12/05/21 08:02 Dose: 100 mg Documented by: MARIALUISA Labs CBC & Chem 7: 11/17/21 12:08 11/17/21 12:08 Assessment and Plan (1) Dementia: Status: Acute Plan 81 yo M with a reported history of alcohol use/dependence who was brought in by ambulance after his friends had not seen him for a few days and found to have covid but assymptomatic and now with placement issues No new issues, awaiting guardianship, [place] management unchanged from prior day 1.Covid PNA--asymptomatic, positive as of 10/19, retested on 10/27 was negative and has no symptoms 2.Dementia-- permanent progressive 3.Mild malnutrition ...chronic and stable Full Code DVT pptx he walks around all day Got covid vaccine 11/27/21 Needs placement as does not have capacity to make sounds medical decisions No active issues, CM working on placement Quality Stroke Does the patient have a stroke diagnosis?: No VTE Prior VTE?: No VTE Risk Level:: Medical - moderate - high VTE Device Contraindication: Treatment Not Indicated VTE Drug Contraindication: N/A - Med Ordered
[2021-12-05 15:25] VITALS: BP 122/56; PULSE 95; RESP 17; TEMP 36.6; O2SAT 92
[2021-12-05 23:42] VITALS: BP 118/79; PULSE 83; RESP 20; TEMP 36.5; O2SAT 91
[2021-12-06] MEDS: Heparin Sodium,Porcine 5,000 UNIT/ML VIAL 5000 UNIT SUBCUT (05:50)
[2021-12-06 07:35] VITALS: BP 129/58; PULSE 92; RESP 18; TEMP 36.4; O2SAT 92
[2021-12-06] MEDS: Folic Acid 1 MG TABLET PO (08:48)
[2021-12-06] MEDS: Thiamine HCL 100 MG TABLET PO (08:48)
--- NOTE | 2021-12-06 12:14 | HO.PM.IMPN ---
Subjective Subjective Date of Service: 12/06/21 Interval History: cough f/u on dementia and awaiting placement Review of Systems Patient has cough, dry, was smoking until came to the hospital. probably smoker's cough Physical Exam Vital Signs: Vital Signs: Last Vital Signs Temp 97.6 F 12/06/21 07:35 Pulse 92 12/06/21 07:35 Resp 18 12/06/21 07:35 BP 129/58 L 12/06/21 07:35 Pulse Ox 92 12/06/21 07:35 BMI result Body Mass Index 16.5 ??General: AO X 2, no acute distress Resp:? mostly good air entry, more some wheezing scattered CVS: S1,S2,RRR GI: +BS, NT, no distention Skin: No rash Neuro:? motor grossly intact Psych: appropriate affect Objective Data Active Medications Acetaminophen (Acetaminophen 325 Mg Tablet) 650 mg PO Q6H PRN PRN Reason: Pain, Mild (Pain Scale 1-3) Albuterol Sulfate (Albuterol Sulfate 90 Mcg 8 Gm Inhaler) 2 puff INHALE RQ4H PRN PRN Reason: Wheezing Fluticasone/Vilanterol (Fluticasone/Vilanterol 200/25 Blst.W.Dev) 1 puff INHALE RDAILY [facility] Folic Acid (Folic Acid 1 Mg Tablet) 1 mg PO DAILY [facility] Last Admin: 12/06/21 08:48 Dose: 1 mg Documented by: MARIALUISA Guaifenesin (Guaifenesin 100 Mg/5 Ml Liquid) 5 ml PO Q6H PRN PRN Reason: Cough Heparin Sodium (Porcine) (Heparin Sodium,Porcine 5,000 Unit/Ml Vial) 5,000 unit SUBCUT Q12H [facility] Last Admin: 12/06/21 05:50 Dose: 5,000 unit Documented by: NATHANAEL Ondansetron HCl (Ondansetron Hcl 4 Mg/2 Ml Vial) 4 mg IVPUSH Q8H PRN PRN Reason: Nausea and Vomiting Pharmacy Consult (Consult Rx Perform Med Rec) 1 each MISCELLANE ONCE PRN PRN Reason: Consult order Prednisone (Prednisone 20 Mg Tablet) 40 mg PO DAILY [facility] Sodium Chloride (0.9 % Sodium Chloride Flush 3 Ml Syringe) 3 ml IVFLUSH QSHIFT [facility] Last Admin: 12/06/21 08:49 Dose: Not Given Documented by: MARIALUISA Non-Admin Reason: No Access Thiamine HCl (Thiamine Hcl 100 Mg Tablet) 100 mg PO DAILY [facility] Last Admin: 12/06/21 08:48 Dose: 100 mg Documented by: MARIALUISA Labs CBC & Chem 7: 11/17/21 12:08 11/17/21 12:08 Assessment and Plan (1) Dementia: Status: Acute (2) Cough: Status: Acute Plan 81 yo M with a reported history of alcohol use/dependence who was brought in by ambulance after his friends had not seen him for a few days and found to have covid but assymptomatic and now with placement issues No new issues, awaiting guardianship, [place] management unchanged from prior day 1.Covid PNA--asymptomatic, positive as of 10/19, retested on 10/27 was negative and has no symptoms 2.Dementia-- permanent progressive 3.Mild malnutrition ...chronic and stable. 4. smoker cough /emphysema : continue albuterol , added cough medication . Full Code DVT pptx he walks around all day Got covid vaccine 11/27/21 Needs placement as does not have capacity to make sounds medical decisions No active issues, CM working on placement Quality Stroke Does the patient have a stroke diagnosis?: No VTE Prior VTE?: No VTE Risk Level:: Medical - moderate - high VTE Device Contraindication: Treatment Not Indicated VTE Drug Contraindication: N/A - Med Ordered
[2021-12-06] MEDS: predniSONE 20 MG TABLET 40 MG PO (12:21)
[2021-12-06] MEDS: guaiFENesin 100 MG/5 ML LIQUID PO (12:21)
[2021-12-06 16:00] VITALS: BP 118/59; PULSE 84; RESP 18; TEMP 36.8; O2SAT 94
[2021-12-06 23:34] VITALS: BP 107/51; PULSE 82; RESP 16; TEMP 36.6; O2SAT 97
[2021-12-07] MEDS: Heparin Sodium,Porcine 5,000 UNIT/ML VIAL 5000 UNIT SUBCUT (05:30)
[2021-12-07 07:22] VITALS: BP 104/54; PULSE 71; RESP 16; TEMP 36.2; O2SAT 94
[2021-12-07] MEDS: predniSONE 20 MG TABLET 40 MG PO (07:26)
[2021-12-07] MEDS: Thiamine HCL 100 MG TABLET PO (07:27)
[2021-12-07] MEDS: Folic Acid 1 MG TABLET PO (07:27)
--- NOTE | 2021-12-07 12:26 | P.PNIM_ITS ---
Subjective Subjective Date of Service: 12/07/21 Interval History: cough f/u on dementia and awaiting placement Review of Systems Patient has cough, dry, was smoking until came to the hospital. ?probably smoker's cough Physical Exam Vital Signs: Vital Signs: Last Vital Signs Temp 97.2 F 12/07/21 07:22 Pulse 71 12/07/21 07:22 Resp 16 12/07/21 07:22 BP 104/54 L 12/07/21 07:22 Pulse Ox 94 12/07/21 07:22 BMI result Body Mass Index 16.5 ??General: AO X 2, no acute distress Resp:?? mostly good air entry, more some wheezing scattered CVS: S1,S2,RRR GI: +BS, NT, no distention Skin: No rash Neuro:? motor grossly intact Psych: appropriate affec Objective Data Active Medications Acetaminophen (Acetaminophen 325 Mg Tablet) 650 mg PO Q6H PRN PRN Reason: Pain, Mild (Pain Scale 1-3) Albuterol Sulfate (Albuterol Sulfate 90 Mcg 8 Gm Inhaler) 2 puff INHALE RQ4H PRN PRN Reason: Wheezing Fluticasone/Vilanterol (Fluticasone/Vilanterol 200/25 Blst.W.Dev) 1 puff INHALE RDAILY [facility] Last Admin: 12/07/21 07:30 Dose: Not Given Documented by: KB Non-Admin Reason: Patient Refused Folic Acid (Folic Acid 1 Mg Tablet) 1 mg PO DAILY [facility] Last Admin: 12/07/21 07:27 Dose: 1 mg Documented by: KB Guaifenesin (Guaifenesin 100 Mg/5 Ml Liquid) 5 ml PO Q6H PRN PRN Reason: Cough Last Admin: 12/06/21 12:21 Dose: 5 ml Documented by: MARIALUISA Heparin Sodium (Porcine) (Heparin Sodium,Porcine 5,000 Unit/Ml Vial) 5,000 unit SUBCUT Q12H [facility] Last Admin: 12/07/21 05:30 Dose: 5,000 unit Documented by: STACEY Ondansetron HCl (Ondansetron Hcl 4 Mg/2 Ml Vial) 4 mg IVPUSH Q8H PRN PRN Reason: Nausea and Vomiting Pharmacy Consult (Consult Rx Perform Med Rec) 1 each MISCELLANE ONCE PRN PRN Reason: Consult order Prednisone (Prednisone 20 Mg Tablet) 40 mg PO DAILY [facility] Last Admin: 12/07/21 07:26 Dose: 40 mg Documented by: KB Sodium Chloride (0.9 % Sodium Chloride Flush 3 Ml Syringe) 3 ml IVFLUSH QSHIFT [facility] Last Admin: 12/07/21 07:30 Dose: Not Given Documented by: KB Non-Admin Reason: No Access Thiamine HCl (Thiamine Hcl 100 Mg Tablet) 100 mg PO DAILY [facility] Last Admin: 12/07/21 07:27 Dose: 100 mg Documented by: KB Labs CBC & Chem 7: 11/17/21 12:08 11/17/21 12:08 Assessment and Plan (1) Dementia: Status: Acute (2) Cough: Status: Acute Plan 81 yo M with a reported history of alcohol use/dependence who was brought in by ambulance after his friends had not seen him for a few days and found to have covid but assymptomatic and now with placement issues No new issues, awaiting guardianship, [place] management unchanged from prior day 1.Covid PNA--asymptomatic, positive as of 10/19, retested on 10/27 was negative and has no symptoms 2.Dementia-- permanent progressive 3.Mild malnutrition ...chronic and stable. 4. smoker cough /emphysema : continue albuterol , added cough medication . Full Code DVT pptx he walks around all day Got covid vaccine 11/27/21 Needs placement as does not have capacity to make sounds medical decisions No active issues, CM working on placement Quality Stroke Does the patient have a stroke diagnosis?: No VTE Prior VTE?: No VTE Risk Level:: Medical - moderate - high VTE Device Contraindication: Treatment Not Indicated VTE Drug Contraindication: N/A - Med Ordered
--- NOTE | 2021-12-07 13:27 | MHC.CM.PN ---
NURSE CASE MANAGEMENT NOTE ELECTRONIC MEDICAL RECORD REVIEWED ALONG WITH CASE DISCUSSED ON MULTIPLE DISCI[PLINARY MEETING, CLINICAL UPDATE SENT TO [facility] , AWAITING APPROVAL FOR [facility] ELDER HAS GUARDIAN AND CONSERVATOR
[2021-12-07 16:00] VITALS: BP 142/66; PULSE 99; RESP 16; TEMP 36.6; O2SAT 95
[2021-12-07 23:46] VITALS: BP 109/55; PULSE 95; RESP 18; TEMP 36.7; O2SAT 95
[2021-12-08] MEDS: Folic Acid 1 MG TABLET PO (07:05)
[2021-12-08] MEDS: Thiamine HCL 100 MG TABLET PO (07:05)
[2021-12-08] MEDS: predniSONE 20 MG TABLET 40 MG PO (07:05)
[2021-12-08 07:32] VITALS: BP 98/50; PULSE 68; RESP 18; TEMP 36.4; O2SAT 98
[2021-12-08] MEDS: Fluticasone/Vilanterol 200/25 BLST.W.DEV 1 PUFF INHALE (07:41)
[2021-12-08 07:43] VITALS: PULSE 67; RESP 16; O2SAT 98
--- NOTE | 2021-12-08 09:56 | HO.PM.IMPN ---
Subjective Subjective Date of Service: 12/08/21 Interval History: f/u on dementia and awaiting placment- Stable, no new complaint Review of Systems no fever, no sob, no changes Physical Exam Vital Signs: Vital Signs: Last Vital Signs Temp 97.6 F 12/08/21 07:32 Pulse 67 12/08/21 07:43 Resp 16 12/08/21 07:43 BP 98/50 L 12/08/21 07:32 Pulse Ox 98 12/08/21 07:32 BMI result Body Mass Index 16.5 Const: Other: General: AO X 2, no acute distress Resp: CTA bilateral CVS: S1,S2,RRR GI: +BS, NT, no distention Skin: No rash Neuro: motor grossly intact Psych: appropriate affect Objective Data Active Medications Acetaminophen (Acetaminophen 325 Mg Tablet) 650 mg PO Q6H PRN PRN Reason: Pain, Mild (Pain Scale 1-3) Albuterol Sulfate (Albuterol Sulfate 90 Mcg 8 Gm Inhaler) 2 puff INHALE RQ4H PRN PRN Reason: Wheezing Famotidine (Famotidine/Pf 20 Mg/2 Ml Vial) 20 mg IVPUSH BID [facility] Last Admin: 12/08/21 07:07 Dose: Not Given Documented by: STACEY Non-Admin Reason: No Access Fluticasone/Vilanterol (Fluticasone/Vilanterol 200/25 Blst.W.Dev) 1 puff INHALE RDAILY [facility] Last Admin: 12/08/21 07:41 Dose: 1 puff Documented by: FREDO Folic Acid (Folic Acid 1 Mg Tablet) 1 mg PO DAILY [facility] Last Admin: 12/08/21 07:05 Dose: 1 mg Documented by: STACEY Guaifenesin (Guaifenesin 100 Mg/5 Ml Liquid) 5 ml PO Q6H PRN PRN Reason: Cough Last Admin: 12/06/21 12:21 Dose: 5 ml Documented by: MARIALUISA Heparin Sodium (Porcine) (Heparin Sodium,Porcine 5,000 Unit/Ml Vial) 5,000 unit SUBCUT Q12H [facility] Last Admin: 12/08/21 05:42 Dose: Not Given Documented by: STACEY Non-Admin Reason: Patient Refused Ondansetron HCl (Ondansetron Hcl 4 Mg/2 Ml Vial) 4 mg IVPUSH Q8H PRN PRN Reason: Nausea and Vomiting Pharmacy Consult (Consult Rx Perform Med Rec) 1 each MISCELLANE ONCE PRN PRN Reason: Consult order Prednisone (Prednisone 20 Mg Tablet) 40 mg PO DAILY [facility] Last Admin: 12/08/21 07:05 Dose: 40 mg Documented by: STACEY Sodium Chloride (0.9 % Sodium Chloride Flush 3 Ml Syringe) 3 ml IVFLUSH QSHIFT [facility] Last Admin: 12/08/21 07:10 Dose: Not Given Documented by: STACEY Non-Admin Reason: No Access Thiamine HCl (Thiamine Hcl 100 Mg Tablet) 100 mg PO DAILY [facility] Last Admin: 12/08/21 07:05 Dose: 100 mg Documented by: STACEY Labs CBC & Chem 7: 11/17/21 12:08 11/17/21 12:08 Assessment and Plan (1) Dementia: Status: Acute Plan 81 yo M with a reported history of alcohol use/dependence who was brought in by ambulance after his friends had not seen him for a few days and found to have covid but assymptomatic and now with placement issues--essentially no change in care No new issues, awaiting guardianship, [place] management unchanged from prior day 1.Covid PNA--asymptomatic, positive as of 10/19, retested on 10/27 was negative and has no symptoms 2.Dementia-- permanent progressive 3.Mild malnutrition ...chronic and stable. 4. smoker cough /emphysema : continue albuterol , added cough medication . Full Code DVT pptx he walks around all day Got covid vaccine 11/27/21 Needs placement as does not have capacity to make sounds medical decisions No active issues, CM working on placement Quality Stroke Does the patient have a stroke diagnosis?: No VTE Prior VTE?: No VTE Risk Level:: Medical - moderate - high VTE Device Contraindication: Treatment Not Indicated VTE Drug Contraindication: N/A - Med Ordered
--- NOTE | 2021-12-08 12:15 | MHC.CM.PN ---
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
[2021-12-08 16:00] VITALS: BP 115/55; PULSE 93; RESP 16; TEMP 36.4; O2SAT 96
[2021-12-08] MEDS: Famotidine 20 MG TABLET PO (20:32)
[2021-12-09] VITALS: BP 133/62; PULSE 68; RESP 18; TEMP 36.3; O2SAT 96
[2021-12-09 07:35] VITALS: BP 133/62; PULSE 78; RESP 16; TEMP 36.3; O2SAT 95
[2021-12-09] MEDS: Folic Acid 1 MG TABLET PO (07:36)
[2021-12-09] MEDS: Thiamine HCL 100 MG TABLET PO (07:36)
--- NOTE | 2021-12-09 10:08 | P.PNIM_ITS ---
Subjective Subjective Date of Service: 12/09/21 Interval History: f/u on dementia and awaiting placment- No new issues Review of Systems no fever, no sob, no changes Physical Exam 2 Vital Signs: Vital Signs: Last Vital Signs Temp 97.4 F 12/09/21 07:35 Pulse 78 12/09/21 07:35 Resp 16 12/09/21 07:35 BP 133/62 12/09/21 07:35 Pulse Ox 95 12/09/21 07:35 BMI result Body Mass Index 16.5 Const: Other: General: AO X 2, no acute distress Resp: CTA bilateral CVS: S1,S2,RRR GI: +BS, NT, no distention Skin: No rash Neuro: motor grossly intact Psych: appropriate affect Objective Data Active Medications Acetaminophen (Acetaminophen 325 Mg Tablet) 650 mg PO Q6H PRN PRN Reason: Pain, Mild (Pain Scale 1-3) Albuterol Sulfate (Albuterol Sulfate 90 Mcg 8 Gm Inhaler) 2 puff INHALE RQ4H PRN PRN Reason: Wheezing Famotidine (Famotidine/Pf 20 Mg/2 Ml Vial) 20 mg IVPUSH BID [facility] Last Admin: 12/09/21 07:37 Dose: Not Given Documented by: KELLY Non-Admin Reason: No Access Fluticasone/Vilanterol (Fluticasone/Vilanterol 200/25 Blst.W.Dev) 1 puff INHALE RDAILY [facility] Last Admin: 12/09/21 07:58 Dose: Not Given Documented by: FREDO Non-Admin Reason: Patient Refused Folic Acid (Folic Acid 1 Mg Tablet) 1 mg PO DAILY [facility] Last Admin: 12/09/21 07:36 Dose: 1 mg Documented by: KELLY Guaifenesin (Guaifenesin 100 Mg/5 Ml Liquid) 5 ml PO Q6H PRN PRN Reason: Cough Last Admin: 12/06/21 12:21 Dose: 5 ml Documented by: MARIALUISA Heparin Sodium (Porcine) (Heparin Sodium,Porcine 5,000 Unit/Ml Vial) 5,000 unit SUBCUT Q12H [facility] Last Admin: 12/09/21 04:45 Dose: Not Given Documented by: MENDEZ Non-Admin Reason: Patient Refused Ondansetron HCl (Ondansetron Hcl 4 Mg/2 Ml Vial) 4 mg IVPUSH Q8H PRN PRN Reason: Nausea and Vomiting Pharmacy Consult (Consult Rx Perform Med Rec) 1 each MISCELLANE ONCE PRN PRN Reason: Consult order Prednisone (Prednisone 20 Mg Tablet) 40 mg PO DAILY [facility] Last Admin: 12/09/21 07:37 Dose: Not Given Documented by: KELLY Non-Admin Reason: Patient Refused Sodium Chloride (0.9 % Sodium Chloride Flush 3 Ml Syringe) 3 ml IVFLUSH QSHIFT [facility] Last Admin: 12/09/21 07:37 Dose: Not Given Documented by: KELLY Non-Admin Reason: No Access Thiamine HCl (Thiamine Hcl 100 Mg Tablet) 100 mg PO DAILY [facility] Last Admin: 12/09/21 07:36 Dose: 100 mg Documented by: KELLY Labs CBC & Chem 7: 11/17/21 12:08 11/17/21 12:08 Assessment and Plan (1) Dementia: Status: Acute Plan 81 yo M with a reported history of alcohol use/dependence who was brought in by ambulance after his friends had not seen him for a few days and found to have covid but assymptomatic and now with placement issues--essentially no change in care No new issues, awaiting guardianship, [place] management unchanged from prior day 1.Covid PNA--asymptomatic, positive as of 10/19, retested on 10/27 was negative and has no symptoms 2.Dementia-- permanent progressive 3.Mild malnutrition ...chronic and stable. 4. smoker cough /emphysema : continue albuterol , added cough medication . Full Code DVT pptx he walks around all day Got covid vaccine 11/27/21 Needs placement as does not have capacity to make sounds medical decisions No active issues, CM working on placement Quality Stroke Does the patient have a stroke diagnosis?: No VTE Prior VTE?: No VTE Risk Level:: Medical - moderate - high VTE Device Contraindication: Treatment Not Indicated VTE Drug Contraindication: N/A - Med Ordered
[2021-12-09 14:14] VITALS: BMI 16.0
[2021-12-09 23:34] VITALS: BP 110/53; PULSE 72; RESP 18; TEMP 36.8; O2SAT 97
[2021-12-10 07:46] VITALS: BP 110/60; PULSE 90; RESP 16; TEMP 36.1; O2SAT 95
[2021-12-10] MEDS: Thiamine HCL 100 MG TABLET PO (08:16)
[2021-12-10] MEDS: Folic Acid 1 MG TABLET PO (08:16)
--- NOTE | 2021-12-10 11:19 | P.PNIM_ITS ---
Subjective Subjective Date of Service: 12/10/21 Interval History: f/u on dementia and awaiting placment- No new issues, no new clinical issues Review of Systems no fever, no sob, no changes Physical Exam Vital Signs: Vital Signs: Last Vital Signs Temp 97.0 F 12/10/21 07:46 Pulse 90 12/10/21 07:46 Resp 16 12/10/21 07:46 BP 110/60 12/10/21 07:46 Pulse Ox 95 12/10/21 07:46 BMI result Body Mass Index 16.0 Const: Other: General: AO X 2, no acute distress Resp: CTA bilateral CVS: S1,S2,RRR GI: +BS, NT, no distention Skin: No rash Neuro: motor grossly intact Psych: appropriate affect Objective Data Active Medications Acetaminophen (Acetaminophen 325 Mg Tablet) 650 mg PO Q6H PRN PRN Reason: Pain, Mild (Pain Scale 1-3) Albuterol Sulfate (Albuterol Sulfate 90 Mcg 8 Gm Inhaler) 2 puff INHALE RQ4H PRN PRN Reason: Wheezing Fluticasone/Vilanterol (Fluticasone/Vilanterol 200/25 Blst.W.Dev) 1 puff INHALE RDAILY [facility] Last Admin: 12/10/21 08:24 Dose: Not Given Documented by: IRON Non-Admin Reason: Patient Refused Folic Acid (Folic Acid 1 Mg Tablet) 1 mg PO DAILY [facility] Last Admin: 12/10/21 08:16 Dose: 1 mg Documented by: KELLY Guaifenesin (Guaifenesin 100 Mg/5 Ml Liquid) 5 ml PO Q6H PRN PRN Reason: Cough Last Admin: 12/06/21 12:21 Dose: 5 ml Documented by: MARIALUISA Heparin Sodium (Porcine) (Heparin Sodium,Porcine 5,000 Unit/Ml Vial) 5,000 unit SUBCUT Q12H [facility] Last Admin: 12/10/21 04:22 Dose: Not Given Documented by: ARTEMIOQC Non-Admin Reason: Patient Refused Ondansetron HCl (Ondansetron Hcl 4 Mg/2 Ml Vial) 4 mg IVPUSH Q8H PRN PRN Reason: Nausea and Vomiting Pharmacy Consult (Consult Rx Perform Med Rec) 1 each MISCELLANE ONCE PRN PRN Reason: Consult order Sodium Chloride (0.9 % Sodium Chloride Flush 3 Ml Syringe) 3 ml IVFLUSH QSHIFT [facility] Last Admin: 12/10/21 08:15 Dose: Not Given Documented by: KELLY Non-Admin Reason: No Access Thiamine HCl (Thiamine Hcl 100 Mg Tablet) 100 mg PO DAILY [facility] Last Admin: 12/10/21 08:16 Dose: 100 mg Documented by: KELLY Labs CBC & Chem 7: 11/17/21 12:08 11/17/21 12:08 Assessment and Plan (1) Dementia: Status: Acute Plan 81 yo M with a reported history of alcohol use/dependence who was brought in by ambulance after his friends had not seen him for a few days and found to have covid but assymptomatic and now with plac ement issues--essentially no change in care No new issues, awaiting guardianship, [place] management unchanged from prior day 1.Covid PNA--asymptomatic, positive as of 10/19, retested on 10/27 was negative and has no symptoms 2.Dementia-- permanent progressive 3.Mild malnutrition ...chronic and stable. 4. smoker cough /emphysema : continue albuterol , added cough medication . Full Code DVT pptx he walks around all day Got covid vaccine 11/27/21 Needs placement as does not have capacity to make sounds medical decisions No active issues, CM working on placement Quality Stroke Does the patient have a stroke diagnosis?: No VTE Prior VTE?: No VTE Risk Level:: Medical - moderate - high VTE Device Contraindication: Treatment Not Indicated VTE Drug Contraindication: N/A - Med Ordered
[2021-12-10 15:17] VITALS: BP 144/66; PULSE 104; RESP 18; TEMP 36.7; O2SAT 99
[2021-12-10 23:51] VITALS: BP 96/40; PULSE 73; RESP 16; TEMP 36.6; O2SAT 96
[2021-12-11] MEDS: Folic Acid 1 MG TABLET PO (07:17)
[2021-12-11] MEDS: Thiamine HCL 100 MG TABLET PO (07:17)
[2021-12-11 07:22] VITALS: BP 138/60; PULSE 74; RESP 16; TEMP 36.1; O2SAT 94
[2021-12-11] MEDS: Fluticasone/Vilanterol 200/25 BLST.W.DEV 1 PUFF INHALE (08:15)
--- NOTE | 2021-12-11 09:22 | P.PNIM_ITS ---
Subjective Subjective Date of Service: 12/11/21 Interval History: f/u on dementia and awaiting placment- Doing well, no new issues Review of Systems no fever, no sob, no changes Physical Exam Vital Signs: Vital Signs: Last Vital Signs Temp 97 F 12/11/21 07:22 Pulse 74 12/11/21 07:22 Resp 16 12/11/21 07:22 BP 138/60 12/11/21 07:22 Pulse Ox 94 12/11/21 07:22 BMI result Body Mass Index 16.0 Const: Other: General: AO X 2, no acute distress Resp: CTA bilateral CVS: S1,S2,RRR GI: +BS, NT, no distention Skin: No rash Neuro: motor grossly intact Psych: appropriate affect Objective Data Active Medications Acetaminophen (Acetaminophen 325 Mg Tablet) 650 mg PO Q6H PRN PRN Reason: Pain, Mild (Pain Scale 1-3) Albuterol Sulfate (Albuterol Sulfate 90 Mcg 8 Gm Inhaler) 2 puff INHALE RQ4H PRN PRN Reason: Wheezing Fluticasone/Vilanterol (Fluticasone/Vilanterol 200/25 Blst.W.Dev) 1 puff INHALE RDAILY [facility] Last Admin: 12/11/21 08:15 Dose: 1 puff Documented by: WAQAS Folic Acid (Folic Acid 1 Mg Tablet) 1 mg PO DAILY [facility] Last Admin: 12/11/21 07:17 Dose: 1 mg Documented by: SURESH Guaifenesin (Guaifenesin 100 Mg/5 Ml Liquid) 5 ml PO Q6H PRN PRN Reason: Cough Last Admin: 12/06/21 12:21 Dose: 5 ml Documented by: MARIALUISA Heparin Sodium (Porcine) (Heparin Sodium,Porcine 5,000 Unit/Ml Vial) 5,000 unit SUBCUT Q12H [facility]S [facility] Last Admin: 12/11/21 04:04 Dose: Not Given Documented by: MENDEZ Non-Admin Reason: Patient Refused Ondansetron HCl (Ondansetron Hcl 4 Mg/2 Ml Vial) 4 mg IVPUSH Q8H PRN PRN Reason: Nausea and Vomiting Pharmacy Consult (Consult Rx Perform Med Rec) 1 each MISCELLANE ONCE PRN PRN Reason: Consult order Sodium Chloride (0.9 % Sodium Chloride Flush 3 Ml Syringe) 3 ml IVFLUSH QSHIFT [facility] Last Admin: 12/11/21 07:17 Dose: Not Given Documented by: SURESH Non-Admin Reason: No Access Thiamine HCl (Thiamine Hcl 100 Mg Tablet) 100 mg PO DAILY [facility] Last Admin: 12/11/21 07:17 Dose: 100 mg Documented by: SURESH Labs CBC & Chem 7: 11/17/21 12:08 11/17/21 12:08 Assessment and Plan (1) Dementia: Status: Acute Plan 81 yo M with a reported history of alcohol use/dependence who was brought in by ambulance after his friends had not seen him for a few days and found to have covid but assymptomatic and now with placement issues--essentially no change in care No new issues, awaiting guardianship, [place] management unchanged from prior day 1.Covid PNA--asymptomatic, positive as of 10/19, retested on 10/27 was negative and has no symptoms 2.Dementia-- permanent progressive 3.Mild malnutrition ...chronic and stable. 4. smoker cough /emphysema : continue albuterol , added cough medication . Full Code DVT pptx he walks around all day Got covid vaccine 11/27/21 Needs placement as does not have capacity to make sounds medical decisions No active issues, CM working on placement Quality Stroke Does the patient have a stroke diagnosis?: No VTE Prior VTE?: No VTE Risk Level:: Medical - moderate - high VTE Device Contraindication: Treatment Not Indicated VTE Drug Contraindication: N/A - Med Ordered
--- NOTE | 2021-12-11 11:34 | MHC.CM.PN ---
NURSE CASE MANGER NOTE ELECTRONIC MEDICAL RECORD REVIEWED . STILL AWAITING NORTICATION OF CONFORMATION OF ELIGEABILITY FOR [facility] , TWO SNFS CLINICAL UPDATED AND SENT VIA [employer]. DIOSCHARGE PLAN CUSTOMER CONTACT SPECIALIST CARE
--- NOTE | 2021-12-11 12:18 | MHC.CLN ---
F/U PATIENT AWAITING PLACEMENT. DIET= REGULAR; SUPPLEMENT ENSURE BID. SUPPLEMENT PROVIDES ADDITIONAL 700 KCAL, 40 G PROTEIN. NO REPORTED CONCERNS WITH INTAKE. WEIGHT 12/10=45.2 KG, BMI=16.1. SKIN: NO OPEN AREAS. MODERATE MALNUTRITION. CONTINUE CURRENT DIET AND ENCOURAGE SUPPLEMENT INTAKE. RD TO FOLLOW WEEKLY.
[2021-12-11 15:20] VITALS: BP 136/61; PULSE 90; RESP 18; TEMP 36.7; O2SAT 92
[2021-12-12] VITALS: BP 143/66; PULSE 88; RESP 18; TEMP 36.4; O2SAT 96
[2021-12-12] MEDS: Folic Acid 1 MG TABLET PO (07:46)
[2021-12-12] MEDS: Thiamine HCL 100 MG TABLET PO (07:46)
[2021-12-12 07:53] VITALS: BP 132/64; PULSE 108; RESP 17; TEMP 36.3; O2SAT 93
--- NOTE | 2021-12-12 10:36 | P.PNIM_ITS ---
Subjective Subjective Date of Service: 12/12/21 Interval History: f/u on dementia and awaiting placment- Doing well with no clincal changes. Review of Systems no change, cooperative, pleasantly confused Physical Exam Vital Signs: Vital Signs: Last Vital Signs Temp 97.4 F 12/12/21 07:53 Pulse 108 H 12/12/21 07:53 Resp 17 12/12/21 07:53 BP 132/64 12/12/21 07:53 Pulse Ox 93 12/12/21 07:53 BMI result Body Mass Index 16.0 Const: Other: General: AO X 2, no acute distress Resp: CTA bilateral CVS: S1,S2,RRR GI: +BS, NT, no distention Skin: No rash Neuro: motor grossly intact Psych: appropriate affect Objective Data Active Medications Acetaminophen (Acetaminophen 325 Mg Tablet) 650 mg PO Q6H PRN PRN Reason: Pain, Mild (Pain Scale 1-3) Albuterol Sulfate (Albuterol Sulfate 90 Mcg 8 Gm Inhaler) 2 puff INHALE RQ4H PRN PRN Reason: Wheezing Fluticasone/Vilanterol (Fluticasone/Vilanterol 200/25 Blst.W.Dev) 1 puff INHALE RDAILY [facility] Last Admin: 12/12/21 07:53 Dose: Not Given Documented by: IRON Non-Admin Reason: Patient Refused Folic Acid (Folic Acid 1 Mg Tablet) 1 mg PO DAILY [facility] Last Admin: 12/12/21 07:46 Dose: 1 mg Documented by: CARIDAD Guaifenesin (Guaifenesin 100 Mg/5 Ml Liquid) 5 ml PO Q6H PRN PRN Reason: Cough Last Admin: 12/06/21 12:21 Dose: 5 ml Documented by: MARIALUISA Heparin Sodium (Porcine) (Heparin Sodium,Porcine 5,000 Unit/Ml Vial) 5,000 unit SUBCUT Q12H [facility] Last Admin: 12/12/21 05:00 Dose: Not Given Documented by: DHAVAL Non-Admin Reason: Patient Refused Ondansetron HCl (Ondansetron Hcl 4 Mg/2 Ml Vial) 4 mg IVPUSH Q8H PRN PRN Reason: Nausea and Vomiting Pharmacy Consult (Consult Rx Perform Med Rec) 1 each MISCELLANE ONCE PRN PRN Reason: Consult order Sodium Chloride (0.9 % Sodium Chloride Flush 3 Ml Syringe) 3 ml IVFLUSH QSHIFT [facility] Last Admin: 12/12/21 07:46 Dose: Not Given Documented by: CARIDAD Non-Admin Reason: No Access Thiamine HCl (Thiamine Hcl 100 Mg Tablet) 100 mg PO DAILY [facility] Last Admin: 12/12/21 07:46 Dose: 100 mg Documented by: CARIDAD Labs CBC & Chem 7: 11/17/21 12:08 11/17/21 12:08 Assessment and Plan (1) Dementia: Status: Acute Plan 81 yo M with a reported history of alcohol use/dependence who was brought in by ambulance after his friends had not seen him for a few days and found to have covid but assymptomatic and now with placement issues--essentially no change in care overnight No new issues, awaiting guardianship, [place] management unchanged from prior day 1.Covid PNA--asymptomatic, positive as of 10/19, retested on 10/27 was negative and has no symptoms 2.Dementia-- permanent progressive 3.Mild malnutrition ...chronic and stable. 4. smoker cough /emphysema : continue albuterol , added cough medication . Full Code DVT pptx he walks around all day Got covid vaccine 11/27/21 Needs placement as does not have capacity to make sounds medical decisions No active issues, CM working on placement Quality Stroke Does the patient have a stroke diagnosis?: No VTE Prior VTE?: No VTE Risk Level:: Medical - moderate - high VTE Device Contraindication: Treatment Not Indicated VTE Drug Contraindication: N/A - Med Ordered
[2021-12-12 15:43] VITALS: BP 130/62; PULSE 94; RESP 17; TEMP 36.2; O2SAT 93
[2021-12-12] MEDS: Heparin Sodium,Porcine 5,000 UNIT/ML VIAL 5000 UNIT SUBCUT (17:29)
[2021-12-12 23:59] VITALS: BP 108/51; PULSE 91; RESP 17; TEMP 36.8; O2SAT 93
[2021-12-13] MEDS: Heparin Sodium,Porcine 5,000 UNIT/ML VIAL 5000 UNIT SUBCUT ×2 (05:56→18:03)
[2021-12-13] MEDS: Thiamine HCL 100 MG TABLET PO (07:44)
[2021-12-13] MEDS: Folic Acid 1 MG TABLET PO (07:44)
[2021-12-13 08:00] VITALS: BP 120/57; PULSE 106; RESP 18; TEMP 36.5; O2SAT 93
--- NOTE | 2021-12-13 09:01 | HO.PM.IMPN ---
Subjective Subjective Date of Service: 12/13/21 Interval History: f/u on dementia and awaiting placment-- Clinically remains stable with no new issues Review of Systems no fever, no shortness Physical Exam Vital Signs: Vital Signs: Last Vital Signs Temp 97.7 F 12/13/21 08:00 Pulse 106 H 12/13/21 08:00 Resp 18 12/13/21 08:00 BP 120/57 L 12/13/21 08:00 Pulse Ox 93 12/13/21 08:00 BMI result Body Mass Index 16.0 Const: Other: General: AO X 2, no acute distress Resp: CTA bilateral CVS: S1,S2,RRR GI: +BS, NT, no distention Skin: No rash Neuro: motor grossly intact Psych: appropriate affect Objective Data Active Medications Acetaminophen (Acetaminophen 325 Mg Tablet) 650 mg PO Q6H PRN PRN Reason: Pain, Mild (Pain Scale 1-3) Albuterol Sulfate (Albuterol Sulfate 90 Mcg 8 Gm Inhaler) 2 puff INHALE RQ4H PRN PRN Reason: Wheezing Fluticasone/Vilanterol (Fluticasone/Vilanterol 200/25 Blst.W.Dev) 1 puff INHALE RDAILY [facility] Last Admin: 12/13/21 07:52 Dose: Not Given Documented by: PAWEL Non-Admin Reason: Patient Refused Folic Acid (Folic Acid 1 Mg Tablet) 1 mg PO DAILY [facility] Last Admin: 12/13/21 07:44 Dose: 1 mg Documented by: KAROLINE Guaifenesin (Guaifenesin 100 Mg/5 Ml Liquid) 5 ml PO Q6H PRN PRN Reason: Cough Last Admin: 12/06/21 12:21 Dose: 5 ml Documented by: MARIALUISA Heparin Sodium (Porcine) (Heparin Sodium,Porcine 5,000 Unit/Ml Vial) 5,000 unit SUBCUT Q12H [facility] Last Admin: 12/13/21 05:56 Dose: 5,000 unit Documented by: TOMAS Ondansetron HCl (Ondansetron Hcl 4 Mg/2 Ml Vial) 4 mg IVPUSH Q8H PRN PRN Reason: Nausea and Vomiting Pharmacy Consult (Consult Rx Perform Med Rec) 1 each MISCELLANE ONCE PRN PRN Reason: Consult order Sodium Chloride (0.9 % Sodium Chloride Flush 3 Ml Syringe) 3 ml IVFLUSH QSHIFT [facility] Last Admin: 12/13/21 07:45 Dose: Not Given Documented by: KAROLINE Non-Admin Reason: No Access Thiamine HCl (Thiamine Hcl 100 Mg Tablet) 100 mg PO DAILY [facility] Last Admin: 12/13/21 07:44 Dose: 100 mg Documented by: KAROLINE Labs CBC & Chem 7: 11/17/21 12:08 11/17/21 12:08 Assessment and Plan (1) Dementia: Status: Acute Plan 81 yo M with a reported history of alcohol use/dependence who was brought in by ambulance after his friends had not seen him for a few days and found to have covid but assymptomatic and now with placement issues--essentially no change in care overnight No new issues, awaiting guardianship, [place] management essentially unchanged 1.Covid PNA--asymptomatic, positive as of 10/19, retested on 10/27 was negative and has no symptoms 2.Dementia-- permanent progressive 3.Mild malnutrition ...chronic and stable. 4. smoker cough /emphysema : continue albuterol , added cough medication . Full Code DVT pptx he walks around all day Got covid vaccine 11/27/21 Needs placement as does not have capacity to make sounds medical decisions No active issues, CM working on placement Quality Stroke Does the patient have a stroke diagnosis?: No VTE Prior VTE?: No VTE Risk Level:: Medical - moderate - high VTE Device Contraindication: Treatment Not Indicated VTE Drug Contraindication: N/A - Med Ordered
[2021-12-13 16:00] VITALS: BP 131/60; PULSE 98; RESP 16; TEMP 36.3; O2SAT 92
[2021-12-14] VITALS: BP 109/55; PULSE 84; RESP 17; TEMP 36.4; O2SAT 95
[2021-12-14 08:00] VITALS: BP 112/59; PULSE 104; RESP 17; TEMP 36.4; O2SAT 95
--- NOTE | 2021-12-14 10:21 | HO.PM.IMPN ---
Subjective Subjective Date of Service: 12/14/21 Interval History: f/u on dementia and awaiting placment-- Clinically remains stable with no new issues today Review of Systems no fever, no shortness Physical Exam Vital Signs: Vital Signs: Last Vital Signs Temp 97.5 F 12/14/21 08:00 Pulse 104 H 12/14/21 08:00 Resp 17 12/14/21 08:00 BP 112/59 L 12/14/21 08:00 Pulse Ox 95 12/14/21 08:00 BMI result Body Mass Index 16.0 Const: Other: General: AO X 2, no acute distress Resp: CTA bilateral CVS: S1,S2,RRR GI: +BS, NT, no distention Skin: No rash Neuro: motor grossly intact Psych: appropriate affect Objective Data Active Medications Acetaminophen (Acetaminophen 325 Mg Tablet) 650 mg PO Q6H PRN PRN Reason: Pain, Mild (Pain Scale 1-3) Albuterol Sulfate (Albuterol Sulfate 90 Mcg 8 Gm Inhaler) 2 puff INHALE RQ4H PRN PRN Reason: Wheezing Fluticasone/Vilanterol (Fluticasone/Vilanterol 200/25 Blst.W.Dev) 1 puff INHALE RDAILY [facility] Last Admin: 12/14/21 08:12 Dose: Not Given Documented by: FREDO Non-Admin Reason: Patient Refused Folic Acid (Folic Acid 1 Mg Tablet) 1 mg PO DAILY [facility] Last Admin: 12/13/21 07:44 Dose: 1 mg Documented by: KAROLINE Guaifenesin (Guaifenesin 100 Mg/5 Ml Liquid) 5 ml PO Q6H PRN PRN Reason: Cough Last Admin: 12/06/21 12:21 Dose: 5 ml Documented by: MARIALUISA Heparin Sodium (Porcine) (Heparin Sodium,Porcine 5,000 Unit/Ml Vial) 5,000 unit SUBCUT Q12H [facility] Last Admin: 12/14/21 06:23 Dose: Not Given Documented by: SURAJ Non-Admin Reason: Patient Refused Ondansetron HCl (Ondansetron Hcl 4 Mg/2 Ml Vial) 4 mg IVPUSH Q8H PRN PRN Reason: Nausea and Vomiting Pharmacy Consult (Consult Rx Perform Med Rec) 1 each MISCELLANE ONCE PRN PRN Reason: Consult order Sodium Chloride (0.9 % Sodium Chloride Flush 3 Ml Syringe) 3 ml IVFLUSH QSHIFT [facility] Last Admin: 12/14/21 01:30 Dose: Not Given Documented by: SURAJ Non-Admin Reason: No Access Thiamine HCl (Thiamine Hcl 100 Mg Tablet) 100 mg PO DAILY [facility] Last Admin: 12/13/21 07:44 Dose: 100 mg Documented by: KAROLINE Labs CBC & Chem 7: 11/17/21 12:08 11/17/21 12:08 Assessment and Plan (1) Dementia: Status: Acute Plan 81 yo M with a reported history of alcohol use/dependence who was brought in by ambulance after his friends had not seen him for a few days and found to have covid but assymptomatic and now with placement issues--essentially no change in care overnight No new issues, awaiting guardianship, [place] management essentially unchanged 1.Covid PNA--asymptomatic, positive as of 10/19, retested on 10/27 was negative and has no symptoms 2.Dementia-- permanent progressive 3.Mild malnutrition ...chronic and stable. 4. smoker cough /emphysema : continue albuterol , added cough medication . Full Code DVT pptx he walks around all day Got covid vaccine 11/27/21 Needs placement as does not have capacity to make sounds medical decisions No active issues, CM working on placement Quality Stroke Does the patient have a stroke diagnosis?: No VTE Prior VTE?: No VTE Risk Level:: Medical - moderate - high VTE Device Contraindication: Treatment Not Indicated VTE Drug Contraindication: N/A - Med Ordered
[2021-12-14] MEDS: Folic Acid 1 MG TABLET PO (10:33)
[2021-12-14] MEDS: Thiamine HCL 100 MG TABLET PO (10:33)
--- NOTE | 2021-12-14 10:34 | PM.EVENT ---
Event Note Date of Service: 12/14/21 Event Note: I personally and examined the patient and reviewed his vitals, discuss with RN. Has no new issues, exam unchanged. Continue current care with no new changes.
[2021-12-14 15:56] VITALS: BP 124/58; PULSE 77; RESP 17; TEMP 36.9; O2SAT 97
[2021-12-14] MEDS: Heparin Sodium,Porcine 5,000 UNIT/ML VIAL 5000 UNIT SUBCUT (18:29)
[2021-12-14 23:36] VITALS: BP 105/48; PULSE 78; RESP 18; TEMP 36.6; O2SAT 95
[2021-12-15] MEDS: Heparin Sodium,Porcine 5,000 UNIT/ML VIAL 5000 UNIT SUBCUT ×2 (05:20→16:09)
[2021-12-15] MEDS: Thiamine HCL 100 MG TABLET PO (07:18)
[2021-12-15] MEDS: Folic Acid 1 MG TABLET PO (07:18)
[2021-12-15 07:50] VITALS: BP 111/60; PULSE 88; RESP 22; TEMP 36.3; O2SAT 92
--- NOTE | 2021-12-15 09:25 | HO.PM.IMPN ---
Subjective Subjective Date of Service: 12/15/21 Interval History: f/u on dementia and awaiting placment-- No new issues Physical Exam Vital Signs: Vital Signs: Last Vital Signs Temp 97.4 F 12/15/21 07:50 Pulse 88 12/15/21 07:50 Resp 22 H 12/15/21 07:50 BP 111/60 12/15/21 07:50 Pulse Ox 92 12/15/21 07:50 BMI result Body Mass Index 16.0 Const: Other: General: AO X 2, no acute distress Resp: CTA bilateral CVS: S1,S2,RRR GI: +BS, NT, no distention Skin: No rash Neuro: motor grossly intact Psych: appropriate affect Objective Data Active Medications Acetaminophen (Acetaminophen 325 Mg Tablet) 650 mg PO Q6H PRN PRN Reason: Pain, Mild (Pain Scale 1-3) Albuterol Sulfate (Albuterol Sulfate 90 Mcg 8 Gm Inhaler) 2 puff INHALE RQ4H PRN PRN Reason: Wheezing Fluticasone/Vilanterol (Fluticasone/Vilanterol 200/25 Blst.W.Dev) 1 puff INHALE RDAILY [facility] Last Admin: 12/15/21 08:33 Dose: Not Given Documented by: IRON Non-Admin Reason: Patient Refused Folic Acid (Folic Acid 1 Mg Tablet) 1 mg PO DAILY [facility] Last Admin: 12/15/21 07:18 Dose: 1 mg Documented by: MARÍA ELENA Guaifenesin (Guaifenesin 100 Mg/5 Ml Liquid) 5 ml PO Q6H PRN PRN Reason: Cough Last Admin: 12/06/21 12:21 Dose: 5 ml Documented by: MARIALUISA Heparin Sodium (Porcine) (Heparin Sodium,Porcine 5,000 Unit/Ml Vial) 5,000 unit SUBCUT Q12H [facility] Last Admin: 12/15/21 05:20 Dose: 5,000 unit Documented by: SHANNAN Ondansetron HCl (Ondansetron Hcl 4 Mg/2 Ml Vial) 4 mg IVPUSH Q8H PRN PRN Reason: Nausea and Vomiting Pharmacy Consult (Consult Rx Perform Med Rec) 1 each MISCELLANE ONCE PRN PRN Reason: Consult order Sodium Chloride (0.9 % Sodium Chloride Flush 3 Ml Syringe) 3 ml IVFLUSH QSHIFT [facility] Last Admin: 12/15/21 07:02 Dose: Not Given Documented by: MARÍA ELENA Non-Admin Reason: No Access Thiamine HCl (Thiamine Hcl 100 Mg Tablet) 100 mg PO DAILY [facility] Last Admin: 12/15/21 07:18 Dose: 100 mg Documented by: MARÍA ELENA Labs CBC & Chem 7: 11/17/21 12:08 11/17/21 12:08 Assessment and Plan (1) Dementia: Status: Acute Plan 81 yo M with a reported history of alcohol use/dependence who was brought in by ambulance after his friends had not seen him for a few days and found to have covid but assymptomatic and now with placement issues--essentially no change in care overnight No new issues, awaiting guardianship, [place] management essentially unchanged #.Dementia-- stable #.Mild malnutrition ...chronic and stable, I think this is stature # smoker cough /emphysema , assymptomatic # Had covid and reocvered fully Got covid vaccine 11/27/21 Needs placement as does not have capacity to make sounds medical decisions No active issues, CM working on placement Quality Stroke Does the patient have a stroke diagnosis?: No VTE Prior VTE?: No VTE Risk Level:: Medical - moderate - high VTE Device Contraindication: Treatment Not Indicated VTE Drug Contraindication: N/A - Med Ordered
[2021-12-15 16:00] VITALS: BP 110/54; PULSE 76; RESP 17; TEMP 36.6; O2SAT 97
[2021-12-15 23:29] VITALS: BP 113/56; PULSE 78; RESP 17; TEMP 36.6; O2SAT 95
[2021-12-16 07:43] VITALS: BP 126/58; PULSE 85; RESP 18; TEMP 36.5; O2SAT 92
[2021-12-16] MEDS: Folic Acid 1 MG TABLET PO (09:10)
[2021-12-16] MEDS: Thiamine HCL 100 MG TABLET PO (09:10)
--- NOTE | 2021-12-16 10:14 | HO.PM.IMPN ---
Subjective Subjective Date of Service: 12/16/21 Interval History: No acute events overnight Physical Exam Vital Signs: Vital Signs: Last Vital Signs Temp 97.7 F 12/16/21 07:43 Pulse 85 12/16/21 07:43 Resp 18 12/16/21 07:43 BP 126/58 L 12/16/21 07:43 Pulse Ox 92 12/16/21 07:43 BMI result Body Mass Index 16.0 Const: General: cooperative, comfortable, no acute distress, alert and awake Nutritional Appearance: thin and underweight Orientation/consciousness: patient oriented x3 HENMT: Head: Yes normocephalic and Yes atraumatic Eyes: General: appearance normal, both eyes and all related structures Sclerae: sclerae normal Chest: Chest palpation & inspection: normal inspection of the chest Resp: Effort & Inspection: normal respiratory effort, able to speak in complete sentences and no respiratory distress Auscultation: clear to auscultation bilaterally Cardio: Rate: regular rate Rhythm: regular rhythm GI: Inspection: No distended Palpation (GI): Soft to palpation and nontender Auscultation: normal bowel sounds Neuro: General: patient oriented x3 Cranial nerves: Yes CN's II-XII intact bilaterally and Yes Bilaterally intact EOM present Extrem: General: Yes normal to inspection and Yes no pedal edema Objective Data Active Medications Acetaminophen (Acetaminophen 325 Mg Tablet) 650 mg PO Q6H PRN PRN Reason: Pain, Mild (Pain Scale 1-3) Albuterol Sulfate (Albuterol Sulfate 90 Mcg 8 Gm Inhaler) 2 puff INHALE RQ4H PRN PRN Reason: Wheezing Fluticasone/Vilanterol (Fluticasone/Vilanterol 200/25 Blst.W.Dev) 1 puff INHALE RDAILY [facility] Last Admin: 12/16/21 07:55 Dose: Not Given Documented by: PEPE Non-Admin Reason: Patient Refused Folic Acid (Folic Acid 1 Mg Tablet) 1 mg PO DAILY [facility] Last Admin: 12/16/21 09:10 Dose: 1 mg Documented by: MARÍA ELENA Guaifenesin (Guaifenesin 100 Mg/5 Ml Liquid) 5 ml PO Q6H PRN PRN Reason: Cough Last Admin: 12/06/21 12:21 Dose: 5 ml Documented by: MARIALUISA Heparin Sodium (Porcine) (Heparin Sodium,Porcine 5,000 Unit/Ml Vial) 5,000 unit SUBCUT Q12H [facility] Last Admin: 12/16/21 05:18 Dose: Not Given Documented by: MENDEZ Non-Admin Reason: Patient Refused Ondansetron HCl (Ondansetron Hcl 4 Mg/2 Ml Vial) 4 mg IVPUSH Q8H PRN PRN Reason: Nausea and Vomiting Pharmacy Consult (Consult Rx Perform Med Rec) 1 each MISCELLANE ONCE PRN PRN Reason: Consult order Sodium Chloride (0.9 % Sodium Chloride Flush 3 Ml Syringe) 3 ml IVFLUSH QSHIFT [facility] Last Admin: 12/16/21 09:11 Dose: Not Given Documented by: MARÍA ELENA Non-Admin Reason: No Access Thiamine HCl (Thiamine Hcl 100 Mg Tablet) 100 mg PO DAILY [facility] Last Admin: 12/16/21 09:10 Dose: 100 mg Documented by: MARÍA ELENA Labs CBC & Chem 7: 11/17/21 12:08 11/17/21 12:08 Assessment and Plan (1) Dementia: Status: Acute Plan 81 yo M with a reported history of alcohol use/dependence who was brought in by ambulance after his friends had not seen him for a few days and found to have covid but assymptomatic and now with placement issues--essentially no change in care overnight No new issues, awaiting guardianship, [place] management? essentially unchanged #.Dementia-- stable #.Mild malnutrition ...chronic and stable, I think this is stature # smoker cough /emphysema , assymptomatic # Had covid and reocvered fully ? Got covid vaccine 11/27/21 Needs placement as does not have capacity to make sounds medical decisions No active issues, CM working on placement Quality Stroke Does the patient have a stroke diagnosis?: No VTE Prior VTE?: No VTE Risk Level:: Medical - moderate - high VTE Device Contraindication: Treatment Not Indicated VTE Drug Contraindication: N/A - Med Ordered
[2021-12-16] MEDS: Heparin Sodium,Porcine 5,000 UNIT/ML VIAL 5000 UNIT SUBCUT (11:32)
[2021-12-16 15:00] VITALS: BMI 16.1
[2021-12-16 15:30] VITALS: BP 136/68; PULSE 99; RESP 18; TEMP 36.7; O2SAT 92
--- NOTE | 2021-12-16 15:42 | MHC.CM.PN ---
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 CM WILL CONT TO [facility] D/C NEEDS.
[2021-12-17] VITALS: BP 110/56; PULSE 78; RESP 18; TEMP 36.3; O2SAT 96
[2021-12-17 08:00] VITALS: BP 128/67; PULSE 109; RESP 18; TEMP 36.3; O2SAT 91
[2021-12-17] MEDS: Folic Acid 1 MG TABLET PO (08:23)
[2021-12-17] MEDS: Thiamine HCL 100 MG TABLET PO (08:24)
--- NOTE | 2021-12-17 11:18 | P.PNIM_ITS ---
Subjective Subjective Date of Service: 12/17/21 Interval History: No acute events overnight Physical Exam Vital Signs: Vital Signs: Last Vital Signs Temp 97.4 F 12/17/21 08:00 Pulse 109 H 12/17/21 08:00 Resp 18 12/17/21 08:00 BP 128/67 12/17/21 08:00 Pulse Ox 91 L 12/17/21 08:00 BMI result Body Mass Index 16.1 Const: General: cooperative, comfortable, no acute distress, alert and awake Nutritional Appearance: thin and underweight Orientation/consciousness: patient oriented x3 HENMT: Head: Yes normocephalic and Yes atraumatic Eyes: General: appearance normal, both eyes and all related structures Sclerae: sclerae normal Chest: Chest palpation & inspection: normal inspection of the chest Resp: Effort & Inspection: normal respiratory effort, able to speak in complete sentences and no respiratory distress Auscultation: clear to auscultation bilaterally Cardio: Rate: regular rate Rhythm: regular rhythm GI: Inspection: No distended Palpation (GI): Soft to palpation and nontender Auscultation: normal bowel sounds Neuro: General: patient oriented x3 Cranial nerves: Yes CN's II-XII intact bilaterally and Yes Bilaterally intact EOM present Extrem: General: Yes normal to inspection and Yes no pedal edema Objective Data Active Medications Acetaminophen (Acetaminophen 325 Mg Tablet) 650 mg PO Q6H PRN PRN Reason: Pain, Mild (Pain Scale 1-3) Albuterol Sulfate (Albuterol Sulfate 90 Mcg 8 Gm Inhaler) 2 puff INHALE RQ4H PRN PRN Reason: Wheezing Fluticasone/Vilanterol (Fluticasone/Vilanterol 200/25 Blst.W.Dev) 1 puff INHALE RDAILY [facility] Last Admin: 12/17/21 07:57 Dose: Not Given Documented by: PAWEL Non-Admin Reason: Patient Refused Folic Acid (Folic Acid 1 Mg Tablet) 1 mg PO DAILY [facility] Last Admin: 12/17/21 08:23 Dose: 1 mg Documented by: KELLY Guaifenesin (Guaifenesin 100 Mg/5 Ml Liquid) 5 ml PO Q6H PRN PRN Reason: Cough Last Admin: 12/06/21 12:21 Dose: 5 ml Documented by: MARIALUISA Heparin Sodium (Porcine) (Heparin Sodium,Porcine 5,000 Unit/Ml Vial) 5,000 unit SUBCUT Q12H [facility] Last Admin: 12/17/21 05:13 Dose: Not Given Documented by: MENDEZ Non-Admin Reason: Patient Refused Ondansetron HCl (Ondansetron Hcl 4 Mg/2 Ml Vial) 4 mg IVPUSH Q8H PRN PRN Reason: Nausea and Vomiting Pharmacy Consult (Consult Rx Perform Med Rec) 1 each MISCELLANE ONCE PRN PRN Reason: Consult order Sodium Chloride (0.9 % Sodium Chloride Flush 3 Ml Syringe) 3 ml IVFLUSH QSHIFT [facility] Last Admin: 12/17/21 08:24 Dose: Not Given Documented by: KELLY Non-Admin Reason: No Access Thiamine HCl (Thiamine Hcl 100 Mg Tablet) 100 mg PO DAILY [facility] Last Admin: 12/17/21 08:24 Dose: 100 mg Documented by: KELLY Labs CBC & Chem 7: 11/17/21 12:08 11/17/21 12:08 Assessment and Plan (1) Dementia: Status: Acute Plan 81 yo M with a reported history of alcohol use/dependence who was brought in by ambulance after his friends had not seen him for a few days and found to have covid but assymptomatic and now with placement issues--essentially no change in care overnight No new issues, awaiting guardianship, [place] management? essentially unchanged #.Dementia-- stable #.Mild malnutrition ...chronic and stable, I think this is stature # smoker cough /emphysema , assymptomatic # Had covid and reocvered fully ? Got covid vaccine 11/27/21 Needs placement as does not have capacity to make sounds medical decisions No active issues, CM working on placement Quality Stroke Does the patient have a stroke diagnosis?: No VTE Prior VTE?: No VTE Risk Level:: Medical - moderate - high VTE Device Contraindication: Treatment Not Indicated VTE Drug Contraindication: N/A - Med Ordered
--- NOTE | 2021-12-17 12:48 | MHC.CM.PN ---
CM RECEIVED CONFIRMATION THAT [facility] HAS RECEIVED JOSEFINA LEX AT 12:44PM TODAY, PER LIAISON THEY WILL REVIEW AND CONTACT US ONCE THEY MAKE A DETERMINATION.
[2021-12-17 15:26] VITALS: BP 129/67; PULSE 85; RESP 18; TEMP 36.6; O2SAT 97
[2021-12-18] VITALS: BP 131/62; PULSE 80; RESP 17; TEMP 36.5; O2SAT 94
[2021-12-18 07:39] VITALS: BP 142/77; PULSE 103; RESP 19; TEMP 36.1; O2SAT 93
[2021-12-18] MEDS: Thiamine HCL 100 MG TABLET PO (10:15)
[2021-12-18] MEDS: Folic Acid 1 MG TABLET PO (10:15)
--- NOTE | 2021-12-18 11:31 | MHC.CLN ---
F/U PATIENT AWAITING PLACEMENT. DIET= REGULAR; SUPPLEMENT ENSURE BID (700 KCAL, 40 G PROTEIN). NO REPORTED CONCERNS WITH INTAKE. WEIGHT 12/17=45.4 KG, BMI=16.2.WEIGHT OVERALL STABLE X APPROXIMATELY 2 MONTHS. MODERATE MALNUTRITION. CONTINUE CURRENT DIET AND ENCOURAGE SUPPLEMENT INTAKE. RD TO FOLLOW WEEKLY.
--- NOTE | 2021-12-18 11:39 | HO.PM.IMPN ---
Subjective Subjective Date of Service: 12/18/21 Interval History: No acute events overnight Physical Exam Vital Signs: Vital Signs: Last Vital Signs Temp 97.0 F 12/18/21 07:39 Pulse 103 H 12/18/21 07:39 Resp 19 12/18/21 07:39 BP 142/77 H 12/18/21 07:39 Pulse Ox 93 12/18/21 07:39 BMI result Body Mass Index 16.1 Const: General: cooperative, comfortable, no acute distress, alert and awake Nutritional Appearance: thin and underweight Orientation/consciousness: patient oriented x3 HENMT: Head: Yes normocephalic and Yes atraumatic Eyes: General: appearance normal, both eyes and all related structures Sclerae: sclerae normal Chest: Chest palpation & inspection: normal inspection of the chest Resp: Effort & Inspection: normal respiratory effort, able to speak in complete sentences and no respiratory distress Auscultation: clear to auscultation bilaterally Cardio: Rate: regular rate Rhythm: regular rhythm GI: Inspection: No distended Palpation (GI): Soft to palpation and nontender Auscultation: normal bowel sounds Neuro: General: patient oriented x3 Cranial nerves: Yes CN's II-XII intact bilaterally and Yes Bilaterally intact EOM present Extrem: General: Yes normal to inspection and Yes no pedal edema Objective Data Active Medications Acetaminophen (Acetaminophen 325 Mg Tablet) 650 mg PO Q6H PRN PRN Reason: Pain, Mild (Pain Scale 1-3) Albuterol Sulfate (Albuterol Sulfate 90 Mcg 8 Gm Inhaler) 2 puff INHALE RQ4H PRN PRN Reason: Wheezing Fluticasone/Vilanterol (Fluticasone/Vilanterol 200/25 Blst.W.Dev) 1 puff INHALE RDAILY [facility] Last Admin: 12/18/21 07:56 Dose: Not Given Documented by: PAWEL Non-Admin Reason: Patient Refused Folic Acid (Folic Acid 1 Mg Tablet) 1 mg PO DAILY [facility] Last Admin: 12/18/21 10:15 Dose: 1 mg Documented by: MEGHAN Guaifenesin (Guaifenesin 100 Mg/5 Ml Liquid) 5 ml PO Q6H PRN PRN Reason: Cough Last Admin: 12/06/21 12:21 Dose: 5 ml Documented by: MARIALUISA Heparin Sodium (Porcine) (Heparin Sodium,Porcine 5,000 Unit/Ml Vial) 5,000 unit SUBCUT Q12H [facility] Last Admin: 12/18/21 05:11 Dose: Not Given Documented by: ROBB Non-Admin Reason: Patient Refused Ondansetron HCl (Ondansetron Hcl 4 Mg/2 Ml Vial) 4 mg IVPUSH Q8H PRN PRN Reason: Nausea and Vomiting Pharmacy Consult (Consult Rx Perform Med Rec) 1 each MISCELLANE ONCE PRN PRN Reason: Consult order Sodium Chloride (0.9 % Sodium Chloride Flush 3 Ml Syringe) 3 ml IVFLUSH QSHIFT [facility] Last Admin: 12/18/21 07:18 Dose: Not Given Documented by: MEGHAN Non-Admin Reason: No Access Thiamine HCl (Thiamine Hcl 100 Mg Tablet) 100 mg PO DAILY [facility] Last Admin: 12/18/21 10:15 Dose: 100 mg Documented by: MEGHAN Labs CBC & Chem 7: 11/17/21 12:08 11/17/21 12:08 Assessment and Plan (1) Dementia: Status: Acute Plan 81 yo M with a reported history of alcohol use/dependence who was brought in by ambulance after his friends had not seen him for a few days and found to have covid but assymptomatic and now with placement issues--essentially no change in care overnight No new issues, awaiting guardianship, [place] management? essentially unchanged #.Dementia-- stable #.Mild malnutrition ...chronic and stable, I think this is stature # smoker cough /emphysema , assymptomatic # Had covid and reocvered fully ? Got covid vaccine 11/27/21 Needs placement as does not have capacity to make sounds medical decisions No active issues, CM working on placement Quality Stroke Does the patient have a stroke diagnosis?: No VTE Prior VTE?: No VTE Risk Level:: Medical - moderate - high VTE Device Contraindication: Treatment Not Indicated VTE Drug Contraindication: N/A - Med Ordered
[2021-12-18 15:51] VITALS: BP 126/64; PULSE 90; RESP 18; TEMP 36.4; O2SAT 93
[2021-12-18 23:23] VITALS: BP 151/58; PULSE 83; RESP 18; TEMP 36.6; O2SAT 94
[2021-12-19] MEDS: Heparin Sodium,Porcine 5,000 UNIT/ML VIAL 5000 UNIT SUBCUT (05:41)
[2021-12-19 08:00] VITALS: BP 174/60; PULSE 84; RESP 19; TEMP 36.8; O2SAT 98
[2021-12-19] MEDS: Folic Acid 1 MG TABLET PO (08:58)
[2021-12-19] MEDS: Thiamine HCL 100 MG TABLET PO (08:58)
--- NOTE | 2021-12-19 11:57 | HO.PM.IMPN ---
Subjective Subjective Date of Service: 12/19/21 Interval History: No acute events overnight Physical Exam Vital Signs: Vital Signs: Last Vital Signs Temp 98.3 F 12/19/21 08:00 Pulse 84 12/19/21 08:00 Resp 19 12/19/21 08:00 BP 174/60 H 12/19/21 08:00 Pulse Ox 98 12/19/21 08:00 BMI result Body Mass Index 16.1 Const: General: cooperative, comfortable, no acute distress, alert and awake Nutritional Appearance: thin and underweight Orientation/consciousness: patient oriented x3 HENMT: Head: Yes normocephalic and Yes atraumatic Eyes: General: appearance normal, both eyes and all related structures Sclerae: sclerae normal Chest: Chest palpation & inspection: normal inspection of the chest Resp: Effort & Inspection: normal respiratory effort, able to speak in complete sentences and no respiratory distress Auscultation: clear to auscultation bilaterally Cardio: Rate: regular rate Rhythm: regular rhythm GI: Inspection: No distended Palpation (GI): Soft to palpation and nontender Auscultation: normal bowel sounds Neuro: General: patient oriented x3 Cranial nerves: Yes CN's II-XII intact bilaterally and Yes Bilaterally intact EOM present Extrem: General: Yes normal to inspection and Yes no pedal edema Objective Data Active Medications Acetaminophen (Acetaminophen 325 Mg Tablet) 650 mg PO Q6H PRN PRN Reason: Pain, Mild (Pain Scale 1-3) Albuterol Sulfate (Albuterol Sulfate 90 Mcg 8 Gm Inhaler) 2 puff INHALE RQ4H PRN PRN Reason: Wheezing Fluticasone/Vilanterol (Fluticasone/Vilanterol 200/25 Blst.W.Dev) 1 puff INHALE RDAILY [facility] Last Admin: 12/19/21 08:21 Dose: Not Given Documented by: IRON Non-Admin Reason: Patient Refused Folic Acid (Folic Acid 1 Mg Tablet) 1 mg PO DAILY [facility] Last Admin: 12/19/21 08:58 Dose: 1 mg Documented by: SURESH Guaifenesin (Guaifenesin 100 Mg/5 Ml Liquid) 5 ml PO Q6H PRN PRN Reason: Cough Last Admin: 12/06/21 12:21 Dose: 5 ml Documented by: MARIALUISA Heparin Sodium (Porcine) (Heparin Sodium,Porcine 5,000 Unit/Ml Vial) 5,000 unit SUBCUT Q12H [facility] Last Admin: 12/19/21 05:41 Dose: 5,000 unit Documented by: SHANNAN Ondansetron HCl (Ondansetron Hcl 4 Mg/2 Ml Vial) 4 mg IVPUSH Q8H PRN PRN Reason: Nausea and Vomiting Pharmacy Consult (Consult Rx Perform Med Rec) 1 each MISCELLANE ONCE PRN PRN Reason: Consult order Sodium Chloride (0.9 % Sodium Chloride Flush 3 Ml Syringe) 3 ml IVFLUSH QSHIFT [facility] Last Admin: 12/19/21 08:56 Dose: Not Given Documented by: SURESH Non-Admin Reason: No Access Thiamine HCl (Thiamine Hcl 100 Mg Tablet) 100 mg PO DAILY [facility] Last Admin: 12/19/21 08:58 Dose: 100 mg Documented by: SURESH Labs CBC & Chem 7: 11/17/21 12:08 11/17/21 12:08 Assessment and Plan (1) Dementia: Status: Acute (2) Alcohol use disorder, severe, dependence: Status: Acute Plan 81 yo M with a reported history of alcohol use/dependence who was brought in by ambulance after his friends had not seen him for a few days and found to have covid but assymptomatic and now with placement issues--essentially no change in care overnight No new issues, awaiting guardianship, [place] management? essentially unchanged #.Dementia-- stable #.Mild malnutrition ...chronic and stable, I think this is stature # smoker cough /emphysema , assymptomatic # Had covid and reocvered fully ? Got covid vaccine 11/27/21 Needs placement as does not have capacity to make sounds medical decisions No active issues, CM working on placement Quality Stroke Does the patient have a stroke diagnosis?: No VTE Prior VTE?: No VTE Risk Level:: Medical - moderate - high VTE Device Contraindication: Treatment Not Indicated VTE Drug Contraindication: N/A - Med Ordered
[2021-12-19 15:09] VITALS: BP 114/56; PULSE 82; RESP 18; TEMP 36.8; O2SAT 93
[2021-12-19 23:52] VITALS: BP 110/56; PULSE 77; RESP 16; TEMP 36; O2SAT 94
[2021-12-20] MEDS: Heparin Sodium,Porcine 5,000 UNIT/ML VIAL 5000 UNIT SUBCUT ×2 (06:17→15:20)
[2021-12-20 07:59] VITALS: BP 115/59; PULSE 80; RESP 15; TEMP 36.5; O2SAT 92
[2021-12-20] MEDS: Thiamine HCL 100 MG TABLET PO (09:04)
[2021-12-20] MEDS: Folic Acid 1 MG TABLET PO (09:04)
--- NOTE | 2021-12-20 12:13 | P.PNIM_ITS ---
Subjective Subjective Date of Service: 12/20/21 Interval History: No acute events overnight Physical Exam Vital Signs: Vital Signs: Last Vital Signs Temp 97.7 F 12/20/21 07:59 Pulse 80 12/20/21 07:59 Resp 15 12/20/21 07:59 BP 115/59 L 12/20/21 07:59 Pulse Ox 92 12/20/21 07:59 BMI result Body Mass Index 16.1 Const: General: cooperative, comfortable, no acute distress, alert and awake Nutritional Appearance: thin and underweight Orientation/consciousness: patient oriented x3 HENMT: Head: Yes normocephalic and Yes atraumatic Eyes: General: appearance normal, both eyes and all related structures Sclerae: sclerae normal Chest: Chest palpation & inspection: normal inspection of the chest Resp: Effort & Inspection: normal respiratory effort, able to speak in complete sentences and no respiratory distress Auscultation: clear to auscultation bilaterally Cardio: Rate: regular rate Rhythm: regular rhythm GI: Inspection: No distended Palpation (GI): Soft to palpation and nontender Auscultation: normal bowel sounds Neuro: General: patient oriented x3 Cranial nerves: Yes CN's II-XII intact bilaterally and Yes Bilaterally intact EOM present Extrem: General: Yes normal to inspection and Yes no pedal edema Objective Data Active Medications Acetaminophen (Acetaminophen 325 Mg Tablet) 650 mg PO Q6H PRN PRN Reason: Pain, Mild (Pain Scale 1-3) Albuterol Sulfate (Albuterol Sulfate 90 Mcg 8 Gm Inhaler) 2 puff INHALE RQ4H PRN PRN Reason: Wheezing Fluticasone/Vilanterol (Fluticasone/Vilanterol 200/25 Blst.W.Dev) 1 puff INHALE RDAILY [facility] Last Admin: 12/20/21 08:03 Dose: Not Given Documented by: PAWEL Non-Admin Reason: Patient Refused Folic Acid (Folic Acid 1 Mg Tablet) 1 mg PO DAILY [facility] Last Admin: 12/20/21 09:04 Dose: 1 mg Documented by: MARÍA ELENA Guaifenesin (Guaifenesin 100 Mg/5 Ml Liquid) 5 ml PO Q6H PRN PRN Reason: Cough Last Admin: 12/06/21 12:21 Dose: 5 ml Documented by: MARIALUISA Heparin Sodium (Porcine) (Heparin Sodium,Porcine 5,000 Unit/Ml Vial) 5,000 unit SUBCUT Q12H [facility] Last Admin: 12/20/21 06:17 Dose: 5,000 unit Documented by: JACQUI Ondansetron HCl (Ondansetron Hcl 4 Mg/2 Ml Vial) 4 mg IVPUSH Q8H PRN PRN Reason: Nausea and Vomiting Pharmacy Consult (Consult Rx Perform Med Rec) 1 each MISCELLANE ONCE PRN PRN Reason: Consult order Sodium Chloride (0.9 % Sodium Chloride Flush 3 Ml Syringe) 3 ml IVFLUSH QSHIFT [facility] Last Admin: 12/20/21 09:04 Dose: Not Given Documented by: MARÍA ELENA Non-Admin Reason: No Access Thiamine HCl (Thiamine Hcl 100 Mg Tablet) 100 mg PO DAILY [facility] Last Admin: 12/20/21 09:04 Dose: 100 mg Documented by: MARÍA ELENA Labs CBC & Chem 7: 11/17/21 12:08 11/17/21 12:08 Assessment and Plan (1) Dementia: Status: Acute Plan 81 yo M with a reported history of alcohol use/dependence who was brought in by ambulance after his friends had not seen him for a few days and found to have covid but assymptomatic and now with placement issues--essentially no change in care overnight No new issues, awaiting guardianship, [place] management? essentially unchanged #.Dementia-- stable #.Mild malnutrition ...chronic and stable, I think this is stature # smoker cough /emphysema , assymptomatic # Had covid and reocvered fully ? Got covid vaccine 11/27/21 Needs placement as does not have capacity to make sounds medical decisions No active issues, CM working on placement Quality Stroke Does the patient have a stroke diagnosis?: No VTE Prior VTE?: No VTE Risk Level:: Medical - moderate - high VTE Device Contraindication: Treatment Not Indicated VTE Drug Contraindication: N/A - Med Ordered
[2021-12-20 15:38] VITALS: BP 121/57; PULSE 83; RESP 18; TEMP 36.6; O2SAT 100
[2021-12-20 23:35] VITALS: BP 119/70; PULSE 89; RESP 15; TEMP 36.4; O2SAT 92
[2021-12-21] MEDS: Heparin Sodium,Porcine 5,000 UNIT/ML VIAL 5000 UNIT SUBCUT ×2 (05:38→18:04)
[2021-12-21 08:00] VITALS: BP 119/72; PULSE 119; RESP 18; TEMP 36.4; O2SAT 89
[2021-12-21] MEDS: Folic Acid 1 MG TABLET PO (10:11)
[2021-12-21] MEDS: Thiamine HCL 100 MG TABLET PO (10:11)
--- NOTE | 2021-12-21 10:19 | MHC.CM.PN ---
nurse director of casework services note electronic medical record reviewed along with case disucssed with hospitlaist , patient is anticipated to be discharged home today to daughters anns/hcp home no services transportation family pcp follow up for post hospitylas diwscharge follow up medicare IMM UPDATED
--- NOTE | 2021-12-21 13:00 | P.PNIM_ITS ---
Subjective Subjective Date of Service: 12/21/21 Interval History: Awaiting [facility], then LTC placement Pt has no complaints Review of Systems Review of Systems: Yes all other systems are reviewed and are negative Physical Exam Vital Signs: Vital Signs: Last Vital Signs Temp 97.5 F 12/21/21 08:00 Pulse 119 H 12/21/21 08:00 Resp 18 12/21/21 08:00 BP 119/72 12/21/21 08:00 Pulse Ox 89 L 12/21/21 08:00 BMI result Body Mass Index 16.1 Gen: in no acute distress HEENT: sclera anicteric, moist mucus membranes Neck: supple Lungs: clear to auscultation bilaterally Heart: regular rate and rhythm, no murmurs Abd: soft, non-tender, non-distended Ext: no edema Skin: warm/well-perfused Neuro: alert and oriented x3, no focal findings Psych: impaired insight Objective Data Active Medications Acetaminophen (Acetaminophen 325 Mg Tablet) 650 mg PO Q6H PRN PRN Reason: Pain, Mild (Pain Scale 1-3) Albuterol Sulfate (Albuterol Sulfate 90 Mcg 8 Gm Inhaler) 2 puff INHALE RQ4H PRN PRN Reason: Wheezing Fluticasone/Vilanterol (Fluticasone/Vilanterol 200/25 Blst.W.Dev) 1 puff INHALE RDAILY [facility] Last Admin: 12/21/21 07:51 Dose: Not Given Documented by: FREDO Non-Admin Reason: Patient Refused Folic Acid (Folic Acid 1 Mg Tablet) 1 mg PO DAILY [facility] Last Admin: 12/21/21 10:11 Dose: 1 mg Documented by: GLO Guaifenesin (Guaifenesin 100 Mg/5 Ml Liquid) 5 ml PO Q6H PRN PRN Reason: Cough Last Admin: 12/06/21 12:21 Dose: 5 ml Documented by: MARIALUISA Heparin Sodium (Porcine) (Heparin Sodium,Porcine 5,000 Unit/Ml Vial) 5,000 unit SUBCUT Q12H [facility] Last Admin: 12/21/21 05:38 Dose: 5,000 unit Documented by: JANICE Ondansetron HCl (Ondansetron Hcl 4 Mg/2 Ml Vial) 4 mg IVPUSH Q8H PRN PRN Reason: Nausea and Vomiting Pharmacy Consult (Consult Rx Perform Med Rec) 1 each MISCELLANE ONCE PRN PRN Reason: Consult order Sodium Chloride (0.9 % Sodium Chloride Flush 3 Ml Syringe) 3 ml IVFLUSH QSHIFT [facility] Last Admin: 12/21/21 10:12 Dose: Not Given Documented by: GLO Non-Admin Reason: No Access Thiamine HCl (Thiamine Hcl 100 Mg Tablet) 100 mg PO DAILY [facility] Last Admin: 12/21/21 10:11 Dose: 100 mg Documented by: GLO Labs CBC & Chem 7: 11/17/21 12:08 11/17/21 12:08 Assessment and Plan (1) Dementia: Status: [facility] hospital d#79 81yo M with hx EtOH abuse, brought in for inadequate self-care, admitted with asymptomatic Covid-19 infection, now awaiting placement # dementia - ?alcoholic. no behavioral disturbance # moderate protein/calorie malnutrition - supplements # emphysema/COPD - ICS/LABA controller, prn albuterol # Covid-19 infection - recovered, then vaccinated 11/27/21 # VTE ppx - UFH # dispo - awaiting placement Quality Stroke Does the patient have a stroke diagnosis?: No VTE Prior VTE?: No VTE Risk Level:: Medical - moderate - high VTE Device Contraindication: Treatment Not Indicated VTE Drug Contraindication: N/A - Med Ordered
--- NOTE | 2021-12-21 13:52 | MHC.CM.PN ---
nurse case manage note electronic medical record reviewed along with case discussed with staff nurse and hospitlaist , t/c to financial counselors and they were told to call today for anticipated determination, however they were told that secondary to holiday and anjali to call back on of this week for determination for [facility]. clinical updates sent to [facility] and [facility] care child care supervisor to cont to follow
[2021-12-21 16:00] VITALS: BP 113/75; PULSE 94; RESP 16; TEMP 36.8; O2SAT 94
[2021-12-21 23:38] VITALS: BP 117/63; PULSE 54; RESP 14; TEMP 36.5; O2SAT 92
[2021-12-22] MEDS: Heparin Sodium,Porcine 5,000 UNIT/ML VIAL 5000 UNIT SUBCUT (05:49)
[2021-12-22 06:04] LABS: Hemoglobin 11.5 g/dl (14.0-18.0); Mean Corpuscular HGB Conc 31.9 g/dl (31.0-36.0); Mean Corpuscular Hemoglobin 29.7 pg (27.0-33.0); Mean Platelet Volume 8.4 fL (9.4-12.4); Platelet Count 311 X10*3/uL (160-400); Red Blood Count 3.87 X10*6/uL (4.60-5.80); Red Cell Distribution Width 13.9 % (11.0-16.0); White Blood Count 8.7 X10*3/uL (4.8-10.8)
[2021-12-22 06:23] LABS: Anion Gap 13 (12-20); Blood Urea Nitrogen 22 mg/dL (9-16); Calcium 9.4 mg/dL (8.4-10.2); Carbon Dioxide 26 mmol/L (22-29); Chloride 106 mmol/L (96-108); Creatinine Clr Calc Pharmacy 39.2; Estimated Glomerular Filt Rate > 60; Glucose Random 99 mg/dL (60-115); Sodium 141 mmol/L (135-145)
[2021-12-22] MEDS: Fluticasone/Vilanterol 200/25 BLST.W.DEV 1 PUFF INHALE (07:34)
[2021-12-22 07:37] VITALS: PULSE 68; RESP 18; O2SAT 98
[2021-12-22 07:53] VITALS: BP 132/79; RESP 18; TEMP 36.7; O2SAT 90
[2021-12-22] MEDS: Folic Acid 1 MG TABLET PO (08:27)
[2021-12-22] MEDS: Thiamine HCL 100 MG TABLET PO (08:28)
--- NOTE | 2021-12-22 10:11 | HO.PM.IMPN ---
Subjective Subjective Date of Service: 12/22/21 Interval History: no new complaints Review of Systems Review of Systems: Yes all other systems are reviewed and are negative Physical Exam Vital Signs: Vital Signs: Last Vital Signs Temp 98.1 F 12/22/21 07:53 Pulse 68 12/22/21 07:37 Resp 18 12/22/21 07:53 BP 132/79 12/22/21 07:53 Pulse Ox 90 L 12/22/21 07:53 BMI result Body Mass Index 16.1 Gen: in no acute distress, malnourished Lungs: normal respiratory effort Ext: no edema Neuro: alert, no focal findings Psych: impaired insight Objective Data Active Medications Acetaminophen (Acetaminophen 325 Mg Tablet) 650 mg PO Q6H PRN PRN Reason: Pain, Mild (Pain Scale 1-3) Albuterol Sulfate (Albuterol Sulfate 90 Mcg 8 Gm Inhaler) 2 puff INHALE RQ4H PRN PRN Reason: Wheezing Fluticasone/Vilanterol (Fluticasone/Vilanterol 200/25 Blst.W.Dev) 1 puff INHALE RDAILY [facility] Last Admin: 12/22/21 07:34 Dose: 1 puff Documented by: JESSICA Folic Acid (Folic Acid 1 Mg Tablet) 1 mg PO DAILY [facility] Last Admin: 12/22/21 08:27 Dose: 1 mg Documented by: KELLY Guaifenesin (Guaifenesin 100 Mg/5 Ml Liquid) 5 ml PO Q6H PRN PRN Reason: Cough Last Admin: 12/06/21 12:21 Dose: 5 ml Documented by: MARIALUISA Heparin Sodium (Porcine) (Heparin Sodium,Porcine 5,000 Unit/Ml Vial) 5,000 unit SUBCUT Q12H [facility] Last Admin: 12/22/21 05:49 Dose: 5,000 unit Documented by: JANICE Ondansetron HCl (Ondansetron Hcl 4 Mg/2 Ml Vial) 4 mg IVPUSH Q8H PRN PRN Reason: Nausea and Vomiting Pharmacy Consult (Consult Rx Perform Med Rec) 1 each MISCELLANE ONCE PRN PRN Reason: Consult order Thiamine HCl (Thiamine Hcl 100 Mg Tablet) 100 mg PO DAILY [facility] Last Admin: 12/22/21 08:28 Dose: 100 mg Documented by: KELLY Labs CBC & Chem 7: 12/22/21 05:48 03/01/22 05:48 Labs: Laboratory Results - last 24 hr 12/22/21 12/22/21 05:48 05:48 MCV 93.0 MCH 29.7 MCHC 31.9 RDW 13.9 Plt Count 311 D MPV 8.4 L Absolute Nucleated RBC 0.000 Nucleated RBC % (auto) 0.0 Anion Gap 13 Estim Creat Clear Calc 39.2 Estimated GFR > 60 Random Glucose 99 Calcium 9.4 Assessment and Plan (1) Dementia: Status: Acute [facility] hospital d#80 81yo M with hx EtOH abuse, brought in for inadequate self-care, admitted with asymptomatic Covid-19 infection, now awaiting placement # dementia - ?alcoholic. no behavioral disturbance # moderate protein/calorie malnutrition - supplements # emphysema/COPD - ICS/LABA controller, prn albuterol # Covid-19 infection - recovered, then vaccinated 11/27/21 # VTE ppx - UFH # dispo - awaiting placement Quality Stroke Does the patient have a stroke diagnosis?: No VTE Prior VTE?: No VTE Risk Level:: Medical - moderate - high VTE Device Contraindication: Treatment Not Indicated VTE Drug Contraindication: N/A - Med Ordered
--- NOTE | 2021-12-22 15:56 | MHC.CM.PN ---
NURSE RETAIL ROUTE SUPERVISOR NOTE T/C CALL FROM [facility] ALL PAPERWORK HAD BE SENT IN AND APPROVED BUT THEY NEED PAPER WORK TO BE [facility] AND NEED IT WITH IN TH ENXT 30 DAYS FORM 12/13/21, OR APLLICATION WILL HAVE TO BE RESTARTED , THIS WAS INFORMED TO THE TWO [facility] AND [facility] , PATIENT WILL THEN NEED A MDS TO BE COMPLETED WELL. CLINICAL UPDATES SENT TO THE TWO FOLLOWING SNFS T/C TO SILVIA PARRISH [phone] MESSAGE LEFT,ON HER VOICE MAIL ASKING FOR CALL BACK TO CASE MANAGEMENT
[2021-12-22 16:00] VITALS: BP 110/53; PULSE 84; RESP 16; TEMP 36.5; O2SAT 98
[2021-12-23] VITALS: RESP 18
[2021-12-23 07:32] VITALS: BP 121/66; PULSE 90; RESP 17; TEMP 36.6; O2SAT 92
[2021-12-23] MEDS: Folic Acid 1 MG TABLET PO (08:27)
[2021-12-23] MEDS: Thiamine HCL 100 MG TABLET PO (08:27)
--- NOTE | 2021-12-23 09:52 | P.PNIM_ITS ---
Subjective Subjective Date of Service: 12/23/21 Interval History: No complaints No new events Review of Systems Review of Systems: Yes all other systems are reviewed and are negative Physical Exam Vital Signs: Vital Signs: Last Vital Signs Temp 97.9 F 12/23/21 07:32 Pulse 90 12/23/21 07:32 Resp 17 12/23/21 07:32 BP 121/66 12/23/21 07:32 Pulse Ox 92 12/23/21 07:32 BMI result Body Mass Index 16.1 Gen: in no acute distress, malnourished Lungs: normal respiratory effort Ext: no edema Neuro: alert, no focal findings Psych: impaired insight Objective Data Active Medications Acetaminophen (Acetaminophen 325 Mg Tablet) 650 mg PO Q6H PRN PRN Reason: Pain, Mild (Pain Scale 1-3) Albuterol Sulfate (Albuterol Sulfate 90 Mcg 8 Gm Inhaler) 2 puff INHALE RQ4H PRN PRN Reason: Wheezing Fluticasone/Vilanterol (Fluticasone/Vilanterol 200/25 Blst.W.Dev) 1 puff INHALE RDAILY [facility] Last Admin: 12/23/21 07:39 Dose: Not Given Documented by: PEPE Non-Admin Reason: Patient Refused Folic Acid (Folic Acid 1 Mg Tablet) 1 mg PO DAILY [facility] Last Admin: 12/23/21 08:27 Dose: 1 mg Documented by: KELLY Guaifenesin (Guaifenesin 100 Mg/5 Ml Liquid) 5 ml PO Q6H PRN PRN Reason: Cough Last Admin: 12/06/21 12:21 Dose: 5 ml Documented by: MARIALUISA Heparin Sodium (Porcine) (Heparin Sodium,Porcine 5,000 Unit/Ml Vial) 5,000 unit SUBCUT Q12H [facility] Last Admin: 12/23/21 04:13 Dose: Not Given Documented by: MENDEZ Non-Admin Reason: Patient Refused Ondansetron HCl (Ondansetron Hcl 4 Mg/2 Ml Vial) 4 mg IVPUSH Q8H PRN PRN Reason: Nausea and Vomiting Pharmacy Consult (Consult Rx Perform Med Rec) 1 each MISCELLANE ONCE PRN PRN Reason: Consult order Thiamine HCl (Thiamine Hcl 100 Mg Tablet) 100 mg PO DAILY [facility] Last Admin: 12/23/21 08:27 Dose: 100 mg Documented by: KELLY Labs CBC & Chem 7: 12/22/21 05:48 12/22/21 05:48 Assessment and Plan (1) Dementia: Status: Acute Plan hospital d#80 81yo M with hx EtOH abuse, brought in for inadequate self-care, admitted with asymptomatic Covid-19 infection, now awaiting placement # dementia - ?alcoholic. no behavioral disturbance # moderate protein/calorie malnutrition - supplements # emphysema/COPD - ICS/LABA controller, prn albuterol # Covid-19 infection - recovered, then vaccinated 11/27/21 # VTE ppx - UFH # dispo - awaiting placement Quality Stroke Does the patient have a stroke diagnosis?: No VTE Prior VTE?: No VTE Risk Level:: Medical - moderate - high VTE Device Contraindication: Treatment Not Indicated VTE Drug Contraindication: N/A - Med Ordered
[2021-12-23 15:00] VITALS: BMI 16.0
[2021-12-23 15:29] VITALS: BP 121/57; PULSE 94; RESP 20; TEMP 36.7; O2SAT 92
[2021-12-24] VITALS: BP 109/60; PULSE 77; RESP 16; TEMP 36.5; O2SAT 92
[2021-12-24 07:41] VITALS: BP 130/68; PULSE 108; RESP 20; TEMP 36.2; O2SAT 96
[2021-12-24] MEDS: Folic Acid 1 MG TABLET PO (08:31)
[2021-12-24] MEDS: Thiamine HCL 100 MG TABLET PO (08:31)
--- NOTE | 2021-12-24 13:44 | HO.PM.IMPN ---
Subjective Subjective Date of Service: 12/24/21 Interval History: No new complaints Review of Systems Review of Systems: Yes all other systems are reviewed and are negative Physical Exam Vital Signs: Vital Signs: Last Vital Signs Temp 97.1 F 12/24/21 07:41 Pulse 108 H 12/24/21 07:41 Resp 20 12/24/21 07:41 BP 130/68 12/24/21 07:41 Pulse Ox 96 12/24/21 07:41 BMI result Body Mass Index 16.0 Gen: in no acute distress, malnourished Lungs: normal respiratory effort Ext: no edema Neuro: alert, no focal findings Psych: impaired insight Objective Data Active Medications Acetaminophen (Acetaminophen 325 Mg Tablet) 650 mg PO Q6H PRN PRN Reason: Pain, Mild (Pain Scale 1-3) Albuterol Sulfate (Albuterol Sulfate 90 Mcg 8 Gm Inhaler) 2 puff INHALE RQ4H PRN PRN Reason: Wheezing Fluticasone/Vilanterol (Fluticasone/Vilanterol 200/25 Blst.W.Dev) 1 puff INHALE RDAILY [facility] Last Admin: 12/24/21 07:57 Dose: Not Given Documented by: PEPE Non-Admin Reason: Patient Refused Folic Acid (Folic Acid 1 Mg Tablet) 1 mg PO DAILY [facility] Last Admin: 12/24/21 08:31 Dose: 1 mg Documented by: KELLY Guaifenesin (Guaifenesin 100 Mg/5 Ml Liquid) 5 ml PO Q6H PRN PRN Reason: Cough Last Admin: 12/06/21 12:21 Dose: 5 ml Documented by: MARIALUISA Heparin Sodium (Porcine) (Heparin Sodium,Porcine 5,000 Unit/Ml Vial) 5,000 unit SUBCUT Q12H [facility] Last Admin: 12/24/21 05:44 Dose: Not Given Documented by: JACQUI Non-Admin Reason: pt declined, ambulating freely, independent f Ondansetron HCl (Ondansetron Hcl 4 Mg/2 Ml Vial) 4 mg IVPUSH Q8H PRN PRN Reason: Nausea and Vomiting Pharmacy Consult (Consult Rx Perform Med Rec) 1 each MISCELLANE ONCE PRN PRN Reason: Consult order Thiamine HCl (Thiamine Hcl 100 Mg Tablet) 100 mg PO DAILY [facility] Last Admin: 03/03/22 08:31 Dose: 100 mg Documented by: DABRadha Labs CBC & Chem 7: 12/22/21 05:48 12/22/21 05:48 Assessment and Plan (1) Dementia: Status: Acute Plan hospital d#83 81yo M with hx EtOH abuse, brought in for inadequate self-care, admitted with asymptomatic Covid-19 infection, now awaiting placement # dementia - ?alcoholic. no behavioral disturbance # moderate protein/calorie malnutrition - supplements # emphysema/COPD - ICS/LABA controller, prn albuterol # Covid-19 infection - recovered, then vaccinated 11/27/21 # VTE ppx - UFH # dispo - awaiting placement Quality Stroke Does the patient have a stroke diagnosis?: No VTE Prior VTE?: No VTE Risk Level:: Medical - moderate - high VTE Device Contraindication: Treatment Not Indicated VTE Drug Contraindication: N/A - Med Ordered
--- NOTE | 2021-12-24 15:07 | MHC.CM.PN ---
NURSE REPORTS DEVELOPER NOTE ELECTRONIC MEDICAL RECORD REVIEWED ALONG WITH CASE DISCUSSED WITH STAFF NURSE AND THE HOSPITALIST. 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 AND ALSO THAT [facility] NOT ABLE TO ACCEPT HIM , ADDITIONAL REFERRALS WERE SENT OUT TO :[facility], [facility], [facility] JENIFFER REPORTS DEVELOPER TO RASHID VALLE
[2021-12-24 15:47] VITALS: BP 121/53; PULSE 77; RESP 17; TEMP 36.6; O2SAT 94
[2021-12-25] VITALS: BP 123/64; PULSE 80; RESP 16; TEMP 36.7; O2SAT 95
[2021-12-25] MEDS: Folic Acid 1 MG TABLET PO (07:25)
[2021-12-25] MEDS: Thiamine HCL 100 MG TABLET PO (07:26)
[2021-12-25 07:45] VITALS: BP 169/74; PULSE 118; RESP 20; TEMP 36.4; O2SAT 93
[2021-12-25 09:23] VITALS: BP 112/48; O2SAT 88
--- NOTE | 2021-12-25 10:35 | HO.PM.IMPN ---
Subjective Subjective Date of Service: 12/25/21 Interval History: Resting comfortably offers no acute complaints no events overnight , documented to have elevated blood pressure this morning repeat BP is within normal range. Physical Exam Vital Signs: Vital Signs: Last Vital Signs Temp 97.6 F 12/25/21 07:45 Pulse 118 H 12/25/21 07:45 Resp 20 12/25/21 07:45 BP 112/48 L 12/25/21 09:23 Pulse Ox 88 L 12/25/21 09:23 BMI result Body Mass Index 16.0 Const: Other: Gen: Awake alert, no acute distress Neck is supple Lungs: normal respiratory effort Abdomen soft, bowel sounds audible Ext: no edema Neuro: alert, no focal findings Psych: impaired insight Objective Data Active Medications Acetaminophen (Acetaminophen 325 Mg Tablet) 650 mg PO Q6H PRN PRN Reason: Pain, Mild (Pain Scale 1-3) Albuterol Sulfate (Albuterol Sulfate 90 Mcg 8 Gm Inhaler) 2 puff INHALE RQ4H PRN PRN Reason: Wheezing Fluticasone/Vilanterol (Fluticasone/Vilanterol 200/25 Blst.W.Dev) 1 puff INHALE RDAILY [facility] Last Admin: 12/25/21 07:53 Dose: Not Given Documented by: PAWEL Non-Admin Reason: Patient Refused Folic Acid (Folic Acid 1 Mg Tablet) 1 mg PO DAILY [facility] Last Admin: 12/25/21 07:25 Dose: 1 mg Documented by: MARÍA ELENA Guaifenesin (Guaifenesin 100 Mg/5 Ml Liquid) 5 ml PO Q6H PRN PRN Reason: Cough Last Admin: 12/06/21 12:21 Dose: 5 ml Documented by: MARIALUISA Heparin Sodium (Porcine) (Heparin Sodium,Porcine 5,000 Unit/Ml Vial) 5,000 unit SUBCUT Q12H [facility] Last Admin: 12/25/21 05:33 Dose: Not Given Documented by: SHANNAN Non-Admin Reason: Patient Refused Ondansetron HCl (Ondansetron Hcl 4 Mg/2 Ml Vial) 4 mg IVPUSH Q8H PRN PRN Reason: Nausea and Vomiting Pharmacy Consult (Consult Rx Perform Med Rec) 1 each MISCELLANE ONCE PRN PRN Reason: Consult order Thiamine HCl (Thiamine Hcl 100 Mg Tablet) 100 mg PO DAILY [facility] Last Admin: 12/25/21 07:26 Dose: 100 mg Documented by: MARÍA ELENA Labs CBC & Chem 7: 12/22/21 05:48 12/22/21 05:48 Assessment and Plan (1) Dementia: Status: Acute [facility] hospital d#83 81yo M with hx EtOH abuse, brought in for inadequate self-care, admitted with asymptomatic Covid-19 infection, now awaiting placement # dementia - no behavioral issues, ?alcoholic. # moderate protein/calorie malnutrition - continue supplements # emphysema/COPD - no acute exacerbation, continue Breo and prn albuterol # Covid-19 infection - recovered, then vaccinated 11/27/21 # elevated blood pressure asymptomatic, repeat BP within normal range, continue to follow BP # VTE ppx - UFH # dispo - awaiting placement Quality Stroke Does the patient have a stroke diagnosis?: No VTE Prior VTE?: No VTE Risk Level:: Medical - moderate - high VTE Device Contraindication: Treatment Not Indicated VTE Drug Contraindication: N/A - Med Ordered
--- NOTE | 2021-12-25 13:53 | MHC.CLN ---
F/U PATIENT AWAITING PLACEMENT DIET RX:REGULAR; SUPPLEMENT ENSURE BID. SUPPLEMENT PROVIDES ADDITIONAL 700 KCAL, 40 G PROTEIN. NO REPORTED CONCERNS WITH INTAKE WEIGHT 3/2=45 KG, BMI=16.1; WT HAS REMAINED STABLE SKIN: NO OPEN AREAS. MODERATE MALNUTRITION UPON ADMISSION CONTINUE CURRENT DIET AND ENCOURAGE SUPPLEMENT INTAKE RD TO FOLLOW WEEKLY.
--- NOTE | 2021-12-25 15:46 | MHC.CM.PN ---
EMR REVIEWED, [facility]IDI IS STILL REVIEWING PT AND IF WILLING TO ACCEPT ADDITIONAL DOCUMENTS WILL NEED TO BE COMPLETED. CM ALSO CONTACTED PT'S HCP/POA GERTRUDE REYES AT 3:35PM [phone] AND GERTRUDE REPORTS HE HAS SPOKEN TO PT'S GUARDIAN AND IS AWARE AND AGREEABLE TO PLAN FOR LTC AND HAS NO PREFERENCES FOR SNF'S HOWEVER FEELS PT WOULD PREFER TO STAY IN [place], CM WILL CON'T TO TRY AND PLACE PT CLOSE TO [place] POSSIBLE.
[2021-12-25 15:51] VITALS: BP 142/59; PULSE 68; RESP 20; TEMP 36.9; O2SAT 94
[2021-12-25] MEDS: Heparin Sodium,Porcine 5,000 UNIT/ML VIAL 5000 UNIT SUBCUT (16:55)
[2021-12-25] MEDS: Acetaminophen 325 MG TABLET 650 MG PO (20:35)
[2021-12-25] MEDS: guaiFENesin 100 MG/5 ML LIQUID PO (20:36)
[2021-12-25 23:42] VITALS: BP 157/83; PULSE 87; RESP 16; TEMP 36.8; O2SAT 94
[2021-12-26] MEDS: Folic Acid 1 MG TABLET PO (07:35)
[2021-12-26] MEDS: Thiamine HCL 100 MG TABLET PO (07:35)
[2021-12-26] MEDS: guaiFENesin 100 MG/5 ML LIQUID PO ×2 (07:35→23:48)
[2021-12-26] MEDS: Acetaminophen 325 MG TABLET 650 MG PO ×2 (07:36→23:47)
[2021-12-26 07:59] VITALS: BP 175/84; PULSE 135; RESP 20; TEMP 36.3; O2SAT 90
--- NOTE | 2021-12-26 11:26 | P.PNIM_ITS ---
Subjective Subjective Date of Service: 12/26/21 Interval History: Offers no acute complaints ambulating in steady gait, no acute events overnight. Review of Systems Review of Systems: Yes all other systems are reviewed and are negative Physical Exam Vital Signs: Vital Signs: Last Vital Signs Temp 97.4 F 12/26/21 07:59 Pulse 135 H 12/26/21 07:59 Resp 20 12/26/21 07:59 BP 175/84 H 12/26/21 07:59 Pulse Ox 90 L 12/26/21 07:59 BMI result Body Mass Index 16.0 Const: Other: Gen:? Awake alert, no acute distress Neck is supple Lungs: normal respiratory effort Abdomen soft, bowel sounds audible Ext: no edema Neuro: alert, no focal findings Psych: impaired insight Objective Data Active Medications Acetaminophen (Acetaminophen 325 Mg Tablet) 650 mg PO Q6H PRN PRN Reason: Pain, Mild (Pain Scale 1-3) Last Admin: 12/26/21 07:36 Dose: 650 mg Documented by: CARIDAD Albuterol Sulfate (Albuterol Sulfate 90 Mcg 8 Gm Inhaler) 2 puff INHALE RQ4H WI N PRN Reason: Wheezing Fluticasone/Vilanterol (Fluticasone/Vilanterol 200/25 Blst.W.Dev) 1 puff INHALE RDAILY [facility] Last Admin: 12/26/21 07:51 Dose: Not Given Documented by: PAWEL Non-Admin Reason: Patient Refused Folic Acid (Folic Acid 1 Mg Tablet) 1 mg PO DAILY [facility] Last Admin: 12/26/21 07:35 Dose: 1 mg Documented by: CARIDAD Guaifenesin (Guaifenesin 100 Mg/5 Ml Liquid) 5 ml PO Q6H PRN PRN Reason: Cough Last Admin: 12/26/21 07:35 Dose: 5 ml Documented by: CARIDAD Heparin Sodium (Porcine) (Heparin Sodium,Porcine 5,000 Unit/Ml Vial) 5,000 unit SUBCUT Q12H [facility] Last Admin: 12/26/21 05:46 Dose: Not Given Documented by: DEMETRA Non-Admin Reason: Patient Refused Ondansetron HCl (Ondansetron Hcl 4 Mg/2 Ml Vial) 4 mg IVPUSH Q8H PRN PRN Reason: Nausea and Vomiting Pharmacy Consult (Consult Rx Perform Med Rec) 1 each MISCELLANE ONCE PRN PRN Reason: Consult order Thiamine HCl (Thiamine Hcl 100 Mg Tablet) 100 mg PO DAILY [facility] Last Admin: 12/26/21 07:35 Dose: 100 mg Documented by: CARIDAD Labs CBC & Chem 7: 12/22/21 05:48 12/22/21 05:48 Assessment and Plan (1) Dementia: Status: Acute [facility] hospital d#83 81yo M with hx EtOH abuse, brought in for inadequate self-care, admitted with asymptomatic Covid-19 infection, now awaiting placement # dementia - no behavioral issues, ?alcoholic. # moderate protein/calorie malnutrition - continue supplements # emphysema/COPD - no acute exacerbation, continue Breo and prn albuterol # Covid-19 infection - recovered, then vaccinated 11/27/21 # elevated blood pressure noted to have elevated blood pressures and pulse when patient is agitated, repeat blood pressure and pulse is are within normal range, continue to monitor BP closely. # VTE ppx - UFH # dispo - awaiting placement Quality Stroke Does the patient have a stroke diagnosis?: No VTE Prior VTE?: No VTE Risk Level:: Medical - moderate - high VTE Device Contraindication: Treatment Not Indicated VTE Drug Contraindication: N/A - Med Ordered
[2021-12-26 12:00] VITALS: BP 143/67; PULSE 99; RESP 16; TEMP 36.4; O2SAT 91
[2021-12-26 15:23] VITALS: BP 133/70; PULSE 92; RESP 17; TEMP 36.3; O2SAT 92
[2021-12-26 23:42] VITALS: BP 141/89; PULSE 98; RESP 17; TEMP 36.4; O2SAT 92
--- NOTE | 2021-12-27 01:22 | PC.NURSE ---
Patient with persistent cough, states he has sputum when coughing. Inspiratory and expiratory wheezing throughout. Mild dyspnea with ambulation. Patient denied Albuterol when offered. Requested Robitussin, which was given with Tylenol for back pain. Patient currently sleeping, no SOB at rest.
[2021-12-27 07:34] VITALS: BP 119/60; PULSE 90; RESP 18; TEMP 36.1; O2SAT 92
[2021-12-27] MEDS: guaiFENesin 100 MG/5 ML LIQUID PO (07:39)
[2021-12-27] MEDS: Thiamine HCL 100 MG TABLET PO (07:39)
[2021-12-27] MEDS: Folic Acid 1 MG TABLET PO (07:39)
[2021-12-27] MEDS: Acetaminophen 325 MG TABLET 650 MG PO (07:41)
--- NOTE | 2021-12-27 09:05 | HO.PM.IMPN ---
Subjective Subjective Date of Service: 12/27/21 Interval History: Sitting comfortably eating breakfast offers no complaints of pain, no fevers, no chills no acute overnight issues. Review of Systems Review of Systems: Yes all other systems are reviewed and are negative Physical Exam Vital Signs: Vital Signs: Last Vital Signs Temp 97 F 12/27/21 07:34 Pulse 90 12/27/21 07:34 Resp 18 12/27/21 07:34 BP 119/60 12/27/21 07:34 Pulse Ox 92 12/27/21 07:34 BMI result Body Mass Index 16.0 Const: Other: Gen:? Awake alert, no acute distress Neck supple Heart regular Lungs: normal respiratory effort Abdomen soft, bowel sounds audible Ext: no edema Neuro: alert, no focal findings, clear speech Psych: impaired insight Objective Data Active Medications Acetaminophen (Acetaminophen 325 Mg Tablet) 650 mg PO Q6H PRN PRN Reason: Pain, Mild (Pain Scale 1-3) Last Admin: 12/27/21 07:41 Dose: 650 mg Documented by: CARIDAD Albuterol Sulfate (Albuterol Sulfate 90 Mcg 8 Gm Inhaler) 2 puff INHALE RQ4H PRN PRN Reason: Wheezing Fluticasone/Vilanterol (Fluticasone/Vilanterol 200/25 Blst.W.Dev) 1 puff INHALE RDAILY [facility] Last Admin: 12/27/21 07:42 Dose: Not Given Documented by: PEPE Non-Admin Reason: Patient Refused Folic Acid (Folic Acid 1 Mg Tablet) 1 mg PO DAILY [facility] Last Admin: 12/27/21 07:39 Dose: 1 mg Documented by: CARIDAD Guaifenesin (Guaifenesin 100 Mg/5 Ml Liquid) 5 ml PO Q6H PRN PRN Reason: Cough Last Admin: 12/27/21 07:39 Dose: 5 ml Documented by: CARIDAD Heparin Sodium (Porcine) (Heparin Sodium,Porcine 5,000 Unit/Ml Vial) 5,000 unit SUBCUT Q12H [facility] Last Admin: 12/27/21 06:05 Dose: Not Given Documented by: DEMETRA Non-Admin Reason: Patient Refused Ondansetron HCl (Ondansetron Hcl 4 Mg/2 Ml Vial) 4 mg IVPUSH Q8H PRN PRN Reason: Nausea and Vomiting Pharmacy Consult (Consult Rx Perform Med Rec) 1 each MISCELLANE ONCE PRN PRN Reason: Consult order Thiamine HCl (Thiamine Hcl 100 Mg Tablet) 100 mg PO DAILY [facility] Last Admin: 12/27/21 07:39 Dose: 100 mg Documented by: CARIDAD Labs CBC & Chem 7: 12/22/21 05:48 12/22/21 05:48 Assessment and Plan (1) Dementia: Status: [facility] hospital d#83 81yo M with hx EtOH abuse, brought in for inadequate self-care, admitted with asymptomatic Covid-19 infection, now awaiting placement # dementia - no behavioral issues, ? Due to alcohol.Stable vitals. # moderate protein/calorie malnutrition - continue supplements # emphysema/COPD - no acute exacerbation, continue Breo and prn albuterol # Covid-19 infection - recovered, then vaccinated 11/27/21 # VTE ppx - UFH # dispo - awaiting placement Quality Stroke Does the patient have a stroke diagnosis?: No VTE Prior VTE?: No VTE Risk Level:: Medical - moderate - high VTE Device Contraindication: Treatment Not Indicated VTE Drug Contraindication: N/A - Med Ordered
[2021-12-27 15:40] VITALS: BP 123/63; PULSE 87; RESP 17; TEMP 36.2; O2SAT 92
[2021-12-27 23:49] VITALS: BP 139/65; PULSE 97; RESP 18; TEMP 36.3; O2SAT 93
[2021-12-28 07:23] VITALS: BP 127/67; PULSE 91; RESP 18; TEMP 36.4; O2SAT 92
[2021-12-28] MEDS: Thiamine HCL 100 MG TABLET PO (08:34)
[2021-12-28] MEDS: Folic Acid 1 MG TABLET PO (08:34)
--- NOTE | 2021-12-28 09:21 | MHC.CM.PN ---
EMR REVIEWED, CM STILL AWAITING BED OFFER FOR LTC, THIS CM SPOKE W/HCP GERTRUDE LAST Tuesday12/25/21 WHOSE ONLY REQUEST WAS FOR PT TO STAY IN [place] OR CLOSE TO [place], CM HAS UPDATED REFERRAL AND SENT TO ADDITIONAL SNF'S, PT HAS NO HX OF BEHAVIORAL ISSUES AND HAS HAD PFIZER VACCINE ON 11/06/21 AND 11/27/21, CM WILL CONT TO FOLLOW REFERRALS AND D/C NEEDS.
--- NOTE | 2021-12-28 09:38 | HO.PM.IMPN ---
Subjective Subjective Date of Service: 12/28/21 Interval History: Patient awake alert ambulating in room complaining of no bowel movement in last 4 days, and generalized pain, says he has many other concerns but unable to recall. No acute events overnight. Review of Systems Review of Systems: Yes all other systems are reviewed and are negative Physical Exam Vital Signs: Vital Signs: Last Vital Signs Temp 97.6 F 12/28/21 07:23 Pulse 91 12/28/21 07:23 Resp 18 12/28/21 07:23 BP 127/67 12/28/21 07:23 Pulse Ox 92 12/28/21 07:23 BMI result Body Mass Index 16.0 Const: Other: Gen:? Awake alert, no acute distress Neck? supple Heart regular Lungs: normal respiratory effort Abdomen soft, bowel sounds audible, nontender Ext: no edema Neuro: alert, no focal findings, clear speech Psych: impaired insight Objective Data Active Medications Acetaminophen (Acetaminophen 325 Mg Tablet) 650 mg PO Q6H PRN PRN Reason: Pain, Mild (Pain Scale 1-3) Last Admin: 12/27/21 07:41 Dose: 650 mg Documented by: CARIDAD Albuterol Sulfate (Albuterol Sulfate 90 Mcg 8 Gm Inhaler) 2 puff INHALE RQ4H PRN PRN Reason: Wheezing Fluticasone/Vilanterol (Fluticasone/Vilanterol 200/25 Blst.W.Dev) 1 puff INHALE RDAILY [facility] Last Admin: 12/28/21 07:37 Dose: Not Given Documented by: PEPE Non-Admin Reason: Patient Refused Folic Acid (Folic Acid 1 Mg Tablet) 1 mg PO DAILY [facility] Last Admin: 12/28/21 08:34 Dose: 1 mg Documented by: TYLER Guaifenesin (Guaifenesin 100 Mg/5 Ml Liquid) 5 ml PO Q6H PRN PRN Reason: Cough Last Admin: 12/27/21 07:39 Dose: 5 ml Documented by: CARIDAD Heparin Sodium (Porcine) (Heparin Sodium,Porcine 5,000 Unit/Ml Vial) 5,000 unit SUBCUT Q12H [facility] Last Admin: 12/28/21 05:05 Dose: Not Given Documented by: SURAJ Non-Admin Reason: Patient Refused Ondansetron HCl (Ondansetron Hcl 4 Mg/2 Ml Vial) 4 mg IVPUSH Q8H PRN PRN Reason: Nausea and Vomiting Pharmacy Consult (Consult Rx Perform Med Rec) 1 each MISCELLANE ONCE PRN PRN Reason: Consult order Thiamine HCl (Thiamine Hcl 100 Mg Tablet) 100 mg PO DAILY [facility] Last Admin: 12/28/21 08:34 Dose: 100 mg Documented by: COTEMA Labs CBC & Chem 7: 12/22/21 05:48 12/22/21 05:48 Assessment and Plan (1) Dementia: Status: [facility] hospital d#83 81yo M with hx EtOH abuse, brought in for inadequate self-care, admitted with asymptomatic Covid-19 infection, now awaiting placement # dementia - no behavioral issues, ? Due to alcohol.Stable vitals. Continue folic acid and thiamine. Give Tylenol for generalized pain. # constipation will add Colace 100 mg daily and give milk of Mag. # moderate protein/calorie malnutrition - continue supplements # emphysema/COPD - no acute exacerbation, continue Breo and prn albuterol # Covid-19 infection - recovered, then vaccinated 11/27/21 # VTE ppx - UFH # dispo - awaiting placement Quality Stroke Does the patient have a stroke diagnosis?: No VTE Prior VTE?: No VTE Risk Level:: Medical - moderate - high VTE Device Contraindication: Treatment Not Indicated VTE Drug Contraindication: N/A - Med Ordered
[2021-12-28] MEDS: Milk of Magnesia 30 ML ORAL.SUSP PO (10:11)
[2021-12-28 15:54] VITALS: BP 112/59; PULSE 100; RESP 18; TEMP 36.3; O2SAT 90
[2021-12-28] MEDS: Docusate Sodium 100 MG CAPSULE PO (19:42)
[2021-12-28 23:16] VITALS: BP 116/65; PULSE 85; RESP 17; TEMP 36.8; O2SAT 94
[2021-12-29] MEDS: Thiamine HCL 100 MG TABLET PO (07:16)
[2021-12-29] MEDS: guaiFENesin 100 MG/5 ML LIQUID PO ×2 (07:16→17:32)
[2021-12-29] MEDS: Folic Acid 1 MG TABLET PO (07:16)
[2021-12-29 07:39] VITALS: BP 132/83; PULSE 96; RESP 18; TEMP 36; O2SAT 90
[2021-12-29] MEDS: Acetaminophen 325 MG TABLET 650 MG PO ×2 (09:56→17:32)
--- NOTE | 2021-12-29 14:20 | P.PNIM_ITS ---
Subjective Subjective Date of Service: 12/29/21 Interval History: Sitting comfortably offers no acute complaints, remains pleasantly confused Review of Systems Review of Systems: Yes all other systems are reviewed and are negative Physical Exam Vital Signs: Vital Signs: Last Vital Signs Temp 96.8 F 12/29/21 07:39 Pulse 96 12/29/21 07:39 Resp 18 12/29/21 07:39 BP 132/83 12/29/21 07:39 Pulse Ox 90 L 12/29/21 07:39 BMI result Body Mass Index 16.0 Const: Other: Gen:? Awake alert, no acute distress Neck? supple Hear t regular Lungs: n ormal respiratory effort Abdomen sof t, bowel sounds au dible, nontender E xt: no edema Neuro : alert, no focal findings, clear sp eech Psych: impair ed insight Objective Data Active Medications Acetaminophen (Acetaminophen 325 Mg Tablet) 650 mg PO Q6H PRN PRN Reason: Pain, Mild (Pain Scale 1-3) Last Admin: 12/29/21 09:56 Dose: 650 mg Documented by: CARIDAD Albuterol Sulfate (Albuterol Sulfate 90 Mcg 8 Gm Inhaler) 2 puff INHALE RQ4H PRN PRN Reason: Wheezing Docusate Sodium (Docusate Sodium 100 Mg Capsule) 100 mg PO BEDTIME [facility] Last Admin: 12/28/21 19:42 Dose: 100 mg Documented by: NOY Fluticasone/Vilanterol (Fluticasone/Vilanterol 200/25 Blst.W.Dev) 1 puff INHALE RDAILY [facility] Last Admin: 12/29/21 11:41 Dose: Not Given Documented by: IRON Non-Admin Reason: Patient Refused Folic Acid (Folic Acid 1 Mg Tablet) 1 mg PO DAILY [facility] Last Admin: 12/29/21 07:16 Dose: 1 mg Documented by: CARIDAD Guaifenesin (Guaifenesin 100 Mg/5 Ml Liquid) 5 ml PO Q6H PRN PRN Reason: Cough Last Admin: 12/29/21 07:16 Dose: 5 ml Documented by: CARIDAD Heparin Sodium (Porcine) (Heparin Sodium,Porcine 5,000 Unit/Ml Vial) 5,000 unit SUBCUT Q12H [facility] Last Admin: 12/29/21 05:02 Dose: Not Given Documented by: NOY Non-Admin Reason: Patient Refused Ondansetron HCl (Ondansetron Hcl 4 Mg/2 Ml Vial) 4 mg IVPUSH Q8H PRN PRN Reason: Nausea and Vomiting Pharmacy Consult (Consult Rx Perform Med Rec) 1 each MISCELLANE ONCE PRN PRN Reason: Consult order Thiamine HCl (Thiamine Hcl 100 Mg Tablet) 100 mg PO DAILY [facility] Last Admin: 12/29/21 07:16 Dose: 100 mg Documented by: CARIDAD Labs CBC & Chem 7: 12/22/21 05:48 12/22/21 05:48 Assessment and Plan (1) Dementia: Status: [facility] hospital d#83 81yo M with hx EtOH abuse, brought in for inadequate self-care, admitted with asymptomatic Covid-19 infection, now awaiting placement # dementia - no behavioral issues, ? Due to alcohol.Stable vitals. Continue folic acid and thiamine. Give Tylenol for generalized pain. # constipation resolved continue colace. # moderate protein/calorie malnutrition - continue supplements # emphysema/COPD - no acute exacerbation, continue Breo and prn albuterol # Covid-19 infection - recovered, then vaccinated 11/27/21 # VTE ppx - UFH # dispo - awaiting placement Quality Stroke Does the patient have a stroke diagnosis?: No VTE Prior VTE?: No VTE Risk Level:: Medical - moderate - high VTE Device Contraindication: Treatment Not Indicated VTE Drug Contraindication: N/A - Med Ordered
[2021-12-29 15:18] VITALS: BP 119/56; PULSE 90; RESP 18; TEMP 36.4; O2SAT 95
--- NOTE | 2021-12-29 15:38 | MHC.CM.PN ---
CM RECEIVED MESSAGE FROM [facility] OF REPORTING THEY COULD NOT TAKE PT W/OUT LTC PAYOR AND PLACE, CM HAS REQUESTED FINANCIAL SEND SCI/LOS FORMS AND THIS CM WILL CONTACT FACILITY TO COMPLETE DOCUMENT TOMORROW 12/29/21.
[2021-12-29] MEDS: Docusate Sodium 100 MG CAPSULE PO (19:31)
[2021-12-29 23:19] VITALS: BP 130/73; PULSE 89; RESP 18; TEMP 36.6; O2SAT 94
[2021-12-30 08:00] VITALS: BP 168/67; PULSE 85; RESP 20; TEMP 37.3; O2SAT 98
[2021-12-30] MEDS: Thiamine HCL 100 MG TABLET PO ×2 (08:56→08:59)
[2021-12-30] MEDS: Folic Acid 1 MG TABLET PO ×2 (08:56→08:59)
--- NOTE | 2021-12-30 10:14 | MHC.CM.PN ---
EMR REVIEWED, PT REMAINS MEDICALLY CLEARED, CM DISCUSSED CASE W/FS AND SC-1 AND LOS ARE FORMS FILLED OUT BY SNF HOWEVER SNF CONT'S TO DECLINE REPORTING MH NEEDS TO BE IN PLACE, [facility] N[facility].
--- NOTE | 2021-12-30 13:35 | P.PNIM_ITS ---
Subjective Subjective Date of Service: 12/30/21 Interval History: Awake alert offers no acute complaints no events overnight. Review of Systems Review of Systems: Yes all other systems are reviewed and are negative Physical Exam Vital Signs: Vital Signs: Last Vital Signs Temp 99.1 F 12/30/21 08:00 Pulse 85 12/30/21 08:00 Resp 20 12/30/21 08:00 BP 168/67 H 12/30/21 08:00 Pulse Ox 98 12/30/21 08:00 BMI result Body Mass Index 16.0 Const: Other: Gen:? Awake alert,?no acute distress Neck? supple Heart regular Lungs: normal respiratory effort Abdomen soft, bowel sounds audible, nontender Ext: no edema Neuro: alert, no focal findings, clear speech Psych: impaired insight Objective Data Active Medications Acetaminophen (Acetaminophen 325 Mg Tablet) 650 mg PO Q6H PRN PRN Reason: Pain, Mild (Pain Scale 1-3) Last Admin: 12/29/21 17:32 Dose: 650 mg Documented by: CARIDAD Albuterol Sulfate (Albuterol Sulfate 90 Mcg 8 Gm Inhaler) 2 puff INHALE RQ4H PRN PRN Reason: Wheezing Docusate Sodium (Docusate Sodium 100 Mg Capsule) 100 mg PO BEDTIME [facility] Last Admin: 12/29/21 19:31 Dose: 100 mg Documented by: NOY Fluticasone/Vilanterol (Fluticasone/Vilanterol 200/25 Blst.W.Dev) 1 puff INHALE RDAILY [facility] Last Admin: 12/30/21 09:42 Dose: Not Given Documented by: FREDO Non-Admin Reason: Patient Refused Folic Acid (Folic Acid 1 Mg Tablet) 1 mg PO DAILY [facility] Last Admin: 12/30/21 08:59 Dose: 1 mg Documented by: IVANNA Guaifenesin (Guaifenesin 100 Mg/5 Ml Liquid) 5 ml PO Q6H PRN PRN Reason: Cough Last Admin: 12/29/21 17:32 Dose: 5 ml Documented by: CARIDAD Heparin Sodium (Porcine) (Heparin Sodium,Porcine 5,000 Unit/Ml Vial) 5,000 unit SUBCUT Q12H [facility] Last Admin: 12/30/21 05:50 Dose: Not Given Documented by: NOY Non-Admin Reason: Patient Refused Ondansetron HCl (Ondansetron Hcl 4 Mg/2 Ml Vial) 4 mg IVPUSH Q8H PRN PRN Reason: Nausea and Vomiting Pharmacy Consult (Consult Rx Perform Med Rec) 1 each MISCELLANE ONCE PRN PRN Reason: Consult order Thiamine HCl (Thiamine Hcl 100 Mg Tablet) 100 mg PO DAILY [facility] Last Admin: 12/30/21 08:59 Dose: 100 mg Documented by: IVANNA Labs CBC & Chem 7: 12/22/21 05:48 12/22/21 05:48 Assessment and Plan (1) Dementia: Status: [facility] d#83 81yo M with hx EtOH abuse, brought in for inadequate self-care, admitted with asymptomatic Covid-19 infection, now awaiting placement # dementia - no behavioral issues, ? Due to alcohol.Stable vitals. Continue folic acid and thiamine. Give Tylenol for generalized pain. Noted to have couple high blood pressure readings at a.m. but otherwise normal blood pressures. # constipation resolved continue colace. # moderate protein/calorie malnutrition - continue supplements # emphysema/COPD - no acute exacerbation, continue Breo and prn albuterol # Covid-19 infection - recovered, then vaccinated 11/27/21 # VTE ppx - UFH # dispo - awaiting placement Quality Stroke Does the patient have a stroke diagnosis?: No VTE Prior VTE?: No VTE Risk Level:: Medical - moderate - high VTE Device Contraindication: Treatment Not Indicated VTE Drug Contraindication: N/A - Med Ordered
[2021-12-30 15:00] VITALS: BMI 15.5
[2021-12-30 15:46] VITALS: BP 129/69; PULSE 88; RESP 16; TEMP 36.3; O2SAT 92
[2021-12-30 15:47] VITALS: BP 129/69; PULSE 77; RESP 18; TEMP 36.3; O2SAT 91
--- NOTE | 2021-12-30 16:27 | MHC.CM.PN ---
CM CONTACTED ADMISSIONS LIAISON MCKAY HERNANDEZ [phone] TO DISCUSS ISSUES W/ACCEPTING PT W/MH, PER MCKAY PT CAN PRIVATE PAY FOR 2WKS RESPITE WHICH IS ABOUT HOW LONG IT WILL TAKE MH TO FINALIZE HIS LEX, CM CONTACTED PT'S GUARDIAN FRANCOIS AND SHE REPORTED PT ONLY HAS $4000 DOLLARS THAT SHE WAS PLANNING ON PAYING FOR HIS BURIAL WITH, CM HAS NOTIFIED [facility] OF [facility] AND AWAITING TO FIND OUT IF THEY WILL ACCEPT PT WITH THAT AMT WHICH DOES NOT QUITE COVER 2 WKS, CM AWAITING RESPONSE FROM [facility].
[2021-12-30] MEDS: Heparin Sodium,Porcine 5,000 UNIT/ML VIAL 5000 UNIT SUBCUT (17:12)
[2021-12-30] MEDS: Docusate Sodium 100 MG CAPSULE PO (19:28)
[2021-12-30 23:38] VITALS: BP 144/70; PULSE 96; RESP 18; TEMP 36.2; O2SAT 89
[2021-12-31 08:00] VITALS: BP 147/60; PULSE 55; RESP 16; TEMP 36.3; O2SAT 97
--- NOTE | 2021-12-31 09:46 | MHC.CM.PN ---
Addendum entered by Mendy Sweeney RN 12/31/21 15:30: CM STILL AWAITING FINAL ANSWER FROM [facility] WHETHER THEY WILL TAKE HIM W/$4000 PRIVATE PAY. CM WILL CONT TO FOLLOW D/C NEEDS. Original Note: CM RECEIVED MESSAGE FROM [facility] THIS MORNING AND THEY ARE INQUIRING TO SEE IF THEY CAN ACCEPT PT W/THE $4000 INSTEAD OF THE FULL TWO WEEK PRIVATE PAY REQUESTED BY SNF. IF THEY ARE WILLING TO ACCEPT PT THEN ANTIC D.C BY TOMORROW 01/01.
--- NOTE | 2021-12-31 12:31 | P.PNIM_ITS ---
Subjective Subjective Date of Service: 12/31/21 Interval History: No acute events overnight Physical Exam Vital Signs: Vital Signs: Last Vital Signs Temp 97.4 F 12/31/21 08:00 Pulse 55 12/31/21 08:00 Resp 16 12/31/21 08:00 BP 147/60 H 12/31/21 08:00 Pulse Ox 97 12/31/21 08:00 BMI result Body Mass Index 15.5 Const: General: cooperative, comfortable, no acute distress, alert and awake Nutritional Appearance: thin and underweight Orientation/consciousness: patient oriented x3 HENMT: Head: Yes normocephalic and Yes atraumatic Eyes: General: appearance normal, both eyes and all related structures Sclerae: sclerae normal Chest: Chest palpation & inspection: normal inspection of the chest Resp: Effort & Inspection: normal respiratory effort, able to speak in complete sentences and no respiratory distress Auscultation: clear to auscultation bilaterally Cardio: Rate: regular rate Rhythm: regular rhythm GI: Inspection: No distended Palpation (GI): Soft to palpation and nontender Auscultation: normal bowel sounds Neuro: General: patient oriented x3 Cranial nerves: Yes CN's II-XII intact bilaterally and Yes Bilaterally intact EOM present Extrem: General: Yes normal to inspection and Yes no pedal edema Objective Data Active Medications Acetaminophen (Acetaminophen 325 Mg Tablet) 650 mg PO Q6H PRN PRN Reason: Pain, Mild (Pain Scale 1-3) Last Admin: 12/29/21 17:32 Dose: 650 mg Documented by: CARIDAD Albuterol Sulfate (Albuterol Sulfate 90 Mcg 8 Gm Inhaler) 2 puff INHALE RQ4H PRN PRN Reason: Wheezing Docusate Sodium (Docusate Sodium 100 Mg Capsule) 100 mg PO BEDTIME [facility] Last Admin: 12/30/21 19:28 Dose: 100 mg Documented by: LIZA Fluticasone/Vilanterol (Fluticasone/Vilanterol 200/25 Blst.W.Dev) 1 puff INHALE RDAILY [facility] Last Admin: 12/31/21 08:07 Dose: Not Given Documented by: FREDO Non-Admin Reason: Patient Refused Folic Acid (Folic Acid 1 Mg Tablet) 1 mg PO DAILY [facility] Last Admin: 12/30/21 08:59 Dose: 1 mg Documented by: IVANNA Guaifenesin (Guaifenesin 100 Mg/5 Ml Liquid) 5 ml PO Q6H PRN PRN Reason: Cough Last Admin: 12/29/21 17:32 Dose: 5 ml Documented by: CARIDAD Heparin Sodium (Porcine) (Heparin Sodium,Porcine 5,000 Unit/Ml Vial) 5,000 unit SUBCUT Q12H [facility] Last Admin: 12/31/21 05:02 Dose: Not Given Documented by: LIZA Non-Admin Reason: Patient Refused Ondansetron HCl (Ondansetron Hcl 4 Mg/2 Ml Vial) 4 mg IVPUSH Q8H PRN PRN Reason: Nausea and Vomiting Pharmacy Consult (Consult Rx Perform Med Rec) 1 each MISCELLANE ONCE PRN PRN Reason: Consult order Thiamine HCl (Thiamine Hcl 100 Mg Tablet) 100 mg PO DAILY [facility] Last Admin: 12/30/21 08:59 Dose: 100 mg Documented by: IVANNA Labs CBC & Chem 7: 12/22/21 05:48 12/22/21 05:48 Assessment and Plan (1) Dementia: Status: Acute Plan 81 yo M with a reported history of alcohol use/dependence who was brought in by ambulance after his friends had not seen him for a few days and found to have covid but assymptomatic and now with plac ement issues--essentially no change in care overnight No new issues, awaiting guardianship, [place] management? essentially unchanged #.Dementia-- stable #.Mild malnutrition ...chronic and stable, I think this is stature # smoker cough /emphysema , assymptomatic # Had covid and reocvered fully ? Got covid vaccine 11/27/21 Needs placement as does not have capacity to make sounds medical decisions No active issues, CM working on placement Quality Stroke Does the patient have a stroke diagnosis?: No VTE Prior VTE?: No VTE Risk Level:: Medical - moderate - high VTE Device Contraindication: Treatment Not Indicated VTE Drug Contraindication: N/A - Med Ordered
--- NOTE | 2021-12-31 15:07 | MHC.CM.PN ---
CM RECEIVED MESSAGE FROM [employer] REPORTING THAT PT'S MH IS APPROVED PENDING SC-1 AND LOS TO BE DONE BY SNF, [facility] UPDATED AND CM AWAITING CONFIRMATION THEY CAN TAKE PT, REFERRAL UPDATED AND CM WILL CONT TO FOLLOW D/C NEEDS.
[2021-12-31 15:38] VITALS: BP 150/62; PULSE 79; RESP 20; TEMP 37; O2SAT 95
[2021-12-31 20:11] VITALS: BP 190/93; PULSE 117; RESP 16; TEMP 36.7; O2SAT 85
[2021-12-31] MEDS: Docusate Sodium 100 MG CAPSULE PO (21:03)
[2021-12-31] MEDS: guaiFENesin 100 MG/5 ML LIQUID PO (21:03)
[2021-12-31 21:06] VITALS: BP 127/70; O2SAT 90
[2021-12-31] MEDS: Albuterol Sulfate 90 MCG 8 GM INHALER 2 PUFF INHALE (21:27)
[2021-12-31 21:28] VITALS: PULSE 99; RESP 18; O2SAT 92
[2022-01-01] MEDS: Heparin Sodium,Porcine 5,000 UNIT/ML VIAL 5000 UNIT SUBCUT (05:44)
[2022-01-01 08:00] VITALS: BP 120/58; PULSE 97; RESP 18; TEMP 36.1; O2SAT 94
[2022-01-01] MEDS: guaiFENesin 100 MG/5 ML LIQUID PO ×2 (09:24→18:24)
[2022-01-01] MEDS: Acetaminophen 325 MG TABLET 650 MG PO (09:24)
[2022-01-01] MEDS: Folic Acid 1 MG TABLET PO (09:24)
[2022-01-01] MEDS: Thiamine HCL 100 MG TABLET PO (09:25)
--- NOTE | 2022-01-01 14:56 | P.PNIM_ITS ---
Subjective Subjective Date of Service: 01/01/22 Interval History: No acute events overnight Physical Exam Vital Signs: Vital Signs: Last Vital Signs Temp 96.9 F 01/01/22 08:00 Pulse 97 01/01/22 08:00 Resp 18 01/01/22 08:00 BP 120/58 L 01/01/22 08:00 Pulse Ox 94 01/01/22 08:00 BMI result Body Mass Index 15.5 Const: General: cooperative, comfortable, no acute distress, alert and awake Nutritional Appearance: thin and underweight Orientation/consciousness: patient oriented x3 HENMT: Head: Yes normocephalic and Yes atraumatic Eyes: General: appearance normal, both eyes and all related structures Sclerae: sclerae normal Chest: Chest palpation & inspection: normal inspection of the chest Resp: Effort & Inspection: normal respiratory effort, able to speak in complete sentences and no respiratory distress Auscultation: clear to auscultation bilaterally Cardio: Rate: regular rate Rhythm: regular rhythm GI: Inspection: No distended Palpation (GI): Soft to palpation and nontender Auscultation: normal bowel sounds Neuro: General: patient oriented x3 Cranial nerves: Yes CN's II-XII intact bilaterally and Yes Bilaterally intact EOM present Extrem: General: Yes normal to inspection and Yes no pedal edema Objective Data Active Medications Acetaminophen (Acetaminophen 325 Mg Tablet) 650 mg PO Q6H PRN PRN Reason: Pain, Mild (Pain Scale 1-3) Last Admin: 01/01/22 09:24 Dose: 650 mg Documented by: CARIDAD Albuterol Sulfate (Albuterol Sulfate 90 Mcg 8 Gm Inhaler) 2 puff INHALE RQ4H PRN PRN Reason: Wheezing Last Admin: 12/31/21 21:27 Dose: 2 puff Documented by: JOANA Docusate Sodium (Docusate Sodium 100 Mg Capsule) 100 mg PO BEDTIME [facility] Last Admin: 12/31/21 21:03 Dose: 100 mg Documented by: GIA Fluticasone/Vilanterol (Fluticasone/Vilanterol 200/25 Blst.W.Dev) 1 puff INHALE RDAILY [facility] Last Admin: 01/01/22 07:35 Dose: Not Given Documented by: FREDO Non-Admin Reason: Patient Refused Folic Acid (Folic Acid 1 Mg Tablet) 1 mg PO DAILY [facility] Last Admin: 01/01/22 09:24 Dose: 1 mg Documented by: CARIDAD Guaifenesin (Guaifenesin 100 Mg/5 Ml Liquid) 5 ml PO Q6H PRN PRN Reason: Cough Last Admin: 01/01/22 09:24 Dose: 5 ml Documented by: CARIDAD Heparin Sodium (Porcine) (Heparin Sodium,Porcine 5,000 Unit/Ml Vial) 5,000 unit SUBCUT Q12H [facility] Last Admin: 01/01/22 05:44 Dose: 5,000 unit Documented by: GIA Ondansetron HCl (Ondansetron Hcl 4 Mg/2 Ml Vial) 4 mg IVPUSH Q8H PRN PRN Reason: Nausea and Vomiting Thiamine HCl (Thiamine Hcl 100 Mg Tablet) 100 mg PO DAILY [facility] Last Admin: 01/01/22 09:25 Dose: 100 mg Documented by: CARIDAD Labs CBC & Chem 7: 12/22/21 05:48 12/22/21 05:48 Assessment and Plan (1) Dementia: Status: Acute Plan 81 yo M with a reported history of alcohol use/dependence who was brought in by ambulance after his friends had not seen him for a few days and found to have covid but assymptomatic and now with placement issues--essentially no change in care overnight No new issues, awaiting guardianship, [place] management? essentially unchanged #.Dementia-- stable #.Mild malnutrition ...chronic and stable, I think this is stature # smoker cough /emphysema , assymptomatic # Had covid and reocvered fully ? Got covid vaccine 11/27/21 Needs placement as does not have capacity to make sounds medical decisions No active issues, CM working on placement Quality Stroke Does the patient have a stroke diagnosis?: No VTE Prior VTE?: No VTE Risk Level:: Medical - moderate - high VTE Device Contraindication: Treatment Not Indicated VTE Drug Contraindication: N/A - Med Ordered
--- NOTE | 2022-01-01 15:19 | MHC.CLN ---
F/U PATIENT AWAITING PLACEMENT DIET RX: REGULAR; SUPPLEMENT ENSURE BID. SUPPLEMENT PROVIDES ADDITIONAL 700 KCAL, 40 G PROTEIN. NO REPORTED CONCERNS WITH INTAKE. WEIGHT 12/30=43.6 KG, BMI=15.5; NO SIGNIFICANT WEIGHT CHANGE. SKIN: NO OPEN AREAS. MODERATE MALNUTRITION UPON ADMISSION. CONTINUE CURRENT DIET AND ENCOURAGE SUPPLEMENT INTAKE. RD TO FOLLOW WEEKLY.
[2022-01-01 16:00] VITALS: BP 137/67; PULSE 88; RESP 19; TEMP 36.6; O2SAT 92
--- NOTE | 2022-01-01 16:32 | MHC.CM.PN ---
NURSE LINK TRAINER MAINTENANCE WORKER GERALDO CHECKED SEVERAL TIMES VIA [facility] TO CHECK IF WE RECIVED ANY RESPONSE FROM [facility] . ALSO CALLED TO SD Rodriguez at the facility and message left for her to call me back in regards to see if their administration had come to decision on payment acceptable before [facility]
[2022-01-01] MEDS: Docusate Sodium 100 MG CAPSULE PO (20:37)
[2022-01-01 23:23] VITALS: BP 147/77; PULSE 90; RESP 17; TEMP 36.5; O2SAT 94
[2022-01-02 07:19] VITALS: BP 164/81; PULSE 89; RESP 18; TEMP 36.2; O2SAT 96
--- NOTE | 2022-01-02 08:27 | P.PNIM_ITS ---
Subjective Subjective Date of Service: 01/02/22 Interval History: No acute events overnight Physical Exam Vital Signs: Vital Signs: Last Vital Signs Temp 97.2 F 01/02/22 07:19 Pulse 89 01/02/22 07:19 Resp 18 01/02/22 07:19 BP 164/81 H 01/02/22 07:19 Pulse Ox 96 01/02/22 07:19 BMI result Body Mass Index 15.5 Const: General: cooperative, comfortable, no acute distress, alert and awake Nutritional Appearance: thin and underweight Orientation/consciousness: patient oriented x3 HENMT: Head: Yes normocephalic and Yes atraumatic Eyes: General: appearance normal, both eyes and all related structures Sclerae: sclerae normal Chest: Chest palpation & inspection: normal inspection of the chest Resp: Effort & Inspection: normal respiratory effort, able to speak in complete sentences and no respiratory distress Auscultation: clear to auscultation bilaterally Cardio: Rate: regular rate Rhythm: regular rhythm GI: Inspection: No distended Palpation (GI): Soft to palpation and nontender Auscultation: normal bowel sounds Neuro: General: patient oriented x3 Extrem: General: Yes normal to inspection and Yes no pedal edema Objective Data Active Medications Albuterol Sulfate (Albuterol Sulfate 90 Mcg 8 Gm Inhaler) 2 puff INHALE RQ4H PRN PRN Reason: Wheezing Last Admin: 12/31/21 21:27 Dose: 2 puff Documented by: JOANA Docusate Sodium (Docusate Sodium 100 Mg Capsule) 100 mg PO BEDTIME [facility] Last Admin: 01/01/22 20:37 Dose: 100 mg Documented by: CASTILDominga Fluticasone/Vilanterol (Fluticasone/Vilanterol 200/25 Blst.W.Dev) 1 puff INHALE RDAILY [facility] Last Admin: 01/02/22 08:01 Dose: Not Given Documented by: PAWEL Non-Admin Reason: Patient Refused Folic Acid (Folic Acid 1 Mg Tablet) 1 mg PO DAILY [facility] Last Admin: 01/01/22 09:24 Dose: 1 mg Documented by: CARIDAD Guaifenesin (Guaifenesin 100 Mg/5 Ml Liquid) 5 ml PO Q6H PRN PRN Reason: Cough Last Admin: 03/11/22 18:24 Dose: 5 ml Documented by: CARIDAD Thiamine HCl (Thiamine Hcl 100 Mg Tablet) 100 mg PO DAILY [facility] Last Admin: 01/01/22 09:25 Dose: 100 mg Documented by: CARIDAD Labs CBC & Chem 7: 12/22/21 05:48 12/22/21 05:48 Assessment and Plan (1) Dementia: Status: Acute Plan 81 yo M with a reported history of alcohol use/dependence who was brought in by ambulance after his friends had not seen him for a few days and found to have covid but assymptomatic and now with placement issues--essentially no change in care overnight No new issues, awaiting guardianship, [place] management? essentially unchanged #.Dementia-- stable #.Mild malnutrition ...chronic and stable, I think this is stature # smoker cough /emphysema , assymptomatic # Had covid and reocvered fully ? Got covid vaccine 11/27/21 Needs placement as does not have capacity to make sounds medical decisions No active issues, CM working on placement Quality Stroke Does the patient have a stroke diagnosis?: No VTE Prior VTE?: No VTE Risk Level:: Medical - moderate - high VTE Device Contraindication: Treatment Not Indicated VTE Drug Contraindication: N/A - Med Ordered
[2022-01-02] MEDS: guaiFENesin 100 MG/5 ML LIQUID PO ×2 (12:08→19:09)
[2022-01-02] MEDS: Acetaminophen 325 MG TABLET 650 MG PO ×2 (13:07→19:09)
[2022-01-02 16:00] VITALS: BP 118/67; PULSE 88; RESP 18; TEMP 36.2; O2SAT 95
[2022-01-02] MEDS: Docusate Sodium 100 MG CAPSULE PO (19:10)
[2022-01-02] MEDS: Albuterol Sulfate 90 MCG 8 GM INHALER 2 PUFF INHALE (19:37)
[2022-01-02 19:39] VITALS: PULSE 78; O2SAT 91
[2022-01-03] VITALS: BP 124/68; PULSE 73; RESP 16; TEMP 36.4
[2022-01-03] MEDS: guaiFENesin 100 MG/5 ML LIQUID PO ×3 (07:24→19:40)
[2022-01-03] MEDS: Acetaminophen 325 MG TABLET 650 MG PO ×3 (07:24→19:40)
[2022-01-03 07:26] VITALS: BP 146/75; PULSE 101; RESP 20; TEMP 36.2; O2SAT 84
[2022-01-03 08:00] VITALS: O2SAT 93
--- NOTE | 2022-01-03 10:32 | HO.PM.IMPN ---
Subjective Subjective Date of Service: 01/03/22 Interval History: No acute events overnight Physical Exam Vital Signs: Vital Signs: Last Vital Signs Temp 97.1 F 01/03/22 07:26 Pulse 101 H 01/03/22 07:26 Resp 20 01/03/22 07:26 BP 146/75 H 01/03/22 07:26 Pulse Ox 84 L 01/03/22 07:26 BMI result Body Mass Index 15.5 Const: General: cooperative, comfortable, no acute distress, alert and awake Nutritional Appearance: thin and underweight Orientation/consciousness: patient oriented x3 HENMT: Head: Yes normocephalic and Yes atraumatic Eyes: General: appearance normal, both eyes and all related structures Sclerae: sclerae normal Chest: Chest palpation & inspection: normal inspection of the chest Resp: Effort & Inspection: normal respiratory effort, able to speak in complete sentences and no respiratory distress Auscultation: clear to auscultation bilaterally Cardio: Rate: regular rate Rhythm: regular rhythm GI: Inspection: No distended Palpation (GI): Soft to palpation and nontender Auscultation: normal bowel sounds Neuro: General: patient oriented x3 Cranial nerves: Yes CN's II-XII intact bilaterally and Yes Bilaterally intact EOM present Extrem: General: Yes normal to inspection and Yes no pedal edema Objective Data Active Medications Acetaminophen (Acetaminophen 325 Mg Tablet) 650 mg PO Q6H PRN PRN Reason: Pain, Moderate (Pain Scale 4-6 Last Admin: 01/03/22 07:24 Dose: 650 mg Documented by: SURESH Albuterol Sulfate (Albuterol Sulfate 90 Mcg 8 Gm Inhaler) 2 puff INHALE RQ4H PRN PRN Reason: Wheezing Last Admin: 01/02/22 19:37 Dose: 2 puff Documented by: MAGDA Docusate Sodium (Docusate Sodium 100 Mg Capsule) 100 mg PO BEDTIME [facility] Last Admin: 01/02/22 19:10 Dose: 100 mg Documented by: CASTILDominga Fluticasone/Vilanterol (Fluticasone/Vilanterol 200/25 Blst.W.Dev) 1 puff INHALE RDAILY [facility] Last Admin: 01/03/22 07:59 Dose: Not Given Documented by: PAWEL Non-Admin Reason: Patient Refused Guaifenesin (Guaifenesin 100 Mg/5 Ml Liquid) 5 ml PO Q6H PRN PRN Reason: Cough Last Admin: 01/03/22 07:24 Dose: 5 ml Documented by: SURESH Labs CBC & Chem 7: 12/22/21 05:48 12/22/21 05:48 Assessment and Plan (1) Dementia: Status: Acute Plan 81 yo M with a reported history of alcohol use/dependence who was brought in by ambulance after his friends had not seen him for a few days and found to have covid but assymptomatic and now with placement issues--essentially no change in care overnight No new issues, awaiting guardianship, [place] management? essentially unchanged #.Dementia-- stable #.Mild malnutrition ...chronic and stable, I think this is stature # smoker cough /emphysema , assymptomatic # Had covid and reocvered fully ? Got covid vaccine 11/27/21 Needs placement as does not have capacity to make sounds medical decisions No active issues, CM working on placement Quality Stroke Does the patient have a stroke diagnosis?: No VTE Prior VTE?: No VTE Risk Level:: Medical - moderate - high VTE Device Contraindication: Treatment Not Indicated VTE Drug Contraindication: N/A - Med Ordered
[2022-01-03 15:22] VITALS: BP 138/64; PULSE 97; RESP 18; TEMP 36.3; O2SAT 91
[2022-01-03] MEDS: Docusate Sodium 100 MG CAPSULE PO (19:40)
[2022-01-03 23:48] VITALS: BP 133/61; PULSE 75; RESP 18; TEMP 36.4; O2SAT 95
[2022-01-04 07:34] VITALS: BP 132/65; PULSE 94; RESP 20; TEMP 36.3; O2SAT 90
[2022-01-04] MEDS: Fluticasone/Vilanterol 200/25 BLST.W.DEV 1 PUFF INHALE (08:23)
[2022-01-04 08:24] VITALS: PULSE 91; RESP 18; O2SAT 92
--- NOTE | 2022-01-04 09:56 | MHC.CM.PN ---
nurse correctional counselor/case manager note electronic MEDICAL RECORD REVIEWED ALONG WITH CASE DISCUSSED WITH HOSPITLAIST AND STAFF NURSE. UPDAT FROM 12/24/21 FROM [facility] (T/C CALL FROM [facility] ALL PAPERWORK HAD BE SENT IN AND APPROVED BUT THEY NEED PAPER WORK TO BE SENT UN [facility] AND NEED IT WITH IN TH ENXT 30 DAYS FORM 12/13/21, OR APLLICATION WILL HAVE TO BE RESTARTED) THIS INFORMATION WAS ALSO RELAYED TO [facility] VIA [facility] AND ALSO CALLED TO MCKAY BLAND AND EXPLAINED THE URGENCY IN DECISION , SHE REPORTED SHE WILL CALL HER REGIONAL OFFICE AND SEE IF MARY ANNE MADE DECISION AND GET BACK TO ME LATER TODAY DISCHARGE PLAN TO RESIDENTIAL CARE , TRANSPORTATION ACTION BLS VS WHEELCHAIR [facility] COMPLETED AND ONCE FINDING ACCEPTING FACILITY -
--- NOTE | 2022-01-04 12:09 | PC.NURSE ---
patient with intermittent cough, dyspnea on exertion, sats 89-90% on room air, expiratory wheezing. Dr. Gold ordered CXR. Patient hasn't been taking his daily inhaler. Educated patient and he did take this am.
--- NOTE | 2022-01-04 15:37 | HO.PM.IMPN ---
Subjective Subjective Date of Service: 01/04/22 Interval History: No acute events overnight Physical Exam Vital Signs: Vital Signs: Last Vital Signs Temp 97.3 F 01/04/22 07:34 Pulse 91 01/04/22 08:24 Resp 18 01/04/22 08:24 BP 132/65 01/04/22 07:34 Pulse Ox 90 L 01/04/22 07:34 BMI result Body Mass Index 15.5 Const: General: cooperative, comfortable, no acute distress, alert and awake Nutritional Appearance: thin and underweight Orientation/consciousness: patient oriented x3 HENMT: Head: Yes normocephalic and Yes atraumatic Eyes: General: appearance normal, both eyes and all related structures Sclerae: sclerae normal Chest: Chest palpation & inspection: normal inspection of the chest Resp: Effort & Inspection: normal respiratory effort, able to speak in complete sentences and no respiratory distress Auscultation: clear to auscultation bilaterally Cardio: Rate: regular rate Rhythm: regular rhythm GI: Inspection: No distended Palpation (GI): Soft to palpation and nontender Auscultation: normal bowel sounds Neuro: General: patient oriented x3 Cranial nerves: Yes CN's II-XII intact bilaterally and Yes Bilaterally intact EOM present Extrem: General: Yes normal to inspection and Yes no pedal edema Objective Data Active Medications Acetaminophen (Acetaminophen 325 Mg Tablet) 650 mg PO Q6H PRN PRN Reason: Pain, Moderate (Pain Scale 4-6 Last Admin: 01/03/22 19:40 Dose: 650 mg Documented by: GIA Albuterol Sulfate (Albuterol Sulfate 90 Mcg 8 Gm Inhaler) 2 puff INHALE RQ4H PRN PRN Reason: Wheezing Last Admin: 01/02/22 19:37 Dose: 2 puff Documented by: MAGDA Docusate Sodium (Docusate Sodium 100 Mg Capsule) 100 mg PO BEDTIME [facility] Last Admin: 01/03/22 19:40 Dose: 100 mg Documented by: GIA Fluticasone/Vilanterol (Fluticasone/Vilanterol 200/25 Blst.W.Dev) 1 puff INHALE RDAILY [facility] Last Admin: 01/04/22 08:23 Dose: 1 puff Documented by: FREDO Guaifenesin (Guaifenesin 100 Mg/5 Ml Liquid) 5 ml PO Q6H PRN PRN Reason: Cough Last Admin: 01/03/22 19:40 Dose: 5 ml Documented by: GIA Labs CBC & Chem 7: 12/22/21 05:48 12/22/21 05:48 Assessment and Plan (1) Dementia: Status: Acute Plan 81 yo M with a reported history of alcohol use/dependence who was brought in by ambulance after his friends had not seen him for a few days and found to have covid but assymptomatic and now with placement issues--essentially no change in care overnight No new issues, awaiting guardianship, [place] management? essentially unchanged #.Dementia-- stable #.Mild malnutrition ...chronic and stable, I think this is stature # smoker cough /emphysema , assymptomatic # Had covid and reocvered fully ? Got covid vaccine 11/27/21 Needs placement as does not have capacity to make sounds medical decisions No active issues, CM working on placement Quality Stroke Does the patient have a stroke diagnosis?: No VTE Prior VTE?: No VTE Risk Level:: Medical - moderate - high VTE Device Contraindication: Treatment Not Indicated VTE Drug Contraindication: N/A - Med Ordered
[2022-01-04 15:54] VITALS: BP 131/59; PULSE 76; RESP 15; TEMP 36.7; O2SAT 95
[2022-01-04] MEDS: guaiFENesin 100 MG/5 ML LIQUID PO ×2 (16:34→22:22)
[2022-01-04] MEDS: Docusate Sodium 100 MG CAPSULE PO (21:17)
[2022-01-04 23:24] VITALS: BP 109/57; PULSE 77; RESP 16; TEMP 36.6; O2SAT 95
[2022-01-05] MEDS: Acetaminophen 325 MG TABLET 650 MG PO ×2 (00:02→16:57)
[2022-01-05 07:56] VITALS: BP 117/59; PULSE 85; RESP 17; TEMP 36.3; O2SAT 95
--- NOTE | 2022-01-05 11:27 | P.PNIM_ITS ---
Subjective Subjective Date of Service: 01/05/22 Interval History: No acute events overnight Physical Exam Vital Signs: Vital Signs: Last Vital Signs Temp 97.3 F 01/05/22 07:56 Pulse 85 01/05/22 07:56 Resp 17 01/05/22 07:56 BP 117/59 L 01/05/22 07:56 Pulse Ox 95 01/05/22 07:56 BMI result Body Mass Index 15.5 Const: General: cooperative, comfortable, no acute distress, alert and awake Nutritional Appearance: thin and underweight Orientation/consciousness: patient oriented x3 HENMT: Head: Yes normocephalic and Yes atraumatic Eyes: General: appearance normal, both eyes and all related structures Sclerae: sclerae normal Chest: Chest palpation & inspection: normal inspection of the chest Resp: Effort & Inspection: normal respiratory effort, able to speak in complete sentences and no respiratory distress Auscultation: clear to auscultation bilaterally Cardio: Rate: regular rate Rhythm: regular rhythm GI: Inspection: No distended Palpation (GI): Soft to palpation and nontender Auscultation: normal bowel sounds Neuro: General: patient oriented x3 Cranial nerves: Yes CN's II-XII intact bilaterally and Yes Bilaterally intact EOM present Extrem: General: Yes normal to inspection and Yes no pedal edema Objective Data Active Medications Acetaminophen (Acetaminophen 325 Mg Tablet) 650 mg PO Q6H PRN PRN Reason: Pain, Moderate (Pain Scale 4-6 Last Admin: 01/05/22 00:02 Dose: 650 mg Documented by: STACEY Albuterol Sulfate (Albuterol Sulfate 90 Mcg 8 Gm Inhaler) 2 puff INHALE RQ4H PRN PRN Reason: Wheezing Last Admin: 01/02/22 19:37 Dose: 2 puff Documented by: MAGDA Docusate Sodium (Docusate Sodium 100 Mg Capsule) 100 mg PO BEDTIME [facility] Last Admin: 01/04/22 21:17 Dose: 100 mg Documented by: STACEY Fluticasone/Vilanterol (Fluticasone/Vilanterol 200/25 Blst.W.Dev) 1 puff INHALE RDAILY [facility] Last Admin: 01/05/22 08:13 Dose: Not Given Documented by: FREDO Non-Admin Reason: Patient Refused Guaifenesin (Guaifenesin 100 Mg/5 Ml Liquid) 5 ml PO Q6H PRN PRN Reason: Cough Last Admin: 01/04/22 22:22 Dose: 5 ml Documented by: STACEY Labs CBC & Chem 7: 12/22/21 05:48 12/22/21 05:48 Assessment and Plan (1) Dementia: Status: Acute Plan 81 yo M with a reported history of alcohol use/dependence who was brought in by ambulance after his friends had not seen him for a few days and found to have covid but assymptomatic and now with placement issues--essentially no change in care overnight No new issues, awaiting guardianship, [place] management? essentially unchanged #.Dementia-- stable #.Mild malnutrition ...chronic and stable, I think this is stature # smoker cough /emphysema , assymptomatic # Had covid and reocvered fully ? Got covid vaccine 11/27/21 Needs placement as does not have capacity to make sounds medical decisions No active issues, CM working on placement Quality Stroke Does the patient have a stroke diagnosis?: No VTE Prior VTE?: No VTE Risk Level:: Medical - moderate - high VTE Device Contraindication: Treatment Not Indicated VTE Drug Contraindication: N/A - Med Ordered
[2022-01-05] MEDS: guaiFENesin 100 MG/5 ML LIQUID PO ×2 (13:08→22:03)
--- NOTE | 2022-01-05 15:37 | MHC.CM.PN ---
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
[2022-01-05 16:00] VITALS: BP 102/67; PULSE 90; RESP 18; TEMP 36.6; O2SAT 92
--- NOTE | 2022-01-05 16:51 | MHC.CM.PN ---
CASE SAJI HOOK CALLED TO ELIZABETH BLAND AT [facility] [place] [facility] FOR THE TWO WEEKS , SHE RESPONDED THAT SHE DID TAKE IT UP TO THE REGIONAL OFFICE BUT SINCE THERE WAS NO AVAILABLE BED CURRENTLY THEY PUT IT OFF , I ENCOURAGE DHER TO RECALL WE ARE LOOKING INTO WAYS THAT WE COULD WORK IT OUT , SHE REPORTED SHE WILL CHECK WITH THEM AGAIN , (SHE ALSO CONFIRMED THAT PATIE T WOULD BE BEST PLACED IN THEIR FACILITIES AND THE OTHER [facility] [place] HAS BNOT BED S CALLED TO G[facility]UDE REYES HCP FOR THSI PATIENT HE IS ATILL INTERWSTED IN BEING PATIENTS HEALTH CARE PROY AND MAKING MEDICAL DECISIONS FOR HIM BUT CONCERNED ABOUT HAVING TO MAKE FINANCIAL DECIONS (HE BELIEVES HE HAS NOT NO MONEY ) HE ASKED IF HE COULS SPEAK MORE WITH GUARDIDION PARRISH I SAID I WOULD CONTACT [facility] AND HAVE HER CALL YOU . ( BOTH HCP/ GUARDIAN CAN BE TOGERTHE R BUT MAYBE HCP AND CONSEVATOR WOULD BE POSSIBLE , I CALLED TO [facility] AND EFT MESSAGE FOR HER TO CONTACYT GERTRUDE REYES DISCHARGE OPLAN BOX BENDER PLACEMENT
[2022-01-05] MEDS: Docusate Sodium 100 MG CAPSULE PO (19:40)
[2022-01-05 23:49] VITALS: BP 110/49; PULSE 75; RESP 17; TEMP 36.6; O2SAT 95
[2022-01-06 08:00] VITALS: BP 102/55; PULSE 89; RESP 18; TEMP 36.3; O2SAT 91
--- NOTE | 2022-01-06 10:01 | HO.PM.IMPN ---
Subjective Subjective Date of Service: 01/06/22 Interval History: No acute events overnight Physical Exam Vital Signs: Vital Signs: Last Vital Signs Temp 97.4 F 01/06/22 08:00 Pulse 89 01/06/22 08:00 Resp 18 01/06/22 08:00 BP 102/55 L 01/06/22 08:00 Pulse Ox 91 L 01/06/22 08:00 BMI result Body Mass Index 15.5 Const: General: cooperative, comfortable, no acute distress, alert and awake Nutritional Appearance: thin and underweight Orientation/consciousness: patient oriented x3 HENMT: Head: Yes normocephalic and Yes atraumatic Eyes: General: appearance normal, both eyes and all related structures Sclerae: sclerae normal Chest: Chest palpation & inspection: normal inspection of the chest Resp: Effort & Inspection: normal respiratory effort, able to speak in complete sentences and no respiratory distress Auscultation: clear to auscultation bilaterally Cardio: Rate: regular rate Rhythm: regular rhythm GI: Inspection: No distended Palpation (GI): Soft to palpation and nontender Auscultation: normal bowel sounds Neuro: General: patient oriented x3 Cranial nerves: Yes CN's II-XII intact bilaterally and Yes Bilaterally intact EOM present Extrem: General: Yes normal to inspection and Yes no pedal edema Objective Data Active Medications Acetaminophen (Acetaminophen 325 Mg Tablet) 650 mg PO Q6H PRN PRN Reason: Pain, Moderate (Pain Scale 4-6 Last Admin: 01/05/22 16:57 Dose: 650 mg Documented by: IVANNA Albuterol Sulfate (Albuterol Sulfate 90 Mcg 8 Gm Inhaler) 2 puff INHALE RQ4H PRN PRN Reason: Wheezing Last Admin: 01/02/22 19:37 Dose: 2 puff Documented by: MAGDA Docusate Sodium (Docusate Sodium 100 Mg Capsule) 100 mg PO BEDTIME [facility] Last Admin: 01/05/22 19:40 Dose: 100 mg Documented by: DEXTER Fluticasone/Vilanterol (Fluticasone/Vilanterol 200/25 Blst.W.Dev) 1 puff INHALE RDAILY [facility] Last Admin: 01/06/22 08:15 Dose: Not Given Documented by: FREDO Non-Admin Reason: Patient Refused Guaifenesin (Guaifenesin 100 Mg/5 Ml Liquid) 5 ml PO Q6H PRN PRN Reason: Cough Last Admin: 01/05/22 22:03 Dose: 5 ml Documented by: MENDEZ Labs CBC & Chem 7: 12/22/21 05:48 12/22/21 05:48 Assessment and Plan (1) Dementia: Status: Acute Plan 81 yo M with a reported history of alcohol use/dependence who was brought in by ambulance after his friends had not seen him for a few days and found to have covid but assymptomatic and now with placement issues--essentially no change in care overnight No new issues, awaiting guardianship, [place] management? essentially unchanged #.Dementia-- stable #.Mild malnutrition ...chronic and stable, I think this is stature # smoker cough /emphysema , assymptomatic # Had covid and reocvered fully ? Got covid vaccine 11/27/21 Needs placement as does not have capacity to make sounds medical decisions No active issues, CM working on placement Quality Stroke Does the patient have a stroke diagnosis?: No VTE Prior VTE?: No VTE Risk Level:: Medical - moderate - high VTE Device Contraindication: Treatment Not Indicated VTE Drug Contraindication: N/A - Med Ordered
[2022-01-06] MEDS: guaiFENesin 100 MG/5 ML LIQUID PO (10:48)
[2022-01-06] MEDS: Acetaminophen 325 MG TABLET 650 MG PO (10:48)
[2022-01-06 15:00] VITALS: BMI 15.5
[2022-01-06 15:09] VITALS: BP 123/60; PULSE 82; RESP 18; TEMP 36.3; O2SAT 93
--- NOTE | 2022-01-06 16:13 | MHC.CM.PN ---
THIS CM HAS ASKED IF [facility] COULD ACCEPT PT AND THEN TXFR HIM ONCE A BED IS AVAILABLE IN [place], IF SNF IS WILLING TO TAKE PT CM WILL FOLLOW-UP W/GUARDIAN, CM AWAITING RESPONSE AT TIME OF THIS NOTE.
[2022-01-06 23:37] VITALS: BP 126/70; PULSE 82; RESP 14; TEMP 36.6; O2SAT 93
[2022-01-07 08:00] VITALS: BP 119/71; PULSE 109; RESP 16; TEMP 36.5; O2SAT 93
--- NOTE | 2022-01-07 11:06 | P.PNIM_ITS ---
Subjective Subjective Date of Service: 01/07/22 Interval History: No new events No complaints Review of Systems Review of Systems: Yes all other systems are reviewed and are negative Physical Exam Vital Signs: Vital Signs: Last Vital Signs Temp 97.7 F 01/07/22 08:00 Pulse 109 H 01/07/22 08:00 Resp 16 01/07/22 08:00 BP 119/71 01/07/22 08:00 Pulse Ox 93 01/07/22 08:00 BMI result Body Mass Index 15.5 Gen: in no acute distress, cachectic HEENT: sclera anicteric, moist mucus membranes Neck: supple Lungs: clear to auscultation bilaterally Heart: regular rate and rhythm, no murmurs Abd: soft, non-tender, non-distended Ext: no edema Skin: warm/well-perfused Neuro: alert and oriented to self Psych: impaired insight Objective Data Active Medications Acetaminophen (Acetaminophen 325 Mg Tablet) 650 mg PO Q6H PRN PRN Reason: Pain, Moderate (Pain Scale 4-6 Last Admin: 01/06/22 10:48 Dose: 650 mg Documented by: MARÍA ELENA Albuterol Sulfate (Albuterol Sulfate 90 Mcg 8 Gm Inhaler) 2 puff INHALE RQ4H PRN PRN Reason: Wheezing Last Admin: 01/02/22 19:37 Dose: 2 puff Documented by: MAGDA Docusate Sodium (Docusate Sodium 100 Mg Capsule) 100 mg PO BEDTIME [facility] Last Admin: 01/06/22 20:17 Dose: Not Given Documented by: CLINT Non-Admin Reason: Patient Refused Fluticasone/Vilanterol (Fluticasone/Vilanterol 200/25 Blst.W.Dev) 1 puff INHALE RDAILY [facility] Last Admin: 01/07/22 08:41 Dose: Not Given Documented by: IRON Non-Admin Reason: Patient Refused Guaifenesin (Guaifenesin 100 Mg/5 Ml Liquid) 5 ml PO Q6H PRN PRN Reason: Cough Last Admin: 01/06/22 10:48 Dose: 5 ml Documented by: MARÍA ELENA Labs CBC & Chem 7: 12/22/21 05:48 12/22/21 05:48 Assessment and Plan (1) Dementia: Status: Acute [facility] hospital d#97 81yo M with hx EtOH abuse, brought in for inadequate self-care, admitted with asymptomatic Covid-19 infection, now awaiting placement # dementia - ?alcoholic.? no behavioral disturbance # moderate protein/calorie malnutrition - supplements # emphysema/COPD - ICS/LABA controller, prn albuterol # Covid-19 infection - recovered, then vaccinated 11/27/21 # VTE ppx - SCDs # dispo - awaiting placement Quality Stroke Does the patient have a stroke diagnosis?: No VTE Prior VTE?: No VTE Risk Level:: Medical - moderate - high VTE Device Contraindication: Treatment Not Indicated VTE Drug Contraindication: N/A - Med Ordered
[2022-01-07] MEDS: Acetaminophen 325 MG TABLET 650 MG PO (12:29)
[2022-01-07] MEDS: guaiFENesin 100 MG/5 ML LIQUID PO ×2 (12:30→21:40)
--- NOTE | 2022-01-07 13:12 | MHC.CM.PN ---
ELECTRONIC MEDICAL RECORD ANNA Gill with case discussed with the hospitalsit and casework specialist. called to [facility] patients hcp/poa ) signed november 10 2008 on admission patient very confused did not know where he lived or why he was here. he had psych evaluation and deemed not capacitated to make his own medical decisions, he was then assigned court appointed guardian and conservator max murillo ([phone] temporay guardian /conservator unti; january she is the one that found the paperwork for hcp /poa called to juna[facility] today at 1;10 am to the above number , he wreported he had spoken with the present ggtemp guardian max and jessica he now has made the decision that he wants to be the patient hcp and poc and agreeable to making all medical decisions regarding his care and acceptinh for him to go to a [facility] care facility.. with his permission he was on speaker phone with this write and my co worker learning coordinator celi hong, this decision by mr junaid antunez about staying on as hcp/poa as also conveyed to my case manger director t/ to [facility] asking about bed availability and if she has d ant word from her regional administrations as yet reguarding finacial upfront pay messqge left and awaiting call back
--- NOTE | 2022-01-07 13:34 | MHC.CM.PN ---
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 MET WITH PATIENT HE IS WAITING FOR NERUOLOGIST INPUT ON WHETHER HE WILL BE GOING HOME TODAY , SPOKE WITH HSOPITALIST AND REPORTED HE WOULD BE CLEARED FOR DISCHARGE AND WOULD NEED HIS PCP Asher HERNANDEZ AT [facility] TO FOLLOW UP DISCHARGE PLAN HOME NO ARVICES PCP FOLLOW UP IN ONE WEEK DR MARIMAR VELARDE [facility]
[2022-01-07 15:44] VITALS: BP 116/71; PULSE 90; RESP 18; TEMP 36.9; O2SAT 98
[2022-01-07 23:51] VITALS: BP 150/73; PULSE 87; RESP 17; TEMP 36.2; O2SAT 94
[2022-01-08 08:00] VITALS: BP 136/67; PULSE 98; RESP 20; TEMP 36.3; O2SAT 91
--- NOTE | 2022-01-08 09:20 | HO.PM.IMPN ---
Subjective Subjective Date of Service: 01/08/22 Interval History: Denies fever, chills, chest pain, cough, or abd pain. Review of Systems Review of Systems: Yes all other systems are reviewed and are negative Physical Exam Vital Signs: Vital Signs: Last Vital Signs Temp 97.3 F 01/08/22 08:00 Pulse 98 01/08/22 08:00 Resp 20 01/08/22 08:00 BP 136/67 01/08/22 08:00 Pulse Ox 91 L 01/08/22 08:00 BMI result Body Mass Index 15.5 Gen: in no acute distress, cachectic Lungs: normal effort Neuro: alert and oriented to self Psych: impaired insight Objective Data Active Medications Acetaminophen (Acetaminophen 325 Mg Tablet) 650 mg PO Q6H PRN PRN Reason: Pain, Moderate (Pain Scale 4-6 Last Admin: 01/07/22 12:29 Dose: 650 mg Documented by: MARÍA ELENA Albuterol Sulfate (Albuterol Sulfate 90 Mcg 8 Gm Inhaler) 2 puff INHALE RQ4H PRN PRN Reason: Wheezing Last Admin: 01/02/22 19:37 Dose: 2 puff Documented by: MAGDA Docusate Sodium (Docusate Sodium 100 Mg Capsule) 100 mg PO BEDTIME [facility] Last Admin: 01/07/22 21:41 Dose: Not Given Documented by: CLINT Non-Admin Reason: Patient Refused Fluticasone/Vilanterol (Fluticasone/Vilanterol 200/25 Blst.W.Dev) 1 puff INHALE RDAILY [facility] Last Admin: 01/08/22 08:35 Dose: Not Given Documented by: IRON Non-Admin Reason: Patient Refused Guaifenesin (Guaifenesin 100 Mg/5 Ml Liquid) 5 ml PO Q6H PRN PRN Reason: Cough Last Admin: 01/07/22 21:40 Dose: 5 ml Documented by: CLINT Labs CBC & Chem 7: 12/22/21 05:48 12/22/21 05:48 Assessment and Plan (1) Dementia: Status: [facility] d#98 81yo M with hx EtOH abuse, brought in for inadequate self-care, admitted with asymptomatic Covid-19 infection, now awaiting placement # dementia - ?alcoholic.? no behavioral disturbance # moderate protein/calorie malnutrition - supplements # emphysema/COPD - ICS/LABA controller, prn albuterol # Covid-19 infection - recovered, then vaccinated 11/27/21 # VTE ppx - SCDs # dispo - awaiting placement Quality Stroke Does the patient have a stroke diagnosis?: No VTE Prior VTE?: No VTE Risk Level:: Medical - moderate - high VTE Device Contraindication: Treatment Not Indicated VTE Drug Contraindication: N/A - Med Ordered
--- NOTE | 2022-01-08 09:46 | MHC.CLN ---
F/U PATIENT AWAITING DISCHARGE DIET RX: REGULAR; SUPPLEMENT ENSURE BID. SUPPLEMENT PROVIDES ADDITIONAL 700 KCAL, 40 G PROTEIN. NO REPORTED CONCERNS WITH INTAKE. WEIGHT 01/07=43.5 KG, BMI=15.5; NO SIGNIFICANT WEIGHT CHANGE. SKIN: NO OPEN AREAS. MODERATE MALNUTRITION UPON ADMISSION. CONTINUE CURRENT DIET AND ENCOURAGE SUPPLEMENT INTAKE. RD TO FOLLOW WEEKLY.
--- NOTE | 2022-01-08 12:21 | MHC.CM.PN ---
EMR REVIEWED, PT REMAINS MEDICALLY CLEARED AND CM STILL AWAITING FOR BED OFFER, PER [facility] THEY WILL NEED 2 WK PRIVATE PAY FOR THEM TO ACCEPT PT, PER GUARDIAN PT ONLY HAS $4000 AND THAT INCLUDES THIS MONTHS SS, PER HOSPITAL ADMIN THEY CAN COVER REMAINDING BALANCE OF PAYMENT, CM HAS CONTACTED SNF W/THIS INFO AND REFERRAL UPDATED TO ALL SNF'S.
--- NOTE | 2022-01-08 14:10 | MHC.CM.PN ---
JENNIE CONTACTED ADMISSIONS LIAISON AT [facility] WHO REPORTS THEY CAN TAKE PT ON Tuesday01/11/22 W/PP OF $6300 FOR 2WK RESPITE STAY, PAYMENT WILL NEED TO BE MADE ON Tuesday01/11/22, CM HAS LEFT A MESSAGE W/DETAILS W/PT'S GUARDIAN/CONSERVATOR AT 2:06PM AT NUMBER ON FILE W/DETAILS AND THAT PAYMENT WILL NEED TO BE MADE ON THURSDAY 01/11. [facility] ALSO REQUESTING MH LEX BE SENT TO HER, THIS CM HAS EMAILED PT'S MH LEX TO [email or web address], CM WILL FOLLOW-UP ALECIA TUESDAY MORNING TO FINALIZE DETAILS. ANTIC PT WILL D/C THURSDAY 01/11 TO [facility]IA [facility] FOR S TRANSPORT.
[2022-01-08] MEDS: guaiFENesin 100 MG/5 ML LIQUID PO ×2 (15:22→22:07)
[2022-01-08 15:30] VITALS: BP 144/72; PULSE 95; RESP 20; TEMP 36.6; O2SAT 90
[2022-01-08] MEDS: Docusate Sodium 100 MG CAPSULE PO (19:47)
[2022-01-08 23:47] VITALS: BP 142/63; PULSE 76; RESP 17; TEMP 36.2; O2SAT 95
[2022-01-09] MEDS: Acetaminophen 325 MG TABLET 650 MG PO ×2 (10:35→18:29)
--- NOTE | 2022-01-09 10:47 | P.PNIM_ITS ---
Subjective Subjective Date of Service: 01/09/22 Interval History: No complaints Review of Systems Review of Systems: Yes all other systems are reviewed and are negative Physical Exam Vital Signs: Vital Signs: Last Vital Signs Temp 97.2 F 01/08/22 23:47 Pulse 76 01/08/22 23:47 Resp 17 01/08/22 23:47 BP 142/63 H 01/08/22 23:47 Pulse Ox 95 01/08/22 23:47 BMI result Body Mass Index 15.5 Gen: in no acute distress, cachectic Lungs: normal effort Neuro: alert and oriented to self Psych: impaired insight Objective Data Active Medications Acetaminophen (Acetaminophen 325 Mg Tablet) 650 mg PO Q6H PRN PRN Reason: Pain, Moderate (Pain Scale 4-6 Last Admin: 01/09/22 10:35 Dose: 650 mg Documented by: GREYSON Albuterol Sulfate (Albuterol Sulfate 90 Mcg 8 Gm Inhaler) 2 puff INHALE RQ4H PRN PRN Reason: Wheezing Last Admin: 01/02/22 19:37 Dose: 2 puff Documented by: MAGDA Docusate Sodium (Docusate Sodium 100 Mg Capsule) 100 mg PO BEDTIME [facility] Last Admin: 01/08/22 19:47 Dose: 100 mg Documented by: GIA Fluticasone/Vilanterol (Fluticasone/Vilanterol 200/25 Blst.W.Dev) 1 puff INHALE RDAILY [facility] Last Admin: 01/09/22 07:51 Dose: Not Given Documented by: IRON Non-Admin Reason: Patient Refused Guaifenesin (Guaifenesin 100 Mg/5 Ml Liquid) 5 ml PO Q6H PRN PRN Reason: Cough Last Admin: 01/08/22 22:07 Dose: 5 ml Documented by: GIA Labs CBC & Chem 7: 12/22/21 05:48 12/22/21 05:48 Assessment and Plan (1) Dementia: Status: Acute [facility] hospital d#99 81yo M with hx EtOH abuse, brought in for inadequate self-care, admitted with asymptomatic Covid-19 infection, now awaiting placement # dementia - ?alcoholic.? no behavioral disturbance # moderate protein/calorie malnutrition - supplements # emphysema/COPD - ICS/LABA controller, prn albuterol # Covid-19 infection - recovered, then vaccinated 11/27/21 # VTE ppx - SCDs # dispo - awaiting placement Quality Stroke Does the patient have a stroke diagnosis?: No VTE Prior VTE?: No VTE Risk Level:: Medical - moderate - high VTE Device Contraindication: Treatment Not Indicated VTE Drug Contraindication: N/A - Med Ordered
[2022-01-09 15:07] VITALS: BP 142/70; PULSE 84; RESP 18; TEMP 36.1; O2SAT 88
[2022-01-09] MEDS: guaiFENesin 100 MG/5 ML LIQUID PO ×2 (18:29→23:30)
[2022-01-09] MEDS: Docusate Sodium 100 MG CAPSULE PO (20:12)
[2022-01-09 23:16] VITALS: BP 130/67; PULSE 86; RESP 16; TEMP 36.6; O2SAT 94
[2022-01-10] MEDS: Acetaminophen 325 MG TABLET 650 MG PO (01:19)
[2022-01-10 08:00] VITALS: BP 131/73; PULSE 104; RESP 18; TEMP 36.6; O2SAT 91
--- NOTE | 2022-01-10 10:52 | P.PNIM_ITS ---
Subjective Subjective Date of Service: 01/10/22 Interval History: No complaints Review of Systems Review of Systems: Yes all other systems are reviewed and are negative Physical Exam Vital Signs: Vital Signs: Last Vital Signs Temp 97.8 F 01/10/22 08:00 Pulse 104 H 01/10/22 08:00 Resp 18 01/10/22 08:00 BP 131/73 01/10/22 08:00 Pulse Ox 91 L 01/10/22 08:00 BMI result Body Mass Index 15.5 Gen: in no acute distress, cachectic Lungs: normal effort Neuro: alert and oriented to self Psych: impaired insight Objective Data Active Medications Acetaminophen (Acetaminophen 325 Mg Tablet) 650 mg PO Q6H PRN PRN Reason: Pain, Moderate (Pain Scale 4-6 Last Admin: 01/10/22 01:19 Dose: 650 mg Documented by: JANICE Albuterol Sulfate (Albuterol Sulfate 90 Mcg 8 Gm Inhaler) 2 puff INHALE RQ4H PRN PRN Reason: Wheezing Last Admin: 01/02/22 19:37 Dose: 2 puff Documented by: MAGDA Docusate Sodium (Docusate Sodium 100 Mg Capsule) 100 mg PO BEDTIME [facility] Last Admin: 01/09/22 20:12 Dose: 100 mg Documented by: JANICE Fluticasone/Vilanterol (Fluticasone/Vilanterol 200/25 Blst.W.Dev) 1 puff INHALE RDAILY [facility] Last Admin: 01/10/22 08:08 Dose: Not Given Documented by: IRON Non-Admin Reason: Patient Refused Guaifenesin (Guaifenesin 100 Mg/5 Ml Liquid) 5 ml PO Q6H PRN PRN Reason: Cough Last Admin: 01/09/22 23:30 Dose: 5 ml Documented by: JANICE Labs CBC & Chem 7: 12/22/21 05:48 12/22/21 05:48 Assessment and Plan (1) Dementia: Status: Acute [facility] hospital d#100 81yo M with hx EtOH abuse, brought in for inadequate self-care, admitted with asymptomatic Covid-19 infection, now awaiting placement # dementia - ?alcoholic.? no behavioral disturbance # moderate protein/calorie malnutrition - supplements # emphysema/COPD - ICS/LABA controller, prn albuterol # Covid-19 infection - recovered, then vaccinated 2/4/22 # VTE ppx - SCDs # dispo - accepted at [facility] for tomorrow; will recheck Covid-19 [facility] for placement Quality Stroke Does the patient have a stroke diagnosis?: No VTE Prior VTE?: No VTE Risk Level:: Medical - moderate - high VTE Device Contraindication: Treatment Not Indicated VTE Drug Contraindication: N/A - Med Ordered
[2022-01-10] MEDS: Albuterol Sulfate 90 MCG 8 GM INHALER 2 PUFF INHALE (11:21)
[2022-01-10 11:24] VITALS: PULSE 81; RESP 18; O2SAT 91
[2022-01-10] MEDS: guaiFENesin 100 MG/5 ML LIQUID PO (11:26)
[2022-01-10 15:05] VITALS: BP 138/68; PULSE 77; RESP 18; TEMP 36.3; O2SAT 93
[2022-01-10 23:31] VITALS: BP 144/60; PULSE 73; RESP 17; TEMP 36.3; O2SAT 94
[2022-01-11 07:31] VITALS: BP 135/60; PULSE 75; RESP 18; TEMP 36.2; O2SAT 96
[2022-01-11 08:15] LABS: COVID-19 Test Negative (Negative); IDNOW Serial# 16C4AD1C
--- NOTE | 2022-01-11 08:29 | MHC.CM.PN ---
CM ATTEMPTED TO CONTACT PT'S GUARDIAN/CONSERVATOR FRANCOIS VO AT 8:20AM [phone], MESSAGE LEFT W/DETAILS REGARDING $4000 PAYMENT FOR [facility] AND CM CONTACT AND ADMISSIONS LIAISON [facility] HERNANDEZ'S NUMBER. PER OUR CM DIRECTOR [facility] CHECK FOR $2300 IS READY AND SHE WILL DELIVER TO [facility], ADMISSIONS LIAISON NOTIFIED VIA [employer], IF NO ANSWER CM WILL CONTACT VIA PHONE. PT WILL NEED RAPID COVID PRIOR TO TRANSFER.
--- NOTE | 2022-01-11 09:14 | MHC.CM.PN ---
THIS CM RECEIVED MESSAGE FROM PT'S GUARDIAN/CONSERVATOR FRANCOIS VO, THIS CM CALLED FRANCOIS BACK AT 9:00AM AT [phone], PER FRANCOIS SHE DOES NOT WANT TO MAKE PAYMENT FOR RESPITE STAY AND REPORTS SHE BELIEVES THE FACILITY CANNOT REQUEST PAYMENT W/MH PENDING LEX, FRANCOIS CLAIMS SHE HAS TO PAT DOWN $2500 AND THAT WOULD LEAVE LESS THAN $2000 AND SHE WOULD LIKE THIS CM TO EXPAND REFERRAL SUGGESTING [facility] [place], [place] REFERRAL PLACED. CM DIRECTOR AND CM MAILS SUPERVISOR AWARE, [facility] NOTIFIED VIA [employer].
--- NOTE | 2022-01-11 11:28 | HO.PM.IMPN ---
Subjective Subjective Date of Service: 01/11/22 Interval History: No complaints. Refusing exam today. Review of Systems Review of Systems: Yes Unobtainable due to mental status Physical Exam Vital Signs: Vital Signs: Last Vital Signs Temp 97.2 F 01/11/22 07:31 Pulse 75 01/11/22 07:31 Resp 18 01/11/22 07:31 BP 135/60 01/11/22 07:31 Pulse Ox 96 01/11/22 07:31 BMI result Body Mass Index 15.5 gen: NAD but refuses exam today lungs: normal respiratory effort psych: impaired insight Objective Data Active Medications Acetaminophen (Acetaminophen 325 Mg Tablet) 650 mg PO Q6H PRN PRN Reason: Pain, Moderate (Pain Scale 4-6 Last Admin: 01/10/22 01:19 Dose: 650 mg Documented by: JANICE Albuterol Sulfate (Albuterol Sulfate 90 Mcg 8 Gm Inhaler) 2 puff INHALE RQ4H PRN PRN Reason: Wheezing Last Admin: 01/10/22 11:21 Dose: 2 puff Documented by: IRON Docusate Sodium (Docusate Sodium 100 Mg Capsule) 100 mg PO BEDTIME [facility] Last Admin: 01/10/22 20:43 Dose: Not Given Documented by: JANICE Non-Admin Reason: Patient Refused Fluticasone/Vilanterol (Fluticasone/Vilanterol 200/25 Blst.W.Dev) 1 puff INHALE RDAILY [facility] Last Admin: 01/11/22 07:37 Dose: Not Given Documented by: PAWEL Non-Admin Reason: Patient Refused Guaifenesin (Guaifenesin 100 Mg/5 Ml Liquid) 5 ml PO Q6H PRN PRN Reason: Cough Last Admin: 01/10/22 11:26 Dose: 5 ml Documented by: KAROLINE Labs CBC & Chem 7: 12/22/21 05:48 12/22/21 05:48 Labs: Laboratory Results - last 24 hr 01/11/22 07:38 COVID-19 ([facility]) Negative COVID-19 Clin Com See Note Assessment and Plan (1) Dementia: Status: Acute Plan hospital d#101 81yo M with hx EtOH abuse, brought in for inadequate self-care, admitted with asymptomatic Covid-19 infection, now awaiting placement # dementia - ?alcoholic.? no behavioral disturbance # moderate protein/calorie malnutrition - supplements # emphysema/COPD - ICS/LABA controller, prn albuterol # Covid-19 infection - recovered, then vaccinated 11/27/21 # VTE ppx - SCDs # dispo - accepted at [facility] but there are outstanding payment issues with his guardian; CM working on this Quality Stroke Does the patient have a stroke diagnosis?: No VTE Prior VTE?: No VTE Risk Level:: Medical - moderate - high VTE Device Contraindication: Treatment Not Indicated VTE Drug Contraindication: N/A - Med Ordered
--- NOTE | 2022-01-11 14:33 | MHC.CM.PN ---
[facility] ARE REVIEWING, CM STILL AWAITING FINAL RESPONSE AT TIME OF THIS NOTE.
[2022-01-11 15:24] VITALS: BP 125/58; PULSE 88; RESP 18; TEMP 36.7; O2SAT 95
[2022-01-11 23:17] VITALS: BP 139/65; PULSE 94; RESP 18; TEMP 36.6; O2SAT 94
[2022-01-12] MEDS: Albuterol Sulfate 90 MCG 8 GM INHALER 2 PUFF INHALE (07:05)
[2022-01-12] MEDS: Acetaminophen 325 MG TABLET 650 MG PO ×2 (07:05→21:39)
[2022-01-12] MEDS: guaiFENesin 100 MG/5 ML LIQUID PO ×2 (07:05→20:57)
[2022-01-12 07:41] VITALS: BP 119/65; PULSE 94; RESP 15; TEMP 36.1; O2SAT 93
--- NOTE | 2022-01-12 09:31 | MHC.CM.PN ---
CM CONTACTED [facility]'S CAR MECHANIC PANTERA CHANEY TO VERIFY EMAIL FOR THEIR BUSINESS DEPT TO REVIEW MH LEX HOWEVER PER DISCUSSION PT WILL BE DECLINED D/T NOT HAVING A SKILL TO COVER PT UNDER REHAB UNTIL HIS MH LEX IS FINALIZED, PER PANTERA THEY WILL NOT TAKE A [facility] PENDING PT. CM RECEIVED MESSAGES VIA [employer] FROM [facility] AND THEY WILL WILL REVIEW PT FOR [facility]. CM AWAITING EMAIL ADDRESS TO SEND PT'S MH LEX TO REVIEW.
--- NOTE | 2022-01-12 12:08 | HO.PM.IMPN ---
Subjective Subjective Date of Service: 01/12/22 Interval History: No acute events overnight Physical Exam Vital Signs: Vital Signs: Last Vital Signs Temp 96.9 F 01/12/22 07:41 Pulse 94 01/12/22 07:41 Resp 15 01/12/22 07:41 BP 119/65 01/12/22 07:41 Pulse Ox 93 01/12/22 07:41 BMI result Body Mass Index 15.5 Const: General: cooperative, comfortable, no acute distress, alert and awake Nutritional Appearance: thin and underweight Orientation/consciousness: patient oriented x3 HEENT: Head: Yes normocephalic and Yes atraumatic Eyes: General: appearance normal, both eyes and all related structures Sclerae: sclerae normal Chest: Chest palpation & inspection: normal inspection of the chest Resp: Effort & Inspection: normal respiratory effort, able to speak in complete sentences and no respiratory distress Auscultation: clear to auscultation bilaterally Cardio: Rate: regular rate Rhythm: regular rhythm GI: Inspection: No distended Palpation (GI): Soft to palpation and nontender Auscultation: normal bowel sounds Neuro: General: patient oriented x3 Cranial nerves: Yes CN's II-XII intact bilaterally and Yes Bilaterally intact EOM present Extrem: General: Yes normal to inspection and Yes no pedal edema Objective Data Active Medications Acetaminophen (Acetaminophen 325 Mg Tablet) 650 mg PO Q6H PRN PRN Reason: Pain, Moderate (Pain Scale 4-6 Last Admin: 01/12/22 07:05 Dose: 650 mg Documented by: TYLER Albuterol Sulfate (Albuterol Sulfate 90 Mcg 8 Gm Inhaler) 2 puff INHALE RQ4H PRN PRN Reason: Wheezing Last Admin: 01/12/22 07:05 Dose: 2 puff Documented by: TYLER Docusate Sodium (Docusate Sodium 100 Mg Capsule) 100 mg PO BEDTIME [facility] Last Admin: 01/11/22 20:25 Dose: Not Given Documented by: ROBB Non-Admin Reason: Patient Refused Guaifenesin (Guaifenesin 100 Mg/5 Ml Liquid) 5 ml PO Q6H PRN PRN Reason: Cough Last Admin: 01/12/22 07:05 Dose: 5 ml Documented by: TYLER Labs CBC & Chem 7: 12/22/21 05:48 12/22/21 05:48 Assessment and Plan (1) Dementia: Status: Acute Plan 81 yo M with a reported history of alcohol use/dependence who was brought in by ambulance after his friends had not seen him for a few days and found to have covid but assymptomatic and now with placement issues--essentially no change in care overnight No new issues, awaiting guardianship, [place] management? essentially unchanged #.Dementia-- stable #.Mild malnutrition ...chronic and stable, I think this is stature # smoker cough /emphysema , assymptomatic # Had covid and reocvered fully ? Got covid vaccine 11/27/21 Needs placement as does not have capacity to make sounds medical decisions No active issues, CM working on placement Quality Stroke Does the patient have a stroke diagnosis?: No VTE Prior VTE?: No VTE Risk Level:: Medical - moderate - high VTE Device Contraindication: Treatment Not Indicated VTE Drug Contraindication: N/A - Med Ordered
--- NOTE | 2022-01-12 13:41 | MHC.CM.PN ---
CM DISCUSSED CASE W/FS WHO REPORTED THEY SPOKE W/MH DIRECTOR OF CATERING WHO SUGGESTED PT'S GUARDIAN/CONSERVATOR A PERMISSION TO SHARE (PCS) TO ASSIST SNF'S IN VERIFYING PT'S ELIGIBILITY, THIS CM ATTEMPTED TO CONTACT GUARDIAN FRANCOIS VO AT 1:22PM AT [phone] TO DISCUSS PCS AND OBTAIN HER EMAIL, CM WILL FOLLOW UP IF THERE IS NO RESPONSE BY EOD.
[2022-01-12 15:51] VITALS: BP 107/62; PULSE 86; RESP 18; O2SAT 92
[2022-01-12 16:50] VITALS: TEMP 36.6
[2022-01-13 07:59] VITALS: BP 119/70; PULSE 107; RESP 18; TEMP 36.3; O2SAT 91
--- NOTE | 2022-01-13 09:59 | MHC.CM.PN ---
Addendum entered by Mendy Sweeney RN 01/13/22 11:54: CM CONTACTD FS VIA [employer] PT'S SNF DOCUMENTS WERE SUPPOSED TO BE SUBMITTED BY 01/11/22 HOWEVER FS SPOKE W/PT'S KRISHNA YESTERDAY 12/15/21 AND THEY [facility] WILL STILL GIVE APPROVAL DETERMINATION ONCE SNF DOCUMENTS ARE SUBMITTED. Addendum entered by Mendy Sweeney RN 01/13/22 11:46: CM RECEIVED EMAIL FROM [facility] WHO REPORTED THEY WERE ABLE TO ACCESS PT'S LTC LEX IN [place] AND WILL NOW REVIEW. Original Note: CM RECEIVED MESSAGE IN [employer] FROM [facility] AND LIAISON REPORTED SHE DID NOT RECEIVE PT'S LTC LEX, CM ATTEMPTED TO EMAIL AGAIN THIS MORNING HOWEVER LIAISON UNABLE TO OPEN ATTACHMENTS, LIAISON REQUESTING CM EFAX HOWEVER IT IS UNSURE IF THIS CM HAS ACCESS TO EFAX, LEX HAS BEEN UPLOADED TO [facility] AND SENT IN REFERRAL.
--- NOTE | 2022-01-13 10:04 | MHC.CM.PN ---
LATE ENTRY:01/12/22- This technical document writer spoke to Paul lynn: clarification on the remainder of [facility] finance's. The reported $4000 patient has is not free for a facility to use as a spend down. The money is needed for paying an research attorney fee and some outstanding bills the patient has. CM will continue to search for a bed for patient.
[2022-01-13 14:16] VITALS: BMI 15.3
--- NOTE | 2022-01-13 14:52 | HO.PM.IMPN ---
Subjective Subjective Date of Service: 01/13/22 Interval History: No acute events overnight Physical Exam Vital Signs: Vital Signs: Last Vital Signs Temp 97.4 F 01/13/22 07:59 Pulse 107 H 01/13/22 07:59 Resp 18 01/13/22 07:59 BP 119/70 01/13/22 07:59 Pulse Ox 91 L 01/13/22 07:59 BMI result Body Mass Index 15.3 Const: General: cooperative, comfortable, no acute distress, alert and awake Nutritional Appearance: thin and underweight Orientation/consciousness: patient oriented x3 HEENT: Head: Yes normocephalic and Yes atraumatic Eyes: General: appearance normal, both eyes and all related structures Sclerae: sclerae normal Chest: Chest palpation & inspection: normal inspection of the chest Resp: Effort & Inspection: normal respiratory effort, able to speak in complete sentences and no respiratory distress Auscultation: clear to auscultation bilaterally Cardio: Rate: regular rate Rhythm: regular rhythm GI: Inspection: No distended Palpation (GI): Soft to palpation and nontender Auscultation: normal bowel sounds Neuro: General: patient oriented x3 Cranial nerves: Yes CN's II-XII intact bilaterally and Yes Bilaterally intact EOM present Extrem: General: Yes normal to inspection and Yes no pedal edema Objective Data Active Medications Acetaminophen (Acetaminophen 325 Mg Tablet) 650 mg PO Q6H PRN PRN Reason: Pain, Moderate (Pain Scale 4-6 Last Admin: 01/12/22 21:39 Dose: 650 mg Documented by: ROBB Albuterol Sulfate (Albuterol Sulfate 90 Mcg 8 Gm Inhaler) 2 puff INHALE RQ4H PRN PRN Reason: Wheezing Last Admin: 01/12/22 07:05 Dose: 2 puff Documented by: COTKANDICE Docusate Sodium (Docusate Sodium 100 Mg Capsule) 100 mg PO BEDTIME ADAMA Last Admin: 01/12/22 22:38 Dose: Not Given Documented by: ROBB Non-Admin Reason: Patient Refused Guaifenesin (Guaifenesin 100 Mg/5 Ml Liquid) 5 ml PO Q6H PRN PRN Reason: Cough Last Admin: 01/12/22 20:57 Dose: 5 ml Documented by: ROBB Labs CBC & Chem 7: 12/22/21 05:48 12/22/21 05:48 Assessment and Plan (1) Dementia: Status: Acute Plan 81 yo M with a reported history of alcohol use/dependence who was brought in by ambulance after his friends had not seen him for a few days and found to have covid but assymptomatic and now with placement issues--essentially no change in care overnight No new issues, awaiting guardianship, [place] management? essentially unchanged #.Dementia-- stable #.Mild malnutrition ...chronic and stable, I think this is stature # smoker cough /emphysema , assymptomatic # Had covid and reocvered fully ? Got covid vaccine 11/27/21 Needs placement as does not have capacity to make sounds medical decisions No active issues, CM working on placement Quality Stroke Does the patient have a stroke diagnosis?: No VTE Prior VTE?: No VTE Risk Level:: Medical - moderate - high VTE Device Contraindication: Treatment Not Indicated VTE Drug Contraindication: N/A - Med Ordered
[2022-01-13 15:29] VITALS: BP 139/72; PULSE 93; RESP 18; TEMP 36.2; O2SAT 91
[2022-01-13] MEDS: Docusate Sodium 100 MG CAPSULE PO (21:17)
[2022-01-13] MEDS: guaiFENesin 100 MG/5 ML LIQUID PO (21:17)
[2022-01-13] MEDS: Acetaminophen 325 MG TABLET 650 MG PO (21:32)
[2022-01-13 23:41] VITALS: BP 151/85; PULSE 82; RESP 17; TEMP 36.1; O2SAT 95
[2022-01-14 07:18] VITALS: BP 150/69; PULSE 84; RESP 18; TEMP 36.6; O2SAT 91
--- NOTE | 2022-01-14 10:06 | MHC.CM.PN ---
[facility] REVIEWING AND REQUESTING UPDATED CLINICALS, REFERRAL UPDATED AND CM AWAITING RESPONSE.
--- NOTE | 2022-01-14 11:48 | HO.PM.IMPN ---
Subjective Subjective Date of Service: 01/14/22 Interval History: No acute events overnight Physical Exam Vital Signs: Vital Signs: Last Vital Signs Temp 97.8 F 01/14/22 07:18 Pulse 84 01/14/22 07:18 Resp 18 01/14/22 07:18 BP 150/69 H 01/14/22 07:18 Pulse Ox 91 L 01/14/22 07:18 BMI result Body Mass Index 15.3 Const: General: cooperative, comfortable, no acute distress, alert and awake Nutritional Appearance: thin and underweight Orientation/consciousness: patient oriented x3 HEENT: Head: Yes normocephalic and Yes atraumatic Eyes: General: appearance normal, both eyes and all related structures Sclerae: sclerae normal Chest: Chest palpation & inspection: normal inspection of the chest Resp: Effort & Inspection: normal respiratory effort, able to speak in complete sentences and no respiratory distress Auscultation: clear to auscultation bilaterally Cardio: Rate: regular rate Rhythm: regular rhythm GI: Inspection: No distended Palpation (GI): Soft to palpation and nontender Auscultation: normal bowel sounds Neuro: General: patient oriented x3 Cranial nerves: Yes CN's II-XII intact bilaterally and Yes Bilaterally intact EOM present Extrem: General: Yes normal to inspection and Yes no pedal edema Objective Data Active Medications Acetaminophen (Acetaminophen 325 Mg Tablet) 650 mg PO Q6H PRN PRN Reason: Pain, Moderate (Pain Scale 4-6 Last Admin: 01/13/22 21:32 Dose: 650 mg Documented by: GIA Albuterol Sulfate (Albuterol Sulfate 90 Mcg 8 Gm Inhaler) 2 puff INHALE RQ4H PRN PRN Reason: Wheezing Last Admin: 01/12/22 07:05 Dose: 2 puff Documented by: COTEMA Docusate Sodium (Docusate Sodium 100 Mg Capsule) 100 mg PO BEDTIME ADAMA Last Admin: 01/13/22 21:17 Dose: 100 mg Documented by: GIA Guaifenesin (Guaifenesin 100 Mg/5 Ml Liquid) 5 ml PO Q6H PRN PRN Reason: Cough Last Admin: 01/13/22 21:17 Dose: 5 ml Documented by: GIA Labs CBC & Chem 7: 12/22/21 05:48 12/22/21 05:48 Assessment and Plan (1) Dementia: Status: Acute Plan 81 yo M with a reported history of alcohol use/dependence who was brought in by ambulance after his friends had not seen him for a few days and found to have covid but assymptomatic and now with placement issues--essentially no change in care overnight No new issues, awaiting guardianship, [place] management? essentially unchanged #.Dementia-- stable #.Mild malnutrition ...chronic and stable, I think this is stature # smoker cough /emphysema , assymptomatic # Had covid and reocvered fully ? Got covid vaccine 11/27/21 Needs placement as does not have capacity to make sounds medical decisions No active issues, CM working on placement Quality Stroke Does the patient have a stroke diagnosis?: No VTE Prior VTE?: No VTE Risk Level:: Medical - moderate - high VTE Device Contraindication: Treatment Not Indicated VTE Drug Contraindication: N/A - Med Ordered
[2022-01-14] MEDS: guaiFENesin 100 MG/5 ML LIQUID PO ×2 (12:51→21:18)
--- NOTE | 2022-01-14 13:04 | MHC.CM.PN ---
CM ATTEMPTED TO CONTACT [facility] AT 12:50PM [phone], NO ANSWER AND MESSAGE LEFT W/CM CONTACT INFO.
--- NOTE | 2022-01-14 13:39 | MHC.CM.PN ---
CM RECEIVED MESSAGE FROM SUSAN CAUSEY WHO REPORTED THE LTC LEX THAT WAS UPLOADED TO [facility] WAS BLANK, LEX HAS BEEN RE-UPLOADED TO [facility] AND SENT FOR BUSINESS OFFICE TO REVIEW. CM EXPECTING RESPONSE BY END OF DAY.
[2022-01-14 15:30] VITALS: BP 133/70; PULSE 92; RESP 18; TEMP 36.6; O2SAT 90
[2022-01-14] MEDS: Docusate Sodium 100 MG CAPSULE PO (21:18)
[2022-01-14] MEDS: Acetaminophen 325 MG TABLET 650 MG PO (21:56)
[2022-01-15] VITALS: BP 148/72; PULSE 83; RESP 14; TEMP 36.3; O2SAT 91
--- NOTE | 2022-01-15 07:48 | HO.PM.IMPN ---
Subjective Subjective Date of Service: 01/15/22 Interval History: No acute events overnight Physical Exam Vital Signs: Vital Signs: Last Vital Signs Temp 97.4 F 01/15/22 00:00 Pulse 83 01/15/22 00:00 Resp 14 01/15/22 00:00 BP 148/72 H 01/15/22 00:00 Pulse Ox 91 L 01/15/22 00:00 BMI result Body Mass Index 15.3 Const: General: cooperative, comfortable, no acute distress, alert and awake Nutritional Appearance: thin and underweight Orientation/consciousness: patient oriented x3 HEENT: Head: Yes normocephalic and Yes atraumatic Eyes: General: appearance normal, both eyes and all related structures Sclerae: sclerae normal Chest: Chest palpation & inspection: normal inspection of the chest Resp: Effort & Inspection: normal respiratory effort, able to speak in complete sentences and no respiratory distress Auscultation: clear to auscultation bilaterally Cardio: Rate: regular rate Rhythm: regular rhythm GI: Inspection: No distended Palpation (GI): Soft to palpation and nontender Auscultation: normal bowel sounds Neuro: General: patient oriented x3 Cranial nerves: Yes CN's II-XII intact bilaterally and Yes Bilaterally intact EOM present Extrem: General: Yes normal to inspection and Yes no pedal edema Objective Data Active Medications Acetaminophen (Acetaminophen 325 Mg Tablet) 650 mg PO Q6H PRN PRN Reason: Pain, Moderate (Pain Scale 4-6 Last Admin: 01/14/22 21:56 Dose: 650 mg Documented by: GIA Albuterol Sulfate (Albuterol Sulfate 90 Mcg 8 Gm Inhaler) 2 puff INHALE RQ4H PRN PRN Reason: Wheezing Last Admin: 01/12/22 07:05 Dose: 2 puff Documented by: COTEMA Docusate Sodium (Docusate Sodium 100 Mg Capsule) 100 mg PO BEDTIME ADAMA Last Admin: 01/14/22 21:18 Dose: 100 mg Documented by: GIA Guaifenesin (Guaifenesin 100 Mg/5 Ml Liquid) 5 ml PO Q6H PRN PRN Reason: Cough Last Admin: 01/14/22 21:18 Dose: 5 ml Documented by: GIA Labs CBC & Chem 7: 12/22/21 05:48 12/22/21 05:48 Assessment and Plan (1) Dementia: Status: Acute Plan 81 yo M with a reported history of alcohol use/dependence who was brought in by ambulance after his friends had not seen him for a few days and found to have covid but assymptomatic and now with placement issues--essentially no change in care overnight No new issues, awaiting guardianship, [place] management? essentially unchanged #.Dementia-- stable #.Mild malnutrition ...chronic and stable, I think this is stature # smoker cough /emphysema , assymptomatic # Had covid and reocvered fully ? Got covid vaccine 11/27/21 Needs placement as does not have capacity to make sounds medical decisions No active issues, CM working on placement Quality Stroke Does the patient have a stroke diagnosis?: No VTE Prior VTE?: No VTE Risk Level:: Medical - moderate - high VTE Device Contraindication: Treatment Not Indicated VTE Drug Contraindication: N/A - Med Ordered
[2022-01-15 07:56] VITALS: BP 156/74; PULSE 103; RESP 20; TEMP 36.4; O2SAT 90
--- NOTE | 2022-01-15 08:49 | MHC.CM.PN ---
Addendum entered by Mendy Sweeney RN 01/15/22 10:16: CM EMAILED [facility]IA[facility] CAUSEY AND RECEIVED MESSAGE BACK REPORTING THEIR BUSINESS OFFICE STAFF IS OUT SICK TODAY AND THIS CM WILL NEED TO CHECK BACK ON Tuesday01/18/22. Original Note: message sent to [facility] to determine if they have made a decision on accepting pt, cm awaiting response.
--- NOTE | 2022-01-15 09:04 | MHC.CLN ---
F/U PATIENT AWAITING PLACEMENT. DIET RX: REGULAR; SUPPLEMENT ENSURE BID. SUPPLEMENT PROVIDES ADDITIONAL 700 KCAL, 40 G PROTEIN. NO REPORTED CONCERNS WITH INTAKE. WEIGHT 01/14=43 KG. SHOWS WEIGHT LOSS 5.3% X 30 DAYS. NO SIGNIFICANT CHANGE IN INTAKE NOTED. SKIN: NO OPEN AREAS. MODERATE MALNUTRITION UPON ADMISSION. CONTINUE CURRENT DIET AND ENCOURAGE SUPPLEMENT INTAKE. RD TO FOLLOW WEEKLY.
[2022-01-15] MEDS: Albuterol Sulfate 90 MCG 8 GM INHALER 2 PUFF INHALE ×2 (11:38→21:27)
[2022-01-15 15:59] VITALS: BP 124/59; PULSE 87; RESP 18; TEMP 36.4; O2SAT 93
[2022-01-15] MEDS: guaiFENesin 100 MG/5 ML LIQUID PO (18:23)
[2022-01-15] MEDS: Docusate Sodium 100 MG CAPSULE PO (21:01)
[2022-01-15 21:27] VITALS: PULSE 91; RESP 20; O2SAT 94
[2022-01-15 23:59] VITALS: BP 100/52; PULSE 98; RESP 17; TEMP 36.4; O2SAT 94
[2022-01-16 07:49] VITALS: BP 104/58; PULSE 86; RESP 18; TEMP 36.3; O2SAT 90
--- NOTE | 2022-01-16 08:44 | PC.NURSE ---
On morning assessment all lung wallace has inspiratory and expiratory wheezing present. Instructed pt to try to cough and wheezes still present. Offered pt to treat with cough medicine per orders and PRN inhaler, pt refuses atthis time.
--- NOTE | 2022-01-16 08:46 | HO.PM.IMPN ---
Subjective Subjective Date of Service: 01/16/22 Interval History: No acute events overnight Physical Exam Vital Signs: Vital Signs: Last Vital Signs Temp 97.3 F 01/16/22 07:49 Pulse 86 01/16/22 07:49 Resp 18 01/16/22 07:49 BP 104/58 L 01/16/22 07:49 Pulse Ox 90 L 01/16/22 07:49 BMI result Body Mass Index 15.3 Const: General: cooperative, comfortable, no acute distress, alert and awake Nutritional Appearance: thin and underweight Orientation/consciousness: patient oriented x3 HEENT: Head: Yes normocephalic and Yes atraumatic Eyes: General: appearance normal, both eyes and all related structures Sclerae: sclerae normal Chest: Chest palpation & inspection: normal inspection of the chest Resp: Effort & Inspection: normal respiratory effort, able to speak in complete sentences and no respiratory distress Auscultation: clear to auscultation bilaterally Cardio: Rate: regular rate Rhythm: regular rhythm GI: Inspection: No distended Palpation (GI): Soft to palpation and nontender Auscultation: normal bowel sounds Neuro: General: patient oriented x3 Cranial nerves: Yes CN's II-XII intact bilaterally and Yes Bilaterally intact EOM present Extrem: General: Yes normal to inspection and Yes no pedal edema Objective Data Active Medications Acetaminophen (Acetaminophen 325 Mg Tablet) 650 mg PO Q6H PRN PRN Reason: Pain, Moderate (Pain Scale 4-6 Last Admin: 01/14/22 21:56 Dose: 650 mg Documented by: GIA Albuterol Sulfate (Albuterol Sulfate 90 Mcg 8 Gm Inhaler) 2 puff INHALE RQ4H PRN PRN Reason: Wheezing Last Admin: 01/15/22 21:27 Dose: 2 puff Documented by: MAGDA Docusate Sodium (Docusate Sodium 100 Mg Capsule) 100 mg PO BEDTIME ADAMA Last Admin: 01/15/22 21:01 Dose: 100 mg Documented by: CASTLANDEN Guaifenesin (Guaifenesin 100 Mg/5 Ml Liquid) 5 ml PO Q6H PRN PRN Reason: Cough Last Admin: 01/15/22 18:23 Dose: 5 ml Documented by: MEGHAN Labs CBC & Chem 7: 12/22/21 05:48 12/22/21 05:48 Assessment and Plan (1) Dementia: Status: Acute Plan 81 yo M with a reported history of alcohol use/dependence who was brought in by ambulance after his friends had not seen him for a few days and found to have covid but assymptomatic and now with placement issues--essentially no change in care overnight No new issues, awaiting guardianship, [place] management? essentially unchanged #.Dementia-- stable #.Mild malnutrition ...chronic and stable, I think this is stature # smoker cough /emphysema , assymptomatic # Had covid and reocvered fully ? Got covid vaccine 11/27/21 Needs placement as does not have capacity to make sounds medical decisions No active issues, CM working on placement Quality Stroke Does the patient have a stroke diagnosis?: No VTE Prior VTE?: No VTE Risk Level:: Medical - moderate - high VTE Device Contraindication: Treatment Not Indicated VTE Drug Contraindication: N/A - Med Ordered
[2022-01-16] MEDS: guaiFENesin 100 MG/5 ML LIQUID PO (12:06)
[2022-01-16] MEDS: Albuterol Sulfate 90 MCG 8 GM INHALER 2 PUFF INHALE (12:07)
[2022-01-16 15:34] VITALS: BP 145/70; PULSE 100; RESP 17; TEMP 36.9; O2SAT 90
[2022-01-16 23:26] VITALS: BP 150/95; PULSE 106; RESP 16; TEMP 36.4; O2SAT 94
[2022-01-17 07:21] VITALS: BP 179/89; PULSE 114; RESP 22; TEMP 36.6; O2SAT 74
[2022-01-17] MEDS: Albuterol Sulfate 90 MCG 8 GM INHALER 2 PUFF INHALE ×3 (07:27→22:59)
[2022-01-17] MEDS: guaiFENesin 100 MG/5 ML LIQUID PO ×2 (07:27→19:39)
--- NOTE | 2022-01-17 08:33 | HO.PM.IMPN ---
Subjective Subjective Date of Service: 01/17/22 Interval History: No acute events overnight Physical Exam Vital Signs: Vital Signs: Last Vital Signs Temp 97.8 F 01/17/22 07:21 Pulse 114 H 01/17/22 07:21 Resp 22 H 01/17/22 07:21 BP 179/89 H 01/17/22 07:21 Pulse Ox 74 L 01/17/22 07:21 BMI result Body Mass Index 15.3 Const: General: cooperative, comfortable, no acute distress, alert and awake Nutritional Appearance: thin and underweight Orientation/consciousness: patient oriented x3 HEENT: Head: Yes normocephalic and Yes atraumatic Eyes: General: appearance normal, both eyes and all related structures Sclerae: sclerae normal Chest: Chest palpation & inspection: normal inspection of the chest Resp: Effort & Inspection: normal respiratory effort, able to speak in complete sentences and no respiratory distress Auscultation: clear to auscultation bilaterally Cardio: Rate: regular rate Rhythm: regular rhythm GI: Inspection: No distended Palpation (GI): Soft to palpation and nontender Auscultation: normal bowel sounds Neuro: General: patient oriented x3 Cranial nerves: Yes CN's II-XII intact bilaterally and Yes Bilaterally intact EOM present Extrem: General: Yes normal to inspection and Yes no pedal edema Objective Data Active Medications Acetaminophen (Acetaminophen 325 Mg Tablet) 650 mg PO Q6H PRN PRN Reason: Pain, Moderate (Pain Scale 4-6 Last Admin: 01/14/22 21:56 Dose: 650 mg Documented by: GIA Albuterol Sulfate (Albuterol Sulfate 90 Mcg 8 Gm Inhaler) 2 puff INHALE RQ4H PRN PRN Reason: Wheezing Last Admin: 01/17/22 07:27 Dose: 2 puff Documented by: SURESH Docusate Sodium (Docusate Sodium 100 Mg Capsule) 100 mg PO BEDTIME ADAMA Last Admin: 01/16/22 20:52 Dose: Not Given Documented by: SURAJ Non-Admin Reason: Patient Refused Guaifenesin (Guaifenesin 100 Mg/5 Ml Liquid) 5 ml PO Q6H PRN PRN Reason: Cough Last Admin: 01/17/22 07:27 Dose: 5 ml Documented by: SURESH Labs CBC & Chem 7: 12/22/21 05:48 12/22/21 05:48 Assessment and Plan (1) Dementia: Status: Acute Plan 81 yo M with a reported history of alcohol use/dependence who was brought in by ambulance after his friends had not seen him for a few days and found to have covid but assymptomatic and now with placement issues--essentially no change in care overnight No new issues, awaiting guardianship, [place] management? essentially unchanged #.Dementia-- stable #.Mild malnutrition ...chronic and stable, I think this is stature # smoker cough /emphysema , assymptomatic # Had covid and reocvered fully ? Got covid vaccine 11/27/21 Needs placement as does not have capacity to make sounds medical decisions No active issues, CM working on placement Quality Stroke Does the patient have a stroke diagnosis?: No VTE Prior VTE?: No VTE Risk Level:: Medical - moderate - high VTE Device Contraindication: Treatment Not Indicated VTE Drug Contraindication: N/A - Med Ordered
[2022-01-17 09:01] VITALS: O2SAT 98
[2022-01-17 16:00] VITALS: BP 120/61; PULSE 109; RESP 18; TEMP 36.6; O2SAT 86
[2022-01-17] MEDS: Docusate Sodium 100 MG CAPSULE PO (20:51)
[2022-01-17 23:59] VITALS: BP 103/57; PULSE 92; RESP 20; TEMP 36.8; O2SAT 99
[2022-01-18 08:00] VITALS: BP 120/69; PULSE 84; RESP 18; TEMP 36.5; O2SAT 100
--- NOTE | 2022-01-18 09:46 | MHC.CM.PN ---
CM SENT MESSAGE TO [facility] AT 0850 VIA [employer], CM RECEIVED MESSAGE BACK AND LIAISON REPORTS NO BEDS HOWEVER TEAM IS NOW WORKING ON BED MANAGEMENT AND WILL LET CM KNOW.
--- NOTE | 2022-01-18 13:07 | HO.PM.IMPN ---
Subjective Subjective Date of Service: 01/18/22 Interval History: No acute events overnight Physical Exam Vital Signs: Vital Signs: Last Vital Signs Temp 97.7 F 01/18/22 08:00 Pulse 84 01/18/22 08:00 Resp 18 01/18/22 08:00 BP 120/69 01/18/22 08:00 Pulse Ox 100 01/18/22 08:00 BMI result Body Mass Index 15.3 Const: General: cooperative, comfortable, no acute distress, alert and awake Nutritional Appearance: thin and underweight Orientation/consciousness: patient oriented x3 HEENT: Head: Yes normocephalic and Yes atraumatic Eyes: General: appearance normal, both eyes and all related structures Sclerae: sclerae normal Chest: Chest palpation & inspection: normal inspection of the chest Resp: Effort & Inspection: normal respiratory effort, able to speak in complete sentences and no respiratory distress Auscultation: clear to auscultation bilaterally Cardio: Rate: regular rate Rhythm: regular rhythm GI: Inspection: No distended Palpation (GI): Soft to palpation and nontender Auscultation: normal bowel sounds Neuro: General: patient oriented x3 Cranial nerves: Yes CN's II-XII intact bilaterally and Yes Bilaterally intact EOM present Extrem: General: Yes normal to inspection and Yes no pedal edema Objective Data Active Medications Acetaminophen (Acetaminophen 325 Mg Tablet) 650 mg PO Q6H PRN PRN Reason: Pain, Moderate (Pain Scale 4-6 Last Admin: 01/14/22 21:56 Dose: 650 mg Documented by: GIA Albuterol Sulfate (Albuterol Sulfate 90 Mcg 8 Gm Inhaler) 2 puff INHALE RQ4H PRN PRN Reason: Wheezing Last Admin: 01/17/22 22:59 Dose: 2 puff Documented by: STACEY Docusate Sodium (Docusate Sodium 100 Mg Capsule) 100 mg PO BEDTIME ADAMA Last Admin: 01/17/22 20:51 Dose: 100 mg Documented by: STACEY Guaifenesin (Guaifenesin 100 Mg/5 Ml Liquid) 5 ml PO Q6H PRN PRN Reason: Cough Last Admin: 01/17/22 19:39 Dose: 5 ml Documented by: STACEY Labs CBC & Chem 7: 12/22/21 05:48 12/22/21 05:48 Assessment and Plan (1) Dementia: Status: Acute Plan 81 yo M with a reported history of alcohol use/dependence who was brought in by ambulance after his friends had not seen him for a few days and found to have covid but assymptomatic and now with placement issues--essentially no change in care overnight No new issues, awaiting guardianship, [place] management? essentially unchanged #.Dementia-- stable #.Mild malnutrition ...chronic and stable, I think this is stature # smoker cough /emphysema , assymptomatic # Had covid and reocvered fully ? Got covid vaccine 11/27/21 Needs placement as does not have capacity to make sounds medical decisions No active issues, CM working on placement Quality Stroke Does the patient have a stroke diagnosis?: No VTE Prior VTE?: No VTE Risk Level:: Medical - moderate - high VTE Device Contraindication: Treatment Not Indicated VTE Drug Contraindication: N/A - Med Ordered
[2022-01-18] MEDS: Albuterol Sulfate 90 MCG 8 GM INHALER 2 PUFF INHALE (14:06)
[2022-01-18 16:00] VITALS: BP 109/56; PULSE 85; RESP 15; TEMP 36.6; O2SAT 100
[2022-01-18] MEDS: guaiFENesin 100 MG/5 ML LIQUID PO (16:40)
[2022-01-18] MEDS: Docusate Sodium 100 MG CAPSULE PO (20:18)
[2022-01-18 23:26] VITALS: BP 129/68; PULSE 78; RESP 14; TEMP 36.9; O2SAT 94
[2022-01-19 08:00] VITALS: BP 124/60; PULSE 94; RESP 18; TEMP 36.9; O2SAT 99
[2022-01-19] MEDS: predniSONE 20 MG TABLET 40 MG PO (10:51)
[2022-01-19] MEDS: guaiFENesin 100 MG/5 ML LIQUID PO (10:57)
--- NOTE | 2022-01-19 11:42 | MHC.CM.PN ---
CM RECEIVED CALL FROM LIAISON AT [facility] REQUESTING DOCUMENTS INCLUDING MDS/PASSR BE SUBMITTED, MDS UPLOADED TO [employer] AND THIS CM WILL COMPLETE PASSR AND SEND VIA [employer], BEFORE COMPLETEION OF THIS NOTE CM RECEIVED ANOTHER CALL FROM LIAISON WHO INITIALLY REPORTED THEY HAD TO OKAY ADMISSION W/BILLING HOWEVER JULIO C NOW REPORTING SHE SPOKE W/DON AND THEY CAN OFFER PT A BED AND ANTIC PT WILL BE ABLE TO TXFR IN APPROX 2 DAYS ONCE PASSR IS REVIEWED BY [facility].
[2022-01-19 12:02] LABS: Influenza A PCR NEGATIVE (Negative); Influenza B PCR NEGATIVE (Negative); Resp Syncy Virus RNA Qual PCR NEGATIVE (Negative); SARS COV2 PCR INHOUSE NEGATIVE (Negative)
--- NOTE | 2022-01-19 12:14 | P.PNIM_ITS ---
Subjective Subjective Date of Service: 01/19/22 Interval History: C/o wheezing + dyspnea No cough No fever On 2L O2 via NC Review of Systems Review of Systems: Yes all other systems are reviewed and are negative Physical Exam Vital Signs: Vital Signs: Last Vital Signs Temp 98.5 F 01/19/22 08:00 Pulse 94 01/19/22 08:00 Resp 18 01/19/22 08:00 BP 124/60 01/19/22 08:00 Pulse Ox 99 01/19/22 08:00 BMI result Body Mass Index 15.3 Gen: in no acute distress HEENT: sclera anicteric, moist mucus membranes Neck: supple Lungs: bilateral expiratory wheezing Heart: regular rate and rhythm, no murmurs Abd: soft, non-tender, non-distended Ext: no edema Skin: warm/well-perfused Neuro: alert and oriented x3, no focal findings Psych: appropriate affect Objective Data Active Medications Acetaminophen (Acetaminophen 325 Mg Tablet) 650 mg PO Q6H PRN PRN Reason: Pain, Moderate (Pain Scale 4-6 Last Admin: 01/14/22 21:56 Dose: 650 mg Documented by: GIA Albuterol Sulfate (Albuterol Sulfate 90 Mcg 8 Gm Inhaler) 2 puff INHALE RQ4H PRN PRN Reason: Wheezing Last Admin: 01/18/22 14:06 Dose: 2 puff Documented by: CARIDAD Albuterol/Ipratropium (Albuterol/Iprat 2.5/0.5mg 3 Ml Ampul.Neb) 3 ml INHALE RQ6H WHILE AWAKE [facility] Docusate Sodium (Docusate Sodium 100 Mg Capsule) 100 mg PO BEDTIME [facility] Last Admin: 01/18/22 20:18 Dose: 100 mg Documented by: STACEY Guaifenesin (Guaifenesin 100 Mg/5 Ml Liquid) 5 ml PO Q6H PRN PRN Reason: Cough Last Admin: 01/19/22 10:57 Dose: 5 ml Documented by: CARIDAD Prednisone (Prednisone 20 Mg Tablet) 40 mg PO DAILY ADAMA Stop: 01/23/22 09:01 Last Admin: 01/19/22 10:51 Dose: 40 mg Documented by: CARIDAD Labs CBC & Chem 7: 12/22/21 05:48 12/22/21 05:48 Labs: Laboratory Results - last 24 hr 01/19/22 11:03 Influenza Type A (PCR) NEGATIVE Influenza Type B (PCR) NEGATIVE RSV RNA Qual (PCR) NEGATIVE SARS-CoV-2 RNA (RT-PCR) NEGATIVE Assessment and Plan (1) Dementia: Status: [facility] hospital d[id number] 81yo M with hx EtOH abuse, brought in for inadequate self-care, admitted with asymptomatic Covid-19 infection, now awaiting placement # COPD exacerbation with acute hypoxic respiratory failure - prednisone 40 mg/d x5d, nebs, CXR # dementia - ?alcoholic.? no behavioral disturbance # moderate protein/calorie malnutrition - supplements # Covid-19 infection - recovered, then vaccinated 11/27/21 # VTE ppx - SCDs # dispo - CM working on payment/LTC placement issues Quality Stroke Does the patient have a stroke diagnosis?: No VTE Prior VTE?: No VTE Risk Level:: Medical - moderate - high VTE Device Contraindication: Treatment Not Indicated VTE Drug Contraindication: N/A - Med Ordered
--- NOTE | 2022-01-19 12:28 | MHC.CM.PN ---
Addendum entered by Mendy Sweeney RN 01/19/22 12:32: CM DID CONTACT JULIO C AT [facility] TO LET HER KNOW HCP/POA GERTRUDE REYES WILL BE TAKING OVER PER GUARDIAN/CONSERVATOR AND THEY CAN CONTACT HIM FOR CONSENT TO ADMIT. Original Note: THIS CM CONTACTED PT'S GUARDIAN/CONSERVATOR FRANCOIS VO AT 11:52AM [phone], FRANCOIS IS AGREEABLE TO [facility] AND AWARE OF ANTIC D/C DATE OF THIS Tuesday01/21/22. PER FRANCOIS PT'S HCP/POA GERTRUDE REYES WILL BE TAKING OVER. THIS CM ALSO CONTACTED PT'S HCP/POA GERTRUDE REYES TO DISCUSS PLAN AND GERTRUDE IS AGREEABLE AND GAVE VERBAL CONSENT TO TRANSFER PT TO [facility], GERTRUDE AWARE WE ANTIC PT WILL BE ABLE TO TXFR EARLY SUNDAY 01/21, WAS PROVIDED W/[facility] CONTACT NUMBER AND ADDRESS.
--- NOTE | 2022-01-19 13:15 | MHC.CM.PN ---
MDS AND MH FORM SENT TO [facility] VIA [employer], PASSR LEVEL 1 AND ADDITIONAL DOCUMENTS FAXED TO [facility] UNIT [phone] W/ TRANSACTION REPORT.
--- NOTE | 2022-01-19 14:39 | MHC.CM.PN ---
Addendum entered by Mendy Sweeney RN 01/19/22 15:49: [facility] made aware pt will not qualiy for Level 2 PASSR via [employer] Original Note: Cm received message to call back Renee Mauricio [phone], cm called Renee back and she requested this cm fill out updated PASSR level one and clarified questions 6/7, due to dementia and pt residing at [facility] does not qualifying for positive SMI therefore pt will not need a PASSR level 2. Updated form downloaded from [employer], completed and uploaded to chart.
[2022-01-19 15:26] VITALS: BP 114/58; PULSE 83; RESP 17; TEMP 36.3; O2SAT 98
--- NOTE | 2022-01-19 15:50 | MHC.CM.PN ---
Addendum entered by Mendy Sweeney RN 01/19/22 15:54: THIS CM SPOKE TO PT ABOUT D/C TOMORROW AND PT REPORTED TO THIS CM THAT HE KNOWS WHO SET THIS UP ([facility]) AND THAT HER SON HAS BEEN LIVING IN HIS APT SINCE HE CAME TO THE HOSPITAL. PT IS NOT THRILLED HOWEVER NOT REFUSING TO GO. Original Note: ANTIC D/C TO [facility] TOMORROW 01/20 AT 1PM VIA [facility] FOR BLS TRANSPORT. [facility] ON FRONT OF CHART HCP/PORadha REYES CONTACTED AT TIME OF THIS NOTE AND AGREEABLE TO D/C TOMORROW INSTEAD OF TUESDAY.
[2022-01-19 16:08] LABS: Hematocrit 40.5 % (42.0-52.0); Hemoglobin 12.1 g/dl (14.0-18.0); Mean Corpuscular HGB Conc 29.9 g/dl (31.0-36.0); Mean Corpuscular Hemoglobin 28.5 pg (27.0-33.0); Mean Corpuscular Volume 95.5 fL (80.0-98.0); Mean Platelet Volume 9.3 fL (9.4-12.4); Platelet Count 232 X10*3/uL (160-400); Red Blood Count 4.24 X10*6/uL (4.60-5.80); Red Cell Distribution Width 13.1 % (11.0-16.0); White Blood Count 8.3 X10*3/uL (4.8-10.8)
[2022-01-19 16:16] LABS: Anion Gap 11 (12-20); Blood Urea Nitrogen 19 mg/dL (9-16); Calcium 9.4 mg/dL (8.4-10.2); Carbon Dioxide 32 mmol/L (22-29); Chloride 103 mmol/L (96-108); Creatinine Clr Calc Pharmacy 32.8; Estimated Glomerular Filt Rate > 60; Glucose Random 119 mg/dL (60-115); Potassium 5.8 mmol/L (3.3-5.1); Sodium 140 mmol/L (135-145)
[2022-01-19 16:38] LABS: Procalcitonin 0.03 ng/mL
[2022-01-19] MEDS: Albuterol/Iprat 2.5/0.5MG 3 ML AMPUL.NEB INHALE (20:01)
[2022-01-19 20:05] VITALS: PULSE 87; RESP 20; O2SAT 100
[2022-01-19] MEDS: Docusate Sodium 100 MG CAPSULE PO (21:23)
[2022-01-19 23:29] VITALS: BP 125/56; PULSE 91; RESP 14; TEMP 36.8; O2SAT 91
[2022-01-20] MEDS: Albuterol Sulfate 90 MCG 8 GM INHALER 2 PUFF INHALE (04:43)
[2022-01-20] MEDS: guaiFENesin 100 MG/5 ML LIQUID PO (04:43)
[2022-01-20 08:00] VITALS: BP 113/57; PULSE 92; RESP 18; TEMP 36.6; O2SAT 94
[2022-01-20] MEDS: Albuterol/Iprat 2.5/0.5MG 3 ML AMPUL.NEB INHALE (08:14)
[2022-01-20 08:16] VITALS: PULSE 100; RESP 18; O2SAT 90
[2022-01-20 09:31] LABS: Anion Gap 12 (12-20); Blood Urea Nitrogen 21 mg/dL (9-16); Calcium 9.6 mg/dL (8.4-10.2); Carbon Dioxide 33 mmol/L (22-29); Chloride 100 mmol/L (96-108); Creatinine Clr Calc Pharmacy 28.9; Estimated Glomerular Filt Rate 55; Glucose Random 119 mg/dL (60-115); Sodium 140 mmol/L (135-145)
[2022-01-20 09:58] LABS: Potassium 4.4 mmol/L (3.3-5.1)
[2022-01-20 10:04] LABS: Procalcitonin 0.04 ng/mL
[2022-01-20] MEDS: predniSONE 20 MG TABLET 40 MG PO (10:35)
--- NOTE | 2022-01-20 11:59 | P.DS_ITS ---
DS: Providers Provider Date of Service: 01/20/22 Date of admission: 10/03/21 16:59 Primary care physician: Unknown Physician Consults: 10/03/21 17:15 Consult to Cardiology Routine Consulting Provider: Shane Argueta Reason for consultation: elevated troponin Has provider been notified: No 10/04/21 17:31 Consult to Neurology Routine Consulting Provider: [facility] Reason for consultation: encephalopathy, previous alcohol abuse Has provider been notified: No 10/08/21 11:03 Consult to Psychiatry Routine Consulting Provider: Psych Covering Reason for consultation: competency eval ?need for guardianship 10/15/21 11:38 Consult to Infectious Diseases Routine Consulting Provider: Roya Matute Reason for consultation: can pt be removed from isolation Has provider been notified: No DS: Diagnosis Discharge Diagnosis (1) Dementia: Status: Acute (2) SARS-CoV-2 positive: Status: Acute (3) Alcohol use disorder, severe, dependence: Status: Acute (4) COPD exacerbation: Status: Acute (5) Acute respiratory failure with hypoxia: Status: Acute (6) Acute kidney failure: Status: Acute DS: Summary Hospital Course Hospital Course: from admission H+P by COMMUNITY ENGAGEMENT COORDINATOR Yaritza Hancock, 10/05/21: 81 year old man presenting with confusion. 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 He does have a history of alcohol abuse apparently drinking 12 beers a day however he reports he has been home and was not even sure how he got to the hospital.? He has no signs of trauma but seems quite confused.? He was noted to have his blood pressure low at 91/48.? He was not noted to be hypoxic.? His COVID test was positive.? Sodium was noted to be 131, creatinine 1.57, troponin 116.8.? U tox negative, urinalysis negative he, chest x-ray and head CT negative for any acute abnormality.? In the ER he was given thiamine, folic acid, IV fluids, Rocephin.? Her be admitted for further management treatment of acute encephalopathy and COVID-19 without hypoxia. This 81yo M with hx EtOH abuse was brought in for inadequate self-care and admitted with asymptomatic Covid-19 infection. Creatitine normalized with IV fluid hydration. He did require O2 or steroids for COVID infection. He was given the 1st dose of the Covid-19 mRNA vaccine on 11/27/21. 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 Troponin was flat and was likely due to renal injury, which resolved. He did develop COPD exacerbation on 01/19/22 with mild hypoxia and was treated with prednisone and nebulized bronchodilators; no antibiotics were needed. He was discharged to a SNF for long-term care. Time Spent with Patient Time attestation: Total time spent providing and/or coordinating discharge services: Discharge coordination time: Greater than 30 minutes Quality: Stroke Does the patient have a stroke diagnosis?: No Physical Exam Vital Signs: Vital Signs: Last Vital Signs Temp 98 F 01/20/22 08:00 Pulse 100 01/20/22 08:16 Resp 18 01/20/22 08:16 BP 113/57 L 01/20/22 08:00 Pulse Ox 94 01/20/22 08:00 BMI result Body Mass Index 15.3 Gen: in no acute distress HEENT: sclera anicteric, moist mucus membranes Neck: supple Lungs: CTAB Heart: regular rate and rhythm, no murmurs Abd: soft, non-tender, non-distended Ext: no edema Skin: warm/well-perfused Neuro: alert and oriented x3, no focal findings Psych: appropriate affect DS: Data Data Completed and Pending Completed studies during hospitalization [Text1]: Laboratory Results WBC 8.3 X10*3/uL (4.8-10.8) 01/19/22 15:21 RBC 4.24 X10*6/uL (4.60-5.80) L 01/19/22 15:21 Hgb 12.1 g/dl (14.0-18.0) L 01/19/22 15:21 Hct 40.5 % (42.0-52.0) L 01/19/22 15:21 MCV 95.5 fL (80.0-98.0) 01/19/22 15:21 MCH 28.5 pg (27.0-33.0) 01/19/22 15:21 MCHC 29.9 g/dl (31.0-36.0) L 01/19/22 15:21 RDW 13.1 % (11.0-16.0) 01/19/22 15:21 Plt Count 232 X10*3/uL (160-400) D 01/19/22 15:21 MPV 9.3 fL (9.4-12.4) L 01/19/22 15:21 Immature Gran % (Auto) 0.3 % (0.0-0.4) 10/11/21 06:26 Neut % (Auto) 67.9 % (45-73) 10/11/21 06:26 Lymph % (Auto) 20.7 % (20-40) 10/11/21 06:26 [place] % (Auto) 8.5 % (2-11) 10/11/21 06:26 Eos % (Auto) 2.1 % (0-4) 10/11/21 06:26 Baso % (Auto) 0.5 % (0-2) 10/11/21 06:26 Lymph # (Auto) 1.4 X10*3/uL (1.2-4.9) 10/11/21 06:26 [place] # (Auto) 0.6 X10*3/uL (0.1-1.2) 10/11/21 06:26 Eos # (Auto) 0.1 X10*3/uL (0.0-0.4) 10/11/21 06:26 Baso # (Auto) 0.0 X10*3/uL (0.0-0.2) 10/11/21 06:26 Abs Immat Gran (auto) 0.02 X10*3/uL (0.00-0.03) 10/11/21 06:26 Absolute Neuts (auto) 4.5 x10*3/uL (2.0-8.3) 10/11/21 06:26 Absolute Nucleated RBC 0.000 X10*3/uL (0.0-0.012) 01/19/22 15:21 Nucleated RBC % (auto) 0.0 /100WBC (0.0-0.2) 01/19/22 15:21 Smear Tech's Comments VERIFIED 10/03/21 14:01 PT 12.8 SEC (9.9-13.0) 10/08/21 07:00 INR 1.1 (0.9-1.1) 10/08/21 07:00 APTT 28.7 SEC (24.1-38.0) 10/03/21 16:21 D-Dimer High Sensitivty 438 NG/ML 10/03/21 16:21 VBG pH 7.40 (7.32-7.43) 10/03/21 14:06 VBG pCO2 37 mmHg 10/03/21 14:06 VBG pO2 30 mmHg 10/03/21 14:06 VBG HCO3 23 mmol/L (22-26) 10/03/21 14:06 VBG O2 Saturation 34.0 % 10/03/21 14:06 VBG Base Excess -0.5 mmol/L 10/03/21 14:06 Sodium 140 mmol/L (135-145) 01/20/22 08:53 Potassium 4.4 mmol/L (3.3-5.1) D 01/20/22 08:53 Chloride 100 mmol/L (96-108) 01/20/22 08:53 Carbon Dioxide 33 mmol/L (22-29) H 01/20/22 08:53 Anion Gap 12 (12-20) 01/20/22 08:53 BUN 21 mg/dL (9-16) H 01/20/22 08:53 Creatinine 1.26 mg/dL (0.5-1.4) 01/20/22 08:53 Estim Creat Clear Calc 28.9 01/20/22 08:53 Estimated GFR 55 01/20/22 08:53 Random Glucose 119 mg/dL (60-115) H 01/20/22 08:53 Lactic Acid 1.4 mmol/L (0.5-2.0) 10/03/21 14:05 Calcium 9.6 mg/dL (8.4-10.2) 01/20/22 08:53 Magnesium 2.4 mg/dL (1.6-2.6) 10/03/21 14:01 Iron 56 mcg/dL (45-160) 10/11/21 06:26 TIBC 163 mcg/dL (228-428) L 10/11/21 06:26 % Saturation 34 % (15-50) 10/11/21 06:26 Unsat Iron Binding 107 ug/dL 10/11/21 06:26 Total Bilirubin 0.7 mg/dL (0.0-1.0) 10/04/21 06:20 Ferritin 307 ng/mL (20-250) H 10/11/21 06:26 Direct Bilirubin 0.4 mg/dL (0.0-0.5) 10/04/21 06:20 AST 27 U/L (5-37) 10/04/21 06:20 ALT 16 U/L (0-40) 10/04/21 06:20 Alkaline Phosphatase 72 U/L (39-117) 10/04/21 06:20 Ammonia 28 umol/L (13-55) 10/03/21 14:05 Lactate Dehydrogenase 207 U/L (118-273) 10/03/21 14:01 Total Creatine Kinase 96 U/L (38-174) 10/03/21 14:01 Troponin I High Sens 122.6 ng/L (<3.5-35.0) H* 10/03/21 17:13 Total Protein 6.1 g/dL (6.5-8.0) L 10/04/21 06:20 Albumin 2.7 g/dL (3.5-5.0) L 10/04/21 06:20 Lipase 31 U/L (8-78) 10/03/21 14:01 Vitamin B12 502 pg/mL (200-900) 10/11/21 06:26 Folate 13.7 ng/mL (> or = 4.0) 10/11/21 06:26 Procalcitonin 0.04 ng/mL 01/20/22 08:53 TSH 0.86 uIU/mL (0.32-4.0) 10/03/21 14:01 Urine Color YELLOW 10/03/21 15:46 Urine Appearance CLEAR 10/03/21 15:46 Urine pH 5.5 (5.0-8.0) 10/03/21 15:46 Ur Specific [place] 1.020 (1.005-1.025) 10/03/21 15:46 Urine Protein NEG MG/DL (NEG-TRACE) 10/03/21 15:46 Urine Glucose (UA) NEG MG/DL (NEG) 10/03/21 15:46 Urine Ketones 15 MG/DL (NEG) 10/03/21 15:46 Urine Blood TRACE (NEG) 10/03/21 15:46 Urine Nitrite NEG (NEG) 10/03/21 15:46 Ur Leukocyte Esterase NEG (NEG) 10/03/21 15:46 Urine RBC 0-2 /HPF (0) 10/03/21 15:46 Urine WBC 0 /HPF (0-4) 10/03/21 15:46 Ur Squamous Epith Cells TRACE /LPF 10/03/21 15:46 Urine Bacteria NONE /LPF 10/03/21 15:46 Hyaline Casts 0-2 /LPF 10/03/21 15:46 Urine Mucus TRACE /LPF 10/03/21 15:46 Stool Occult Blood NEGATIVE (NEGATIVE) 10/11/21 12:10 Salicylates < 5.0 mg/dL (15-30) L 10/03/21 14:01 Urine Opiates Screen Not Detected (Not Detect) 10/03/21 15:46 Urine Fentanyl Screen Not Detected (Not Detect) 10/03/21 15:46 Acetaminophen < 1 mcg/mL (<30) 10/03/21 14:01 Ur Barbiturates Screen Not Detected (Not Detect) 10/03/21 15:46 Ur Phencyclidine Scrn Not Detected (Not Detect) 10/03/21 15:46 Ur Amphetamines Screen Not Detected (Not Detect) 10/03/21 15:46 U Benzodiazepines Scrn Not Detected (Not Detect) 10/03/21 15:46 Urine Cocaine Screen Not Detected (Not Detect) 10/03/21 15:46 U Marijuana (THC) Screen Not Detected (Not Detect) 10/03/21 15:46 Ethyl Alcohol < 10 mg/dL 10/03/21 14:34 C. difficile Tox B Gene NEGATIVE (Negative) 10/30/21 14:02 COVID-19 (IGNACIO) Negative (Negative) 01/11/22 07:38 COVID-19 Clin Com See Note 01/11/22 07:38 Influenza Type A (PCR) NEGATIVE (Negative) 01/19/22 11:03 Influenza Type B (PCR) NEGATIVE (Negative) 01/19/22 11:03 RSV RNA Qual (PCR) NEGATIVE (Negative) 01/19/22 11:03 SARS-CoV-2 RNA (RT-PCR) NEGATIVE (Negative) 01/19/22 11:[address] 10/03/21 15:00 IMPRESSION: No acute findings. Mild generalized atrophy and nonspecific periventricular white matter disease. Laboratory changes in the sinuses. Chest CTA 10/04/21 11:34 IMPRESSION: No evidence of pulmonary embolism. Airways disease and bronchopneumonia, greatest in the lower lobes. Emphysema. Chest CT follow-up following treatment in several months recommended. VTE: negative Chest X-Ray 01/19/22 11:06 IMPRESSION: Well-inflated lungs. Question atelectasis or small infiltrate at the right lung base. Discharge Plan Discharge Patient Disposition: Xfer SNF Discharge Diagnosis: dementia likely alcoholic, malnutrition, COPD exacerbation, hypoxia Referrals: Physician,Unknown J [Primary Care Provider] - 1 Week Discharge Medications: New acetaminophen 325 mg Tablet 650 mg PO Q6H PRN (Reason: Pain, Moderate (Pain Scale 4-6) Qty: 30 0RF ipratropium-albuterol 0.5 mg-3 mg(2.5 mg base)/3 mL Solution For Nebulization 3 ml inhalation RQ6H WHILE AWAKE Qty: 100 0RF prednisone 20 mg Tablet 40 mg PO DAILY Qty: 6 0RF guaifenesin 100 mg/5 mL Liquid 5 ml PO Q6H PRN (Reason: Cough) Qty: 100 0RF docusate sodium 100 mg Capsule 100 mg PO BEDTIME Qty: 30 0RF albuterol sulfate [Ventolin HFA] 90 mcg/actuation Hfa Aerosol Inhaler 2 puff inhalation RQ4H PRN (Reason: Wheezing) Qty: 8.5 0RF Discharge Orders: Discharge Order (Routine); Ordered 01/20/22 Ordered By: Magalis Madden Diet: advance to usual diet Activity on Discharge: As tolerated Stand Alone Forms: Patient Portal Discharge page Care Plan Goals: safe living, sobriety Health Concerns: dementia likely alcoholic, malnutrition, COPD exacerbation, hypoxia Plan of Treatment: avoid alcohol take prednisone 40 mg daily for 3 more days; nebs + albuterol inhaler as needed; oxygen 2L to wean off Assessment: see Discharge Summary Patient Instructions: COPD (Chronic Obstructive Pulmonary Disease) (DC)
--- NOTE | 2022-01-20 12:11 | MHC.CM.NN ---
DC Summary has been sent via [employer] to [facility].
[2022-01-20] MEDS: Acetaminophen 325 MG TABLET 650 MG PO (12:30)
== END 2022-01-20 13:14 | disposition skilled nursing facility (03) | DRG 177 ==
LOC: HO.ED 14:52 → HO.EDOVER 17:04 → HO.IMC 10-05 13:54 → HO.S3 10-30 12:01
PROVIDERS: Family Medicine; Internal Medicine; Physician Assistant Medical; Admitting Provider Nurse Practitioner Acute Care; Emergency Provider Emergency Medicine; Visit Provider Family Medicine
DX: U07.1 COVID-19 (principal); J12.82 Pneumonia due to coronavirus disease 2019; I21.A1 Myocardial infarction type 2; J15.9 Unspecified bacterial pneumonia; N17.9 Acute kidney failure, unspecified; E87.1 Hypo-osmolality and hyponatremia; D68.9 Coagulation defect, unspecified; E44.1 Mild protein-calorie malnutrition; Z68.1 Body mass index [BMI] 19.9 or less, adult; J43.9 Emphysema, unspecified; F03.90 Unspecified dementia, unspecified severity, without behavioral disturbance, psychotic disturbance, mood disturbance, and anxiety; Z23 Encounter for immunization; D64.9 Anemia, unspecified; F10.20 Alcohol dependence, uncomplicated; E86.0 Dehydration; D72.829 Elevated white blood cell count, unspecified; F17.210 Nicotine dependence, cigarettes, uncomplicated; Z71.6 Tobacco abuse counseling; Z79.899 Other long term (current) drug therapy
CPT/HCPCS: 0241U; 36415; 70450; 71045; 71046; 71275; 80048; 80076; 80143; 80179; 80307; 81001; 81003; 82077; 82140; 82272; 82550; 82607; 82728; 82746; 82803; 83540; 83605; 83615; 83690; 83735; 84145; 84443; 84484; 85025; 85027; 85379; 85610; 85730; 87040; 87205; 87493; 87635; 93005; 94640; 96361; 96365; 96375; 97162; 99285; J0456; J0696; J3411; Q9967

== ENCOUNTER 2024-08-23 21:07 | Outpatient (REF) | payer MEDICARE, SELFPAY | END 2024-08-23 21:08 | disposition home or self-care (01) | LOC: HO.WMHL 21:07 | PROVIDERS: Visit Provider Nurse Practitioner Acute Care | DX: Z13.89 Encounter for screening for other disorder (principal) | CPT/HCPCS: 87177; 87209 ==